=== PATIENT | female | born 1955 | race Caucasian/White ===

== ENCOUNTER → 2020-08-28 13:58 | Outpatient (CLI) | payer BC, SELFPAY ==
--- NOTE | 2020-08-28 14:05 | BD_ITS ---
STUDY: DUAL ENERGY X-RAY ABSORPTIOMETRY / DXA REASON FOR EXAM: Female, 65 years old. 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 COMPARISON: None. FINDINGS: Lumbar Spine (L1-L4): g/cm2 (0.994) / T-score (-1.7) / Z-score (-0.1) Findings are suggestive of osteopenia with a moderate fracture risk. Left Femur Total: g/cm2 (0.860) / T-score (-1.2) / Z-score (0.1) Left Femoral Neck: g/cm2 (0.811) / T-score (-1.6) / Z-score (-0.1) Right Femur Total: g/cm2 (0.849) / T-score (-1.3) / Z-score (0.0) Right Femoral Neck: g/cm2 (0.794) / T-score (-1.8) / Z-score (-0.2) BD/Dexa Bone Density Study IMPRESSION: The patient is considered osteopenic as outlined below according to World [employer] Organization (WHO) criteria with a moderate fracture risk. Reference Information: The T-score is the number of standard deviations above or below the standard which is normal for young adults at their peak bone mineral density. The World Health Organization (WHO) interprets the T-scores as follows: Above -1 Normal bone density Between -1 and -2.5 Osteopenia Equal to / or below -2.5 Osteoporosis As a practical clinical guideline, osteopenia may be graded as follows: Mild -1 through -1.5 Moderate -1.6 through -2.0 Severe -2.1 through -2.4 The Z-score is the number of standard deviations above or below age-matched controls. A Z-score of less than -1.5 would be considered abnormal. References: 1. NIH Osteoporosis and Related Bone Diseases www osteo.org 2. International Society for Clinical Densitometry www iscd.org 3. National Osteoporosis Foundation www nof.org Electronically Signed: Richard Morrell, at 9:26 EST , Service support ,
== END ==
PROVIDERS: PCP Internal Medicine; Referring Provider Obstetrics & Gynecology; Visit Provider Internal Medicine
DX: Z78.0 Asymptomatic menopausal state (principal)
CPT/HCPCS: 77080

== ENCOUNTER 2020-12-20 07:56 | Outpatient (RCR) | payer BC, SELFPAY | END 2020-12-20 23:59 | LOC: IMMUN 07:56 | PROVIDERS: PCP Internal Medicine; Visit Provider Family Medicine | DX: Z23 Encounter for immunization (principal) | CPT/HCPCS: 0011A; 0012A; 91301 ==

== ENCOUNTER → 2020-12-24 08:48 | Outpatient (CLI) | payer BC, SELFPAY ==
--- NOTE | 2020-12-24 10:46 | NEURO_ITS ---
NCS and/or EMG Patient Report Ordering Doctor: Venu Lu DATE OF SERVICE: 12/24/20 Indication: Intermittent bilateral hand/wrist/finger pain with activity. Some diminished power on account of pain. No clear sensory disturbance. No neck pain or radicular symptoms. Evaluate for peripheral nerve injury. Findings: Nerve conduction studies were performed in the right and left upper extremities. The right median motor study recording the abductor pollicis brevis showed a normal amplitude, normal distal latency and normal conduction velocity. The right ulnar motor study recording the abductor digiti minimi showed a normal amplitude, normal distal latency and normal conduction velocity. No conduction block or focal slowing was present across the elbow. Right median-ulnar lumbrical / interosseous motor latencies showed a normal median latency compared to the ulnar. The right median sensory response recording digit two showed a normal amplitude, latency and conduction velocity. The right ulnar sensory response recording digit five showed a normal amplitude, latency and conduction velocity. The right radial sensory response recording over the extensor snuff box showed a normal amplitude, latency and conduction velocity. The left median motor study recording the abductor pollicis brevis showed a norm al amplitude, normal distal latency and normal conduction velocity. The left ulnar motor study recording the abductor digiti minimi showed a normal amplitude, normal distal latency and normal conduction velocity. No conduction block or focal slowing was present across the elbow. Left median-ulnar lumbrical / interosseous motor latencies showed a normal median latency compared to the ulnar. The left median sensory response recording digit two showed a normal amplitude, latency and conduction velocity. The left ulnar sensory response recording digit five showed a normal amplitude, latency and conduction velocity. The left radial sensory response recording over the extensor snuff box showed a normal amplitude, latency and conduction velocity. Needle EMG of the right upper extremity and cervical paraspinal muscles was performed. No denervation was seen in any muscle. All motor unit morphology, activation and recruitment patterns were normal. Needle EMG of the left upper extremity was omitted given the low pre-test probability of abnormal findings (symptoms similar to the right upper extremity). Impression: This is a normal study. There is no electrophysiologic evidence of entrapment neuropathy in either upper extremity. In addition, there is no electrophysiologic evidence of cervical radiculopathy in the right upper extremity. Geovanni Queen D.O.
== END ==
PROVIDERS: PCP Internal Medicine; Referring Provider Orthopaedic Surgery; Visit Provider Orthopaedic Surgery
DX: R20.2 Paresthesia of skin (principal)
CPT/HCPCS: 95886; 95913

== ENCOUNTER 2021-05-24 09:00 | Outpatient (RCR) | payer MEDICARE, OTHER, SELFPAY ==
--- NOTE | 2021-04-19 07:46 | HP.OTEVAL ---
Patient's Visit Information LUCAS LINARES is a 65 year old F, referred to Occupational Therapy by Dr. Venu Lu DO, with a diagnosis of pain in R/L wrist. Date of Evaluation: 04/18/21 Occupational Therapist: Monica Bergman, OTR/L, CHT - Subjective This 65/F was seen for an OT evaluation today for R/L wrist pain. 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 Pt reported that her wrists began to flare up when she began working from home and needed to type on her computer for up to 3 hours a day. Pt has had a variety of different therapy session, doctor's visits, and has had a HEP program from a previous therapy team. Pt reports her pain has improved but she continues to have pain with grasp and with use of bilateral hands for ADLs and IADLS. - Pain R/L wrist 4 Pain Intensity Range: 4, 6 - Objective Pt tended to hyperextend her fingers when asked to extend them and stress her flexion when asked for a composite fist. Pt also was unable to touch her RF and LF with her thumb on her R hand due to pain/tension. - ROM Wrist: Right 60/70* left 50/60* ROM Comments: Pronation and supination for both R and L were WFL. Pt's flexion and extension were measured to the point of increased discomfort. - Strength Assistant Clinical Director: Right 30# left 40# Lateral Pinch: Right 12# left 12# Tripod Pinch: Right 8# left 10# Strength Comments: During the R tripod grasp, pt reported discomfort at her wrist. 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 with ALDs and IADLs by d/c Goal:: pt will demo full wrist ROM 70/70 with no report of pain by d.c to increase pts ind. with ADls and IADLS Goal:: Pt will self-report pain less than 2/10 during increased use by d/c. pt will self-report pain less than 2/10 during sleeping by d/c. Goal:: Pt will demonstrate understanding of joint protection and adaptive equipment to decrease joint stress while performing ADL tasks by d/c. Pt will demo understanding of sitting posture for work, driving etc. by d/c Goal:: pt will demo understanding on use of protective techniques, ad. eq., and ergonomic tools to decrease joint stress by d/c - Rehabilitation General Assessment: Pt referred to [facility] after multiple therapy and doctor's visits for R/L wrist pain. Pt is demo a decrease in functional strength and pain in bilateral hands with use. Pt would benefit from skilled OT services 1-2x week for 34 weeks to decrease pain to return to PLOF to perform ADLs, IADLs, and work tasks. Today therapist ed. pt on joint protection, decreasing exstream finger stress with her ROM exercises. Therapy will continue to ed. pt on ergonomics for work station, initiate a postural exercises and cont. with understanding pts use of bilateral hand that increase stress on hands/wrist- pt demo understanding and agree to POC. Rehabilitation Potential: Good - Anticipated Interventions A/AAROM/PROM, Triggerpoint Release, Joint Protection/Energy Conservation, Ergonomic Education, ADL Training - Visit Plan Frequency: 2-3x /Week Duration: 4 Weeks General Plan: Educating pt on joint protection, ADL training, and work place ergonomics to decrease pain. TEXT: Thank you for the opportunity to evaluate your patient. For Medicare and Medicare HMO plans, please review the plan of care and approve it. It will need to be FAXED BACK to us at [phone] for Medicare purposes. Please let me know if there are questions or concerns regarding this plan of care. Physician Signature: Date:
--- NOTE | 2021-11-05 10:11 | HP.OT.NRP ---
LUCAS LINAERS was seen in my office for initial evaluation on 04/18/21. The following Plan of Care was established for this patient: Initial Frequency: 2-3x /Week Initial Duration: 4 Weeks Plan: cont with US and ed. on ulnar nerve compression. posture exercise Anticipated Interventions: A/AAROM/PROM, Triggerpoint Release, Joint Protection/Energy Conservation, Ergonomic Education, ADL Training This patient was last seen in our office 05/24/21. Pertinent comments regarding their Occupational therapy will appear below: pt was seen for 8 OT visits- min. change in symptoms- rec'd return to drVeronica At this time due to grater than 30day lapse in services pt d/c At this point I will be discontinuing this patient from occupational therapy. I would be happy to see this patient again in the future if found appropriate by the physician. Thank you! Monica Bergman, OTR/L, CHT
== END 2021-05-24 19:00 | disposition home or self-care (01) ==
LOC: OT 09:00
PROVIDERS: PCP Internal Medicine; Referring Provider Orthopaedic Surgery; Visit Provider Orthopaedic Surgery
DX: M25.531 Pain in right wrist (principal); M25.532 Pain in left wrist
CPT/HCPCS: 97035; 97110; 97140; 97166

== ENCOUNTER 2021-07-29 09:00 | Outpatient (RCR) | payer MEDICARE, OTHER, SELFPAY ==
--- NOTE | 2021-07-19 12:01 | HP.PTEVAL_ITS ---
Patient's Visit Information LUCAS LINARES is a 66 year old F referred to Physical Therapy by Dr. Venu Lu DO with a diagnosis of R shoulder impingement. Date of Evaluation: 07/19/21 Physical Therapist: Gab Gomez, PT, ATC - Visit Plan Frequency: 2x /Week Duration: 1 Week Plan: Issue and instruct pt on HEP for rotator cuff strengthening and scap stab ex's. - Subjective Pt reports she has had R shoulder pain for over a year. Pt reports she was moving a book case that was loaded and she didn't remove the books. Pt notes she awoke the next morning with severe pain and has been painful since. Pt notes she has severe pain when she attempts to reach behind her, or out in front of her. Pt also notes she has pain with reaching over head and with getting dressed secondary to pain. Pt is R hand dominant. Pt reports occasional tingling and numbness in R UE around the elbow region, but not very often. Pt reports she had an x-ray of the R shoulder which revealed she has impingement in her shoulder. 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 Pt reports she has sleep difficulty at this time secondary to pain. 3/10 pain at rest, 9/10 pain at worst (when I reach for something) - Pain R shoulder Pain Intensity (Out of 10): 3 Pain Intensity Range: 9 - Objective Neuro: B UE sensation is WNL to light touch. B bicepital reflex= 2/3. Pa lpation: No point tenderness this date. No obvious deformity present. ROM: L shoulder flex= 160, abd= 160, ER= 65, IR WNL; R shoulder flex= 150, abd= 150, ER= 65, IR WNL. MMT: R shoulder ER 4/5, IR 4+/5. All other UE MMT 5/5 throughout. Special test: Pos HK - Balance/Special Test Scores Quick DASH Score: 40.9075 - Goals Goal 1:: I with HEP after 2-3 Goal Time Frame: 2-4 Weeks - Rehabilitation Potential Physical Therapy Diagnosis: Pt has R shoulder pain, weakness, and limited ROM secondary to R shoulder impingement syndrome Rehabilitation Potential: Good - Anticipated Interventions Patient/Client Instruction: Educate patient on: Condition, Plan of Care For the Purpose of:: To improve self management Therapeutic Exercise to Include: Strength training, Endurance training, Active ROM, Scapular Strength/Stabilization For the Purpose of:: To decrease pain, To improve muscle performance and motor function Cryotherapy (ice pack, ice massage): Yes For the Purpose of:: To decrease pain Thank you for the opportunity to evaluate your patient. For Medicare and Medicare HMO plans, please review the plan of care and approve it. It will need to be FAXED BACK to us at [phone] for Medicare purposes. For Medicare only, by signing this I certify the plan of care. Please let me know if there are questions or concerns regarding this plan of care. Physician Signature: Date:
--- NOTE | 2021-11-11 10:35 | HP.PT.NRP ---
LUCAS LINARES was seen in my office for initial evaluation on 07/19/21. The following Plan of Care was established for this patient: Initial Frequency: 2x /Week Initial Duration: 1 Week Patient/Client Instruction: Educate patient on: Condition, Plan of Care For the Purpose of:: To improve self management Therapeutic Exercise to Include: Strength training, Endurance training, Active ROM, Scapular Strength/Stabilization For the Purpose of:: To decrease pain, To improve muscle performance and motor function Cryotherapy (ice pack, ice massage): Yes For the Purpose of:: To decrease pain This patient was last seen in our office . Pertinent comments regarding their Physical therapy will appear below: Pt was treated for 3 PT visits for R shoulder pain through the date of 07/29/21. Pt has not returned today and is therefore discontinued at this time. At this point I will be discontinuing this patient from physical therapy. I would be happy to see this patient again in the future if found appropriate by the physician. Thank you! Gab Gomez, PT, ATC Balance/Gait/Functional tests - Balance/Special Test Scores Quick DASH Score: 40.9028
== END 2021-07-29 19:00 | disposition home or self-care (01) ==
LOC: PT 09:00
PROVIDERS: PCP Internal Medicine; Visit Provider Orthopaedic Surgery
DX: S46.011D Strain of muscle(s) and tendon(s) of the rotator cuff of right shoulder, subsequent encounter (principal); X58.XXXD Exposure to other specified factors, subsequent encounter; M75.21 Bicipital tendinitis, right shoulder
CPT/HCPCS: 97110; 97161

== ENCOUNTER → 2024-03-09 | Outpatient (CLI) | payer MEDICARE, OTHER, SELFPAY | END | disposition home or self-care (01) | PROVIDERS: PCP Internal Medicine; Visit Provider Nurse Practitioner Family | DX: Z12.4 Encounter for screening for malignant neoplasm of cervix (principal) | CPT/HCPCS: 88175; G0145 ==

== ENCOUNTER → 2024-03-17 | Outpatient (CLI) | payer MEDICARE, OTHER, SELFPAY ==
--- NOTE | 2024-03-17 09:45 | BI_ITS ---
MAMMOGRAPHY - BILATERAL SCREENING REASON FOR EXAM: Female, 68 years old. Routine annual screening examination. PERTINENT HISTORY: Non-contributory. TECHNIQUE: Digital bilateral breast delta (3D mammographic acquisition) in the CC and MLO projections. 2-D mediolateral oblique (MLO) and craniocaudad (CC) views of both breasts were obtained. CAD: Full Field Digital Mammography with Computer Added Detection was performed. COMPARISON: Comparison is made with prior study dated July 09, 2017. FINDINGS: Breast Composition: The breasts are almost entirely fatty. There are no dominant masses or suspicious calcifications. Stable benign-appearing bilateral axillary lymph nodes. No other significant abnormalities are identified. There has been no significant change since the prior study. BI/SCRN MAMM (CAD)W/DELTA BILAT IMPRESSION: Stable bilateral screening mammogram. Yearly follow-up mammogram recommended. (A) ASSESSMENT CATEGORY: BIRADS Category 2: Benign. A letter regarding these results will be sent to the patient by the facility within 30 days. Approximately 10% of breast cancers are not detected by mammography. A normal mammogram should not delay biopsy of a clinically suspicious abnormality. [id number] Electronically Signed: Richard Morrell MD at 8:59 EDT ,
== END | disposition home or self-care (01) ==
LOC: OPBI 09:45
PROVIDERS: PCP Internal Medicine; Referring Provider Nurse Practitioner Family; Visit Provider Nurse Practitioner Family
DX: Z12.31 Encounter for screening mammogram for malignant neoplasm of breast (principal)
CPT/HCPCS: 77063; 77067

== ENCOUNTER → 2024-06-25 | Outpatient (CLI) | payer MEDICARE, OTHER, SELFPAY ==
--- NOTE | 2024-06-25 07:57 | MRI_ITS ---
STUDY: MRI RIGHT FOREFOOT WITHOUT CONTRAST REASON FOR EXAM: Female, 69 years old. 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 COMPARISON: None. FINDINGS: There is degenerative arthrosis of the metatarsophalangeal joint of the hallux. Normal tibial and fibular sesamoids, with normal sesamoids-first metatarsal articulations. There is joint space narrowing, effusion, and spurring of the interphalangeal joint of the hallux. Normal proximal and distal phalanges of the great toe. Normal medial and lateral heads of the flexor hallucis brevis tendons. Normal flexor and extensor hallucis longus tendons. Normal second, third, and fifth metatarsophalangeal (MTP) joints. Normal interphalangeal joints of the second through fifth toes. Normal proximal, middle and distal phalanges of the second, third, and fifth toes. Normal first through fourth intermetatarsal spaces. Normal flexor and extensor tendons of the second through fifth toes. There is marrow edema of the fourth metatarsal and proximal phalanx. There is cortical indistinctness suggesting erosion on the plantar aspect of the distal fourth metatarsal. There is joint effusion with synovial thickening at the fourth MTP joint. Normal intrinsic muscles of the forefoot. There is no demonstrated soft tissue abnormality. MRI/Lower Ext/No Jt/w/o IMPRESSION: Edema of the fourth metatarsal and proximal phalanx with effusion at the MTP joint and erosion of the fourth metatarsal compatible with inflammatory arthropathy versus septic arthropathy versus mass such as metastasis. Consider x-ray and/or CT for further imaging evaluation. Arthritic change at the first MTP joint and IP joint. Electronically Signed: Kvng Garduno MD at 9:40 EDT ,
== END | disposition home or self-care (01) ==
LOC: MRI 07:54
PROVIDERS: PCP Internal Medicine; Referring Provider Podiatrist; Visit Provider Podiatrist
DX: M84.374A Stress fracture, right foot, initial encounter for fracture (principal); M06.871 Other specified rheumatoid arthritis, right ankle and foot; M77.41 Metatarsalgia, right foot
CPT/HCPCS: 73718

== ENCOUNTER → 2024-07-13 | Outpatient (CLI) | payer MEDICARE, OTHER, SELFPAY ==
--- NOTE | 2024-07-13 16:53 | CT_ITS ---
STUDY: CT RIGHT FOOT REASON FOR EXAM: Female, 69 years old. 4TH METATARS JT ARTH, RHEUMATOID ARTH RT FOOT RADIATION DOSAGE (If Supplied By Facility): CTDIvol = ( 15.35 ) mGy, DLP = ( 411.33 ) mGycm TECHNIQUE: Thin section transaxial imaging of the right foot was obtained, with sagittal and coronal reconstructed images. Individualized dose optimization techniques were used for this CT. COMPARISON: Right foot MRI dated 06/25/2024. FINDINGS: Intact distal tibia and fibula. 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 Intact talus, calcaneus, and tarsal bones. Normal visualized tibiotalar, subtalar, talonavicular, calcaneocuboid, tarsal and tarsometatarsal articulations. There are small cysts/erosions at the base of the fourth proximal phalanx as well as inferior aspect of the fourth metatarsal head (axial series 3 image 74). Normal metatarsophalangeal joint of the great toe. Normal tibial and fibular sesamoid bones. Normal interphalangeal joint of the great toe. Normal phalanges of the great toe. Normal second through fifth metatarsophalangeal joints. Normal interphalangeal joints and phalanges of the lesser toes. The soft tissue structures are unremarkable. There is no demonstrated fracture. CT/Extremity Lower without Contra IMPRESSION: Small cysts/erosions at the base of the fourth proximal phalanx as well as inferior aspect of the fourth metatarsal head. Minimal tibiotalar arthrosis. Electronically Signed: Raj Larkin MD at 15:12 EDT ,
== END | disposition home or self-care (01) ==
LOC: CT 16:48
PROVIDERS: PCP Internal Medicine; Referring Provider Podiatrist; Visit Provider Podiatrist
DX: M19.071 Primary osteoarthritis, right ankle and foot (principal); M06.871 Other specified rheumatoid arthritis, right ankle and foot
CPT/HCPCS: 73700

== ENCOUNTER 2025-08-11 14:05 | Emergency (ER) | payer MEDICARE, OTHER, SELFPAY ==
[2025-08-11 14:05] VITALS: BP 116/68; PULSE 86; RESP 18; TEMP 36.9; O2SAT 95; BMI 24.1
--- NOTE | 2025-08-11 14:11 | EKG12_ITS ---
Test Reason : CP Blood Pressure : */* mmHG Vent. Rate : 83 BPM Atrial Rate : 83 BPM P-R Int : 128 ms QRS Dur : 80 ms QT Int : 384 ms P-R-T Axes : 51 50 43 degrees QTcB Int : 451 ms Normal sinus rhythm Nonspecific ST abnormality Abnormal ECG Confirmed by GT HUFF, WU ([id number]), senior technical editor PERCY GREEN ([id number]) on 08/14/2025 9:19:31 AM Referred By: MANOLO/LUKE Confirmed By: WU DEL REAL MD
[2025-08-11 14:33] LABS: Hematocrit 38.9 % (37-47); Hemoglobin 12.9 g/dL (12.0-15.0); Immature Granulocytes Count 0.010 X10^3/uL (0.0-0.0); Mean Corp Hgb Conc 33.2 g/dL (32-36); Mean Corpuscular Volume 88.6 fL (81-99); Mean Platelet Vol. 9.0 fl (6.2-12.0); NRBC Flagged by Analyzer 0 % (0-5); Platelet Count 281 K/mm3 (150-450); RBC Distribution Width CV 13.1 % (11.6-14.6); RBC Distribution Width SD 42.0 fl (35.1-43.9); Red Blood Count 4.39 M/mm3 (4.2-5.4); White Blood Count 5.9 K/mm3 (4.4-11.0)
--- NOTE | 2025-08-11 14:35 | RAD_ITS ---
PROCEDURE: CHEST PA AND LATERAL 08/11/2025 REASON FOR EXAM: CHEST PAIN TECHNIQUE: Procedure Code: RADCXR Modality: DX Procedure: CHEST PA AND LATERAL COMPARISON: None FINDINGS: Hardware: None Heart: The heart size is normal. Mediastinum: The mediastinal contour is unremarkable. Lungs: Hyperinflation. The lungs are clear. Bones: Degenerative changes are identified within the thoracic spine. RAD/Chest PA and Lateral IMPRESSION: NO ACUTE FINDINGS. Reading Location: [place] [id number]
[2025-08-11 15:03] LABS: Anion Gap 10 (5-15); BUN 16 mg/dL (4-19); BUN/Creat Ratio 19.1 RATIO (10-20); Calcium,Total 9.9 mg/dL (7.6-11.0); Carbon Dioxide 27.2 mmol/L (21.0-32.0); Chloride 104 mmol/L (98-108); Estimated Creatinine Clearance 56.62 ml/min (50-250); Glucose 112 mg/dL (70-99); Potassium 4.0 mmol/L (3.3-5.1); Troponin T High Sensitivity 13 ng/L (<=14)
[2025-08-11 15:05] VITALS: BP 104/65; PULSE 79; RESP 15; O2SAT 93
[2025-08-11 16:00] VITALS: BP 107/68; PULSE 74; O2SAT 98
--- NOTE | 2025-08-11 16:42 | EDS_ITS ---
HPI History of Present Illness Chief Complaint: Chest Pain Detail of Chief Complaint: Left-sided chest pain that started last evening before going to bed Onset/Context/Timing Onset: Today and Yesterday Activity at onset: sudden and rest (Yesterday and today) Timing: Continuous (Last night), Intermittent (Intermittent today) and Lasts (Brief today) Quality: Positive for - (A swishing sensation) Location: Left Chest Current Severity: Gone Maximum Severity: Moderate Worsened By: Nothing and - (Possibly deep breathing last night) Relieved By: Nothing Associated Symptoms: Negative for Nausea, Vomiting, Diaphoresis, Dyspnea, Cough, Fever, Lightheadedness, Acid Reflux or Palpitations Narrative Narrative: Patient is a 70-year-old woman. She has a past history of osteopenia and rheumatoid arthritis. She has no history of coronary artery disease or any risk factors for coronary artery disease. She presents because of a discomfort that started last evening when she lied in bed. It was not severe enough to prevent her from falling asleep. When she awoke this morning she did not have chest discomfort. She has had pain since this morning. The episode occurred at rest. There may be slightly worse with deep breathing. Presently she has no pain. There is no radiation, nausea, diaphoresis or dyspnea. She denies any black or maroon-colored stool. She denies indigestion or heartburn. She denies intolerance to greasy or fried foods. There is no history of GERD. Prior Similar Symptoms: No Recent Illness/Hospitalization: No CVD Risk Factors: Negative for Hypertension, Diabetes, Hypercholesterolemia, Family History 1' </=55 or Smoking PE Risk Factors: Negative for Recent Travel/Surgery, Recent Immobilization, Prior DVT or PE, Cancer or OCP + Smoking + >/=35 TAD Risk Factors: Negative for Marfan's Syndrome, Hypertension or Family History PFSH PFSH Home Medications ?Medication ?Instructions ?Recorded ?Last Taken ?Type NK 03/09/24 Unknown History Allergy/AdvReac Type Severity Reaction Status Date / Time No Known Allergies Allergy Verified 08/11/25 14:07 Family History Mother Hypertension Surgical History History of Social History adopted: No household members: spouse and children current occupational status: retired current occupational exposures/hazards: No pets and animals: No history of recent travel: No sexually active: Yes Smoking Status: Never smoker alcohol intake: current details: Socially substance use type: does not use caffeine: Yes pamela/sabianism: Muslim seatbelt use: always do you feel safe at home: Yes additional social history: - Mohit, Kids - Lei, Monica ROS ROS ED Constitutional Constitutional ED: Denies chills, fever(s), subjective, sweats or weight loss Eyes Eyes: Reports none ENT ENT ED: Denies rhinorrhea or sore throat Cardiovascular Cardiovascular: Reports as per HPI; Denies orthopnea or paroxysmal nocturnal dyspnea Respiratory/Chest Respiratory/Chest: Denies cough, dyspnea, dyspnea on exertion, orthopnea or paroxysmal nocturnal dyspnea Gastrointestinal Gastrointestinal: Denies abdominal pain, nausea or vomiting Musculoskeletal Musculoskeletal: Denies arthralgias, back pain or myalgias Integumentary Denies rash Hematologic/Lymphatic Hematologic/Lymphatic: Denies easy bleeding or easy bruising EXAM Physical Exam Const Vital Signs: 08/11/25 14:05 08/11/25 14:52 08/11/25 14:54 Temperature 98.4 F Temperature Source Oral Pulse Rate 86 Respiratory Rate 18 Respiratory Effort Normal Non-Labored Blood Pressure 116/68 Blood Pressure Mean 84 Pulse Ox 95 Oxygen Delivery Method Room Air Room Air Oxygen Flow Rate (L/min) 96 08/11/25 15:05 08/11/25 16:00 08/11/25 17:00 Temperature Temperature Source Pulse Rate 79 74 75 Respiratory Rate 15 Respiratory Effort Blood Pressure 104/65 107/68 109/60 Blood Pressure Mean 78 81 76 Pulse Ox 93 98 96 Oxygen Delivery Method Room Air Room Air Room Air Oxygen Flow Rate (L/min) Positive well nourished and well developed General Appearance ED: well developed and NAD HEENT Reports moist mucous membranes normocephalic and atraumatic Eyes PERRL and EOMs intact bilaterally Neck no lymphadenopathy, supple and no JVD General: tenderness Chest Wall inspection of chest normal and palpation of chest normal Resp normal respiratory effort and clear to auscultation bilaterally Cardio regular rate, regular rhythm, S1 normal heart sound and S2 normal heart sound GI normal to inspection, nondistended, normoactive bowel sounds, soft to palpation, non-tender, non-distended and no masses; Negative for hepatosplenomegaly Back/Spine no CVA tenderness and no thoracic nor lumbar tenderness Extremity normal to inspection General Extremety ED: Negative for edema or pulses abnormal General Extremity: Negative for edema or pulses abnormal Neuro oriented x3, CN's II-XII intact bilaterally and no sensory deficits noted Sensorium / Orientation: awake and alert Motor Exam: strength 5/5 throughout Psych mental status grossly normal Skin no rashes or lesions noted and no wounds MDM MDM MDM Narrative Medical decision making narrative: Patient with atypical chest pain. ED etiology/differential would be cardiac versus noncardiac noncardiac would be pain of unknown etiology, reflux, pneumonia, doubt pulmonary embolus since her Wells score is less than 3, pneumothorax is not a consideration either. Her history is not consistent with aortic dissection either. Lab Data Attestation: I reviewed the patient's lab results. Lab results narrative: CBC is unremarkable. Electrolyte panel is unremarkable. Glucose is 112. First troponin is normal second troponin 6 with a delta of -7. Patient was informed of her results. Plan is to discharge Labs: Laboratory Results - last 24 hr 08/11/25 08/11/25 14:20 16:14 WBC 5.9 RBC 4.39 Hgb 12.9 Hct 38.9 MCV 88.6 MCH 29.4 MCHC 33.2 RDW Std Deviation 42.0 RDW Coeff of Jud 13.1 Plt Count 281 MPV 9.0 Immature Gran % (Auto) 0.200 Neut % (Auto) 69.8 Lymph % (Auto) 15.7 L [place] % (Auto) 8.6 Eos % (Auto) 4.9 Baso % (Auto) 0.8 Absolute Neuts (auto) 4.1 Absolute Lymphs (auto) 0.93 Nucleated RBC % 0 Sodium 142 Potassium 4.0 Chloride 104 Carbon Dioxide 27.2 Anion Gap 10 BUN 16 Creatinine 0.82 Estim Creat Clear Calc 56.62 Est GFR (MDRD) Non-Af 76 BUN/Creatinine Ratio 19.1 Glucose 112 H Calcium 9.9 Troponin T High Sens 13 Troponin T Hi Sens 2 Hr 6 Radiography Chest X-Ray - ED: 1 View and Read by ED Physician (Cardiac silhouette size normal. Lung parenchyma normal. Hilum normal. Osseous structures reveal no acute process) Diagnostic Testing: Clinical Impression(s) from Imaging Studies Chest X-Ray 10/17/25 14:35 IMPRESSION: NO ACUTE FINDINGS. Reading Location: [facility] Differential Diagnosis Chest pain/SOB: pulmonary embolism Reason(s) PE less likely: Positive for Well's <3, not tachycardic and not hypoxic, ACS ACS: Positive for no evidence of ACS based on cardiac biomarkers, EKG without ischemia and history not suggestive of ischemia pain, pneumothorax Reason(s) pneumothorax less likely: Positive for bi lateral breath sounds and [employer] withhout PTX, pneumonia Reason(s) pneumonia less likely: Positive for no infiltrate on CXR, no elevation in WBC count, no noted fever and symptoms not consistent with acute infection and aortic dissection Reason(s) Aortic dissection less likely:: Positive for normal vascular exam, no history of HTN, normal neurological exam, no significant risk factors for dissection, no widened mediastinum on CXR, pain not sudden onset, no ripping/tearing pain, no pain to back and blood pressure appropriate in ED Treatment and Re-Evaluation :: Patient and were informed of results. Plan to discharge to home. Discharge Plan Triage Chief Complaint: Chest Pain ED Provider: Jaciel Mitchell Dx/Rx/DC Orders Clinical Impression: Left-sided chest pain, Hx of rheumatoid arthritis, Osteopenia after menopause Instructions: ED Chest Pain, Noncardiac, ED Chest Pain, Uncertain Cause Prescriptions: No Action NK Primary Care Provider: Ruma Albert Referrals: Ruma Albert MD [Primary Care Provider, Internal Medicine] - As Needed Print Language: [place]i Disposition Disposition: Home, Self Care
[2025-08-11 17:00] VITALS: BP 109/60; PULSE 75; O2SAT 96
--- OUTSIDE RECORDS SUMMARY | 2025-08-11 17:17 | XMS RPT_ITS | CCD ---
Author Organization [facility] Care Team Providers Care Catheterization Laboratory Technician Name Role Phone Francie Carias MD Unavailable [phone] [place] Javed RN, Mona Vera Unavailable Unavailabl e Felgar, Sakshi C Unavailable Unavailable Felgar, Sakshi C Unavailable Unavailable Felgar, Sakshi C Unavailable Unavailable [place] Javed RN, Mona Jody Unavailable Unavailabl e Felgar, Sakshi C Unavailable Unavailable [place] FEDERAL JAVA DEVELOPER, Ana Paula Garcia Unavailable Chandana Beck MD Primary Care Provider Chandana Beck MD Primary Care Provider Chandana Beck MD Primary Care Provider ROB RUIZ Attending Unavailable Chandana Beck MD Primary Care Provider Cristino Bocanegra Attending Unavailable Cristino Bocanegra Referring Unavailable Talampas, Chandana D Primary Care Unavailable Cristino Bocanegra Referring Unavailable Talampas, Chandana D Primary Care Unavailable Cristino Bocanegra Attending Unavailable Talampas, Chandana D Primary Care Unavailable Krissy Odonnell Attending Unavailable Talampas, Chandana D Primary Care Unavailable Talampas, Chandana D Referring Unavailable Krissy Odonnell Attending Unavailable Talampas, Chandana D Primary Care Unavailable Krissy Odonnell Attending Unavailable Krissy Odonnell Referring Unavailable [place] MANAGER FIBER.MOLD PULLER, Lyn Unavailable Sharon MANAGER FIBER.FURNACE LINER, Eli Unavailable Sharon MANAGER FIBER.FURNACE LINER, Eli Unavailable Sharon MANAGER FIBER.FURNACE LINER, Eli Unavailable Sharon MANAGER FIBER.FURNACE LINER, Eli Unavailable Sewell MANAGER FIBER.MOLD PULLER, Lyn Unavailable [place] MANAGER FIBER.MOLD PULLER, Lyn Unavailable TALAMPAS, CHANDANA D Primary Care Unavailable MCCURDY, SHAILEY Referring Unavailable TALAMPAS, CHANDANA D Primary Care Unavailable MCCURDY, SHAILEY Attending Unavailable TALAMPAS, CHANDANA D Primary Care Unavailable TALAMPAS, CHANDANA D Primary Care Unavailable MCCURDY, SHAILEY Referring Unavailable TALAMPAS, CHANDANA D Primary Care Unavailable MCCURDY, SHAILEY Referring Unavailable TALAMPAS, CHANDANA D Primary Care Unavailable MCCURDY, SHAILEY Attending Unavailable POONAM APODACA Referring Unavailable AMRIT GERMAIN Attending Unavailable TALAMPAS, CHANDANA D Primary Care Unavailable MCCURDY, SHAILEY Referring Unavailable TALAMPAS, CHANDANA D Primary Care Unavailable TALAMPAS, CHANDANA D Primary Care Unavailable TALAMPAS, CHANDANA D Attending Unavailable TALAMPAS, CHANDANA D Primary Care Unavailable TALAMPAS, CHANDANA D Referring Unavailable TALAMPAS, CHANDANA D Primary Care Unavailable TALAMPAS, CHANDANA D Referring Unavailable MCCURDY, SHAILEY Attending Unavailable TALAMPAS, CHANDANA D Primary Care Unavailable MCCURDY, SHAILEY Referring Unavailable TALAMPAS, CHANDANA D Primary Care Unavailable TALAMPAS, CHANDANA D Referring Unavailable TALAMPAS, CHANDANA D Primary Care Unavailable MCCURDY, SHAILEY Referring Unavailable TALAMPAS, CHANDANA D Primary Care Unavailable Allergies Allergy Classification Reported Allergen(s) Allergy Type Date of Onset Reaction(s) Facility (20 sources) Cat; Translations: [CATS] Propensity to adverse reactions 08-07-2009 Itching [facility] (20 sources) Dog; Translations: [DOGS] Propensity to adverse reactions 08-07-2009 Hives [facility] (20 sources) Seasonal allergy; Translations: [SEASONAL ALLERGIES] Propensity to adverse reactions 08-07-2009 [facility] Medications Current Medications Medication Drug Class(es) Dates Sig (Normalized) Sig (Original) Calcium Carbonate / vitamin D3 (20 sources) calcium carbonate/vitamin D3 (CALCIUM 600 + D,3, ORAL) Take by mouth. Active calcium carbonat e/vitamin D3 (CALCIUM 600 + D,3, ORAL) Take by mouth. 0 Active Comment on above: Take by mouth. folic acid 1 mg oral tablet (10 sources) Start: 2024 take 1 tablet by mouth once daily folic acid 1 mg tablet Take 1 tablet by mouth once daily. 30 tablet 11 05/09/2025 Active hydroxychloroquine sulfate 200 mg oral tablet (20 sources) Antimalarial, Antirheumatic Agent Start: 2023 End: 2024 take 1.5 tablets by mouth once daily hydrOXYchloroQUINE (PLAQUENIL) 200 mg tablet Take 1.5 tablets by mouth once daily. 135 tablet 1 04/10/2025 Active Start: 06-03-2023 End: 09-03-2023 take 1.5 tablets by mouth once daily hydrOXYchloroQUINE (PLAQUENIL) 200 mg tablet Take 1.5 tablets by mouth once daily. 135 tablet 1 06/03/2023 08/03/2023 Discontinued Start: 09-01-2022 End: 06-03-2023 hydrOXYchloroQUINE (PLAQUENI L) 200 mg tablet TAKE 1 AND 1/2 TABLETS BY MOUTH ONCE DAILY 135 tablet 1 09/01/2022 03/02/2023 Discontinued Start: 01-24-2022 End: 09-01-2022 take 1.5 tablets by mouth once daily hydrOXYchloroQUINE (PLAQUENIL) 200 mg tablet Take 1.5 tablets by mouth once daily. 135 tablet 1 01/24/2022 09/01/2022 Discontinued Start: 01-15-2022 End: 01-24-2022 hydrOXYchloroQUINE (PLAQUENI L) 200 mg tablet TAKE 1 AND 1/2 TABLETS BY MOUTH ONCE DAILY 45 tablet 0 01/15/2022 01/24/2022 Discontinued Start: 10-11-2021 End: 01-15-2022 take 1.5 tablets by mouth once daily hydrOXYchloroQUINE (PLAQUENIL) 200 mg tablet Take 1.5 tablets by mouth once daily. 45 tablet 2 10/11/2021 01/15/2022 Discontinued Comment on above: Take 1.5 tablets by mouth once daily. TAKE 1 AND 1/2 TABLE TS BY MOUTH ONCE DAILY methotrexate 2.5 mg oral tablet (11 sources) Folate Analog Metabolic Inhibitor Start: 06-05-2025 End: 06-30-2025 methotrexate 2.5 mg tablet Take 15mg (6 tabs) once weekly. 24 tablet 06/30/2025 Active Start: 05-09-2025 End: 06-05-2025 methotrexate 2.5 mg tablet T wyatt 10mg (4 tabs) once weekly x1 dose, then 12.5mg (5 tabs) once weekly x1 dose, then 15mg (6 tabs) once weekly thereafter. 24 tablet 05/09/2025 06/05/2025 Discontinued MULTI-VITAMIN ORAL (20 sources) MULTI-VITAMIN OR AL Take by mouth. Active MULTI-VITAMIN OR AL Take by mouth. 0 Active Comment on above: Take by mouth. predniSONE 10 mg oral tablet (20 sources) Start: 03-16-2025 End: 04-11-2025 predniSONE (DELTASONE) 10 mg tablet Take 30mg(3 tabs)/day x1 week, then 20mg (2 tabs)/day x1 week, then 10mg (1 tab)/day x1 week, then stop 42 tablet 04/11/2025 Active Start: 02-08-2025 predniSONE (DE LTASONE) 10 mg tablet Take 30mg(3 tabs)/day x1 week, then 20mg (2 tabs)/day x1 week, then 10mg (1 tab)/day x1 week, then stop 42 tablet 02/08/2025 Active Start: 10-14-2022 End: 02-13-2023 predniSONE (DELTASONE) 10 mg tablet Take 30mg(3 tabs)/day x1 week, then 20mg (2 tabs)/day x1 week, then 10mg (1 tab)/day x1 week, then stop 42 tablet 0 10/14/2022 02/13/2023 Discontinued Start: 10-06-2022 End: 10-11-2022 take 1 tablet by mouth once daily predniSONE (DELTASONE) 20 mg tablet Take 1 tablet by mouth once daily for 5 days. 5 tablet 0 10/06/2022 10/11/2022 Active Start: 10-11-2021 End: 01-24-2022 predniSONE (DELTASONE) 10 mg tablet Take 30mg(3 tabs)/day x1 week, then 20mg (2 tabs)/day x1 week, then 10mg (1 tab)/day x1 week, then stop 42 tablet 10/11/2021 01/24/2022 Discontinued Comment on above: Take 30mg(3 tabs)/da y x1 week, then 20mg (2 tabs)/day x1 week, then 10mg (1 tab)/day x1 week, then stop Take 1 tablet by elias once daily for 5 days. sulfaSALAzine 500 mg oral tablet (20 sources) Aminosalicylate Start: 025 take 3 tablets by mouth every twelve hours sulfaSALAzine (AZULFIDINE) 500 mg tablet Take 3 tablets by mouth every 12 hours. 540 tablet 02/08/2025 Active Start: 12-07-2024 End: 02-08-2025 take 2 tablets by mouth every twelve hours sulfaSALAzine (AZULFIDINE) 500 mg tablet Take 2 tablets by mouth every 12 hours. 360 tablet 12/07/2024 02/08/2025 Discontinued Start: 12-21-2023 End: 12-07-2024 take 2 tablets by mouth every twelve hours sulfaSALAzine (AZULFIDINE) 500 mg tablet TAKE TWO TABLETS BY MOUTH TWICE A DAY 120 tablet 11/09/2024 12/07/2024 Discontinued Start: 12-15-2022 End: 09-03-2023 take 2 tablets by mouth twice daily sulfaSALAzine (AZULFIDINE) 500 mg tablet TAKE 2 TABLETS BY MOUTH TWICE A DAY 360 tablet 05/13/2023 08/03/2023 Discontinued Start: 10-14-2022 sulfaSALAzine (AZULFIDINE) 500 mg tablet 500mg once/day x1 week, then 500mg twice/day x1 wk, then 500mg every morning & 1000mg every evening x1wk, then 1000mg twice daily thereafter 120 tablet 0 10/14/2022 Active Comment on above: 500mg once/day x1 we ek, then 500mg twice/day x1 wk, then 500mg every morning & 1000mg every evening x1wk, then 1000mg twice daily thereafter 2 TABLETS TWICE ANDRE Y TAKE 2 TABLETS BY MO UT TWICE A DAY Completed/Discontinued Medications Medication Drug Class(es) Dates Sig (Normalized) Sig (Original) biotin 1 mg chewable tablet (11 sources) Start: 07-06-2017 BIOTIN 1000 MCG CHEW BIOTIN [id number] Francie Carias MD calcium (11 sources) Phosphate Binder, Calcium Start: 07-06-2017 CALCIUM + D 500-1000-40 MG-UNT-MCG CHEW CALCIUM-VITAMIN D-VITAMIN K [id number] Francie Carias MD Start: 07-06-2017 CALCIUM + D 50 0-1000-40 MG-UNT-MCG CHEW CALCIUM-VITAMIN D-VITAMIN K [id number] Francie Carias MD Start: 07-06-2017 CALCIUM + D 50 0-1000-40 MG-UNT-MCG CHEW CALCIUM-VITAMIN D-VITAMIN K [id number] Francie Carias MD calcium chloride 0.0014 meq/ml / potassium chloride 0.004 meq/ml / sodium chloride 0.103 meq/ml / sodium lactate 0.028 meq/ml injectable solution (1 source) Start: 01-13-2025 End: 01-13-2025 take 30 mL intravenously every hour 30 mL/hr, INTRAVENOUS, CONTINUOUS, Starting on Thu01/13/25 at 0830, Until Thu01/13/25 at 0931, Preprocedure ciprofloxacin 500 mg oral tablet (5 sources) Quinolone Antimicrobial Start: 09-02-2017 End: 09-05-2017 take 1 tablet by mouth twice daily CIPROFLOXACIN HCL 500 MG TABS One tablet by mouth twice daily CIPROFLOXACIN HCL [id number] Ana Paula Guerrero FEDERAL JAVA DEVELOPER 1 ml dexamethasone phosphate 4 mg/ml injection (20 sources) Corticosteroid Start: 07-31-2023 End: 09-13-2024 dexAMETHasone sodium phosphate (DECADRON) 4 mg/mL injection Indications: Bursitis of intermetatarsal bursa of right foot , Capsulitis of foot, right 4 mg as needed (for iontophoresis therapy). Please dispense 3 cc syringe and blunt tip needle to draw up medication for physical therapy iotonphoresis tx. 30 mL 1 07/31/2023 09/13/2024 Discontinued (Other) Comment on above: 4 mg as needed (for iontophoresis therapy). Please dispense 3 cc syringe and blunt tip needle to draw up medication for physical therapy iotonphoresis tx. diphenhydrAMINE (1 source) Histamine-1 Receptor Antagonist Start: 01-13-2025 End: 01-13-2025 12.5-50 mg, INTRAVENOUS, DIRECTED, Starting on Thu01/13/25 at 0930, Until Thu01/13/25 at 1329, DOSING DIRECTED BY PHYSICIAN FOR PROCEDURAL SEDATION ONLY, Intraprocedure 1 ml fentaNYL 0.05 mg/ml injection (1 source) Opioid Agonist Start: 01-13-2025 End: 01-13-2025 25-100 mcg, INTRAVENOUS, DIRECTED, Starting on Thu01/13/25 at 0930, Until Thu01/13/25 at 1329, DOSING DIRECTED BY PHYSICIAN FOR PROCEDURAL SEDATION ONLY, Intraprocedure gabapentin 100 mg oral capsule (9 sources) Anti-epileptic Agent Start: 09-24-2022 End: 02-13-2023 take 1 capsule by mouth three times daily gabapentin (NEURONTIN) 100 mg capsule Take 100 mg by mouth three times daily. 0 09/24/2022 02/13/2023 Discontinued Comment on above: Take 100 mg by mouth three times daily. 5 ml midazolam 1 mg/ml injection (1 source) Benzodiazepine Start: 01-13-2025 End: 01-13-2025 1-5 mg, INTRAVENOUS, DIRECTED, Starting on Thu01/13/25 at 0930, Until Thu01/13/25 at 1329, DOSING DIRECTED BY PHYSICIAN FOR PROCEDURAL SEDATION ONLY, Intraprocedure polyethylene glycol 3350 870239 mg / potassium chloride 2980 mg / sodium bicarbonate 6720 mg / sodium chloride 5840 mg / sodium sulfate 05699 mg powder for oral solution (1 source) Osmotic Laxative Start: 12-07-2024 End: 12-07-2024 peg 3350-electrolytes (GAVILYTE-C) 240-22.72-6.72 -5.84 gram solution Indications: Special screening for malignant neoplasms, colon Take 4,000 mL by mouth one time only for 1 dose. 4000 mL 12/07/2024 12/07/2024 Problems Active Problems Problem Classification Problem Date Documented Date Episodic/Chronic Conditions associated with dizziness or vertigo (1 source) Benign paroxysmal positional vertigo; Translations: [Benign paroxysmal vertigo, unspecified ear] 09-11-2023 Episodic Disorders of lipid metabolism (2 sources) Raised low density lipoprotein cholesterol; Translations: [Pure hypercholesterolemia, unspecified] Onset: 09-01-2024 09-11-2023 Chronic Fracture of lower limb (1 source) Stress fracture, right foot, initial encounter for fracture; Translations: [Stress fracture, right foot, initial encounter for fracture] Onset: 06-28-2024 Episodic Immunizations and screening for infectious disease (14 sources) Encounter for screening for human papillomavirus (HPV); Translations: [Patient encounter status] Onset: 07-06-2017 07-07-2017 Episodic Osteoarthritis (4 sources) Primary gonarthrosis, bilateral; Translations: [Bilateral primary osteoarthritis of knee] Onset: 08-03-2024 Chronic Other aftercare (5 sources) Drug therapy finding; Translations: [Other long term care social worker (current) drug therapy] Episodic Other aftercare (1 source) Long-term current use of drug therapy; Translations: [Other snf (current) drug therapy] 06-20-2024 Episodic Other aftercare (1 source) Long-term current use of immunosuppressive drug; Translations: [Long-term use of immunosuppressant medication] 05-10-2025 Episodic Other aftercare (2 sources) Other snf (current) drug therapy; Translations: [Long-term use of Plaquenil] Onset: 02-20-2025 Episodic Other and unspecified benign neoplasm (3 sources) Neuroma; Translations: [Benign neoplasm of peripheral nerves and autonomic nervous system, unspecified] Episodic Other connective tissue disease (3 sources) Pain of toe of right foot; Translations: [Pain in right toe(s)] Episodic Other connective tissue disease (3 sources) Bursitis of right foot; Translations: [Other enthesopathy of right foot and ankle] Episodic Other connective tissue disease (1 source) Medial epicondylitis of right humerus; Translations: [Medial epicondylitis, right elbow] Episodic Other connective tissue disease (5 sources) Capsulitis; Translations: [Other enthesopathies, not elsewhere classified] Episodic Other connective tissue disease (4 sources) Intermetatarsal bursitis of right foot; Translations: [Other enthesopathy of right foot and ankle] 07-31-2023 Episodic Other nervous system disorders (1 source) Neuritis of right ulnar nerve; Translations: [Lesion of ulnar nerve, right upper limb] Chronic Other nervous system disorders (1 source) Bilateral carpal tunnel syndrome; Translations: [Carpal tunnel syndrome, bilateral upper limbs] Chronic Other non-traumatic joint disorders (3 sources) Pain in right knee; Translations: [Pain in joint, lower leg] Episodic Other non-traumatic joint disorders (4 sources) Stiffness of joint of right foot; Translations: [Stiffness of right foot, not elsewhere classified] Episodic Other non-traumatic joint disorders (4 sources) Multiple joint pain; Translations: [Pain in unspecified joint] Episodic Other non-traumatic joint disorders (1 source) Pain in unspecified joint; Translations: [Pain in joint, multiple sites] Onset: 05-09-2025 Episodic Other screening for suspected conditions (not mental disorders or infectious disease) (5 sources) Encounter for screening mammogram for malignant neoplasm of breast; Translations: [Encounter for screening for malignant neoplasm of cervix] Onset: 03-14-2024 Episodic Other upper respiratory disease (1 source) Allergic rhinitis; Translations: [Allergic rhinitis, unspecified] 09-13-2024 Chronic Other upper respiratory infections (1 source) Sore throat symptom; Translations: [Acute pharyngitis, unspecified] Episodic Residual codes; unclassified (20 sources) Obstructive sleep apnea syndrome; Translations: [Obstructive sleep apnea (adult) (pediatric)] Onset: 12-24-2012 12-24-2012 Chronic Residual codes; unclassified (3 sources) Pain; Translations: [Pain, unspecified] Episodic Residual codes; unclassified (2 sources) Postmenopausal state; Translations: [Asymptomatic menopausal state] 02-07-2024 Episodic Rheumatoid arthritis and related disease (20 sources) Seropositive rheumatoid arthritis; Translations: [Rheumatoid arthritis with rheumatoid factor, unspecified] Onset: 10-11-2021 10-11-2021 Chronic Unclassified (11 sources) Screening mammography ; Translations: [Encounter for screening mammogram for malignant neoplasm of breast] Onset: 07-06-2017 07-07-2017 Unclassified (11 sources) Screening for malignant neoplasm of cervix ; Translations: [Encounter for screening for malignant neoplasm of cervix] Onset: 07-06-2017 07-07-2017 Unclassified (11 sources) Gynecologic examination ; Translations: [Encounter for gynecological examination (general) (routine) without abnormal findings] Onset: 07-06-2017 07-07-2017 Unclassified (1 source) Long-term use of immunosuppressant medication; Translations: [Long-term use of immunosuppressant medication] Onset: 07-19-2025 Past or Other Problems Problem Classification Problem Date Documented Date Episodic/Chronic Genitourinary symptoms and ill-defined conditions (7 sources) Increased frequency of urination; Translations: [Frequency of micturition] Onset: 09-01-2017 09-01-2017 Episodic Other aftercare (20 sources) Patient encounter status; Translations: [Other snf (current) drug therapy] Onset: 01-13-2025 Episodic Other bone disease and musculoskeletal deformities (17 sources) Disorder of skeletal system; Translations: [Disorder of bone, unspecified] Onset: 03-05-2009 03-05-2009 Episodic Other bone disease and musculoskeletal deformities (20 sources) Osteopenia; Translations: [Other specified disorders of bone density and structure, right thigh] Onset: 03-05-2009 Episodic Other bone disease and musculoskeletal deformities (1 source) Other specified disorders of bone density and structure, right thigh; Translations: [Osteopenia of necks of both femurs] Onset: 02-13-2023 Episodic Other bone disease and musculoskeletal deformities (1 source) Other specified disorders of bone density and structure, left thigh; Translations: [Osteopenia of necks of both femurs] Onset: 02-13-2023 Episodic Other female genital disorders (7 sources) Vaginal irritation; Translations: [Other specified noninflammatory disorders of vagina] Onset: 09-01-2017 09-01-2017 Episodic Other non-traumatic joint disorders (20 sources) Arthralgia of the ankle and/or foot; Translations: [Pain in right ankle and joints of right foot] Onset: 08-13-2023 08-13-2023 Episodic Residual codes; unclassified (1 source) Asymptomatic menopausal state; Translations: [Asymptomatic postmenopausal status] Onset: 09-02-2024 Episodic Unclassified (2 sources) Patient encounter status 12-07-2024 Results Test Name Value Interpretation Reference Range Facility [facility] 07-19-2025 CNOV Office Visit (JCARLOS ) MOUNIKA LINARES ([id number]) 1955 F Date Time Provider Department 07/19/25 10:40 AM DREAD MCCURDY During your visit today, we recorded the following information about you: Temperature Pulse Blood pressure Weight 97.4 degrees 69/minute 116/75 64.9 kg Height 1.643 m Dread Mccurdy MD 07/19/2025 11:12 AM Signed On 07/19/2025, I had the pleasure of evaluating Mounika Linares in a follow-up [facility] Rheumatology appointment for seropositive RA. 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 Developed swelling and pain of the bilateral wrists and hands (remembers the ventral MCPs, doesn't recall exactly where else in the hands). Saw PCP. Initially thought to have OA and tendon issues aggravated by osteoarthritis. Took NSAIDs PO. Saw chiropractor for a shoulder which improved. - In Aug, given prednisone x2 week course prescribed by PCP. With 100% improvement in pain while on prednisone which recurred after completion of it - In Sep, continued to have tenderness of the R wrist and R ventral MCPs. Worse with certain activities. Worse in the morning. Diagnosed with seropositive RA. Started on HCQ - In January, reported significant improvement in joints with HCQ, unable to quantify amount - In March, reported feeling better. HCQ and going to chiropractor have helped. - In Sep, reported having a good day. Had had more good than bad days. But had a couple of days of really bad spells. Recent prednisone resolved hand pain. Started SSZ - In December, reported 80% improvement in joints with SSZ - In May, reported doing pretty well. - In May, reported doing ok. Had a flare the day before as she forgot to take her medications while everyone was over. Pain was excruciating, crippling, debilitating. - In January, advised to increase SSZ dose to 3g/day (from 2g) and given prednisone taper for flare affecting the shoulders. 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 - In January, reported feeling 100% improved now compared to before prednisone. Currently on pred 20mg/day. On SSZ 2g/day (took 3g/day just for a day or two). Had avoided red meat, minimizing sugar and alcohol. Increased to SSZ 3g/day - In February and Mar, took prednisone tapers for flare - In April, reported no change with higher SSZ dose 3g/day. Advised to start MTX 6 tabs/week. (Stopped HCQ and SSZ) - Today, reports joints are doing well on MTX. With 75-80% improvement in joints - Went to [place] recently, [place]/RMNP - Last plaquenil eye exam normal in Oct (off HCQ PAST MEDICAL HISTORY Diagnosis Date Allergic rhinitis, cause unspecified Allergic rhinitis Allergy to dogs Arthritis Cat allergies Climacteric 09/13/2012 Female stress incontinence Stress incontinence ARSEN (obstructive sleep apnea) 2010 Dr. Montes De Oca Osteopenia 03/05/[address] Arboleda Seasonal allergies Snoring Trigger finger Trigger finger, right ring finger 04/23/2011 Unspecified asthma(493.90) Vaginal atrophy 09/13/2012 osteoarthritis PAST SURGICAL HISTORY Procedure Laterality Date BIOPSY BREAST OPEN INCISIONAL Bx of breast, incisional DELIVERY ONLY , low cervical COLONOSCOPY FLX DX W/COLLJ SPEC WHEN PFRMD 2008 Colonoscopy COLONOSCOPY FLX DX W/COLLJ SPEC WHEN PFRMD 11/07/2019 Colonoscopy EYE SURGERY HX PAST SURGICAL HISTORY OF 05/08/2010 SUSPENSION BLADDER SLING SKIN BIOPSY HX ALLERGIES Allergen Reactions Cats Itching Only certain types of cats. Dogs Hives Only certain types of dogs. Seasonal Allergies MEDICATIONS: Current Outpatient Medications Medication Sig methotrexate 2.5 mg tablet Take 15mg (6 tabs) once weekly. folic acid 1 mg tablet Take 1 tablet by mouth once daily. predniSONE (DELTASONE) 10 mg tablet Take 30mg(3 tabs)/day x1 week, then 20mg (2 tabs)/day x1 week, then 10mg (1 tab)/day x1 week, then stop hydrOXYchloroQUINE (PLAQUENIL) 200 mg tablet Take 1.5 tablets by mouth once daily. sulfaSALAzine (AZULFIDINE) 500 mg tablet Take 3 tablets by mouth every 12 hours. calcium carbonate/vitamin D3 (CALCIUM 600 + D,3, ORAL) Take by mouth. MULTI-VITAMIN ORAL Take by mouth. No current facility-administered medications for this visit. 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 One of her kids is special needs who she takes care of (daughter, 27 years with Down's-Feliberto (more content not included)... Normal [facility] ALANINE AMINOTRANSFERASE / S GPTon 06-29-2025 ALT [Catalytic activity/Vol] 31 U/L 7 - 38 U/L [facility] ASPARTATE AMINOTRANSFERASE/S GOTon 06-29-2025 AST [Catalytic activity/Vol] 26 U/L 13 - 35 U/L [facility] Creatinine and Glomerular fi ltration rate.predicted panel (S/P/Bld)on 06-29-2025 Creatinine [Mass/Vol] 0.81 mg/dL 0.58 - 0.96 mg/dL [facility] GFR/1.73 sq M.predicted among non-blacks MDRD (S/P/Bld) [Vol rate/Area] 78 mL/min/{1.73_m2} - PINF [facility] Comment on above: Estimated Glomerular Filtration Rate (eGFR) is calculated using the 2020 CKD-EPI creatinine equation. This equation utilizes serum creatinine, sex, and age as parameters. The creatinine assay has traceable calibration to isotope dilution-mass spectrometry. Refer to KDIGO guidelines for clinical interpretation. In patients with unstable renal function, e.g. those with acute kidney injury, the eGFR may not accurately reflect actual GFR. No Panel Informationon 06-29 Interpretation and review of laboratory results Normal [facility] ALT SerPl-cCncon 06-28-2025 ALT [Catalytic activity/Vol] 31 U/L Normal 7-38 [facility] Comment on above: Order Comment: Sol simon Type: BLOOD SPECIMEN Ordering Facility: [facility] Address: [address] [place] [address] Performed By: #### 1 6128-1 #### [facility] CLIA [id number] [address] [place] [address] [place] AST SerPl-cCncon 06-28-2025 AST [Catalytic activity/Vol] 26 U/L Normal 13-35 [facility] Comment on above: Order Comment: Sol simon Type: BLOOD SPECIMEN Ordering Facility: [facility] Address: [facility] [place] [address] Performed By: #### 1 6128-1 #### [facility] CLIA [id number] [address] [place] [address] [place] CBC panel Auto (Bld)on 06-28 Erythrocyte distribution width (RBC) [Ratio] 13.5 % 11.5 - 15.0 % [facility] Hematocrit (Bld) [Volume fraction] 39.8 % 36.0 - 46.0 % [facility] Hemoglobin (Bld) [Mass/Vol] 12.9 g/dL 11.5 - 15.5 g/dL [facility] Interpretation and review of laboratory results Normal [facility] MCH (RBC) [Entitic mass] 29.7 pg 26.0 - 34.0 pg [facility] MCHC (RBC) [Mass/Vol] 32.4 g/dL 30.5 - 36.0 g/dL [facility] MCV (RBC) [Entitic vol] 91.5 fL 80.0 - 100.0 fL [facility] Nucleated RBC (Bld) [#/Vol] NINF [facility] Platelet mean volume (Bld) [Entitic vol] 10.1 fL 9.0 - 12.7 fL [facility] Platelets (Bld) [#/Vol] 291 10*3/uL [facility] RBC (Bld) [#/Vol] 4.35 10*6/uL 3.90 - 5.2 0 m/uL [facility] WBC (Bld) [#/Vol] 6.47 10*3/uL [facility] Erythrocyte distribution width (RBC) [Ratio] 13.5 % Normal 11.5-15.0 [facility] Comment on above: Order Comment: Speci men Type: BLOOD SPECIMENOrdering Facility: [facility] Address: [address] [place] [address] Performed By: #### 5 8410-2 ####[facility] [id number] [address] [place] Hematocrit (Bld) [Volume fraction] 39.8 % Normal 36.0-46.0 [facility] Comment on above: Order Comment: Speci men Type: BLOOD SPECIMENOrdering Facility: [facility] Address: [address] [place] [address] Performed By: #### 5 8410-2 ####[facility] [id number] [place] [address] [place] Hemoglobin (Bld) [Mass/Vol] 12.9 g/dL Normal 11.5-15.5 [facility] Comment on above: Order Comment: Speci men Type: BLOOD SPECIMENOrdering Facility: [facility] Address: [address] [place] [address] Performed By: #### 5 8410-2 ####[facility] [id number] [place] [address] [place] MCH (RBC) [Entitic mass] 29.7 pg Normal 26.0-34.0 [facility] Comment on above: Order Comment: Speci men Type: BLOOD SPECIMENOrdering Facility: [facility] Address: [address] [place] [address] Performed By: #### 5 8410-2 ####[facility]IA [id number] [place] [address] [place] MCHC (RBC) [Mass/Vol] 32.4 g/dL Normal 30.5-36.0 [facility] Comment on above: Order Comment: Speci men Type: BLOOD SPECIMENOrdering Facility: [facility] Address: [address] [place] [address] Performed By: #### 5 8410-2 ####[facility]IA [id number] [place] [address] [place] MCV (RBC) [Entitic vol] 91.5 fL Normal 80.0-100.0 [facility] Comment on above: Order Comment: Speci men Type: BLOOD SPECIMENOrdering Facility: [facility] Address: [address] [place] [address] Performed By: #### 5 8410-2 ####[facility] [id number] [facility] [address] [place] [address] [place] Nucleated RBC (Bld) [#/Vol] 10*3/uL Normal <0.01 [facility] Comment on above: Order Comment: Speci men Type: BLOOD SPECIMENOrdering Facility: [facility] Address: [address] [place] [address] Performed By: #### 5 8410-2 ####[facility] [id number] [facility] [address] [place] [address] [place] Platelet mean volume (Bld) [Entitic vol] 10.1 fL Normal 9.0-12.7 [facility] Comment on above: Order Comment: Speci men Type: BLOOD SPECIMENOrdering Facility: [facility] Address: [address] [place] [address] Performed By: #### 5 8410-2 ####[facility]IA [id number] [facility] [address] [place] [address] [place] Platelets (Bld) [#/Vol] 291 10*3/uL Normal 150-400 [facility] Comment on above: Order Comment: Speci men Type: BLOOD SPECIMENOrdering Facility: [facility] Address: [address] [place] [address] Performed By: #### 5 8410-2 ####[facility] [id number] [facility] [address] [place] [address] [place] RBC (Bld) [#/Vol] 4.35 10*6/uL Normal 3.90-5.20 [facility] Comment on above: Order Comment: Speci men Type: BLOOD SPECIMENOrdering Facility: [facility] Address: [address] [place] [address] Performed By: #### 5 8410-2 ####[facility] [id number] [facility] [place] [address] [place] WBC (Bld) [#/Vol] 6.47 10*3/uL Normal 3.70-11.00 [facility] Comment on above: Order Comment: Speci men Type: BLOOD SPECIMENOrdering Facility: [facility] Address: [address] [place] [address] Performed By: #### 5 8410-2 ####[facility] [id number] [place] [address] [place] Creatinine and Glomerular fi ltration rate.predicted panel (S/P/Bld)on 06-28-2025 Creatinine [Mass/Vol] 0.81 mg/dL Normal 0.58-0.96 [facility] Comment on above: Order Comment: Speci aurora Type: BLOOD SPECIMEN Ordering Facility: [facility] Address: [address] [place] [address] Performed By: #### 1 6128-1 #### [facility] CLIA [id number] [address] [place] [address] [place] eGFRcr SerPlBld CKD-EPI 2020 78 mL/min/1.73m??? Normal >=60 [facility] Comment on above: Order Comment: Speci aurora Type: BLOOD SPECIMEN Ordering Facility: [facility] Address: [address] [place] [address] Result Comment: Raine mated Glomerular Filtration Rate (eGFR) is calculated using the 2020 CKD-EPI creatinine equation. This equation utilizes serum creatinine, sex, and age as parameters. The creatinine assay has traceable calibration to isotope dilution-mass spectrometry. Refer to KDIGO guidelines for clinical interpretation. In patients with unstable renal function, e.g. those with acute kidney injury, the eGFR may not accurately reflect actual GFR. Performed By: #### 1 6128-1 #### [facility] CLIA [id number] [address] [place] [address] [place] ZAYNAB SCREENING W TOMOon 06-13 ZAYNAB SCREENING W DELTA * * *Final Report* * * DATE OF EXAM: Jun 13 2025 11:46AM W 0582 - ZAYNAB SCREENING W DELTA / PROCEDURE REASON: Encounter for screening mammogram for breast cancer * * * * Physician Interpretation * * * * RESULT: [place] [address] [place] [id number] #[id number] - ZAYNAB SCREENING W DELTA HISTORY: 70 year-old patient presents for screening. Patient is asymptomatic in both breasts. Patient states no personal history of breast cancer. COMPARISON STUDIES: The present examination has been compared to prior imaging studies dated 07/05/2020 (mammogram), 11/04/2021 (mammogram) and 12/25/2022 (mammogram). MAMMOGRAM TECHNIQUE: The study was acquired using full field digital technology and interpreted from soft copy. Digital Breast Tomosynthesis (DBT) images were obtained and used to assist in the interpretation of this examination. MAMMOGRAM FINDINGS: The breasts are almost entirely fatty. No suspicious masses, calcifications or other abnormalities are seen in either breast. There are no significant interval changes. IMPRESSION: There is no mammographic evidence of malignancy in either breast. Routine screening mammogram is recommended. Annual mammogram will be due in 1 year. BI-RADS Category 1: Negative RISK: Based on the Tyrer-Cuzick (TC) risk assessment model, this patient has a 2.3% lifetime risk of developing breast cancer, meaning they are at average risk for developing breast cancer. However, this is only an estimate based on available history provided on the patient's questionnaire. We encourage all patients to talk with their providers about these results, further recommendations for managing breast health, and appropriate supplemental screening options if the patient has dense breast tissue. Interpreting Radiologist: Christel Grubbs M.D. Electronically signed on: 06/14/2025 Scrap Worker: [email or web address] Transcribe Date/Time: Jun 13 2025 11:15A Dictated by: CHRISTEL GRUBBS MD This examination was interpreted and the report reviewed and electronically signed by: CHRISTEL GRUBBS MD on Jun 14 2025 8:49AM EST [id number] Normal [facility] ALANINE AMINOTRANSFERASE / S GPTon 05-31-2025 ALT [Catalytic activity/Vol] 20 U/L 7 - 38 U/L [facility] ALT SerPl-cCncon 05-31-2025 ALT [Catalytic activity/Vol] 20 U/L Normal 7-38 [facility] Comment on above: Order Comment: Speci men Type: BLOOD SPECIMENOrdering Facility: [facility] Address: [address] [place] [address] Performed By: #### 1 742-6, 8, 26492-1 ####[facility]IA [id number] [place] [address] [place] ASPARTATE AMINOTRANSFERASE/S GOTon 05-31-2025 AST [Catalytic activity/Vol] 24 U/L 13 - 35 U/L [facility] AST SerPl-cCncon 05-31-2025 AST [Catalytic activity/Vol] 24 U/L Normal 13-35 [facility] Comment on above: Order Comment: Speci men Type: BLOOD SPECIMENOrdering Facility: [facility] Address: [address] [place] [address] Performed By: #### 1 742-6, 1920-05, 67121-4 ####[facility]IA [id number] [address] [place] CBC panel Auto (Bld)on 05-31 Erythrocyte distribution width (RBC) [Ratio] 13.3 % 11.5 - 15.0 % [facility] Hematocrit (Bld) [Volume fraction] 39.7 % 36.0 - 46.0 % [facility] Hemoglobin (Bld) [Mass/Vol] 12.6 g/dL 11.5 - 15.5 g/dL [facility] Interpretation and review of laboratory results Normal [facility] MCH (RBC) [Entitic mass] 29.7 pg 26.0 - 34.0 pg [facility] MCHC (RBC) [Mass/Vol] 31.7 g/dL 30.5 - 36.0 g/dL [facility] MCV (RBC) [Entitic vol] 93.6 fL 80.0 - 100.0 fL [facility] Nucleated RBC (Bld) [#/Vol] NINF [facility] Platelet mean volume (Bld) [Entitic vol] 10.0 fL 9.0 - 12.7 fL [facility] Platelets (Bld) [#/Vol] 265 10*3/uL [facility] RBC (Bld) [#/Vol] 4.24 10*6/uL 3.90 - 5.2 0 m/uL [facility] WBC (Bld) [#/Vol] 4.93 10*3/uL [facility] Erythrocyte distribution width (RBC) [Ratio] 13.3 % Normal 11.5-15.0 [facility] Comment on above: Order Comment: Speci men Type: BLOOD SPECIMEN Ordering Facility: [facility] Address: [address] [place] [address] Performed By: #### 5 8410-2 #### [facility] CLIA [id number] [address] [place] [address] [place] Hematocrit (Bld) [Volume fraction] 39.7 % Normal 36.0-46.0 [facility] Comment on above: Order Comment: Speci men Type: BLOOD SPECIMEN Ordering Facility: [facility] Address: [address] [place] [address] Performed By: #### 5 8410-2 #### [facility] CLIA [id number] [address] [place] [address] [place] Hemoglobin (Bld) [Mass/Vol] 12.6 g/dL Normal 11.5-15.5 [facility] Comment on above: Order Comment: Speci men Type: BLOOD SPECIMEN Ordering Facility: [facility] Address: [address] [place] [address] Performed By: #### 5 8410-2 #### [facility] CLIA [id number] [address] [place] [address] [place] MCH (RBC) [Entitic mass] 29.7 pg Normal 26.0-34.0 [facility] Comment on above: Order Comment: Speci men Type: BLOOD SPECIMEN Ordering Facility: [facility] Address: [address] [place] [address] Performed By: #### 5 8410-2 #### [facility] CLIA [id number] [address] [place] [address] [place] MCHC (RBC) [Mass/Vol] 31.7 g/dL Normal 30.5-36.0 [facility] Comment on above: Order Comment: Speci men Type: BLOOD SPECIMEN Ordering Facility: [facility] Address: [address] [place] [address] Performed By: #### 5 8410-2 #### [facility] CLIA [id number] [address] [place] [address] [place] MCV (RBC) [Entitic vol] 93.6 fL Normal 80.0-100.0 [facility] Comment on above: Order Comment: Speci men Type: BLOOD SPECIMEN Ordering Facility: [facility] Address: [address] [place] [address] Performed By: #### 5 8410-2 #### [facility] CLIA [id number] [address] [place] [address] [place] Nucleated RBC (Bld) [#/Vol] 10*3/uL Normal <0.01 [facility] Comment on above: Order Comment: Speci men Type: BLOOD SPECIMEN Ordering Facility: [facility] Address: [address] [place] [address] Performed By: #### 5 8410-2 #### [facility] CLIA [id number] [address] [place] [address] [place] Platelet mean volume (Bld) [Entitic vol] 10.0 fL Normal 9.0-12.7 [facility] Comment on above: Order Comment: Speci men Type: BLOOD SPECIMEN Ordering Facility: [facility] Address: [address] [place] [address] Performed By: #### 5 8410-2 #### [facility] CLIA [id number] [address] [place] [address] [place] Platelets (Bld) [#/Vol] 265 10*3/uL Normal 150-400 [facility] Comment on above: Order Comment: Speci men Type: BLOOD SPECIMEN Ordering Facility: [facility] Address: [address] [place] [address] Performed By: #### 5 8410-2 #### [facility] CLIA [id number] [address] [place] [address] [place] RBC (Bld) [#/Vol] 4.24 10*6/uL Normal 3.90-5.20 [facility] Comment on above: Order Comment: Speci men Type: BLOOD SPECIMEN Ordering Facility: [facility] Address: [address] [place] [address] Performed By: #### 5 8410-2 #### [facility] CLIA [id number] [address] [place] [address] [place] WBC (Bld) [#/Vol] 4.93 10*3/uL Normal 3.70-11.00 [facility] Comment on above: Order Comment: Speci men Type: BLOOD SPECIMEN Ordering Facility: [facility] Address: [address] [place] [address] Performed By: #### 5 8410-2 #### [facility] CLIA [id number] [address] [place] [address] [place] [facility] [place] Creatinine and Glomerular fi ltration rate.predicted panel (S/P/Bld)on 05-31-2025 Creatinine [Mass/Vol] 0.90 mg/dL 0.58 - 0.96 mg/dL [facility] GFR/1.73 sq M.predicted among non-blacks MDRD (S/P/Bld) [Vol rate/Area] 68 mL/min/{1.73_m2} - PINF [facility] Comment on above: Estimated Glomerular Filtration Rate (eGFR) is calculated using the 2020 CKD-EPI creatinine equation. This equation utilizes serum creatinine, sex, and age as parameters. The creatinine assay has traceable calibration to isotope dilution-mass spectrometry. Refer to KDIGO guidelines for clinical interpretation. In patients with unstable renal function, e.g. those with acute kidney injury, the eGFR may not accurately reflect actual GFR. Creatinine [Mass/Vol] 0.90 mg/dL Normal 0.58-0.96 [facility] Comment on above: Order Comment: Sol simon Type: BLOOD SPECIMENOrdering Facility: [facility] Address: [address] [place] [address] Performed By: #### 1 742-6, 1920-8, 39486-4 ####[facility] [id number] [place] [id number] [place] eGFRcr SerPlBld CKD-EPI 2020 68 mL/min/1.73m??? Normal >=60 [facility] Comment on above: Order Comment: Sol simon Type: BLOOD SPECIMENOrdering Facility: [facility] Address: [address] [place] [address] Result Comment: Raine mated Glomerular Filtration Rate (eGFR) is calculated using the 2020 CKD-EPI creatinine equation. This equation utilizes serum creatinine, sex, and age as parameters. The creatinine assay has traceable calibration to isotope dilution-mass spectrometry. Refer to KDIGO guidelines for clinical interpretation. In patients with unstable renal function, e.g. those with acute kidney injury, the eGFR may not accurately reflect actual GFR. Performed By: #### 1 742-6, 1920-8, 80478-2 ####[facility] [id number] [place] [id number] [place] No Panel Informationon 05-31 Interpretation and review of laboratory results Normal [facility] ALT SerPl-cCncon 05-09-2025 ALT [Catalytic activity/Vol] 14 U/L Normal 7-38 [facility] Comment on above: Order Comment: Sol simon Type: BLOOD SPECIMENOrdering Facility: [facility] Address: [address] [place] [address] Performed By: #### 1 920-8, 69499-6, 1742-6 ####[facility] [id number] [place] [id number] [place] AST SerPl-cCncon 05-09-2025 AST [Catalytic activity/Vol] 16 U/L Normal 13-35 [facility] Comment on above: Order Comment: Speci men Type: BLOOD SPECIMENOrdering Facility: [facility] Address: [address] [place] [address] Performed By: #### 1 920-8, 99276-2, 1742-6 ####[facility]IA [id number] [place] [address] [place] CBC panel Auto (Bld)on 05-09 Erythrocyte distribution width (RBC) [Ratio] 12.9 % Normal 11.5-15.0 [facility] Comment on above: Order Comment: Speci men Type: BLOOD SPECIMENOrdering Facility: [facility] Address: [address] [place] [address] Performed By: #### 5 8410-2 ####[facility] [id number] [place] [address] [place] Hematocrit (Bld) [Volume fraction] 38.9 % Normal 36.0-46.0 [facility] Comment on above: Order Comment: Speci men Type: BLOOD SPECIMENOrdering Facility: [facility] Address: [address] [place] [address] Performed By: #### 5 8410-2 ####[facility]IA [id number] [place] [id number] [place] Hemoglobin (Bld) [Mass/Vol] 12.5 g/dL Normal 11.5-15.5 [facility] Comment on above: Order Comment: Speci men Type: BLOOD SPECIMENOrdering Facility: [facility] Address: [address] [place] [address] Performed By: #### 5 8410-2 ####[facility]IA [id number] [address] [place] MCH (RBC) [Entitic mass] 29.6 pg Normal 26.0-34.0 [facility] Comment on above: Order Comment: Speci men Type: BLOOD SPECIMENOrdering Facility: [facility] Address: [address] [place] [address] Performed By: #### 5 8410-2 ####[facility]IA [id number] [place] [address] [place] MCHC (RBC) [Mass/Vol] 32.1 g/dL Normal 30.5-36.0 [facility] Comment on above: Order Comment: Speci men Type: BLOOD SPECIMENOrdering Facility: [facility] Address: [address] [place] [address] Performed By: #### 5 8410-2 ####[facility] [id number] [place] [address] [place] MCV (RBC) [Entitic vol] 92.0 fL Normal 80.0-100.0 [facility] Comment on above: Order Comment: Speci men Type: BLOOD SPECIMENOrdering Facility: [facility] Address: [address] [place] [address] Performed By: #### 5 8410-2 ####[facility]IA [id number] [place] [address] [place] Nucleated RBC (Bld) [#/Vol] 10*3/uL Normal <0.01 [facility] Comment on above: Order Comment: Speci men Type: BLOOD SPECIMENOrdering Facility: [facility] Address: [address] [place] [address] Performed By: #### 5 8410-2 ####[facility] [id number] [place] [address] [place] Platelet mean volume (Bld) [Entitic vol] 9.8 fL Normal 9.0-12.7 [facility] Comment on above: Order Comment: Speci men Type: BLOOD SPECIMENOrdering Facility: [facility] Address: [address] [place] [address] Performed By: #### 5 8410-2 ####[facility] [id number] [place] [address] [place] Platelets (Bld) [#/Vol] 334 10*3/uL Normal 150-400 [facility] Comment on above: Order Comment: Speci men Type: BLOOD SPECIMENOrdering Facility: [facility] Address: [address] [place] [address] Performed By: #### 5 8410-2 ####[facility]IA [id number] [place] [address] [place] RBC (Bld) [#/Vol] 4.23 10*6/uL Normal 3.90-5.20 [facility] Comment on above: Order Comment: Speci men Type: BLOOD SPECIMENOrdering Facility: [facility] Address: [address] [place] [address] Performed By: #### 5 8410-2 ####[facility]IA [id number] [address] [place] WBC (Bld) [#/Vol] 6.61 10*3/uL Normal 3.70-11.00 [facility] Comment on above: Order Comment: Speci men Type: BLOOD SPECIMENOrdering Facility: [facility] Address: [address] [place] [address] Performed By: #### 5 8410-2 ####[facility]IA [id number] [address] [place] Madi 05-09-2025 APRIL Telephone ([place]) MOUNIKA LINARES ([id number]) 1955 F Date Time Provider Department 05/09/25 DREAD MCCURDY During your visit today, we recorded the following information about you: Wendy Haley RN 05/09/2025 3:46 PM Signed Spoke with patient,requests to call back when she gets home to schedule appointments, phone number provided. 04/[address] Mccurdy and Jul 2026 with Collin Haley RN Allergies As of Date: 05/09/2025 Noted Allergy Reaction CATS 08/07/2009 9 - Itching Comments: Only certain types of cats. DOGS 08/07/2009 4 - Hives Comments: Only certain types of dogs. SEASONAL ALLERGIES 08/07/2009 Date Reviewed: 02/20/2025 Reviewed by: Eric Ureña MA - Fully Assessed Prescriptions as of 05/09/2025 - methotrexate 2.5 mg tablet Take 10mg (4 tabs) once weekly x1 dose, then 12.5mg (5 tabs) once weekly x1 dose, then 15mg (6 tabs) once weekly thereafter. - folic acid 1 mg tablet Take 1 tablet by mouth once daily. - predniSONE (DELTASONE) 10 mg tablet Take 30mg(3 tabs)/day x1 week, then 20mg (2 tabs)/day x1 week, then 10mg (1 tab)/day x1 week, then stop - hydrOXYchloroQUINE (PLAQUENIL) 200 mg tablet Take 1.5 tablets by mouth once daily. - sulfaSALAzine (AZULFIDINE) 500 mg tablet Take 3 tablets by mouth every 12 hours. - calcium carbonate/vitamin D3 (CALCIUM 600 + D,3, ORAL) Take by mouth. - MULTI-VITAMIN ORAL Take by mouth. Problem List As Of Date 05/09/2025 Noted Resolved Osteopenia of necks of both femurs [M85.851, M8*03/05/2009 ARSEN (obstructive sleep apnea) [G47.33] 12/24/2012 Seropositive rheumatoid arthritis (HCC) [M05.9] 10/11/2021 Pain in right ankle and joints of right foot [M*08/13/2023 Screening for colon cancer [Z12.11] 01/13/2025 Encounter Status:Closed by WENDY HALEY on 05/09/25 [facility] Telephone (RHEHEMANT) MOUNIKA LINARES ([id number]) 1955 F Date Time Provider Department 05/09/25 DREAD MCCURDY During your visit today, we recorded the following information about you: Allergies As of Date: 05/09/2025 Noted Allergy Reaction CATS 08/07/2009 9 - Itching Comments: Only certain types of cats. DOGS 08/07/2009 4 - Hives Comments: Only certain types of dogs. SEASONAL ALLERGIES 08/07/2009 Date Reviewed: 02/20/2025 Reviewed by: Eric Ureña MA - Fully Assessed Prescriptions as of 05/10/2025 - methotrexate 2.5 mg tablet Take 10mg (4 tabs) once weekly x1 dose, then 12.5mg (5 tabs) once weekly x1 dose, then 15mg (6 tabs) once weekly thereafter. - folic acid 1 mg tablet Take 1 tablet by mouth once daily. - predniSONE (DELTASONE) 10 mg tablet Take 30mg(3 tabs)/day x1 week, then 20mg (2 tabs)/day x1 week, then 10mg (1 tab)/day x1 week, then stop - hydrOXYchloroQUINE (PLAQUENIL) 200 mg tablet Take 1.5 tablets by mouth once daily. - sulfaSALAzine (AZULFIDINE) 500 mg tablet Take 3 tablets by mouth every 12 hours. - calcium carbonate/vitamin D3 (CALCIUM 600 + D,3, ORAL) Take by mouth. - MULTI-VITAMIN ORAL Take by mouth. Problem List As Of Date 05/09/2025 Noted Resolved Osteopenia of necks of both femurs [M85.851, M8*03/05/2009 ARSEN (obstructive sleep apnea) [G47.33] 12/24/2012 Seropositive rheumatoid arthritis (HCC) [M05.9] 10/11/2021 Pain in right ankle and joints of right foot [M*08/13/2023 Screening for colon cancer [Z12.11] 01/13/2025 Encounter Status:Closed by WENDY HALEY on 05/10/25 Normal [facility] Creatinine and Glomerular fi ltration rate.predicted panel (S/P/Bld)on 05-09-2025 Creatinine [Mass/Vol] 0.77 mg/dL Normal 0.58-0.96 [facility] Comment on above: Order Comment: Specdianne simon Type: BLOOD SPECIMENOrdering Facility: [facility] Address: [address] [place] [address] Performed By: #### 1 920-8, 24339-2, 1741-6 ####[facility] LABCLIA [id number] [place] [address] [place] eGFRcr SerPlBld CKD-EPI 2020 83 mL/min/1.73m??? Normal >=60 [facility] Comment on above: Order Comment: Sol simon Type: BLOOD SPECIMENOrdering Facility: [facility] Address: [address] [place] [address] Result Comment: Raine mated Glomerular Filtration Rate (eGFR) is calculated using the 2020 CKD-EPI creatinine equation. This equation utilizes serum creatinine, sex, and age as parameters. The creatinine assay has traceable calibration to isotope dilution-mass spectrometry. Refer to KDIGO guidelines for clinical interpretation. In patients with unstable renal function, e.g. those with acute kidney injury, the eGFR may not accurately reflect actual GFR. Performed By: #### 1 920-8, 99515-6, 174-6 ####[facility] LABCLIA [id number] [place] [address] [place] HBV core Ab Ser Qlon 025 HBV core Ab Ql (S) Negative Normal Negative [facility] Comment on above: Order Comment: Sol simon Type: BLOOD SPECIMENOrdering Facility: [facility] Address: [address] [place] [address] Result Comment: No e vidence of current or past infection with Hepatitis B virus. Should recent infection be suspected, repeat testing may be considered 3-4 weeks after this draw. Performed By: #### 2 2322-2, 93577-8, 5195-3 ####[facility] LABCLIA [id number] [place] [address] [place] HBV surface Ab Ql (S)on 04-25 HBV surface Ab Qn (S) <8.00 Normal [facility] Comment on above: Order Comment: Speci men Type: BLOOD SPECIMENOrdering Facility: [facility] Address: [address] [place] [address] Result Comment: <8 m IU/mL: No serological evidence of immunity to Hepatitis B Virus. >/= 8 to <12 mIU/mL: No serological evidence of immunity to Hepatitis B Virus. >/= 12 mIU/mL: Consistent with serological evidence of immunity to Hepatitis B Virus. Performed By: #### 2 2322-2, 28508-7, 5194-3 ####[facility] LABIA [id number] [address] [facility] HBV surface Ab Ser Qlon 04-25 HBV surface Ab Ql (S) Negative Normal [facility] Comment on above: Order Comment: Speci men Type: BLOOD SPECIMENOrdering Facility: [facility] Address: [address] [place] [address] Result Comment: No s erological evidence of immunity to Hepatitis B Virus. Performed By: #### 2 2322-2, 95343-9, 5194-3 ####[facility] LABIA [id number] [place] [address] [place] HBV surface Ag Ser Qlon 04-25 HBV surface Ag Ql (S) Negative Normal Negative [facility] Comment on above: Order Comment: Speci men Type: BLOOD SPECIMENOrdering Facility: [facility] Address: [address] [place] [address] Performed By: #### 2 2322-2, 47904-3, 5195-3 ####[facility] LABCLIA [id number] [address] [place] HCV Ab Ser Qlon 05-09-2025 HCV Ab Ql (S) Negative Normal Negative [facility] Comment on above: Order Comment: Speci men Type: BLOOD SPECIMEN [facility]ing [facility]: [facility] Address: [address] [place] [address] Result Comment: The result suggests no evidence of infection with Hepatitis C virus. Should recent infection be suspected, repeat testing may be considered 4-6 weeks after this draw. Performed By: #### 1 6128-1 #### [facility] LAB CLIA [id number] [address] [place] [address] [place] XR CHEST 2V FRONTAL/LATon XR CHEST 2V FRONTAL/LAT * * *Final Report* * * DATE OF EXAM: May 09 2025 5:03PM WOX [id number] - XR CHEST 2V FRONTAL/LAT / PROCEDURE REASON: Seropositive rheumatoid arthritis (HCC) * * * * Physician Interpretation * * * * EXAMINATION: CHEST RADIOGRAPH (2 VIEW FRONTAL and LATERAL) CLINICAL HISTORY: Seropositive rheumatoid arthritis (HCC) MQ: XC2_6 EXAM DATE/TIME: 05/09/2025 5:03 PM COMPARISON: CXR of 02/15/2015 RESULT: Lines, tubes, and devices: None. Lungs and pleura: No consolidation. No lung mass. No pleural effusion. No pneumothorax. Cardiomediastinal silhouette: Normal cardiomediastinal silhouette. Bones and soft tissues: Unremarkable. IMPRESSION: No acute radiographic abnormality. Scrap Worker: PSCB Transcribe Date/Time: May 10 2025 7:24A Dictated by : SHAHEEN ARAGON MD This examination was interpreted and the report reviewed and electronically signed by: SHAHEEN ARAGON MD on May 10 2025 7:25AM EST [id number] Normal [facility] CNPNon 04-11-2025 CNPN Telephone (RHEUST) MOUNIKA LINARES ([id number]) 1955 F Date Time Provider Department 04/11/25 DREAD MCCURDY During your visit today, we recorded the following information about you: Zully Fang 04/11/2025 10:35 AM Signed Patient called and stated that she is having pain and fatigue so she cannot exercise. Please advice Wendy Haley RN 04/11/2025 11:20 AM Signed Spoke with patient - reports pain left hand , right elbow. Right foot arch and right knee, right thumb inflamed and throbbing. Pain waking patient up, ice ineffective. States she had saved 2 prednisone tablets saved-- she took 2- 10 mg tablets this morning. She also has a bottle of prednisone from 2021 that she is unable to get the child proof lid off of, advised this is likely and she should discard it appropriately- she declines to do so. The above symptoms have been present since 04/03/2025. States she is taking Plaquenil 200 mg- taking 1.5 tablets daily. Reports taking Sulfasalazine as ordered. Patient is requesting prednisone [place] Gabriel Shailey, MD 04/11/2025 12:32 PM Signed Sorry to hear about her symptoms. Pred rx sent. If there's an apt with Collin before the 05/09 apt with me, can schedule her for that if she'd like. Thanks. Wendy Haley RN 04/11/2025 12:46 PM Signed Spoke with patient, relayed message below. Declines sooner appointment with [employer]. Wendy Haley RN Allergies As of Date: 04/11/2025 Noted Allergy Reaction CATS 08/07/2009 9 - Itching Comments: Only certain types of cats. DOGS 08/07/2009 4 - Hives Comments: Only certain types of dogs. SEASONAL ALLERGIES 08/07/2009 Date Reviewed: 02/20/2025 Reviewed by: Eric Ureña MA - Fully Assessed Reason for Visit: Fatigue [46] Order(s):predniSONE (DELTASONE) 10 mg tabletTake 30mg(3 tabs)/day x1 week, then 20mg (2 tabs)/day x1 week, then 10mg (1 tab)/day x1 week, then stopDisp: 42 tabletRfl: 0 Prescriptions as of 04/11/2025 - predniSONE (DELTASONE) 10 mg tablet Take 30mg(3 tabs)/day x1 week, then 20mg (2 tabs)/day x1 week, then 10mg (1 tab)/day x1 week, then stop - hydrOXYchloroQUINE (PLAQUENIL) 200 mg tablet Take 1.5 tablets by mouth once daily. - sulfaSALAzine (AZULFIDINE) 500 mg tablet Take 3 tablets by mouth every 12 hours. - calcium carbonate/vitamin D3 (CALCIUM 600 + D,3, ORAL) Take by mouth. - MULTI-VITAMIN ORAL Take by mouth. Problem List As Of Date 04/11/2025 Noted Resolved Osteopenia of necks of both femurs [M85.851, M8*03/05/2009 ARSEN (obstructive sleep apnea) [G47.33] 12/24/2012 Seropositive rheumatoid arthritis (HCC) [M05.9] 10/11/2021 Pain in right ankle and joints of right foot [M*08/13/2023 Screening for colon cancer [Z12.11] 01/13/2025 Prescriptions ordered this encounter Disp Refills Start End PREDNISONE 10 MG TABLET 42 t* 0 04/11/2025 Sig: Take 30mg(3 tabs)/day x1 week, then 20mg (2 tabs)/day x1 week, then 10mg (1 tab)/day x1 week, then stop Medications Discontinued During This Encounter Prescriptions - predniSONE (DELTASONE) 10 mg tablet (Discontinued) Take 30mg(3 tabs)/day x1 week, then 20mg (2 tabs)/day x1 week, then 10mg (1 tab)/day x1 week, then stop Encounter Status:Closed by WENDY HALEY on 04/11/25 [facility] 03-16-2025 [facility] Telephone (RHEUST) MOUNIKA LINARES ([id number]) 1955 F Date Time Provider Department 03/16/25 DREAD MCCURDY During your visit today, we recorded the following information about you: Salazar Zully Salazar 03/16/2025 8:58 AM Signed Patient called and stated that she was up most of the not with left shoulder and arm pain. Please advice Dread Mccurdy MD 03/16/2025 12:00 PM Signed Please call her for more information. Has she had this before? Does it feel related to the RA? Would she like imaging and/or a steroid course? Thanks. CorbyLeonor 03/16/2025 12:20 PM Signed She states absolutely RA flare up, she states she will do steroids or if there could be other options please assist. Patient Marcjose in [place]. Dread Mccurdy MD 03/16/2025 12:36 PM Signed Prednisone prescription sent. Please confirm she's on sulfasalazine 3 tablets twice daily. It can take up to 3 months to notice the full benefit after making any snf medication dose adjustments. Since we increased to sulfasalazine last month, I would give it a few more weeks to see if that takes effect. We can make a virtual apt to see myself or Collin around April to do an interim check in to see if any long-term medication adjustments need to be made. Thanks. Sophie Hamm MA 03/16/2025 12:45 PM Signed Spoke to patient, patient confirmed taking the sulfasalazine 3 times daily. Patient wants to call back when feeling better to schedule an appointment. Patient verbalized understanding. Wendy Gregory RN 03/22/2025 9:24 AM Signed Attempted to reach patient- left detailed VM to return call to [phone] to schedule a virtual appointment with Collin Gan NP or Dr. Mccurdy in April. Wendy Haley RN Allergies As of Date: 03/16/2025 Noted Allergy Reaction CATS 08/07/2009 9 - Itching Comments: Only certain types of cats. DOGS 08/07/2009 4 - Hives Comments: Only certain types of dogs. SEASONAL ALLERGIES 08/07/2009 Date Reviewed: 02/20/2025 Reviewed by: Eric Ureña MA - Fully Assessed Reason for Visit: Pain [78] Order(s):predniSONE (DELTASONE) 10 mg tabletTake 30mg(3 tabs)/day x1 week, then 20mg (2 tabs)/day x1 week, then 10mg (1 tab)/day x1 week, then stopDisp: 42 tabletRfl: 0 Prescriptions as of 03/22/2025 - predniSONE (DELTASONE) 10 mg tablet Take 30mg(3 tabs)/day x1 week, then 20mg (2 tabs)/day x1 week, then 10mg (1 tab)/day x1 week, then stop - sulfaSALAzine (AZULFIDINE) 500 mg tablet Take 3 tablets by mouth every 12 hours. - hydrOXYchloroQUINE (PLAQUENIL) 200 mg tablet Take 1.5 tablets by mouth once daily. - calcium carbonate/vitamin D3 (CALCIUM 600 + D,3, ORAL) Take by mouth. - MULTI-VITAMIN ORAL Take by mouth. Problem List As Of Date 03/16/2025 Noted Resolved Osteopenia of necks of both femurs [M85.851, M8*03/05/2009 ARSEN (obstructive sleep apnea) [G47.33] 12/24/2012 Seropositive rheumatoid arthritis (HCC) [M05.9] 10/11/2021 Pain in right ankle and joints of right foot [M*08/13/2023 Screening for colon cancer [Z12.11] 01/13/2025 Prescriptions ordered this encounter Disp Refills Start End PREDNISONE 10 MG TABLET 42 t* 0 03/16/2025 Sig: Take 30mg(3 tabs)/day x1 week, then 20mg (2 tabs)/day x1 week, then 10mg (1 tab)/day x1 week, then stop Medications Discontinued During This Encounter Prescriptions - predniSONE (DELTASONE) 10 mg tablet (Discontinued) Take 30mg(3 tabs)/day x1 week, then 20mg (2 tabs)/day x1 week, then 10mg (1 tab)/day x1 week, then stop Encounter Status:Closed by ERIC UREÑA on 03/16/25 Normal [facility] ALT SerPl-cCncon 02-20-2025 ALT [Catalytic activity/Vol] 22 U/L Normal 7-38 [facility] Comment on above: Order Comment: Speci men Type: BLOOD SPECIMEN [facility]: [facility] Address: [address] [place] [address] Performed By: #### 1 6128-1 #### [facility] CLIA [id number] [address] [place] [address] [place] AST SerPl-cCncon 02-20-2025 AST [Catalytic activity/Vol] 24 U/L Normal 13-35 [facility] Comment on above: Order Comment: Speci men Type: BLOOD SPECIMEN [facility]ing [facility]: [facility] Address: [address] [place] [address] Performed By: #### 1 6128-1 #### [facility] CLIA [id number] [address] [place] [address] [place] CBC panel Auto (Bld)on 02-20 Erythrocyte distribution width (RBC) [Ratio] 12.7 % Normal 11.5-15.0 [facility] Comment on above: Order Comment: Speci men Type: BLOOD SPECIMENOrdering Facility: [facility] Address: [address] [place] [address] Performed By: #### 5 8410-2 ####[facility] LABCLIA [id number] [place] [address] [place] Hematocrit (Bld) [Volume fraction] 41.2 % Normal 36.0-46.0 [facility] Comment on above: Order Comment: Speci men Type: BLOOD SPECIMENOrdering Facility: [facility] Address: [address] [place] [address] Performed By: #### 5 8410-2 ####[facility] LABCLIA [id number] [place] [id number] [place] Hemoglobin (Bld) [Mass/Vol] 13.3 g/dL Normal 11.5-15.5 [facility] Comment on above: Order Comment: Speci men Type: BLOOD SPECIMENOrdering Facility: [facility] Address: [address] [place] [address] Performed By: #### 5 8410-2 ####SAJANJOSE [facility] LABCLIA [id number] [address] [place] MCH (RBC) [Entitic mass] 29.6 pg Normal 26.0-34.0 [facility] Comment on above: Order Comment: Speci men Type: BLOOD SPECIMENOrdering Facility: [facility] Address: [address] [place] [address] Performed By: #### 5 8410-2 ####[facility] LABCLIA [id number] [address] [place] MCHC (RBC) [Mass/Vol] 32.3 g/dL Normal 30.5-36.0 [facility] Comment on above: Order Comment: Speci men Type: BLOOD SPECIMENOrdering Facility: [facility] Address: [address] [place] [address] Performed By: #### 5 8410-2 ####[facility] LABCLIA [id number] [address] [place] MCV (RBC) [Entitic vol] 91.8 fL Normal 80.0-100.0 [facility] Comment on above: Order Comment: Speci men Type: BLOOD SPECIMENOrdering Facility: [facility] Address: [address] [place] [address] Performed By: #### 5 8410-2 ####[facility] LABCLIA [id number] [address] [place] Nucleated RBC (Bld) [#/Vol] 10*3/uL Normal <0.01 [facility] Comment on above: Order Comment: Speci men Type: BLOOD SPECIMENOrdering Facility: [facility] Address: [address] [place] [address] Performed By: #### 5 8410-2 ####[facility] LABCLIA [id number] [place] [id number] [place] Platelet mean volume (Bld) [Entitic vol] 8.7 fL Low 9.0-12.7 [facility] Comment on above: Order Comment: Speci men Type: BLOOD SPECIMENOrdering Facility: [facility] Address: [address] [place] [address] Performed By: #### 5 8410-2 ####[facility] LABCLIA [id number] [place] [address] [place] Platelets (Bld) [#/Vol] 315 10*3/uL Normal 150-400 [facility] Comment on above: Order Comment: Speci men Type: BLOOD SPECIMENOrdering Facility: [facility] Address: [address] [place] [address] Performed By: #### 5 8410-2 ####[facility] LABIA [id number] [place] [address] [place] RBC (Bld) [#/Vol] 4.49 10*6/uL Normal 3.90-5.20 [facility] Comment on above: Order Comment: Speci men Type: BLOOD SPECIMENOrdering Facility: [facility] Address: [address] [place] [address] Performed By: #### 5 8410-2 ####AGUSTINDEE DEE [facility] LABCLIA [id number] [place] [address] [place] WBC (Bld) [#/Vol] 6.86 10*3/uL Normal 3.70-11.00 [facility] Comment on above: Order Comment: Speci men Type: BLOOD SPECIMENOrdering Facility: [facility] Address: [address] [place] [address] Performed By: #### 5 8410-2 ####AGUSTINDEE DEE [facility] LABCLIA [id number] [place] [id number] [place] CNOVon 02-20-2025 CNOV Office Visit (RHEUST ) MOUNIKA LINARES ([id number]) 1955 F Date Time Provider Department 02/20/25 11:20 AM DREAD MCCURDY During your visit today, we recorded the following information about you: Temperature Pulse Blood pressure Weight 96.7 degrees 76/minute 118/77 69.4 kg Height 1.643 m Dread Mccurdy MD 02/20/2025 11:52 AM Signed On 02/20/2025, I had the pleasure of seeing Mounika Linares at the [facility] for follow-up of seropositive RA HPI: To review, Mounika Linares is a 69 year old female in the past accompanied by Mohit and daughter Monica - 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 Developed swelling and pain of the bilateral wrists and hands (remembers the ventral MCPs, doesn't recall exactly where else in the hands). Saw PCP. Initially thought to have OA and tendon issues aggravated by osteoarthritis. Took NSAIDs PO. Saw chiropractor for a shoulder which improved. - In Aug, given prednisone x2 week course prescribed by PCP. With 100% improvement in pain while on prednisone which recurred after completion of it - In Sep, continued to have tenderness of the R wrist and R ventral MCPs. Worse with certain activities. Worse in the morning. Diagnosed with seropositive RA. Started on HCQ - In January, reported significant improvement in joints with HCQ, unable to quantify amount - In March, reported feeling better. HCQ and going to chiropractor have helped. - In Sep, reported having a good day. Had had more good than bad days. But had a couple of days of really bad spells. Recent prednisone resolved hand pain. Started SSZ - In December, reported 80% improvement in joints with SSZ - In May, reported doing pretty well. - In May, reported doing ok. Had a flare the day before as she forgot to take her medications while everyone was over. Pain was excruciating, crippling, debilitating. - In January, advised to increase SSZ dose to 3g/day (from 2g) and given prednisone taper for flare affecting the shoulders. 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 - Today, reports feeling 100% improved now compared to before prednisone. Currently on pred 20mg/day. On SSZ 2g/day (took 3g/day just for a day or two). Has avoided red meat, minimizing sugar and alcohol - Last plaquenil eye exam normal in Oct PAST MEDICAL HISTORY Diagnosis Date Allergic rhinitis, cause unspecified Allergic rhinitis Allergy to dogs Arthritis Cat allergies Climacteric 09/13/2012 Female stress incontinence Stress incontinence ARSEN (obstructive sleep apnea) 2010 Dr. Montes De Oca Osteopenia 03/05/[address] Arboleda Seasonal allergies Snoring Trigger finger Trigger finger, right ring finger 04/23/2011 Unspecified asthma(493.90) Vaginal atrophy 09/13/2012 osteoarthritis PAST SURGICAL HISTORY Procedure Laterality Date BIOPSY BREAST OPEN INCISIONAL Bx of breast, incisional DELIVERY ONLY , low cervical COLONOSCOPY FLX DX W/COLLJ SPEC WHEN PFRMD 2008 Colonoscopy COLONOSCOPY FLX DX W/COLLJ SPEC WHEN PFRMD 11/07/2019 Colonoscopy EYE SURGERY HX PAST SURGICAL HISTORY OF 05/08/2010 SUSPENSION BLADDER SLING SKIN BIOPSY HX ALLERGIES Allergen Reactions Cats Itching Only certain types of cats. Dogs Hives Only certain types of dogs. Seasonal Allergies MEDICATIONS: Current Outpatient Medications Medication Sig sulfaSALAzine (AZULFIDINE) 500 mg tablet Take 3 tablets by mouth every 12 hours. predniSONE (DELTASONE) 10 mg tablet Take 30mg(3 tabs)/day x1 week, then 20mg (2 tabs)/day x1 week, then 10mg (1 tab)/day x1 week, then stop hydrOXYchloroQUINE (PLAQUENIL) 200 mg tablet Take 1.5 tablets by mouth once daily. calcium carbonate/vitamin D3 (CALCIUM 600 + D,3, ORAL) Take by mouth. MULTI-VITAMIN ORAL Take by mouth. No current facility-administered medications for this visit. 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 Son is in [place], works as a paper inserter-dating a [place] lady Tobacco use: None Alcohol use: 0-1 drink/week Drug use: None REVIEW OF SYSTEMS: reviewed 08/08 systems, as above PHYSICAL EXAM: VITALS: Blood pressure 150/63, pulse 78, temperature (!) 35.9 ?C (96.7 ?F), temperature source Temporal, height 164.3 cm (5' 4.7), weight 69.4 kg (153 lb), last menstrual period 01/12/2008. CONSTITUTIONAL: Well-appearing, in NAD. SKIN: No (more content not included)... Normal [facility] Creatinine + eGFR Pnl SerPlB ldon 02-20-2025 Creatinine and Glomerular filtration rate.predicted panel (S/P/Bld) 83 mL/min/1.73m??? Normal >=60 [facility] Comment on above: Order Comment: Speci men Type: BLOOD SPECIMENOrdering Facility: [facility] Address: [address] [place] [address] Result Comment: Raine mated Glomerular Filtration Rate (eGFR) is calculated using the 2020 CKD-EPI creatinine equation. This equation utilizes serum creatinine, sex, and age as parameters. The creatinine assay has traceable calibration to isotope dilution-mass spectrometry. Refer to KDIGO guidelines for clinical interpretation. In patients with unstable renal function, e.g. those with acute kidney injury, the eGFR may not accurately reflect actual GFR. Performed By: #### 4 5066-8, 1920-8, 1742-6 ####[facility] LABCLIA [id number] [place] [address] [place] Creatinine and Glomerular fi ltration rate.predicted panel (S/P/Bld)on 02-20-2025 Creatinine [Mass/Vol] 0.77 mg/dL Normal 0.58-0.96 [facility] Comment on above: Order Comment: Speci men Type: BLOOD SPECIMENOrdering Facility: [facility] Address: [address] [id number] Performed By: #### 4 5066-8, 1920-8, 1742-6 ####[facility] LABCLIA [id number] TATIANNA PAULA [id number] [place], [place] [id number] [facility] CNPNon 02-08-2025 CNPN Telephone (RHEUST) MOUNIKA LINARES ([id number]) 1955 F Date Time Provider Department 02/08/25 DREAD MCCURDY During your visit today, we recorded the following information about you: Zully Fang 02/08/2025 11:07 AM Signed Patient called and stated that she has been having a lot of joint especially in her hands,shoulder and knees, patient also stated that she took 3 sulfasalazine's last night and this morning. Please advice Wendy Haley RN 02/08/2025 11:28 AM Signed Spoke with patient, pain and stiffness x 2 days. Patient reports pain gets a little better thru out the day. helped her dress this am due to pain with raising left arm. Feels pain in left shoulder when she attempts to raise arm almost down to elbow. Tylenol and Voltaren gel yesterday ineffective. Patient states she took 3 Sulfasalazine last night and this am -confirms she took Sulfasalazine and not the Plaquenil at an increased dose. Left knee and right hand pain / stiffness as well. Patient advised not to continue taking an increased dose of Sulfasalazine unless Dr. Mccurdy OK's it-she agrees. Advised not to take her daughter's left over prednisone as Dr. Mccurdy if she feels is appropriate would order a specific tapering dose for her based on her medical history and symptoms. [place] Gabriel Shailey, MD 02/08/2025 2:29 PM Signed Agree, fine to increase to sulfasalazine 3 tablets twice daily. New prescription sent with the higher dose. Also agree with doing her own prednisone taper. Prescription has been sent for this as well. Thanks Latest Ref Rng 11/17/2024 WBC 3.70 - 11.00 k/uL 6.40 RBC 3.90 - 5.20 m/uL 4.43 Hemoglobin 11.5 - 15.5 g/dL 13.3 Hematocrit 36.0 - 46.0 % 40.4 MCV 80.0 - 100.0 fL 91.2 MCH 26.0 - 34.0 pg 30.0 MCHC 30.5 - 36.0 g/dL 32.9 RDW-CV 11.5 - 15.0 % 12.2 Platelet Count 150 - 400 k/uL 283 MPV 9.0 - 12.7 fL 8.8 (L) Absolute nRBC <0.01 k/uL <0.01 Creatinine 0.58 - 0.96 mg/dL 0.82 eGFR >=60 mL/min/1.73m? 77 ALT 7 - 38 U/L 17 AST 13 - 35 U/L 18 Wendy Haley RN 02/08/2025 2:41 PM Signed Spoke with patient, verbalizes understanding-agrees with plan. Wendy Haley RN Allergies As of Date: 02/08/2025 Noted Allergy Reaction CATS 08/07/2009 9 - Itching Comments: Only certain types of cats. DOGS 08/07/2009 4 - Hives Comments: Only certain types of dogs. SEASONAL ALLERGIES 08/07/2009 Date Reviewed: 01/13/2025 Reviewed by: Merle Davila RN - Fully Assessed Reason for Visit: Arthritis [10] Order(s):sulfaSALAzine (AZULFIDINE) 500 mg tabletTake 3 tablets by mouth every 12 hours.Disp: 540 tabletRfl: 0 predniSONE (DELTASONE) 10 mg tabletTake 30mg(3 tabs)/day x1 week, then 20mg (2 tabs)/day x1 week, then 10mg (1 tab)/day x1 week, then stopDisp: 42 tabletRfl: 0 Prescriptions as of 02/08/2025 - sulfaSALAzine (AZULFIDINE) 500 mg tablet Take 3 tablets by mouth every 12 hours. - predniSONE (DELTASONE) 10 mg tablet Take 30mg(3 tabs)/day x1 week, then 20mg (2 tabs)/day x1 week, then 10mg (1 tab)/day x1 week, then stop - hydrOXYchloroQUINE (PLAQUENIL) 200 mg tablet Take 1.5 tablets by mouth once daily. - calcium carbonate/vitamin D3 (CALCIUM 600 + D,3, ORAL) Take by mouth. - MULTI-VITAMIN ORAL Take by mouth. Problem List As Of Date 02/08/2025 Noted Resolved Osteopenia of necks of both femurs [M85.851, M8*03/05/2009 ARSEN (obstructive sleep apnea) [G47.33] 12/24/2012 Seropositive rheumatoid arthritis (HCC) [M05.9] 10/11/2021 Pain in right ankle and joints of right foot [M*08/13/2023 Screening for colon cancer [Z12.11] 01/13/2025 Prescriptions ordered this encounter Disp Refills Start End SULFASALAZINE 500 MG TABLET 540 * 0 02/08/2025 Route: ORAL Sig: Take 3 tablets by mouth every 12 hours. PREDNISONE 10 MG TABLET 42 t* 0 02/08/2025 Sig: Take 30mg(3 tabs)/day x1 week, then 20mg (2 tabs)/day x1 week, then 10mg (1 tab)/day x1 week, then stop Medications Discontinued During This Encounter Prescriptions - sulfaSALAzine (AZULFIDINE) 500 mg tablet (Discontinued) Take 2 tablets by mouth every 12 hours. Encounter Status:Closed by WENDY HALEY on 02/08/25 [facility] [id number] 01-13-2025 [id number] HNO ID: [id number] Author: MERLE DAVILA, [place] Service: ? Author Type: Registered Nurse Type: [id number] Filed: 01/13/2025 09:33 Note Text: The patient received a copy of Colonoscopy discharge instructions that contain information for how to contact the physician who performed the procedure and when to seek medical care. Normal [facility] Colonoscopyon 01-13-2025 Colonoscopy [facility] Gastrointestinal Endoscopy Patient Name: Mounika Linares Procedure Date: 01/13/2025 8:59 AM Date of : 1955 Admit Type: Outpatient Age: 69 Gender: Female Note Status: Finalized Procedure: Colonoscopy Indications: Screening for colorectal malignant neoplasm Providers: Amrit Germain MD Patient Profile: This is a 69 year old female. Refer to note in patient chart for documentation of history and physical. Last Colonoscopy: October 2019. Referring Physician: Poonam Sofia (Referring MD) Medicines: Fentanyl 100 micrograms IV, Midazolam 4 mg IV, Diphenhydramine 50 mg IV Complications: No immediate complications. Estimated blood loss: None. Requesting Provider: Procedure: Pre-Anesthesia Assessment: - Prior to the procedure, a History and Physical was performed, and patient medications and allergies were reviewed. The patient's tolerance of previous anesthesia was also reviewed. The risks and benefits of the procedure and the sedation options and risks were discussed with the patient. All questions were answered, and informed consent was obtained. Prior Anticoagulants: The patient has taken no anticoagulant or antiplatelet agents. ASA Grade Assessment: II - A patient with mild systemic disease. After reviewing the risks and benefits, the patient was deemed in satisfactory condition to undergo the procedure. After I obtained informed consent, the scope was passed under direct vision. Throughout the procedure, the patient's blood pressure, pulse, and oxygen saturations were monitored continuously. The Colonoscope was introduced through the anus and advanced to the cecum, identified by appendiceal orifice and ileocecal valve. The colonoscopy was performed without difficulty. The patient tolerated the procedure well. The quality of the bowel preparation was adequate to identify polyps greater than 5 mm in size. The ileocecal valve, appendiceal orifice, and rectum were photographed. Moderate Sedation: The administration of moderate sedation was initiated at 09:08. Moderate (conscious) sedation was personally administered by the endoscopist. The following parameters were monitored: oxygen saturation, heart rate, blood pressure, respiratory rate, EKG, adequacy of pulmonary ventilation, and response to care. Total physician intraservice time was 17 minutes. Findings: The perianal and digital rectal examinations were normal. Non-bleeding internal hemorrhoids were found during retroflexion. The hemorrhoids were mild and small. The exam was otherwise without abnormality. Impression: - Non-bleeding internal hemorrhoids. - The examination was otherwise normal. - No specimens collected. Recommendation: - Patient has a contact number available for emergencies. The signs and symptoms of potential delayed complications were discussed with the patient. Return to normal activities tomorrow. Written discharge instructions were provided to the patient. - Resume previous diet. - Continue present medications. - Repeat colonoscopy in 10 years for screening purposes. - Return to primary care physician PRN. Procedure Code(s): --- Professional --- 48698, Colonoscopy, flexible; diagnostic, including collection of specimen(s) by brushing or washing, when performed (separate procedure) G0500, Moderate sedation services provided by the same physician or other qualified health rn medicare performing a gastrointestinal endoscopic service that sedation supports, requiring the presence of an independent trained observer to assist in the monitoring of the patient's level of consciousness and physiological status; initial 15 minutes of intra-service time; patient age 5 years or older (additional time may be reported with 69188, as appropriate) Diagnosis Code(s): --- Professional --- Z12.11, Encounter for screening for malignant neoplasm of colon K64.8, Other hemorrhoids CPT copyright 2020 [employer]. All rights reserved. The codes documented in this report are preliminary and upon corporate director review may be revised to meet current compliance requirements. Attending Participation: I personally performed the entire procedure. Scope In: 9:08:59 AM Scope Out: 9:25:14 AM MD Amrit Puri MD 01/13/2025 9:28:30 AM This report has been signed electronically by Amrit Germain MD Number of Addenda: 0 Note Initiated On: 01/13/2025 8:59 AM Estimated Blood Loss: Estimated blood loss: none. Normal [facility] Colonoscopy Study observatio non 01-13-2025 [facility] Gastrointestinal Endoscopy Patient Name: Mounika Linares Procedure Date: 01/13/2025 8:59 AM Date of : 1955 Admit Type: Outpatient Age: 69 Gender: Female Note Status: Finalized Procedure: Colonoscopy Indications: Screening for colorectal malignant neoplasm Providers: Amrit Germain MD Patient Profile: This is a 69 year old female. Refer to note in patient chart for documentation of history and physical. Last Colonoscopy: October 2019. Referring Physician: Poonam Sofia (Referring MD) Medicines: Fentanyl 100 micrograms IV, Midazolam 4 mg IV, Diphenhydramine 50 mg IV Complications: No immediate complications. Estimated blood loss: None. Requesting Provider: Procedure: Pre-Anesthesia Assessment: - Prior to the procedure, a History and Physical was performed, and patient medications and allergies were reviewed. The patient's tolerance of previous anesthesia was also reviewed. The risks and benefits of the procedure and the sedation options and risks were discussed with the patient. All questions were answered, and informed consent was obtained. Prior Anticoagulants: The patient has taken no anticoagulant or antiplatelet agents. ASA Grade Assessment: II - A patient with mild systemic disease. After reviewing the risks and benefits, the patient was deemed in satisfactory condition to undergo the procedure. After I obtained informed consent, the scope was passed under direct vision. Throughout the procedure, the patient's blood pressure, pulse, and oxygen saturations were monitored continuously. The Colonoscope was introduced through the anus and advanced to the cecum, identified by appendiceal orifice and ileocecal valve. The colonoscopy was performed without difficulty. The patient tolerated the procedure well. The quality of the bowel preparation was adequate to identify polyps greater than 5 mm in size. The ileocecal valve, appendiceal orifice, and rectum were photographed. Moderate Sedation: The administration of moderate sedation was initiated at 09:08. Moderate (conscious) sedation was personally administered by the endoscopist. The following parameters were monitored: oxygen saturation, heart rate, blood pressure, respiratory rate, EKG, adequacy of pulmonary ventilation, and response to care. Total physician intraservice time was 17 minutes. Findings: The perianal and digital rectal examinations were normal. Non-bleeding internal hemorrhoids were found during retroflexion. The hemorrhoids were mild and small. The exam was otherwise without abnormality. Impression: - Non-bleeding internal hemorrhoids. - The examination was otherwise normal. - No specimens collected. Recommendation: - Patient has a contact number available for emergencies. The signs and symptoms of potential delayed complications were discussed with the patient. Return to normal activities tomorrow. Written discharge instructions were provided to the patient. - Resume previous diet. - Continue present medications. - Repeat colonoscopy in 10 years for screening purposes. - Return to primary care physician PRN. Procedure Code(s): --- Professional --- 92784, Colonoscopy, flexible; diagnostic, including collection of specimen(s) by brushing or washing, when performed (separate procedure) G0500, Moderate sedation services provided by the same physician or other qualified health rn medicare performing a gastrointestinal endoscopic service that sedation supports, requiring the presence of an independent trained observer to assist in the monitoring of the patient's level of consciousness and physiological (more content not included)... PROVATION [facility] Radiology Study observation (narrative) [facility] HISTORY PHYSICALon HISTORY PHYSICAL HNO ID: [id number] Author: AMRIT GERMAIN MD Service: General Surgery Author Type: Physician Type: H&P Filed: 01/13/2025 08:56 Note Text: Subjective Mounika Linares is a 69 year old female. HISTORY Mounika Linares is a 69 year old lady here for yearly exam and follow up appointment. Mounika Linares is a 69-year-old female presenting for a Medicare Annual Wellness Visit. Mounika reports overall good health and well-being. She engages in moderate to strenuous exercise approximately 3 days per week for about 20 minutes each session. She consumes alcohol about once a week with dinner, typically having one drink per occasion, and denies consuming six or more drinks on a single occasion. She denies feelings of imbalance, recent falls, or concerns about sexual function, though she notes a lower libido. She denies feelings of anxiety, anger, irritability, loneliness, isolation, or thoughts of self-harm. She follows a diet rich in fruits, vegetables, whole grains, and fiber. She is independent in activities of daily living, including cooking, swallowing, bathing, and grooming, and follows safety precautions. She denies smoking, hearing difficulties, or vision problems, though she mentions potential cataract surgery in the future. Mounika is up to date on her flu vaccination and has scheduled her next flu shot. She declines further COVID-19 vaccinations. She has advanced directives in place. She is due for a colonoscopy in October, with her last one performed in October 2019. She is considering options for her next colonoscopy, including staying within the [facility] system. Mounika is currently taking fexofenadine for allergies, which she started yesterday. She is also on hydroxychloroquine and sulfasalazine, prescribed by her doll wig hackler, Dr. Mccurdy. She takes vitamins regularly. She denies any issues with bowel movements and reports making bran muffins to maintain regularity. 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 She is currently dealing with a jury duty notice and is seeking an excuse due to her caregiving responsibilities. She has no other family in town to assist with her daughter's care. PAST MEDICAL HISTORY PAST MEDICAL HISTORY Diagnosis Date Allergic rhinitis, cause unspecified Allergic rhinitis Allergy to dogs Cat allergies Climacteric 09/13/2012 Female stress incontinence Stress incontinence ARSEN (obstructive sleep apnea) 2010 Dr. Montes De Oca Osteopenia 03/05/[address] Arboleda Seasonal allergies Snoring Trigger finger Trigger finger, right ring finger 04/23/2011 Unspecified asthma(493.90) Vaginal atrophy 09/13/2012 CURRENT MEDICATIONS Current Outpatient Medications Medication Sig hydrOXYchloroQUINE (PLAQUENIL) 200 mg tablet Take 1.5 tablets by mouth once daily. sulfaSALAzine (AZULFIDINE) 500 mg tablet TAKE 2 TABLETS BY MOUTH TWICE A DAY calcium carbonate/vitamin D3 (CALCIUM 600 + D,3, ORAL) Take by mouth. MULTI-VITAMIN ORAL Take by mouth. dexAMETHasone sodium phosphate (DECADRON) 4 mg/mL injection 4 mg as needed (for iontophoresis therapy). Please dispense 3 cc syringe and blunt tip needle to draw up medication for physical therapy iotonphoresis tx. No current facility-administered medications for this visit. ALLERGIES ALLERGIES Allergen Reactions Cats Itching Only certain types of cats. Dogs Hives Only certain types of dogs. Seasonal Allergies FAMILY HISTORY FAMILY HISTORY Problem Relation Age of Onset other (downs syndrome) Daughter Hypertension Mother Heart Mother cad chf Asthma Mother SOCIAL HISTORY Social History Tobacco Use Smoking status: Never Smokeless tobacco: Never Substance Use Topics Alcohol use: Yes Comment: Occassional Drug use: No Review of Systems Objective BP 132/72 Pulse 75 Resp 16 Wt 67.6 kg (149 lb) LMP 01/12/2008 BMI 24.99 kg/m? Last 5 Encounter Wt Readings: Date: Wt: 09/13/2024 67.6 kg (149 lb) 06/20/2024 68 kg (149 lb 14.6 oz) 12/21/2023 67.6 kg (149 lb) 09/11/2023 66 kg (145 lb 9.6 oz) 06/03/2023 62.1 kg (137 lb) No waist measurement recorded Estimated body mass index is 24.99 kg/m? as calculated from the following: Height as of 06/20/24: 164.5 cm (5' 4.75). Weight as of this encounter: 67.6 kg (149 lb). Last 5 Encounter BP Readings: Date: BP: 09/13/2024 132/72 06/20/2024 139/84 12/21/2023 123/78 09/11/2023 116/78 06/03/2023 110/72 Physical Exam Vitals reviewed. Constitutional: Appearance: She is well-developed. HENT: Head: Normocephalic and atraumatic. Right Ear: External ear normal. Left Ear: External ear normal. Nose: Nose normal. Eyes: Conjunctiva/sclera: Conjunctivae normal. Neck: Thyroid: No thyromegaly. Cardiovascular: Rate and Rhythm: Normal rate and regular rhythm. Pulses: Normal pulses. Heart sounds: N (more content not included)... Normal [facility] 01-09-2025 [facility] Telephone (INTMWS) MOUNIKA LINARES ([id number]) 1955 F Date Time Provider Department 01/09/25 CHANDANA BECK INTWS During your visit today, we recorded the following information about you: Enriqueta Reid LPN 01/09/2025 9:08 AM Signed Patient calling she did not get instructions on when to start her colon prep was not on bottle given to her by the pharmacy. Computer shows instructions and was reading them to her and to much to write down. Told patient that I am copy and pasting and sending to her on my chart so she can read these. this is what was sent to the patient: Health Information For Patients and the Community How to Prepare for Your Colonoscopy Using Golytely, Nulytely, Trilyte or Colyte Preparations IMPORTANT - Please Read These Instructions at Least 2 Weeks Before Your Colonoscopy Lazar Instructions: ?Your bowel must be empty so that your doctor can clearly view your colon. Follow all of the instructions in this handout EXACTLY as they are written. If you do NOT follow the directions for when to start drinking the bowel preparation (see next page), your colonoscopy WILL be cancelled. ?Do NOT eat any solid food the ENTIRE day before your colonoscopy. ?Buy your bowel preparation at least 5 days before your colonoscopy. ?Do NOT mix the solution until the day before your colonoscopy. Designated Die Out Worker on the Day of Your Exam A responsible family member or friend MUST come with you to your colonoscopy and REMAIN in the endoscopy area until you are discharged! You are NOT ALLOWED to drive, take a taxi or bus, or leave the Endoscopy Center ALONE. If you do not have a responsible courtesy car driver (family member or friend) with you to take you home, your exam cannot be done with sedation and will be cancelled. Medications Some of the medicines you take may need to be stopped or adjusted before your colonoscopy. You MUST call the doctor who ordered any of the following medicines at least 2 weeks before your colonoscopy. ?Blood thinners -- such as Coumadin? (warfarin), Plavix? (clopidogrel), Ticlid? (ticlopidine hydrochloride), Agrylin? (anagrelide), Xarelto? (Rivaroxaban), Pradaxa? (Dabigatran), Eliquis? (Apixaban), and Effient? (Prasugrel). ?Insulin or diabetes pills. Please call the doctor that monitors your glucose levels. Your insulin dosage may need to be adjusted due to the diet restrictions required with this bowel preparation. (Please bring your diabetes medicines with you on the day of your procedure.) If you take aspirin, take it and ALL other medications prescribed by your doctor. On the day of your colonoscopy, take your medications with a sip of water. Revised 11/2016 1 Five (5) Days Before Your Colonoscopy ?Do NOT take medicines that stop diarrhea -- such as Imodium?, Kaopectate?, or Pepto Bismol?. ?Do NOT take fiber supplements -- such as Metamucil?, Citrucel?, or Perdiem?. ?Do NOT take products that contain iron -- such as multi-vitamins -- (the label lists what is in the products). ?Do NOT take vitamin E. Buy the prescription bowel preparation solution at your local pharmacy or drugstore pharmacy. Three (3) Days Before Your Colonoscopy Do NOT eat high-fiber foods -- such as popcorn, beans, seeds (flax, sunflower, quinoa), multigrain bread, nuts, salad/vegetables, or fresh and dried fruit. One (1) Day Before Your Colonoscopy Only drink clear liquids the ENTIRE DAY before your colonoscopy. Do NOT eat any solid foods. Drink at least 8 ounces of clear liquids every hour after waking up. The clear liquids you can drink include: ?water, apple, or white grape juice; broth; coffee or tea (without milk or creamer); clear carbonated beverages such as carole eddy or lemon-council soda; Gatorade? or other sports drinks (not red); Cesar-Aid? or other flavored drinks (not red). You may eat plain jello or other gelatins (not red) or popsicles (not red). Do NOT drink alcohol on the day before or the day of the procedure. 2 Revised 11/2016 When to Mix and Drink Your Bowel Prep Follow the instructions on the label. After mixing, place the solution in the refrigerator for a couple of hours before drinking. You may add the flavor packet that came with the bowel preparation. DO NOT add ice, sugar or any flavorings to the solution. Evening Before Your Colonoscopy ?Start drinking the bowel preparation at 6 PM the evening before your colonoscopy. Drink an 8-oz glass of bowel preparation every 10 minutes. You must finish drinking the solution by 9 PM the night before your scheduled procedure. ?You may continue to drink clear liquids only until midnight. Do NOT eat or drink ANYTHING after midnight the night before your procedure or your procedure may be cancelled. This is for your safety and will reduce the risk of having any food or liquid in your stomach move into your lungs (more content not included)... Normal [facility] Madi 12-07-2024 APRIL Telephone (INTMWS) MOUNIKA LINARES ([id number]) 1955 F Date Time Provider Department 12/07/24 CHANDANA BECK During your visit today, we recorded the following information about you: Lainey Gan RN 12/07/2024 11:57 AM Signed Patient calls and states that she is due for her colonoscopy. Patient asking if these orders can be placed so that she can get this scheduled. Please review and advise, [place] Hunter Naz M, MANAGER [facility] 12/07/2024 1:40 PM Signed Health Information For Patients and the Community How to Prepare for Your Colonoscopy Using Golytely, Nulytely, Trilyte or Colyte Preparations IMPORTANT - Please Read These Instructions at Least 2 Weeks Before Your Colonoscopy Lazar Instructions: ?Your bowel must be empty so that your doctor can clearly view your colon. Follow all of the instructions in this handout EXACTLY as they are written. If you do NOT follow the directions for when to start drinking the bowel preparation (see next page), your colonoscopy WILL be cancelled. ?Do NOT eat any solid food the ENTIRE day before your colonoscopy. ?Buy your bowel preparation at least 5 days before your colonoscopy. ?Do NOT mix the solution until the day before your colonoscopy. Designated Die Out Worker on the Day of Your Exam A responsible family member or friend MUST come with you to your colonoscopy and REMAIN in the endoscopy area until you are discharged! You are NOT ALLOWED to drive, take a taxi or bus, or leave the Endoscopy Center ALONE. If you do not have a responsible courtesy car driver (family member or friend) with you to take you home, your exam cannot be done with sedation and will be cancelled. Medications Some of the medicines you take may need to be stopped or adjusted before your colonoscopy. You MUST call the doctor who ordered any of the following medicines at least 2 weeks before your colonoscopy. ?Blood thinners -- such as Coumadin? (warfarin), Plavix? (clopidogrel), Ticlid? (ticlopidine hydrochloride), Agrylin? (anagrelide), Xarelto? (Rivaroxaban), Pradaxa? (Dabigatran), Eliquis? (Apixaban), and Effient? (Prasugrel). ?Insulin or diabetes pills. Please call the doctor that monitors your glucose levels. Your insulin dosage may need to be adjusted due to the diet restrictions required with this bowel preparation. (Please bring your diabetes medicines with you on the day of your procedure.) If you take aspirin, take it and ALL other medications prescribed by your doctor. On the day of your colonoscopy, take your medications with a sip of water. Revised 11/2016 1 Five (5) Days Before Your Colonoscopy ?Do NOT take medicines that stop diarrhea -- such as Imodium?, Kaopectate?, or Pepto Bismol?. ?Do NOT take fiber supplements -- such as Metamucil?, Citrucel?, or Perdiem?. ?Do NOT take products that contain iron -- such as multi-vitamins -- (the label lists what is in the products). ?Do NOT take vitamin E. Buy the prescription bowel preparation solution at your local pharmacy or drugstore pharmacy. Three (3) Days Before Your Colonoscopy Do NOT eat high-fiber foods -- such as popcorn, beans, seeds (flax, sunflower, quinoa), multigrain bread, nuts, salad/vegetables, or fresh and dried fruit. One (1) Day Before Your Colonoscopy Only drink clear liquids the ENTIRE DAY before your colonoscopy. Do NOT eat any solid foods. Drink at least 8 ounces of clear liquids every hour after waking up. The clear liquids you can drink include: ?water, apple, or white grape juice; broth; coffee or tea (without milk or creamer); clear carbonated beverages such as carole eddy or lemon-council soda; Gatorade? or other sports drinks (not red); Cesar-Aid? or other flavored drinks (not red). You may eat plain jello or other gelatins (not red) or popsicles (not red). Do NOT drink alcohol on the day before or the day of the procedure. 2 Revised 11/2016 When to Mix and Drink Your Bowel Prep Follow the instructions on the label. After mixing, place the solution in the refrigerator for a couple of hours before drinking. You may add the flavor packet that came with the bowel preparation. DO NOT add ice, sugar or any flavorings to the solution. Evening Before Your Colonoscopy ?Start drinking the bowel preparation at 6 PM the evening before your colonoscopy. Drink an 8-oz glass of bowel preparation every 10 minutes. You must finish drinking the solution by 9 PM the night before your scheduled procedure. ?You may continue to drink clear liquids only until midnight. Do NOT eat or drink ANYTHING after midnight the night before your procedure or your procedure may be cancelled. This is for your safety and will reduce the risk of having any food or liquid in your stomach move into your lungs (aspiration) during a procedure. If you take aspirin, take it and ALL other prescribed medici (more content not included)... Normal [facility] Telephone (RHEUST) MOUNIKA LINARES ([id number]) 1955 F Date Time Provider Department 12/07/24 COLLIN GAN During your visit today, we recorded the following information about you: Cher Miranda 12/07/2024 11:55 AM Signed PT calling to ask if she has enough medication to last until her follow up appt. Based on quantity and directions, it appears she should be good until her appt on 01/02, for Sulfasalazine and plaquenil. Please advise [phone] Percy Mortensen MA 12/07/2024 12:03 PM Signed Based on scripts patient should have enough. Attempted to reach patient. No answer. Left detailed message on patient's phone. [place] 12/07/2024 12:38 PM Signed The patient does state she needs the SULFASALAZINE per directions she is to take TAKE TWO TABLETS BY MOUTH TWICE A DAY that is 4 pills a day she was dispensed 120 pills on 11-09-24 with no refills and and that is good for roughly 30 days patient currently has 54 pills currently this will only last her until December 21 in the am please advise. Percy Mortensen MA 12/07/2024 12:45 PM Signed Addended by: PERCY MORTENSEN on: 12/07/2024 12:45 PM Modules accepted: Orders Dread Mccurdy MD 12/07/2024 1:35 PM Signed Addended by: DREAD MCCURDY on: 12/07/2024 01:35 PM Modules accepted: Percy Okeefe MA 12/07/2024 1:43 PM Signed Script send by Dr. Mccurdy. Attempted to reach patient. No answer. Left message on patient's voicemail script send. Percy Mortensen MA Allergies As of Date: 12/07/2024 Noted Allergy Reaction CATS 08/07/2009 9 - Itching Comments: Only certain types of cats. DOGS 08/07/2009 4 - Hives Comments: Only certain types of dogs. SEASONAL ALLERGIES 08/07/2009 Date Reviewed: 09/13/2024 Reviewed by: Cande Richards MA - Fully Assessed Reason for Visit: Question [1327] Cmt: See note Order(s):sulfaSALAzine (AZULFIDINE) 500 mg tabletTake 2 tablets by mouth every 12 hours.Disp: 360 tabletRfl: 0 Prescriptions as of 12/07/2024 - sulfaSALAzine (AZULFIDINE) 500 mg tablet Take 2 tablets by mouth every 12 hours. - peg 3350-electrolytes (GAVILYTE-C) 240-22.72-6.72 -5.84 gram solution Take 4,000 mL by mouth one time only for 1 dose. - hydrOXYchloroQUINE (PLAQUENIL) 200 mg tablet Take 1.5 tablets by mouth once daily. - calcium carbonate/vitamin D3 (CALCIUM 600 + D,3, ORAL) Take by mouth. - MULTI-VITAMIN ORAL Take by mouth. Problem List As Of Date 12/07/2024 Noted Resolved Osteopenia of necks of both femurs [M85.851, M8*03/05/2009 ARSEN (obstructive sleep apnea) [G47.33] 12/24/2012 Seropositive rheumatoid arthritis (HCC) [M05.9] 10/11/2021 Pain in right ankle and joints of right foot [M*08/13/2023 Prescriptions ordered this encounter Disp Refills Start End SULFASALAZINE 500 MG TABLET 360 * 0 12/07/2024 Route: ORAL Sig: Take 2 tablets by mouth every 12 hours. Medications Discontinued During This Encounter Prescriptions - sulfaSALAzine (AZULFIDINE) 500 mg tablet (Discontinued) TAKE TWO TABLETS BY MOUTH TWICE A DAY Encounter Status:Closed by PERCY MORTENSEN on 12/07/24 Normal [facility] ALT SerPl-cCncon 11-17-2024 ALT [Catalytic activity/Vol] 17 U/L Normal 7-38 [facility] Comment on above: Order Comment: Speci men Type: BLOOD SPECIMEN Ordering Facility: [facility] Address: [address] [place] [address] Performed By: #### 1 6128-1 #### [facility] CLIA [id number] [address] [place] [address] [place] AST SerPl-cCncon 11-17-2024 AST [Catalytic activity/Vol] 18 U/L Normal 13-35 [facility] Comment on above: Order Comment: Speci men Type: BLOOD SPECIMEN Ordering Facility: [facility] Address: [address] [place] [address] Performed By: #### 1 6128-1 #### [facility] CLIA [id number] [address] [place] [address] [place] CBC panel Auto (Bld)on 11-17 Erythrocyte distribution width (RBC) [Ratio] 12.2 % Normal 11.5-15.0 [facility] Comment on above: Order Comment: Speci men Type: BLOOD SPECIMENOrdering Facility: [facility] Address: [address] [place] [address] Performed By: #### 5 8410-2 ####[facility] [id number] [place] [id number] [place] Hematocrit (Bld) [Volume fraction] 40.4 % Normal 36.0-46.0 [facility] Comment on above: Order Comment: Speci men Type: BLOOD SPECIMENOrdering Facility: [facility] Address: [address] [place] [address] Performed By: #### 5 8410-2 ####[facility] MILLWNCL[facility] [id number] [place] [address] [place] Hemoglobin (Bld) [Mass/Vol] 13.3 g/dL Normal 11.5-15.5 [facility] Comment on above: Order Comment: Speci men Type: BLOOD SPECIMENOrdering Facility: [facility] Address: [address] [place] [address] Performed By: #### 5 8410-2 ####[facility] [id number] [place] [address] [place] MCH (RBC) [Entitic mass] 30.0 pg Normal 26.0-34.0 [facility] Comment on above: Order Comment: Speci men Type: BLOOD SPECIMENOrdering Facility: [facility] Address: [address] [place] [address] Performed By: #### 5 8410-2 ####[facility] [id number] [place] [address] [place] MCHC (RBC) [Mass/Vol] 32.9 g/dL Normal 30.5-36.0 [facility] Comment on above: Order Comment: Speci men Type: BLOOD SPECIMENOrdering Facility: [facility] Address: [address] [place] [address] Performed By: #### 5 8410-2 ####[facility] [id number] [place] [address] [place] MCV (RBC) [Entitic vol] 91.2 fL Normal 80.0-100.0 [facility] Comment on above: Order Comment: Speci men Type: BLOOD SPECIMENOrdering Facility: [facility] Address: [address] [place] [address] Performed By: #### 5 8410-2 ####[facility] [id number] [place] [address] [place] Nucleated RBC (Bld) [#/Vol] 10*3/uL Normal <0.01 [facility] Comment on above: Order Comment: Speci men Type: BLOOD SPECIMENOrdering Facility: [facility] Address: [address] [place] [address] Performed By: #### 5 8410-2 ####[facility]KIT[facility] [id number] [place] [address] [place] Platelet mean volume (Bld) [Entitic vol] 8.8 fL Low 9.0-12.7 [facility] Comment on above: Order Comment: Speci men Type: BLOOD SPECIMENOrdering Facility: [facility] Address: [address] [place] [address] Performed By: #### 5 8410-2 ####[facility] [id number] [place] [address] [place] Platelets (Bld) [#/Vol] 283 10*3/uL Normal 150-400 [facility] Comment on above: Order Comment: Speci men Type: BLOOD SPECIMENOrdering Facility: [facility] Address: [address] [place] [address] Performed By: #### 5 8410-2 ####[facility] [id number] [place] [address] [place] RBC (Bld) [#/Vol] 4.43 10*6/uL Normal 3.90-5.20 [facility] Comment on above: Order Comment: Speci men Type: BLOOD SPECIMENOrdering Facility: [facility] Address: [address] [place] [address] Performed By: #### 5 8410-2 ####[facility] [id number] [place] [address] [place] WBC (Bld) [#/Vol] 6.40 10*3/uL Normal 3.70-11.00 [facility] Comment on above: Order Comment: Sol simon Type: BLOOD SPECIMENOrdering Facility: [facility] Address: [address] [place] [address] Performed By: #### 5 8410-2 ####[facility] [id number] [place] [id number] [place] CREATININE BLDon 11-17-2024 Creatinine [Mass/Vol] 0.82 mg/dL Normal 0.58-0.96 [facility] Comment on above: Order Comment: Sol simon Type: BLOOD SPECIMEN Ordering Facility: [facility] Address: [address] [place] [address] Performed By: #### 1 6128-1 #### [facility] CLIA [id number] [address] [place] [address] [place] [facility] Creatinine and Glomerular filtration rate.predicted panel (S/P/Bld) 77 mL/min/1.73m??? Normal >=60 [facility] Comment on above: Order Comment: Sol simon Type: BLOOD SPECIMEN Ordering Facility: [facility] Address: [address] [place] [address] Result Comment: Raine mated Glomerular Filtration Rate (eGFR) is calculated using the 2020 CKD-EPI creatinine equation. This equation utilizes serum creatinine, sex, and age as parameters. The creatinine assay has traceable calibration to isotope dilution-mass spectrometry. Refer to KDIGO guidelines for clinical interpretation. In patients with unstable renal function, e.g. those with acute kidney injury, the eGFR may not accurately reflect actual GFR. Performed By: #### 1 6128-1 #### [facility] CLIA [id number] [address] [place] [address] [place] CNOVon 09-13-2024 CNOV Office Visit (INTMWS ) MOUNIKA LINARES ([id number]) 1955 F Date Time Provider Department 09/13/24 9:00 AM CHANDANA BECK INTMWS During your visit today, we recorded the following information about you: Pulse Respiration Blood pressure Weight 75/minute 16/minute 132/72 67.6 kg Chandana Beck MD 09/13/2024 10:25 AM Signed This note was created using Hytle. Subjective Mounika Linares is a 69 year old female. HISTORY Mounika Linares is a 69 year old lady here for yearly exam and follow up appointment. Mounika Linares is a 69-year-old female presenting for a Medicare Annual Wellness Visit. Mounika reports overall good health and well-being. She engages in moderate to strenuous exercise approximately 3 days per week for about 20 minutes each session. She consumes alcohol about once a week with dinner, typically having one drink per occasion, and denies consuming six or more drinks on a single occasion. She denies feelings of imbalance, recent falls, or concerns about sexual function, though she notes a lower libido. She denies feelings of anxiety, anger, irritability, loneliness, isolation, or thoughts of self-harm. She follows a diet rich in fruits, vegetables, whole grains, and fiber. She is independent in activities of daily living, including cooking, swallowing, bathing, and grooming, and follows safety precautions. She denies smoking, hearing difficulties, or vision problems, though she mentions potential cataract surgery in the future. Mounika is up to date on her flu vaccination and has scheduled her next flu shot. She declines further COVID-19 vaccinations. She has advanced directives in place. She is due for a colonoscopy in October, with her last one performed in October 2019. She is considering options for her next colonoscopy, including staying within the [facility] system. Mounika is currently taking fexofenadine for allergies, which she started yesterday. She is also on hydroxychloroquine and sulfasalazine, prescribed by her doll wig hackler, Dr. Mccurdy. She takes vitamins regularly. She denies any issues with bowel movements and reports making bran muffins to maintain regularity. 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 She is currently dealing with a jury duty notice and is seeking an excuse due to her caregiving responsibilities. She has no other family in town to assist with her daughter's care. PAST MEDICAL HISTORY Diagnosis Date Allergic rhinitis, cause unspecified Allergic rhinitis Allergy to dogs Cat allergies Climacteric 09/13/2012 Female stress incontinence Stress incontinence ARSEN (obstructive sleep apnea) 2010 Dr. Montes De Oca Osteopenia 03/05/[address] Arboleda Seasonal allergies Snoring Trigger finger Trigger finger, right ring finger 04/23/2011 Unspecified asthma(493.90) Vaginal atrophy 09/13/2012 Current Outpatient Medications Medication Sig hydrOXYchloroQUINE (PLAQUENIL) 200 mg tablet Take 1.5 tablets by mouth once daily. sulfaSALAzine (AZULFIDINE) 500 mg tablet TAKE 2 TABLETS BY MOUTH TWICE A DAY calcium carbonate/vitamin D3 (CALCIUM 600 + D,3, ORAL) Take by mouth. MULTI-VITAMIN ORAL Take by mouth. dexAMETHasone sodium phosphate (DECADRON) 4 mg/mL injection 4 mg as needed (for iontophoresis therapy). Please dispense 3 cc syringe and blunt tip needle to draw up medication for physical therapy iotonphoresis tx. No current facility-administered medications for this visit. ALLERGIES Allergen Reactions Cats Itching Only certain types of cats. Dogs Hives Only certain types of dogs. Seasonal Allergies FAMILY HISTORY Problem Relation Age of Onset other (downs syndrome) Daughter Hypertension Mother Heart Mother cad chf Asthma Mother Social History Tobacco Use Smoking status: Never Smokeless tobacco: Never Substance Use Topics Alcohol use: Yes Comment: Occassional Drug use: No Review of Systems Objective BP 132/72 Pulse 75 Resp 16 Wt 67.6 kg (149 lb) LMP 01/12/2008 BMI 24.99 kg/m? Last 5 Encounter Wt Readings: Date: Wt: 09/13/2024 67.6 kg (149 lb) 06/20/2024 68 kg (149 lb 14.6 oz) 12/21/2023 67.6 kg (149 lb) 09/11/2023 66 kg (145 lb 9.6 oz) 06/03/2023 62.1 kg (137 lb) No waist measurement recorded Estimated body mass index is 24.99 kg/m? as calculated from the following: Height as of 06/20/24: 164.5 cm (5' 4.75). Weight as of this encounter: 67.6 kg (149 lb). Last 5 Encounter BP Readings: Date: BP: 09/13/2024 132/72 06/20/2024 139/84 12/21/2023 123/78 09/11/2023 116/78 06/03/2023 110/72 Physical Exam Vitals reviewed. Constitutional: Appearance: She is well-developed. HENT: Head: Normocephalic and atraumatic. Right Ear: External ear normal. Left Ear: External ear n (more content not included)... Normal [facility] BD DXA - AXIAL SKELETONon BD DXA - AXIAL SKELETON * * *Final Report* * * DATE OF EXAM: Sep 02 2024 9:36AM WRB [id number] - BD DXA - AXIAL SKELETON / PROCEDURE REASON: Asymptomatic postmenopausal status * * * * Physician Interpretation * * * * EXAMINATION: DXA BONE DENSITOMETRY BD DXA - AXIAL SKELETON, BD DXA TRABECLR BONE SCORE (TBS) PATIENT DEMOGRAPHICS: Age: 69 years, Gender: Female SCANNER INFORMATION: DXA Model: [employer]um - [employer] Discovery C [id number] Date Scanned: 09/02/2024 9:36 AM CLINICAL HISTORY: DIAGNOSTIC Asymptomatic postmenopausal status . RISK FACTORS FOR OSTEOPOROSIS AND ASSOCIATED FRACTURES REPORTED BY THIS PATIENT: Please refer to Bone Health Questionnaire in the EMR CURRENT THERAPY: Please refer to Bone Health Questionnaire in the EMR TECHNICAL LIMITATIONS: None RESULTS: Lumbar spine (L1, L2, L3, L4): 0.810 g/cm2, T-score -2.2, Z-score 0.0 Lumbar spine: 2021: 0.829 g/cm2 No statistically significant change Right Femoral Neck: 0.631 g/cm2, T-score -2.0, Z-score -0.2 Right Femoral Neck: 2021: 0.638 g/cm2 No statistically significant change Right Total Hip: 0.856 g/cm2, T-score -0.7, Z-score 0.8 Right Total Hip: 2021: 0.855 g/cm2 No statistically significant change Left Femoral Neck: 0.625 g/cm2, T-score -2.0, Z-score -0.2 Left Femoral Neck: 2021: 0.641 g/cm2 No statistically significant change Left Total Hip: 0.845 g/cm2, T-score -0.8, Z-score 0.7 Left Total Hip: 2021: 0.864 g/cm2 No statistically significant change CHANGE IS STATISTICALLY SIGNIFICANT IN THE SPINE OR HIP IF GREATER THAN OR EQUAL TO 0.04 g/cm2 VERTEBRAL FRACTURE ASSESSMENT Not performed. TRABECULAR BONE ASSESSMENT TBS score: 1.386 Bone micro-architecture: Normal (> 1.310) IMPRESSION: THE LOWEST T-SCORE IS -2.2 IN THE SPINE 1) DIAGNOSIS (based on BMD alone): OSTEOPENIA Caution: Medical conditions other than osteoporosis may cause low bone density, such as osteomalacia or renal osteodystrophy. Clinical correlation is necessary. 2) FRACTURE RISK (Based on TBS adjusted FRAX): 10-year absolute fracture risk: - major osteoporotic fracture = 13 % - hip fracture = 2.7 % - A diagnosis of Osteoporosis, a 10 year probability of hip fracture greater than or equal to 3% or a 10 year probability of any major osteoporosis-related fracture greater than or equal to 20% should be considered for treatment. - DXA scanner generated FRAX calculations may slightly differ from online FRAX calculations due to differences in software versions. - All recommendations and calculations are to be considered as guidelines and should not replace sound clinical judgement - Caution: Fracture risk may be increased independent of BMD in patients with corticosteroid use, age greater than 65 years, or a history of prior fragility fracture. RECOMMENDATIONS: Follow-up in 2 years or as clinically indicated. Patients that are taking corticosteroids, are transplant recipients or have hyperparathyroidism should have annual follow-up. Follow-up scans should always be done on the same machine for accurate comparison. FOR MORE INFORMATION ABOUT DIAGNOSIS AND TREATMENT: [facility] for Osteoporosis and Metabolic Bone Disease:? www.ccf.org/arthritis/ osteo National Osteoporosis Foundation:? www.nof.org International Society of Clinical Densitometry www.iscd.org Scrap Worker: APOLINAR Transcribe Date/Time: Sep 05 2024 12:14P Dictated by : YASEMIN CLIFTON MD This examination was interpreted and the report reviewed and electronically signed by: YASEMIN CLIFTON MD on Sep 05 2024 12:17PM EST [id number] -2.2 Normal [facility] BD DXA TRABECLR BONE SCORE ( TBS)on 09-02-2024 BD DXA TRABECLR BONE SCORE (TBS) * * *Final Report* * * DATE OF EXAM: Sep 02 2024 9:36AM EFE [id number] - BD DXA TRABECLR BONE SCORE (TBS) / PROCEDURE REASON: Asymptomatic postmenopausal status * * * * Physician Interpretation * * * * EXAMINATION: DXA BONE DENSITOMETRY BD DXA - AXIAL SKELETON, BD DXA TRABECLR BONE SCORE (TBS) PATIENT DEMOGRAPHICS: Age: 69 years, Gender: Female SCANNER INFORMATION: DXA Model: [email or web address] C [id number] Date Scanned: 09/02/2024 9:36 AM CLINICAL HISTORY: DIAGNOSTIC Asymptomatic postmenopausal status . RISK FACTORS FOR OSTEOPOROSIS AND ASSOCIATED FRACTURES REPORTED BY THIS PATIENT: Please refer to Bone Health Questionnaire in the EMR CURRENT THERAPY: Please refer to Bone Health Questionnaire in the EMR TECHNICAL LIMITATIONS: None RESULTS: Lumbar spine (L1, L2, L3, L4): 0.810 g/cm2, T-score -2.2, Z-score 0.0 Lumbar spine: 2021: 0.829 g/cm2 No statistically significant change Right Femoral Neck: 0.631 g/cm2, T-score -2.0, Z-score -0.2 Right Femoral Neck: 2021: 0.638 g/cm2 No statistically significant change Right Total Hip: 0.856 g/cm2, T-score -0.7, Z-score 0.8 Right Total Hip: 2021: 0.855 g/cm2 No statistically significant change Left Femoral Neck: 0.625 g/cm2, T-score -2.0, Z-score -0.2 Left Femoral Neck: 2021: 0.641 g/cm2 No statistically significant change Left Total Hip: 0.845 g/cm2, T-score -0.8, Z-score 0.7 Left Total Hip: 2021: 0.864 g/cm2 No statistically significant change CHANGE IS STATISTICALLY SIGNIFICANT IN THE SPINE OR HIP IF GREATER THAN OR EQUAL TO 0.04 g/cm2 VERTEBRAL FRACTURE ASSESSMENT Not performed. TRABECULAR BONE ASSESSMENT TBS score: 1.386 Bone micro-architecture: Normal (> 1.310) IMPRESSION: THE LOWEST T-SCORE IS -2.2 IN THE SPINE 1) DIAGNOSIS (based on BMD alone): OSTEOPENIA Caution: Medical conditions other than osteoporosis may cause low bone density, such as osteomalacia or renal osteodystrophy. Clinical correlation is necessary. 2) FRACTURE RISK (Based on TBS adjusted FRAX): 10-year absolute fracture risk: - major osteoporotic fracture = 13 % - hip fracture = 2.7 % - A diagnosis of Osteoporosis, a 10 year probability of hip fracture greater than or equal to 3% or a 10 year probability of any major osteoporosis-related fracture greater than or equal to 20% should be considered for treatment. - DXA scanner generated FRAX calculations may slightly differ from online FRAX calculations due to differences in software versions. - All recommendations and calculations are to be considered as guidelines and should not replace sound clinical judgement - Caution: Fracture risk may be increased independent of BMD in patients with corticosteroid use, age greater than 65 years, or a history of prior fragility fracture. RECOMMENDATIONS: Follow-up in 2 years or as clinically indicated. Patients that are taking corticosteroids, are transplant recipients or have hyperparathyroidism should have annual follow-up. Follow-up scans should always be done on the same machine for accurate comparison. FOR MORE INFORMATION ABOUT DIAGNOSIS AND TREATMENT: [facility] Center for Osteoporosis and Metabolic Bone Disease:? www.ccf.org/arthritis/ osteo National Osteoporosis Foundation:? www.nof.org International Society of Clinical Densitometry www.iscd.org Scrap Worker: APOLINAR Transcribe Date/Time: Sep 05 2024 12:14P Dictated by : YASEMIN CLIFTON MD This examination was interpreted and the report reviewed and electronically signed by: YASEMIN CLIFTON MD on Sep 05 2024 12:17PM EST [id number] -2.2 Normal [facility] Lipid 1996 panelon 4 Cholesterol [Mass/Vol] 234 mg/dL High <200 [facility] Comment on above: Order Comment: Speci men Type: BLOOD SPECIMENOrdering Facility: [facility] Address: [address] [place] [address] Result Comment: <200 mg/dL, Desirable 200-239 mg/dL, Borderline high >239 mg/dL, High Performed By: #### 2 4331-1 ####[facility] LABCLIA [id number] [address] [id number] [address] OF [place] Cholesterol in HDL [Mass/Vol] 57 mg/dL Normal >39 [facility] Comment on above: Order Comment: Marii men Type: BLOOD SPECIMENOrdering Facility: [facility] Address: [address] [place] [address] Result Comment: 40-5 9 mg/dL, Acceptable >59 mg/dL, High: Negative risk factor for coronary heart disease <40 mg/dL, Low: Positive risk factor for coronary heart disease Performed By: #### 2 4331-1 ####[facility] LABCLIA [id number] [address] [id number] [place] [address] [place] Cholesterol in LDL [Mass/Vol] 162 mg/dL High <100 [facility] Comment on above: Order Comment: Sol simon Type: BLOOD SPECIMENOrdering Facility: [facility] Address: [address] [place] [address] Result Comment: <100 mg/dL, Optimal 100-129 mg/dL, Near optimal/above optimal 130-159 mg/dL, Borderline high 160-189 mg/dL, High >189 mg/dL, Very high Secondary prevention optimal LDL Cholesterol levels are recommended to be < 70 mg/dL Performed By: #### 2 4331-1 ####[facility] LABCLIA [id number] [address] [id number] [place] [address] [place] Cholesterol in LDL/Cholesterol in HDL [Mass ratio] 2.84 {ratio} High <2.54 [facility] Comment on above: Order Comment: Sol men Type: BLOOD SPECIMENOrdering Facility: [facility] Address: [address] [place] [address] Result Comment: Rogelio hernandez: 1. National Cholesterol Education Program ATP III Guideline At-A-Glance Quick Desk Reference: National Heart, Lung, and Blood Challis. National Institutes of Health. 2001: NIH Publication No. 01-3305. 2. An International Atherosclerosis Society position paper: global recommendations for the management of dyslipidemia: executive summary, Atherosclerosis. 2014: 232(2):410-413. Performed By: #### 2 4331-1 ####[facility] LABCLIA [id number] [place] [id number] [place] [address] Cholesterol in VLDL [Mass/Vol] 15 mg/dL Normal <30 [facility] Comment on above: Order Comment: Sol simon Type: BLOOD SPECIMENOrdering Facility: [facility] Address: [address] [place] [address] Performed By: #### 2 4331-1 ####[facility] LABCLIA [id number] [place] [id number] [place] [address] OF [facility] Cholesterol non HDL [Mass/Vol] 177 mg/dL High <130 [facility] Comment on above: Order Comment: Sol simon Type: BLOOD SPECIMENOrdering Facility: [facility] Address: [address] [place] [address] Result Comment: <130 mg/dL, Optimal 130-159 mg/dL, Near optimal/above optimal 160-189 mg/dL, Borderline high 190-219 mg/dL, High >219 mg/dL, Very high Secondary prevention optimal non HDL Cholesterol levels are recommended to be <100 mg/dL Performed By: #### 2 4331-1 ####[facility] LABCLIA [id number] [place] [address] [id number] [place] [address] [place] Cholesterol.total/Cho lesterol in HDL [Mass ratio] 4.11 {ratio} Normal <5.10 [facility] Comment on above: Order Comment: Speci men Type: BLOOD SPECIMENOrdering Facility: [facility] Address: [address] [place] [address] Performed By: #### 2 4331-1 ####[facility] LABCLIA [id number] [address] [id number] [place] [address] FASTING TIME 12 hrs Normal [facility] Comment on above: Order Comment: Speci men Type: BLOOD SPECIMENOrdering Facility: [facility] Address: [address] [place] [address] Performed By: #### 2 4331-1 ####[facility] LABCLIA [id number] [address] [id number] [address] [place] Triglyceride [Mass/Vol] 74 mg/dL Normal <150 [facility] Comment on above: Order Comment: Speci men Type: BLOOD SPECIMENOrdering Facility: [facility] Address: [address] [place], [place] [id number] Result Comment: <150 mg/dL, Normal 150-199 mg/dL, Borderline high 200-499 mg/dL, High >499 mg/dL, Very high Performed By: #### 2 4331-1 ####[facility] LABCLIA [id number] [address] [id number] [address] STATES OF [facility] Extremity Lower without Cont raon 07-13-2024 Extremity Lower without Contra [facility] Imaging Services [address] [place] [address] Extremity Lower without Contra MR#: [id number] Acct: [id number] Name: MOUNIKA LINARES Rep #: [id number] : 1955 F 69 From: Raj Larkin MD PCP: Dr. Chandana Beck MD Status: REG CLI Study: Extremity Lower without Contra Date of Exam: 0 07/13/24 Exam# [id number] Ordering Dr: Cristino Bocanegra DPM [id number] STUDY: CT RIGHT FOOT REASON FOR EXAM: Female, 69 years old. 4TH METATARS JT ARTH, RHEUMATOID ARTH RT FOOT RADIATION DOSAGE (If Supplied By Facility): CTDIvol = ( 15.35 ) mGy, DLP = ( 411.33 ) mGycm TECHNIQUE: Thin section transaxial imaging of the right foot was obtained, with sagittal and coronal reconstructed images. Individualized dose optimization techniques were used for this CT. COMPARISON: Right foot MRI dated 06/25/2024. FINDINGS: Intact distal tibia and fibula. 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 Intact talus, calcaneus, and tarsal bones. Normal visualized tibiotalar, subtalar, talonavicular, calcaneocuboid, tarsal and tarsometatarsal articulations. There are small cysts/erosions at the base of the fourth proximal phalanx as well as inferior aspect of the fourth metatarsal head (axial series 3 image 74). Normal metatarsophalangeal joint of the great toe. Normal tibial and fibular sesamoid bones. Normal interphalangeal joint of the great toe. Normal phalanges of the great toe. Normal second through fifth metatarsophalangeal joints. Normal interphalangeal joints and phalanges of the lesser toes. The soft tissue structures are unremarkable. There is no demonstrated fracture. CT/Extremity Lower without Contra IMPRESSION: Small cysts/erosions at the base of the fourth proximal phalanx as well as inferior aspect of the fourth metatarsal head. Minimal tibiotalar arthrosis. Electronically Signed: Raj Larkin MD at 15:12 EDT , CC: SLAVA Bocanegra; Dr. Chandana Beck MD Scrap Worker: Signed Normal [facility] Lower Ext/No Jt/w/oon 2023 Lower Ext/No Jt/w/o [facility] Imaging Services [address] [place] [address] Lower Ext/No Jt/w/o MR#: [id number] Acct: [id number] Name: MOUNIKA LINARES Rep #: [id number] : 1955 F 69 From: Kvng Garduno MD PCP: Dr. Chandana Beck MD Status: REG CLI Study: Lower Ext/No Jt/w/o Date of Exam: 06/25/24 Exam# [id number] Ordering Dr: Cristino Bocanegra DPM [id number] STUDY: MRI RIGHT FOREFOOT WITHOUT CONTRAST REASON FOR EXAM: Female, 69 years old. 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 COMPARISON: None. FINDINGS: There is degenerative arthrosis of the metatarsophalangeal joint of the hallux. Normal tibial and fibular sesamoids, with normal sesamoids-first metatarsal articulations. There is joint space narrowing, effusion, and spurring of the interphalangeal joint of the hallux. Normal proximal and distal phalanges of the great toe. Normal medial and lateral heads of the flexor hallucis brevis tendons. Normal flexor and extensor hallucis longus tendons. Normal second, third, and fifth metatarsophalangeal (MTP) joints. Normal interphalangeal joints of the second through fifth toes. Normal proximal, middle and distal phalanges of the second, third, and fifth toes. Normal first through fourth intermetatarsal spaces. Normal flexor and extensor tendons of the second through fifth toes. There is marrow edema of the fourth metatarsal and proximal phalanx. There is cortical indistinctness suggesting erosion on the plantar aspect of the distal fourth metatarsal. There is joint effusion with synovial thickening at the fourth MTP joint. Normal intrinsic muscles of the forefoot. There is no demonstrated soft tissue abnormality. MRI/Lower Ext/No Jt/w/o IMPRESSION: Edema of the fourth metatarsal and proximal phalanx with effusion at the MTP joint and erosion of the fourth metatarsal compatible with inflammatory arthropathy versus septic arthropathy versus mass such as metastasis. Consider x-ray and/or CT for further imaging evaluation. Arthritic change at the first MTP joint and IP joint. Electronically Signed: Kvng Garduno MD at 9:40 EDT , CC: SLAVA Bocanegra; Dr. Chandana Beck MD Scrap Worker: Signed Normal [facility] ALANINE AMINOTRANSFERASE / S [facility] 06-20-2024 ALT [Catalytic activity/Vol] 14 U/L 7 - 38 U/L [facility] ASPARTATE AMINOTRANSFERASE/S [facility] 06-20-2024 AST [Catalytic activity/Vol] 20 U/L 13 - 35 U/L [facility] CBC panel Auto (Bld)on 06-20 Erythrocyte distribution width (RBC) [Ratio] 12.3 % 11.5 - 15.0 % [facility] Hematocrit (Bld) [Volume fraction] 40.3 % 36.0 - 46.0 % [facility] Hemoglobin (Bld) [Mass/Vol] 13.0 g/dL 11.5 - 15.5 g/dL [facility] Interpretation and review of laboratory results Normal [facility] MCH (RBC) [Entitic mass] 30.1 pg 26.0 - 34.0 pg [facility] MCHC (RBC) [Mass/Vol] 32.3 g/dL 30.5 - 36.0 g/dL [facility] MCV (RBC) [Entitic vol] 93.3 fL 80.0 - 100.0 fL [facility] Nucleated RBC (Bld) [#/Vol] NINF [facility] Platelet mean volume (Bld) [Entitic vol] 9.8 fL 9.0 - 12.7 fL [facility] Platelets (Bld) [#/Vol] 264 10*3/uL [facility] RBC (Bld) [#/Vol] 4.32 10*6/uL 3.90 - 5.2 0 m/uL [facility] WBC (Bld) [#/Vol] 6.02 10*3/uL [facility] CREATININE BLDOrdered By: Romeo Andrade on 06-20-2024 Creatinine [Mass/Vol] 0.76 mg/dL 0.58 - 0.96 mg/dL [facility] GFR/1.73 sq M.predicted among non-blacks MDRD (S/P/Bld) [Vol rate/Area] 84 mL/min/{1.73_m2} - PINF [facility] Comment on above: Estimated Glomerular Filtration Rate (eGFR) is calculated using the 2020 CKD-EPI creatinine equation. This equation utilizes serum creatinine, sex, and age as parameters. The creatinine assay has traceable calibration to isotope dilution-mass spectrometry. Refer to KDIGO guidelines for clinical interpretation. In patients with unstable renal function, e.g. those with acute kidney injury, the eGFR may not accurately reflect actual GFR. No Panel InformationOrdered By: Hardik Andrade on 06-20-2024 Interpretation and review of laboratory results Normal [facility] SCRN MAMM (CAD)W/DELTA BILATo n 03-17-2024 SCRN MAMM (CAD)W/DELTA BILAT [facility] Imaging Services [address] [place] [address] SCRN MAMM (CAD)W/DELTA BILAT MR#: [id number] Acct: [id number] Name: MOUNIKA LINARES Rep #: [id number] : 1955 F 68 From: Richard nielson MD PCP: Dr. Chandana Beck MD Status: [facility] Study: SCRN MAMM (CAD)W/DELTA BILAT Date of Exam: 02/24 01/16 Exam# [id number] Ordering Dr: Krissy Odonnell [employer]EL[employer]-C [id number] MAMMOGRAPHY - BILATERAL SCREENING REASON FOR EXAM: Female, 68 years old. Routine annual screening examination. PERTINENT HISTORY: Non-contributory. TECHNIQUE: Digital bilateral breast delta (3D mammographic acquisition) in the CC and MLO projections. 2-D mediolateral oblique (MLO) and craniocaudad (CC) views of both breasts were obtained. CAD: Full Field Digital Mammography with Computer Added Detection was performed. COMPARISON: Comparison is made with prior study dated July 09, 2017. FINDINGS: Breast Composition: The breasts are almost entirely fatty. There are no dominant masses or suspicious calcifications. Stable benign-appearing bilateral axillary lymph nodes. No other significant abnormalities are identified. There has been no significant change since the prior study. BI/SCRN MAMM (CAD)W/DELTA BILAT IMPRESSION: Stable bilateral screening mammogram. Yearly follow-up mammogram recommended. (A) ASSESSMENT CATEGORY: BIRADS Category 2: Benign. A letter regarding these results will be sent to the patient by the facility within 30 days. Approximately 10% of breast cancers are not detected by mammography. A normal mammogram should not delay biopsy of a clinically suspicious abnormality. [id number] Electronically Signed: Richard Morrell MD at 8:59 EDT , CC: ISRAEL Odonnell; Dr. Chandana Beck MD Scrap Worker: Signed Normal [facility] PAP I-G w/rfx hrHPV-Aptimaon 03-16-2024 ADEQ Comment Normal . [facility] Comment on above: Order Comment: Speci men Comment: [id number] Specimen Comment: Source.............Cervix;Endocervix Specimen Comment: Other..............Post Menopausal Specimen Comment: No. of containers..01 ThinPrep Vial Result Comment: Sati sfactory for evaluation. Endocervical and/or squamous metaplastic cells (endocervical component) are present. Areas of partially obscuring blood are present. Performed By: #### L 7400.0353 #### [facility] [address] [place], [address] COMM . Normal . [facility] Comment on above: Order Comment: Speci men Comment: [id number] Specimen Comment: Source.............Cervix;Endocervix Specimen Comment: Other..............Post Menopausal Specimen Comment: No. of containers..01 ThinPrep Vial Performed By: #### L 7400.0353 #### [facility] [address] [place], [address] COMMENT Comment Normal . [facility] Comment on above: Order Comment: Speci men Comment: [id number] Specimen Comment: Source.............Cervix;Endocervix Specimen Comment: Other..............Post Menopausal Specimen Comment: No. of containers..01 ThinPrep Vial Result Comment: This liquid based ThinPrep(R) pap test was screened with the use of an image guided system. Performed By: #### L 7400.0353 #### [facility] [address] [place], [place], [address] DIAG Comment Normal . [facility] Comment on above: Order Comment: Speci men Comment: [id number] Specimen Comment: Source.............Cervix;Endocervix Specimen Comment: Other..............Post Menopausal Specimen Comment: No. of containers..01 ThinPrep Vial Result Comment: NEGA TIVE FOR INTRAEPITHELIAL LESION OR MALIGNANCY. REACTIVE CELLULAR CHANGES AND/OR REPAIR ARE PRESENT. CELLULAR CHANGES ASSOCIATED WITH ATROPHY ARE PRESENT. Performed By: #### L 7400.0353 #### [facility] [address] [place], [address] HPV RFLX Comment Normal . [facility] Comment on above: Order Comment: Speci men Comment: [id number] Specimen Comment: Source.............Cervix;Endocervix Specimen Comment: Other..............Post Menopausal Specimen Comment: No. of containers..01 ThinPrep Vial Result Comment: The HPV DNA reflex criteria were not met with this specimen result therefore, no HPV testing was performed. Performed at: [address] [id number] Rehabilitation Team Lead: Leandra Agudelo MD, Phone: [phone] Performed By: #### L 7400.0353 #### [facility] [address] [place], [address] PAPSMR Comment Normal . [facility] Comment on above: Order Comment: Speci men Comment: [id number] Specimen Comment: Source.............Cervix;Endocervix Specimen Comment: Other..............Post Menopausal Specimen Comment: No. of containers..01 ThinPrep Vial Result Comment: The Pap smear is a screening test designed to aid in the detection of premalignant and malignant conditions of the uterine cervix. It is not a diagnostic procedure and should not be used as the sole means of detecting cervical cancer. Both false-positive and false-negative reports do occur. Performed By: #### L 7400.0353 #### [facility] [address] [place], [address] PERFORM Comment Normal . [facility] Comment on above: Order Comment: Speci men Comment: [id number] Specimen Comment: Source.............Cervix;Endocervix Specimen Comment: Other..............Post Menopausal Specimen Comment: No. of containers..01 ThinPrep Vial Result Comment: Red Ray, Nephrology Nurse (ASCP) Performed By: #### L 7400.0353 #### [facility] [address] [place], [address] SIGN Comment Normal . [facility] Comment on above: Order Comment: Speci men Comment: [id number] Specimen Comment: Source.............Cervix;Endocervix Specimen Comment: Other..............Post Menopausal Specimen Comment: No. of containers..01 ThinPrep Vial Result Comment: Milla Agudelo MD, Pathologist Performed By: #### L 7400.0353 #### [facility] [address] [place], [place], [id number] Podiatric Assistant Office Visit Reporton 03-09-2024 Podiatric Assistant Office Visit Report [facility] 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 Is patient in pain?: No Allergies No Known Allergies Allergy (Unverified 03/09/24 09:45) Medications ???Medication ???Instructions ???Recorded ???Confirmed ???Type NK 03/09/24 03/09/24 History Is last menstrual period known: No Post menopausal: Yes Date of menopause: 11/26/09 Patient : No : No PFSH Surgical History (Updated 03/09/24 @ 09:33 by Tiffanie Haynes MA) History of Family History (Updated 03/09/24 @ 09:33 by Tiffanie Haynes MA) Mother Hypertension Social History adopted: No household members: spouse and children current occupational status: retired current occupational exposures/hazards: No pets and animals: No history of recent travel: No sexually active: Yes Smoking Status: Never smoker alcohol intake: current details: Socially substance use type: does not use caffeine: Yes pamela/muslim: Yazidism seatbelt use: always do you feel safe at home: Yes additional social history: - [employer], Kids - [employer] [facility] Encounter for routine gynecological examination Details: MOUNIKA LINARES is a 68 year old who presents for annual exam. She reports no issues or concerns. Last PAP: 2017-negative History of abnormal PAP: No Last mammogram: 2017 History of abnormal mammogram: L breast lymph node Colon cancer screening: Yes; through [facility]-Dr. Haynes Other preventative health care screenings: Primary Care Doctor: Ebony- further screenings through PCP. Female Reproductive History Questions: sexually active: Yes and dyspareunia: No Date of menopause: 11/26/09 Menopausal Symptoms: Yes hot flashes, Yes weight change and Yes sleep problems ROS Const Constitutional: Denies chills, fatigue, fever(s), headache(s) or weight loss Eyes Eyes: Denies change in vision ENT ENT: Denies dizziness Resp Resp: Denies cough GI GI: Denies abdominal pain, constipation or nausea : Reports hot flashes Skin Skin/Breast: Denies alopecia or rash Neuro Neuro: Denies dizziness Psych Psych: Denies anxiety or depression Endo Endo: Denies cold intolerance, excessive sweating or heat intolerance Exam Const General: cooperative, healthy appearing, comfortable, no acute distress, well groomed and well hydrated Nutritional Appearance: well nourished Orientation: alert, awake and oriented x3 HENMT Head: normal to inspection and normocephalic Ears: hearing grossly normal bilaterally and external ears normal Nose: external nose normal Face and sinus: normal facial exam Eyes General: appearance normal, both eyes and all related structures Neck Neck: normal visual inspection, full ROM and no lymphadenopathy Thyroid: thyroid normal Chest Chest palpation inspection: normal inspection of the chest Breast inspection: normal inspection of the breasts and normal inspection of the axillae Breast palpation: normal palpation of the breasts, normal palpation of the axillae and no axillary lymphadenopathy Resp Effort Inspection: normal respiratory effort, able to speak in complete sentences and symmetric chest movement GI Inspection: normal to inspection Palpation: soft and no hepatosplenomegaly General: bladder normal to palpation External Female Exam: normal external appearance and normal appearance of the urethra Urethra: normal appearance of the urethra Speculum Exam - Vagina: normal appearance of the vagina, normal vaginal discharge, no lesions and nontender Speculum Exam - Cervix: normal appearance of the cervix, no lesions and no masses Bimanual Exam- Vagina Uterus: normal bimanual exam, uterine size normal, bladder normal to palpation, normal palpation and non-tender Bimanual Exam- Adnexa, other: normal adnexae, no masses, normal and non-tender Pelvic Support: normal Skin General: no rashes or lesions noted Neuro General: patient alert, patient awake, patient oriented x3 and moves all extremities Psych Appearance: grossly normal Mental Status: mental status grossly normal Affect: normal affect Speech and Movement: speech and movement normal Attitude: cooperative Coding Level of Care Code New Pt Off vis,new,prev 65+yrs Patient Type New Diagnoses Encounter for routine gynecological examination Z01.419 Breast cancer screening by mammogram Z12. (more content not included)... Normal [facility] XR FOOT GENERAL 3V AP/LAT/OB L RIGHTon 07-31-2023 [facility] XR Foot - right AP and Later al and obliqueon 07-31-2023 IMPRESSION: 1. Stable mild degenerative changes at the forefoot Scrap Worker: APOLINAR Transcribe Date/Time: Jul 31 2023 11:22A Dictated by : MARY ANNE SCHROEDER MD This examination was interpreted and the report reviewed and electronically signed by: MARY ANNE SCHROEDER MD on Jul 31 2023 11:23AM [facility] DIVISION OF RADIOLOGY * * *Final Report* * * DATE OF EXAM: Jul 31 2023 11:17AM STX 5337 - XR FOOT 3V AP/LAT/OBL RT / PROCEDURE REASON: multiple diagnoses * * * * Physician Interpretation * * * * FOOT RADIOGRAPHS - RIGHT HISTORY: Bursitis of intermetatarsal bursa of right foot Capsulitis of foot, right TECHNOLOGIST PROVIDED HISTORY (if applicable): Bursitis of intermetatarsal bursa of right foot TECHNIQUE: XR FOOT 3V AP/LAT/OBL RT COMPARISON: Radiographs 06/10/2022 RESULT: Bone mineralization appears normal. Right foot: There is mild narrowing of the first metatarsal phalangeal joint and interphalangeal joints of the toes. Remaining articulations appear intact. No articular erosion or soft tissue swelling is identified. DIVISION OF RADIOLOGY Provider, [facility] - 07/31/2023 * * *Final Report* * * DATE OF EXAM: Jul 31 2023 11:17AM STX 5337 - XR FOOT 3V AP/LAT/OBL RT / PROCEDURE REASON: multiple diagnoses * * * * Physician Interpretation * * * * FOOT RADIOGRAPHS - RIGHT HISTORY: Bursitis of intermetatarsal bursa of right foot Capsulitis of foot, right TECHNOLOGIST PROVIDED HISTORY (if applicable): Bursitis of intermetatarsal bursa of right foot TECHNIQUE: XR FOOT 3V AP/LAT/OBL RT COMPARISON: Radiographs 06/10/2022 RESULT: Bone mineralization appears normal. Right foot: There is mild narrowing of the first metatarsal phalangeal joint and interphalangeal joints of the toes. Remaining articulations appear intact. No articular erosion or soft tissue swelling is identified. IMPRESSION IMPRESSION: 1. Stable mild degenerative changes at the forefoot Scrap Worker: APOLINAR Transcribe Date/Time: Jul 31 2023 11:22A Dictated by : MARY ANNE SCHROEDER MD This examination was interpreted and the report reviewed and electronically signed by: MARY ANNE SCHROEDER MD on Jul 31 2023 11:23AM EST [facility] Radiology Study observation (narrative) [facility] XR Foot - right AP and Later al and obliqueOrdered By: Ccf Provider on 07-31-2023 [facility] ZAYNAB SCREENINGon 12-25-2022 [facility] STREP A MOLECULAR (POC)on Procedural Control Valid [facility] Strep A (POCT) Negative Negative [facility] Progress Noteon 09-15-2022 Progress Note CD UPLOADED. IMAGES IN AGFA. Normal [facility] CBC W Auto Differential pane l (Bld)on 09-01-2022 Basophils (Bld) [#/Vol] 0.06 10*3/uL <0.11 k/uL [facility] Basophils/100 WBC (Bld) 0.9 % [facility] Differential cell count method Nom (Bld) Auto [facility] Eosinophils (Bld) [#/Vol] 0.29 10*3/uL <0.46 k/uL [facility] Eosinophils/100 WBC (Bld) 4.6 % [facility] Erythrocyte distribution width (RBC) [Ratio] 11.9 % 11.5 - 15.0 % [facility] Hematocrit (Bld) [Volume fraction] 39.3 % 36.0 - 46.0 % [facility] Hemoglobin (Bld) [Mass/Vol] 12.9 g/dL 11.5 - 15.5 g/dL [facility] Immature granulocytes (Bld) [#/Vol] <0.10 k/uL [facility] Immature granulocytes/100 WBC (Bld) 0.2 % [facility] Lymphocytes (Bld) [#/Vol] 1.91 10*3/uL 1.00 - 4.00 k/uL [facility] Lymphocytes/100 WBC (Bld) 30.0 % [facility] MCH (RBC) [Entitic mass] 29.8 pg 26.0 - 34.0 pg [facility] MCHC (RBC) [Mass/Vol] 32.8 g/dL 30.5 - 36.0 g/dL [facility] MCV (RBC) [Entitic vol] 90.8 fL 80.0 - 100.0 fL [facility] Monocytes (Bld) [#/Vol] 0.55 10*3/uL <0.87 k/uL [facility] Monocytes/100 WBC (Bld) 8.6 % [facility] Neutrophils (Bld) [#/Vol] 3.54 10*3/uL 1.45 - 7.50 k/uL [facility] Neutrophils/100 WBC (Bld) 55.7 % [facility] Nucleated RBC (Bld) [#/Vol] <0.01 k/uL [facility] Nucleated RBC/100 WBC (Bld) [Ratio] 0.0 /100 WBC [facility] Platelet mean volume (Bld) [Entitic vol] 10.1 fL 9.0 - 12.7 fL [facility] Platelets (Bld) [#/Vol] 308 10*3/uL 150 - 400 k/uL [facility] RBC (Bld) [#/Vol] 4.33 10*6/uL 3.90 - 5.2 0 m/uL [facility] WBC (Bld) [#/Vol] 6.36 10*3/uL 3.70 - 11. 00 k/uL [facility] ESR Westergren method (Bld) [Velocity]on 09-01-2022 ESR (Bld) [Velocity] 16 mm/h 0 - 20 mm/hr [facility] [place] Lower extremity - righton 07-28-2022 IMPRESSION: MODERATE THIRD INTERMETATARSAL BURSITIS WITHOUT ORTEGA'S NEUROMA. MODERATE CAPSULITIS WITH HYPEREMIA OF THE FOURTH MTP JOINT. Scrap Worker: PSCB Transcribe Date/Time: Jul 28 2022 11:47A Dictated by : KAROLINE YA MD This examination was interpreted and the report reviewed and electronically signed by: KAROLINE YA MD on Jul 28 2022 3:33PM [facility] DIVISION OF RADIOLOGY * * *Final Report* * * DATE OF EXAM: Jul 28 2022 11:46AM ALEXANDRU 1142 - US FOOT RT / PROCEDURE REASON: multiple diagnoses * * * * Physician Interpretation * * * * MSK_US RIGHT SECOND AND THIRD INTERMETATARSAL ULTRASOUND: CLINICAL INFORMATION:Pain Joint stiffness of toe of right foot Pain in toe of right foot Rheumatoid arthritis involving right foot with positive rheumatoid factor (HCC) TECHNIQUE: Matos-scale real-time ultrasound of the plantar and dorsal intermetatarsal space and adjacent joint spaces with dynamic imaging and power Doppler was performed. Images were archived for documentation. COMPARISON: X-ray 06/10/2022. FINDINGS: SECOND INTERMETATARSAL SPACE: No Ortega's neuroma. No intermetatarsal bursitis. SECOND MTP JOINT: Joint space appears maintained. No acute plantar plate tear.Plantar plates have an intact appearance. THIRD MTP JOINT: Joint space appears maintained. No acute plantar plate tear.Plantar plates have an intact appearance. THIRD INTERMETATARSAL SPACE: No Ortega's neuroma. Moderate intermetatarsal bursitis. FOURTH MTP JOINT: Moderate capsulitis with hyperemia. No acute plantar plate tear.Plantar plates have an intact appearance. INTRINSIC MUSCLES: The adjacent intrinsic muscles show no gross abnormality. FLEXOR TENDONS: Flexor tendons at the MTP joints appear intact. DIVISION OF RADIOLOGY Provider, [facility] - 07/28/2022 * * *Final Report* * * DATE OF EXAM: Jul 28 2022 11:46AM ALEXANDRU 1142 - US FOOT RT / PROCEDURE REASON: multiple diagnoses * * * * Physician Interpretation * * * * MSK_US RIGHT SECOND AND THIRD INTERMETATARSAL ULTRASOUND: CLINICAL INFORMATION:Pain Joint stiffness of toe of right foot Pain in toe of right foot Rheumatoid arthritis involving right foot with positive rheumatoid factor (HCC) TECHNIQUE: Matos-scale real-time ultrasound of the plantar and dorsal intermetatarsal space and adjacent joint spaces with dynamic imaging and power Doppler was performed. Images were archived for documentation. COMPARISON: X-ray 06/10/2022. FINDINGS: SECOND INTERMETATARSAL SPACE: No Ortega's neuroma. No intermetatarsal bursitis. SECOND MTP JOINT: Joint space appears maintained. No acute plantar plate tear.Plantar plates have an intact appearance. THIRD MTP JOINT: Joint space appears maintained. No acute plantar plate tear.Plantar plates have an intact appearance. THIRD INTERMETATARSAL SPACE: No Ortega's neuroma. Moderate intermetatarsal bursitis. FOURTH MTP JOINT: Moderate capsulitis with hyperemia. No acute plantar plate tear.Plantar plates have an intact appearance. INTRINSIC MUSCLES: The adjacent intrinsic muscles show no gross abnormality. FLEXOR TENDONS: Flexor tendons at the MTP joints appear intact. IMPRESSION IMPRESSION: MODERATE THIRD INTERMETATARSAL BURSITIS WITHOUT ORTEGA'S NEUROMA. MODERATE CAPSULITIS WITH HYPEREMIA OF THE FOURTH MTP JOINT. Scrap Worker: [facility] Transcribe Date/Time: Jul 28 2022 11:47A Dictated by : KAROLINE YA MD This examination was interpreted and the report reviewed and electronically signed by: KAROLINE YA MD on Jul 28 2022 3:33PM EST [facility] Radiology Study observation (narrative) [facility] US Lower extremity - rightOr dered By: Ccf Provider on 07-28-2022 [facility] XR FOOT GENERAL 3V AP/LAT/OB L RIGHTon 06-10-2022 [facility] XR Foot - right AP and Later al and obliqueon 06-10-2022 IMPRESSION: 1. 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 Scrap Worker: [facility] Transcribe Date/Time: Jun 10 2022 11:07A Dictated by : KARYN MORILLO MD This examination was interpreted and the report reviewed and electronically signed by: KARYN MORILLO MD on Jun 10 2022 11:09AM [facility] DIVISION OF RADIOLOGY * * *Final Report* * * DATE OF EXAM: Jun 10 2022 9:19AM STX 5337 - XR FOOT 3V AP/LAT/OBL RT / PROCEDURE REASON: Pain * * * * Physician Interpretation * * * * Right foot radiographs HISTORY: Pain TECHNIQUE: 3 views of the right foot COMPARISON: None available FINDINGS: No acute fracture, subluxation, erosions or avascular necrosis. Osteophytes noted at the first metatarsophalangeal joint. Mild osteophytes at the interphalangeal joint of the great toe. The remainder the metatarsophalangeal joints and toes are intact. Midfoot alignment is preserved. Ankle and subtalar joints are intact. DIVISION OF RADIOLOGY Provider, [facility] - 06/10/2022 * * *Final Report* * * DATE OF EXAM: Jun 10 2022 9:19AM STX 5337 - XR FOOT 3V AP/LAT/OBL RT / PROCEDURE REASON: Pain * * * * Physician Interpretation * * * * Right foot radiographs HISTORY: Pain TECHNIQUE: 3 views of the right foot COMPARISON: None available FINDINGS: No acute fracture, subluxation, erosions or avascular necrosis. Osteophytes noted at the first metatarsophalangeal joint. Mild osteophytes at the interphalangeal joint of the great toe. The remainder the metatarsophalangeal joints and toes are intact. Midfoot alignment is preserved. Ankle and subtalar joints are intact. IMPRESSION IMPRESSION: 1. 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 Scrap Worker: APOLINAR Transcribe Date/Time: Jun 10 2022 11:07A Dictated by : KARYN MORILLO MD This examination was interpreted and the report reviewed and electronically signed by: KARYN MORILLO MD on Jun 10 2022 11:09AM EST [facility] Radiology Study observation (narrative) [facility] XR Foot - right AP and Later al and obliqueOrdered By: [facility]cf Provider on 06-10-2022 [facility] CBC panel Auto (Bld)on 04-08 Erythrocyte distribution width (RBC) [Ratio] 12.4 % 11.5 - 15.0 % [facility] Hematocrit (Bld) [Volume fraction] 40.9 % 36.0 - 46.0 % [facility] Hemoglobin (Bld) [Mass/Vol] 13.6 g/dL 11.5 - 15.5 g/dL [facility] MCH (RBC) [Entitic mass] 30.0 pg 26.0 - 34.0 pg [facility] MCHC (RBC) [Mass/Vol] 33.3 g/dL 30.5 - 36.0 g/dL [facility] MCV (RBC) [Entitic vol] 90.1 fL 80.0 - 100.0 fL [facility] Nucleated RBC (Bld) [#/Vol] 10*3/uL <0.01 k/uL [facility] Platelet mean volume (Bld) [Entitic vol] 9.6 fL 9.0 - 12.7 fL [facility] Platelets (Bld) [#/Vol] 235 10*3/uL 150 - 400 k/uL [facility] RBC (Bld) [#/Vol] 4.54 10*6/uL 3.90 - 5.2 0 m/uL [facility] WBC (Bld) [#/Vol] 4.82 10*3/uL 3.70 - 11. 00 k/uL [facility] CREATININE BLDon 04-08-2022 Creatinine [Mass/Vol] 0.80 mg/dL 0.58 - 0.96 mg/dL [facility] Estimated Glomerular Filtration Rate 81 mL/min/1.73m >=60 mL/min/1.73m [facility] Hepatic function 2000 panelo n 04-08-2022 Albumin [Mass/Vol] 4.8 g/dL 3.9 - 4.9 g/dL [facility] ALP [Catalytic activity/Vol] 81 U/L 34 - 123 U/L [facility] ALT [Catalytic activity/Vol] 14 U/L 7 - 38 U/L [facility] AST [Catalytic activity/Vol] 19 U/L 13 - 35 U/L [facility] Bilirubin [Mass/Vol] 0.4 mg/dL 0.2 - 1 .3 mg/dL [facility] Bilirubin.conjugated [Mass/Vol] mg/dL <0.2 mg/dL [facility] Protein [Mass/Vol] 6.6 g/dL 6.3 - 8.0 g/dL [facility] XR Hand - bilateral PA and L ateral and Obliqueon 10-11-2021 IMPRESSION: Mild degenerative changes. Scrap Worker: [facility] Transcribe Date/Time: Oct 11 2021 12:41P Dictated by : JAYCOB SAN MD This examination was interpreted and the report reviewed and electronically signed by: JAYCOB SAN MD on Oct 11 2021 12:44PM [facility] DIVISION OF RADIOLOGY * * *Final Report* * * DATE OF EXAM: Oct 11 2021 12:31PM STX 5556 - XR HAND 3V PA/LAT/OBL DAK[place] / PROCEDURE REASON: multiple diagnoses * * * * Physician Interpretation * * * * HISTORY: Seropositive rheumatoid arthritis (HCC) Pain in joint, multiple sites . assess for inflammatory changes vs osteoarthritis TECHNIQUE: XR HAND 3V PA/LAT/OBL DAK[place] Laterality: NOT APPLICABLE Number of different views (projections): 3 EACH COMPARISON: Right hand radiographs 11/20/2009 RESULT: Right hand: No acute fracture or dislocation. Mild narrowing of the radiocarpal and triscaphe joint spaces. Also mild narrowing of the first MCP joint and probable tiny osteophytes. Scattered mild IP joint degenerative changes with mild joint space narrowing and tiny osteophytes. No marginal erosion. Soft tissues are unremarkable. Left hand: No acute fracture or dislocation. Mild narrowing of the radiocarpal and first CMC joint spaces. Tiny subchondral cyst of the ulnar aspect of the lunate. Mild narrowing of the first MCP joint space and probable tiny osteophytes. Mild scattered IP joint degenerative changes with joint space narrowing and tiny osteophyte no marginal erosion. Soft tissues are unremarkable. No other significant abnormality. - DIVISION OF RADIOLOGY Provider, [facility] - 10/11/2021 * * *Final Report* * * DATE OF EXAM: Oct 11 2021 12:31PM STX 5556 - XR HAND 3V PA/LAT/OBL [place] / PROCEDURE REASON: multiple diagnoses * * * * Physician Interpretation * * * * HISTORY: Seropositive rheumatoid arthritis (HCC) Pain in joint, multiple sites . assess for inflammatory changes vs osteoarthritis TECHNIQUE: XR HAND 3V PA/LAT/OBL [place] Laterality: NOT APPLICABLE Number of different views (projections): 3 EACH COMPARISON: Right hand radiographs 11/20/2009 RESULT: Right hand: No acute fracture or dislocation. Mild narrowing of the radiocarpal and triscaphe joint spaces. Also mild narrowing of the first MCP joint and probable tiny osteophytes. Scattered mild IP joint degenerative changes with mild joint space narrowing and tiny osteophytes. No marginal erosion. Soft tissues are unremarkable. Left hand: No acute fracture or dislocation. Mild narrowing of the radiocarpal and first CMC joint spaces. Tiny subchondral cyst of the ulnar aspect of the lunate. Mild narrowing of the first MCP joint space and probable tiny osteophytes. Mild scattered IP joint degenerative changes with joint space narrowing and tiny osteophyte no marginal erosion. Soft tissues are unremarkable. No other significant abnormality. - IMPRESSION IMPRESSION: Mild degenerative changes. Scrap Worker: APOLINAR Transcribe Date/Time: Oct 11 2021 12:41P Dictated by : JAYCOB SAN MD This examination was interpreted and the report reviewed and electronically signed by: JAYCOB SAN MD on Oct 11 2021 12:44PM EST [facility] Radiology Study observation (narrative) [facility] XR Hand - bilateral PA and L ateral and ObliqueOrdered By: Ccf Provider on 10-11-2021 [facility] Microbiology: Culture, Genit al Comprehensiveon 09-04-2017 CUV . Invalid Interpretation Code [facility] Microbiology: (P) Culture, G enital Comprehensiveon 09-02-2017 CUV . Invalid Interpretation Code [facility] Office Visit: jonathan ferreira 09-01-2017 Documentation of current medications (procedure) Done Invalid Interpretation Code [facility] Fall risk assessment No Invalid Interpretation Code [facility] Tobacco smoking status NHIS Never Invalid Interpretation Code [facility] Tobacco use CPHS Never smoker Invalid Interpretation Code [facility] Lab Report: PAP I-G HPV Hi R iskon 07-10-2017 GE use only - for Link[employer] import when terms are not otherwise specified Negative Invalid Interpretation Code Negative [facility] HPV HC,HGH RISK Negative Invalid Interpretation Code Negative [facility] Office Visit: est annualon 0 07-06-2017 Documentation of current medications (procedure) Done Invalid Interpretation Code [facility] Fall risk assessment No Invalid Interpretation Code [facility] Hemoglobin presence in stool not done Invalid Interpretation Code [facility] Tobacco smoking status NHIS Never Invalid Interpretation Code [facility] Tobacco use CPHS Never smoker Invalid Interpretation Code [facility] Office Visit: est annualon 1 12-07-2011 General categories [Interpretation] of Cervical or vaginal smear or scraping by Cyto stain Normal Invalid Interpretation Code [facility] Vital Signs Date Time Vital Sign Value Performing Clinician Bharti minor 01-13-2025 10:00-0400 Respiratory rate 16 /min Amrit Germain MD Work Phone: [facility] 01-13-2025 09:25-0400 Diastolic blood pressure 77 mm[Hg] Amrit Germain MD Work Phone: [facility] 01-13-2025 09:25-0400 Heart rate 75 /min Amrit Germain MD Work Phone: [facility] 01-13-2025 09:25-0400 SaO2% (BldA) [Mass fraction] 94 % Amrit Germain MD Work Phone: [facility] 01-13-2025 09:25-0400 Systolic blood pressure 128 mm[Hg] Amrit Germain MD Work Phone: [facility] 01-13-2025 08:53-0400 Body mass index (BMI) [Ratio] 24.99 kg/m2 Amrit Germain MD Work Phone: [facility] 01-13-2025 08:53-0400 Body temperature 96.91 [degF] Amrit Germain MD Work Phone: [facility] 01-13-2025 08:53-0400 Body weight 67.6 kg Amrit Germain MD Work Phone: [facility] 09-13-2024 09:05-0500 Body mass index (BMI) [Ratio] 24.99 kg/m2 Chandana Beck MD Work Phone: [facility] 09-13-2024 09:05-0500 Body weight 67.59 kg Chandana Beck MD Work Phone: [facility] 09-13-2024 09:05-0500 Diastolic blood pressure 72 mm[Hg] Chandana Beck MD Work Phone: [facility] 09-13-2024 09:05-0500 Heart rate 75 /min Chandana Beck MD Work Phone: [facility] 09-13-2024 09:05-0500 Respiratory rate 16 /min Chandana Beck MD Work Phone: [facility] 09-13-2024 09:05-0500 Systolic blood pressure 132 mm[Hg] Chandana Beck MD Work Phone: [facility] 06-20-2024 10:11-0400 Body height 164.5 cm Dread Mccurdy MD Work Phone: [facility] 06-20-2024 10:11-0400 Body mass index (BMI) [Ratio] 25.14 kg/m2 Dread Mccurdy MD Work Phone: [facility] 06-20-2024 10:11-0400 Body temperature 97.59 [degF] Dread Mccurdy MD Work Phone: [facility] 06-20-2024 10:11-0400 Body weight 68 kg Dread Mccurdy MD Work Phone: [facility] 06-20-2024 10:11-0400 Diastolic blood pressure 84 mm[Hg] Dread Mccurdy MD Work Phone: [facility] 06-20-2024 10:11-0400 Heart rate 75 /min Dread Mccurdy MD Work Phone: [facility] 06-20-2024 10:11-0400 Systolic blood pressure 139 mm[Hg] Dread Mccurdy MD Work Phone: [facility] 09-11-2023 09:42-0500 Body height 165 cm Chandana Beck MD Work Phone: [facility] 09-11-2023 09:42-0500 Body temperature 98.71 [degF] Chandana Beck MD Work Phone: [facility] 09-11-2023 09:42-0500 Body weight 66.04 kg Chandana Beck MD Work Phone: [facility] 09-11-2023 09:42-0500 Diastolic blood pressure 78 mm[Hg] Chandana Beck MD Work Phone: [facility] 09-11-2023 09:42-0500 Heart rate 69 /min Chandana Beck MD Work Phone: [facility] 09-11-2023 09:42-0500 Respiratory rate 18 /min Chandana Beck MD Work Phone: [facility] 09-11-2023 09:42-0500 SaO2% (BldA) [Mass fraction] 97 % Chandana Beck MD Work Phone: [facility] 09-11-2023 09:42-0500 Systolic blood pressure 116 mm[Hg] Chandana Beck MD Work Phone: [facility] 06-03-2023 13:33-0400 Body height 162.6 cm Dread Mccurdy MD Work Phone: [facility] 06-03-2023 13:33-0400 Body temperature 98.01 [degF] Dread Mccurdy MD Work Phone: [facility] 06-03-2023 13:33-0400 Body weight 62.14 kg Dread Mccurdy MD Work Phone: [facility] 06-03-2023 13:33-0400 Diastolic blood pressure 72 mm[Hg] Dread Mccurdy MD Work Phone: [facility] 06-03-2023 13:33-0400 Heart rate 81 /min Dread Mccurdy MD Work Phone: [facility] 06-03-2023 13:33-0400 Systolic blood pressure 110 mm[Hg] Dread Mccurdy MD Work Phone: [facility] 02-13-2023 09:39-0400 Body weight 63.96 kg Lyn Sewell MANAGER FIBER.MOLD PULLER Work Phone: [facility] 02-13-2023 09:39-0400 Diastolic blood pressure 62 mm[Hg] Lyn Sewell MANAGER FIBER.MOLD PULLER Work Phone: [facility] 02-13-2023 09:39-0400 Heart rate 72 /min Lyn Sewell MANAGER FIBER.MOLD PULLER Work Phone: [facility] 02-13-2023 09:39-0400 Respiratory rate 14 /min Lyn Sewell MANAGER FIBER.MOLD PULLER Work Phone: [facility] 02-13-2023 09:39-0400 Systolic blood pressure 110 mm[Hg] Lyn Sewell MANAGER FIBER.MOLD PULLER Work Phone: [facility] 01-07-2023 09:50-0400 Body height 164.3 cm Collin Gan MANAGER FIBER.FURNACE LINER Work Phone: [facility] 01-07-2023 09:50-0400 Body temperature 97.59 [degF] Collin Gan MANAGER FIBER.FURNACE LINER Work Phone: [facility] 01-07-2023 09:50-0400 Body weight 63.96 kg Collin Gan MANAGER FIBER.FURNACE LINER Work Phone: [facility] 01-07-2023 09:50-0400 Diastolic blood pressure 74 mm[Hg] Collin Gan MANAGER FIBER.FURNACE LINER Work Phone: [facility] 01-07-2023 09:50-0400 Heart rate 88 /min Collin Gan MANAGER FIBER.FURNACE [employer]ER Work Phone: [facility] 01-07-2023 09:50-0400 Systolic blood pressure 117 mm[Hg] Collin Gan MANAGER FIBER.FURNACE LINER Work Phone: [facility] 10-14-2022 09:01-0500 Body height 164.5 cm Dread Mccurdy MD Work Phone: [facility] 10-14-2022 09:01-0500 Body temperature 97.11 [degF] Dread Mccurdy MD Work Phone: [facility] 10-14-2022 09:01-0500 Body weight 63.5 kg Dread Mccurdy MD Work Phone: [facility] 10-14-2022 09:01-0500 Diastolic blood pressure 72 mm[Hg] Dread Mccurdy MD Work Phone: [facility] 10-14-2022 09:01-0500 Heart rate 65 /min Dread Mccurdy MD Work Phone: [facility] 10-14-2022 09:01-0500 Systolic blood pressure 125 mm[Hg] Dread Mccurdy MD Work Phone: [facility] 10-06-2022 19:55-0500 Body temperature 96.91 [degF] Maine Dye APRN.FURNACE LINER Work Phone: [facility] 10-06-2022 19:55-0500 Body weight 63.59 kg Maine Dye APRN.FURNACE LINER Work Phone: [facility] 10-06-2022 19:55-0500 Diastolic blood pressure 80 mm[Hg] Maine Dye APRN.FURNACE LINER Work Phone: [facility] 10-06-2022 19:55-0500 Heart rate 75 /min Maine Dye APRN.FURNACE LINER Work Phone: [facility] 10-06-2022 19:55-0500 Respiratory rate 18 /min Maine Dye APRN.FURNACE LINER Work Phone: [facility] 10-06-2022 19:55-0500 SaO2% (BldA) [Mass fraction] 97 % Maine Dye APRN.FURNACE LINER Work Phone: [facility] 10-06-2022 19:55-0500 Systolic blood pressure 126 mm[Hg] Maine Dye APRN.FURNACE LINER Work Phone: [facility] 09-01-2022 09:28-0500 Body height 164 cm Chandana Beck MD Work Phone: [facility] 09-01-2022 09:28-0500 Body weight 61.24 kg Chandana Beck MD Work Phone: [facility] 09-01-2022 09:28-0500 Diastolic blood pressure 72 mm[Hg] Chandana Beck MD Work Phone: [facility] 09-01-2022 09:28-0500 Heart rate 75 /min Chandana Beck MD Work Phone: [facility] 09-01-2022 09:28-0500 SaO2% (BldA) [Mass fraction] 96 % Chandana Beck MD Work Phone: [facility] 09-01-2022 09:28-0500 Systolic blood pressure 116 mm[Hg] Chandana Beck MD Work Phone: [facility] 04-08-2022 09:00-0400 Body height 165.1 cm Dread Mccurdy MD Work Phone: [facility] 04-08-2022 09:00-0400 Body temperature 98.1 [degF] Dread Mccurdy MD Work Phone: [facility] 04-08-2022 09:00-0400 Body weight 61.69 kg Dread Mccurdy MD Work Phone: [facility] 04-08-2022 09:00-0400 Diastolic blood pressure 76 mm[Hg] Dread Mccurdy MD Work Phone: [facility] 04-08-2022 09:00-0400 Heart rate 69 /min Dread Mccurdy MD Work Phone: [facility] 04-08-2022 09:00-0400 Systolic blood pressure 110 mm[Hg] Dread Mccurdy MD Work Phone: [facility] 01-24-2022 09:58-0400 Body height 164.5 cm Collin Gan MANAGER FIBER.FURNACE LINER Work Phone: [facility] 01-24-2022 09:58-0400 Body temperature 97 [degF] Collin Gan MANAGER FIBER.FURNACE LINER Work Phone: [facility] 01-24-2022 09:58-0400 Body weight 61.69 kg Collin Gan MANAGER FIBER.FURNACE LINER Work Phone: [facility] 01-24-2022 09:58-0400 Diastolic blood pressure 76 mm[Hg] Collin Gan MANAGER FIBER.FURNACE LINER Work Phone: [facility] 01-24-2022 09:58-0400 Heart rate 60 /min Collin Gan MANAGER FIBER.FURNACE LINER Work Phone: [facility] 01-24-2022 09:58-0400 Systolic blood pressure 115 mm[Hg] Collin Gan MANAGER FIBER.FURNACE LINER Work Phone: [facility] 09-01-2017 13:19-0500 BMI (Body Mass Index) 25.55 kg/m2 Ana Paula Guerrero NP [facility] 09-01-2017 13:19-0500 Body Temperature 97.7 [degF] Ana Paula Guerrero NP [facility] 09-01-2017 13:19-0500 BP Diastolic 71 mm[Hg] Ana Paula Guerrero FEDERAL JAVA DEVELOPER [facility] 09-01-2017 13:19-0500 BP Systolic 108 mm[Hg] Ana Paula Guerrero FEDERAL JAVA DEVELOPER [facility] 09-01-2017 13:19-0500 Height 164.47 cm Ana Paula Guerrero NP [facility] 09-01-2017 13:19-0500 Pulse (Heart Rate) 78 /min Ana Paula Guerrero NP [facility] 09-01-2017 13:19-0500 Weight 69.13 kg Ana Paula Guerrero NP [facility] 07-06-2017 13:50-0400 BMI (Body Mass Index) 25.03 kg/m2 Francie Carias MD [facility] 07-06-2017 13:50-0400 Body Temperature 97.3 [degF] Francie Carias MD [facility] 07-06-2017 13:50-0400 BP Diastolic 61 mm[Hg] Francie Carias MD [facility] 07-06-2017 13:50-0400 BP Systolic 116 mm[Hg] Francie Carias MD [facility] 07-06-2017 13:50-0400 Height 164.47 cm Francie Carias MD [facility] 07-06-2017 13:50-0400 Pulse (Heart Rate) 82 /min Francie Carias MD [facility] 07-06-2017 13:50-0400 Respiratory Rate 16 /min Francie Carias MD [facility] 07-06-2017 13:50-0400 Weight 67.72 kg Francie Carias MD [facility] Encounters Encounter Date Encounter Type Care Provider Facility Start: 07-19-2025 End: 07-19-2025 ambulatory DREAD MCCURDY Facility:[facility] Start: 06-30-2025 End: 06-30-2025 Refill Dread Mccurdy MD Work Phone: Internal Medicine [place] Comment on above: Refill Request Start: 06-28-2025 End: 06-28-2025 ambulatory [facility] Facility:[facility] Start: 06-13-2025 End: 06-13-2025 Patient encounter procedure Dread Mccurdy MD Work Phone: Rheumatology Comment on above: Clinical Trial Start: 06-13-2025 End: 06-13-2025 ambulatory Dread Mccurdy MD Work Phone: Rheumatology Start: 06-13-2025 End: 06-13-2025 Subsequent hospital visit by physician Screen Mammo [facility] Comment on above: Encounter for screen ing mammogram for breast cancer [Z12.31] Start: 06-05-2025 End: 06-05-2025 Refill Dread Mccurdy MD Work Phone: Rheumatology Comment on above: Refill Request Start: 05-31-2025 End: 05-31-2025 ambulatory [facility] Facility:[facility] Start: 05-10-2025 End: 07-10-2025 Follow-up encounter Dread Mccurdy MD Work Phone: Rheumatology Start: 05-09-2025 End: 05-09-2025 Subsequent hospital visit by physician Xr [facility] [place] Work Phone: Radiology Comment on above: Seropositive rheumat oid arthritis (HCC) [M05.9] Start: 05-09-2025 End: 05-09-2025 Telemedicine consultation with patient Dread Mccurdy MD Work Phone: Rheumatology Start: 05-09-2025 End: 05-09-2025 ambulatory Dread Mccurdy MD Work Phone: Rheumatology Comment on above: Info on methotrexate Seropositive rheumat oid arthritis (HCC) (Primary Dx); Long-term use of Plaquenil; Pain in joint, multiple sites; Primary osteoarthritis of both knees; Osteopenia of necks of both femurs Start: 05-09-2025 End: 05-09-2025 E-mail encounter from caregiver Dread Mccurdy MD Work Phone: Rheumatology Start: 05-09-2025 End: 05-10-2025 Telephone encounter Dread Mccurdy MD Work Phone: Rheumatology Start: 04-11-2025 End: 04-11-2025 Telephone encounter Dread Mccurdy MD Work Phone: Rheumatology Comment on above: Fatigue Start: 04-10-2025 End: 04-10-2025 Refill Dread Mccurdy MD Work Phone: Internal Medicine [place] Comment on above: Refill Request Start: 02-21-2025 End: 04-23-2025 Follow-up encounter Dread Mccurdy MD Work Phone: Rheumatology Start: 02-20-2025 End: 02-20-2025 ambulatory CHANDANA BECK Facility:[facility] Start: 02-08-2025 End: 02-08-2025 Telephone encounter Dread Mccurdy MD Work Phone: Rheumatology Comment on above: Arthritis Start: 01-13-2025 End: 01-13-2025 ambulatory POONAM APODACA Facility:[facility] Start: 01-13-2025 End: 01-13-2025 Subsequent hospital visit by physician Amrit Germain MD Work Phone: Ambulatory Surgery Comment on above: Screening for colon cancer [Z12.11] Start: 01-09-2025 End: 01-09-2025 Telephone encounter Chandana Beck MD Work Phone: [facility] [place] Comment on above: needs instructions f or colon prep Start: 12-07-2024 End: 12-09-2024 Telephone encounter Collin Gan APRN.FURNACE LINER Work Phone: Rheumatology Comment on above: Question (See note) Orders Start: 11-17-2024 End: 11-17-2024 ambulatory DREAD MCCURDY Facility:[facility] Start: 11-09-2024 End: 11-09-2024 Refill Collin Gan APRN.FURNACE LINER Work Phone: Rheumatology Comment on above: Refill Request Start: 09-28-2024 End: 09-28-2024 ambulatory [facility] Nurse [facility] Work Phone: [facility] [place] Start: 09-28-2024 End: 09-28-2024 Patient encounter procedure Immunization Clinic Nurse Meme Work Phone: [facility] Start: 09-13-2024 End: 09-13-2024 ambulatory CHANDANA Vito EBONY Facility:[facility] Start: 09-13-2024 End: 09-13-2024 Patient encounter procedure Chandana Beck MD Work Phone: Internal Medicine [place] Comment on above: Medicare annual well ness visit, subsequent (Primary Dx); Allergic rhinitis, unspecified seasonality, unspecified trigger; Osteopenia of multiple sites; Screening for depression; Encounter for screening examination for other mental health and behavioral disorders; Encounter for immunization Start: 09-02-2024 End: 09-02-2024 [facility] Start: 09-02-2024 End: 09-02-2024 Subsequent hospital visit by physician Bone Density [facility] Work Phone: Radiology Comment on above: Asymptomatic postmen opausal status [Z78.0] Start: 09-01-2024 End: 09-01-2024 ambulatory [facility] Facility[facility] Start: 07-13-2024 End: 07-13-2024 ambulatory [facility] Facility:[facility] Start: 06-25-2024 End: 06-25-2024 [facility] Facility:[facility] Start: 06-20-2024 End: 06-20-2024 Patient encounter procedure Dread Mccurdy MD Work Phone: Rheumatology Comment on above: Seropositive rheumat oid arthritis (HCC) (Primary Dx); Long-term use of Plaquenil; Encounter for long-term (current) use of medications; Pain in joint, multiple sites Start: 04-21-2024 Refill Dread Mccurdy MD Work Phone: Internal Medicine [place] Comment on above: Refill Request Start: 03-17-2024 End: 03-17-2024 ambulatory Chandana D Zbigniewclifton Facility:[facility] Start: 03-09-2024 Encounter for gynecological examination (general) (routine) without abnormal findings Krissy Odonnell [facility] Start: 03-09-2024 End: 03-09-2024 ambulatory Chandana Beck Facility:[facility] Start: 03-09-2024 End: 03-09-2024 ambulatory Chandanajody Hensonrhiannon Facility:[facility] Start: 02-03-2024 ambulatory Chandana garcia MD Work Phone: Internal Medicine [facility] Start: 02-02-2024 Refill Dread Mccurdy MD Work Phone: Orth and Rheum [place] Comment on above: Refill Request Start: 12-25-2023 End: 12-25-2023 Patient encounter procedure Maribell Haas DPM Work Phone: Podiatry Comment on above: Bursitis of intermet atarsal bursa of right foot (Primary Dx); Capsulitis of foot, right; Rheumatoid arthritis involving right foot with positive rheumatoid factor (HCC) Start: 10-08-2023 End: 10-08-2023 ambulatory Boris Mccoy PT Work Phone: [facility] Comment on above: Pain in right ankle and joints of right foot (Primary Dx) Start: 09-22-2023 End: 09-22-2023 ambulatory Boris Mccoy PT Work Phone: [facility] Comment on above: Pain in right ankle and joints of right foot (Primary Dx) Start: 09-11-2023 End: 09-11-2023 ambulatory Boris Mccoy PT Work Phone: [facility] Comment on above: Pain in right ankle and joints of right foot (Primary Dx) Start: 09-11-2023 End: 09-11-2023 Patient encounter procedure Chandana Beck MD Work Phone: Internal Medicine [place] Comment on above: Preop examination (P rimary Dx); Elevated LDL cholesterol level; Benign paroxysmal positional vertigo, unspecified laterality Start: 09-11-2023 End: 09-11-2023 Preprocedural examination done Chandana Beck MD Work Phone: [facility] Work Phone: Start: 09-03-2023 Refill Lyn ZAMUDIO Work Phone: [facility] Comment on above: Refill Request; Refi ll Request Start: 09-02-2023 End: 09-02-2023 ambulatory Immunization Clinic Nurse Meme Work Phone: [facility] Start: 08-25-2023 Refill Angelica dubois PA-C Work Phone: [facility] Comment on above: Refill Request; Refi ll Request Start: 08-24-2023 Telephone encounter Chandana lazo MD Work Phone: Internal Medicine [place] Comment on above: Appointment Start: 08-13-2023 Telephone encounter Maribell Haas DPM Work Phone: Podiatry Comment on above: General Questions Start: 08-13-2023 End: 08-13-2023 ambulatory Radhames Martinez PT [facility] Comment on above: Bursitis of intermet atarsal bursa of right foot; Capsulitis of foot, right; Pain in right ankle and joints of right foot Start: 08-03-2023 Refill Dread Mccurdy MD Work Phone: [facility] Comment on above: Refill Request Start: 07-31-2023 End: 07-31-2023 Subsequent hospital visit by physician Xr [facility] Work Phone: Radiology Comment on above: Bursitis of intermet atarsal bursa of right foot [M77.51] Start: 07-31-2023 End: 07-31-2023 Patient encounter procedure Maribell Haas DPM Work Phone: Podiatry Comment on above: Bursitis of intermet atarsal bursa of right foot (Primary Dx); Capsulitis of foot, right Start: 06-03-2023 End: 06-03-2023 Patient encounter procedure Dread Mccurdy MD Work Phone: Rheumatology Comment on above: Seropositive rheumat oid arthritis (HCC) (Primary Dx); Long-term use of Plaquenil; Encounter for long-term (current) use of medications Start: 05-13-2023 Refill Collin Gan APRN.FURNACE LINER Work Phone: Rheumatology Comment on above: Refill Request Start: 04-16-2023 Refill Dread Mccurdy MD Work Phone: Rheumatology Comment on above: Refill Request Start: 03-01-2023 Refill Dread Mccurdy MD Work Phone: Rheumatology Comment on above: Refill Request Start: 02-13-2023 End: 02-13-2023 Office outpatient visit 25 minutes Lyn Sewell APRN.MOLD PULLER Work Phone: [facility] [place] Comment on above: Osteopenia of necks of both femurs (Primary Dx); Encounter for immunization; ARSEN (obstructive sleep apnea); Seropositive rheumatoid arthritis (HCC) Start: 01-07-2023 End: 01-07-2023 Patient encounter procedure Collin Gan MANAGER FIBER.FURNACE LINER Work Phone: Rheumatology Comment on above: Seropositive rheumat oid arthritis (HCC) (Primary Dx); Encounter for long-term (current) use of medications; Pain in both knees, unspecified chronicity Start: 12-26-2022 Documentation procedure Mammography Coordinator [facility] Start: 12-26-2022 Letter encounter Mammography Coordin ator [facility] Department Start: 12-25-2022 End: 12-25-2022 Subsequent hospital visit by physician Screen Mammo [facility] Comment on above: Encounter for screen ing mammogram for breast cancer [Z12.31] Start: 12-12-2022 Telephone encounter Dread Noriega MD Work Phone: Rheumatology Comment on above: Medication Problem Start: 11-19-2022 Chart abstracting Eric Ureña MA eumatology Comment on above: Abstract (PLQ eye ex am) Start: 11-04-2022 End: 11-04-2022 Patient encounter procedure Maribell Haas DPM Work Phone: Podiatry Comment on above: Rheumatoid arthritis involving right foot with positive rheumatoid factor (HCC) (Primary Dx); Bursitis of right foot; Neuroma; Joint stiffness of toe of right foot; Capsulitis of foot, right Start: 10-14-2022 End: 10-14-2022 Patient encounter procedure Dread Mccurdy MD Work Phone: Rheumatology Comment on above: Seropositive rheumat oid arthritis (HCC) (Primary Dx); Long-term use of Plaquenil; Encounter for long-term (current) use of medications; Pain in joint, multiple sites Start: 10-06-2022 End: 10-06-2022 Patient encounter procedure Maine Dye APRN.[facility] Work Phone: [facility] Comment on above: Sore throat (Primary Dx) Start: 09-26-2022 Refill Dread Mccurdy MD Work Phone: Rheumatology Comment on above: Refill Request Start: 09-15-2022 End: 09-15-2022 ambulatory [facility] Start: 09-01-2022 End: 09-01-2022 Office outpatient visit 40 minutes Chandana Beck MD Work Phone: Internal Medicine [place] Comment on above: Medial knee pain, ri ght (Primary Dx); Medial epicondylitis of right elbow; Neuritis of right ulnar nerve; Bilateral carpal tunnel syndrome; Encounter for long-term current use of medication; Seropositive rheumatoid arthritis (HCC); Encounter for immunization Start: 08-03-2022 ambulatory Maribell Haas DPM Work Phone: Podiatry Comment on above: US results Start: 08-03-2022 E-mail encounter fro m caregiver Maribell Haas DPM Work Phone: [facility] Start: 07-28-2022 End: 07-28-2022 Subsequent hospital visit by physician [facility] [address] Radiology Comment on above: Pain [R52] Start: 07-11-2022 ambulatory Chandana garcia MD Work Phone: Internal Medicine [place] Comment on above: Mental Health Start: 07-10-2022 Telephone encounter Artemio Mishra Radiology Comment on above: Appointment Start: 07-09-2022 ambulatory Collin Gan APRN.FURNACE LINER Work Phone: [facility] Start: 07-09-2022 Patient encounter procedure Collin Gan MANAGER FIBER.FURNACE LINER Work Phone: Rheumatology Comment on above: Cancelled appointmen t for Thursday Start: 06-10-2022 End: 06-10-2022 Patient encounter procedure Maribell Haas DPM Work Phone: Podiatry Comment on above: Rheumatoid arthritis involving right foot with positive rheumatoid factor (HCC) (Primary Dx); Bursitis of right foot; Neuroma; Pain; Joint stiffness of toe of right foot; Pain in toe of right foot Start: 06-10-2022 End: 06-10-2022 Subsequent hospital visit by physician [facility] Work Phone: Radiology Comment on above: Pain [R52] Start: 04-08-2022 End: 04-08-2022 Patient encounter procedure Dread Mccurdy MD Work Phone: Rheumatology Comment on above: Seropositive rheumat oid arthritis (HCC) (Primary Dx); Long-term use of Plaquenil; Joint stiffness of toe of right foot; Pain in toe of right foot Start: 01-24-2022 End: 01-24-2022 Patient encounter procedure Collin Gan APRN.FURNACE LINER Work Phone: Rheumatology Comment on above: Seropositive rheumat oid arthritis (HCC) (Primary Dx); Pain in both knees, unspecified chronicity; Primary osteoarthritis of both knees; Encounter for long-term (current) use of medications Start: 01-15-2022 Refill Dread Mccurdy MD Work Phone: Rheumatology Comment on above: Refill Request Start: 10-11-2021 End: 10-11-2021 Subsequent hospital visit by physician [facility] Work Phone: Radiology Comment on above: Seropositive rheumat oid arthritis (HCC) [M05.9] Procedures Date Procedure Procedure Detail Performing Clinician Start: 01-13-2025 Colonoscopy flx dx w /collj spec when pfrmd Poonam M Aliya MANAGER FIBER.FURNACE LINER Work Phone: Start: 01-13-2025 Colonoscopy Amrit rodriguez MD Work Phone: Start: 09-13-2024 Adult depression scr eening assessment Chandana Beck MD Work Phone: Start: 09-01-2024 Lipid 1996 panel - S sofie or Plasma [facility] Work Phone: Start: 09-02-2023 INFLUENZA VACCINE, P RSV FREE, AGE 65+ YR, HIGH DOSE, QUADRIVALENT (FLUZONE HIGH-DOSE) Chandana Beck MD Work Phone: Start: 07-31-2023 Radex foot complete minimum 3 views Maribell Hild DPM Work Phone: Start: 12-25-2022 End: 12-25-2022 Mammography Bulk Order Provider Start: 10-06-2022 STREP A MOLECULAR (POC) [facility] Provider Start: 09-01-2022 [employer] COVI D-19 BIVALENT BOOSTER VACCINE, AGE 12+ YR Chandana Beck MD Work Phone: Start: 09-01-2022 INFLUENZA SEASONAL QUADRIVALENT HIGH DOSE AGE 65+ Chandana Beck MD Work Phone: Start: 07-28-2022 Us compl joint r-t w /image documentation Maribell Hild DPM Work Phone: Start: 06-10-2022 Radex foot complete minimum 3 views Maribell Hild DPM Work Phone: Start: 11-04-2021 Mammography Dread Noriega MD Work Phone: Start: 10-11-2021 Radex hand minimum 3 views Dread Mccurdy MD Work Phone: Start: 08-30-2021 Adult depression scr eening assessment Dread Mccurdy MD Work Phone: Start: 08-10-2020 Lipid 1996 panel - S sofie or Plasma Maribell Hild DPM Work Phone: Start: 11-07-2019 Colonoscopy Dread Noriega MD Work Phone: Start: 09-01-2017 End: 09-01-2017 Urnls dip stick/tablet rgnt non-auto w/o micrscp Ana Paula Guerrero NP Work Phone: Plan of Treatment Date Care Activity Detail Author Start: 01-13-2030 Screening for malignant neoplasm of colon [facility] Start: 09-01-2029 Lipid panel Lipid Screening [facility] Start: 06-13-2026 Screening for malignant neoplasm of breast Mammogram Screening [facility] Start: 01-04-2026 End: 01-04-2026 Patient encounter procedure 01/04/2026 10:00 AM EDT Office Visit Rheumatology [address] [place] [address] Collin Gan APRN.FURNACE LINER [address] [place] [address] 6 month follow up Rheumatology Comment on above: 6 month follow up Start: 09-26-2025 End: 09-26-2025 Patient encounter procedure 09/26/2025 9:20 AM EST Office Visit Internal Medicine [facility] [address] [place] [address] Chandana Beck MD [address] [place] [address] medicare Internal Medicine [place] Comment on above: medicare Start: 09-13-2025 Anxiety Screening Anxiety Screening [facility] Start: 09-13-2025 Depression Screening Depression Screening [facility] Start: 09-13-2025 Medicare Annual Wellness Visit Medicare Annual Wellness Visit [facility] Start: 09-13-2025 Screening for malignant neoplasm of cervix Cervical Cancer [facility]ening [facility] [facility] Comment on above: Postponed from 07/06/2018 (Declined at t his time) Start: 09-01-2025 DIABETES SCREEN DIABETES SCREEN [facility] Start: 09-01-2025 Diabetes Screening Diabetes Screening [facility] Start: 08-10-2025 Lipid 1996 panel - Serum or Plasma Lipid Screening [facility] Start: 08-10-2025 Lipid panel Lipid Screening [facility] Start: 08-10-2025 LIPID SCREEN LIPID SCREEN [facility] Start: 07-19-2025 End: 07-19-2025 Patient encounter procedure 07/19/2025 10:40 AM EDT Office Visit Rheumatology [address] [place] [address] Dread Mccurdy MD [address] [place] [address] Follow up Rheumatology Comment on above: Follow up Start: 06-26-2025 Influenza vaccination Influenza Vaccine (#1) [facility] Start: 06-21-2025 End: 06-21-2025 Patient encounter procedure Rheumatology Comment on above: 1 year Start: 06-12-2025 End: 06-12-2025 Patient encounter procedure 06/12/2025 12:50 PM EDT Appointment Mammogram [address] [place] [address] Mammogram Start: 05-09-2025 End: 05-09-2025 Follow-up encounter 05/09/2025 3:00 PM EDT [facility] [address] [place] [address] Dread Mccurdy MD [address] [place] [address] follow up Rheumatology Comment on above: follow up Start: 05-09-2025 End: 05-09-2026 Alanine aminotransferase [Enzymatic activity/volume] in Serum or Plasma [facility] Comment on above: Expected: 05/09/2025, Expires: Start: 05-09-2025 End: 05-09-2026 Aspartate aminotransferase [Enzymatic activity/volume] in Serum or Plasma [facility] Comment on above: Expected: 05/09/2025, Expires: Start: 05-09-2025 End: 05-09-2026 CBC panel - Blood by Automated count [facility] Comment on above: Expected: 05/09/2025, Expires: Start: 05-09-2025 End: 08-08-2025 Chronic hepatitis differentiation between hepatitis B and C virus panel - Serum or Plasma [facility] Work Phone: Comment on above: Expected: 05/09/2025, Expires: Start: 05-09-2025 End: 05-09-2026 Creatinine and Glomerular filtration rate.predicted panel - Serum, Plasma or Blood [facility] Comment on above: Expected: 05/09/2025, Expires: Start: 04-24-2025 Influenza vaccination Influenza Vaccine (#1) [facility] Comment on above: Postponed from 06/26/2024 (Currently Mel eduled) Start: 03-17-2025 Screening for malignant neoplasm of breast Mammogram Screening [facility] Start: 03-13-2025 End: 03-13-2025 Patient encounter procedure 03/13/2025 9:20 AM EDT Office Visit Rheumatology [address] [place] [address] Dread Mccurdy MD [address] [place] [address] 1 year Rheumatology Comment on above: 1 year Start: 01-13-2025 End: 01-13-2025 Patient encounter procedure Ambulatory Surgery Start: 01-02-2025 End: 01-02-2025 Patient encounter procedure 01/02/2025 10:00 AM EDT Office Visit Rheumatology [address] [place] [address] Collin Gan, [employer]NA[employer]ER [address] [place] [address] 6 month follow up Rheumatology Comment on above: 6 month follow up Start: 11-07-2024 Colonoscopy COLONOSCOPY [facility] Start: 11-07-2024 COLORECTAL CANCER SCREENING COLORECTAL CANCER SCREENING [facility] Start: 11-07-2024 Screening for malignant neoplasm of colon [facility] Start: 10-26-2024 Advance Directive Discussion Advance Directive Discussion [facility] Start: 09-28-2024 End: 09-28-2024 Patient encounter procedure 09/28/2024 1:40 PM EST Immunization [facility] [address] [place], [place] [id number] [place], Immunization Clinic Nurse [address] [place] [address] flu vaccine [facility] [place] Comment on above: flu vaccine Start: 09-15-2024 End: 09-15-2024 ambulatory 09/15/2024 9:30 AM EST Results Only [facility] Draw Station [address] [place] [address] Elevated LDL cholesterol level [E78.00] [place] [facility] Station Comment on above: Elevated LDL cholesterol level [E78.00] Start: 09-13-2024 End: 09-13-2024 Patient encounter procedure 09/13/2024 9:00 AM EST Office Visit Internal Medicine [facility] [address] [place] [address] Chandana Beck MD [address] [place] [address] yearly exam [facility] [place] Comment on above: yearly exam Start: 09-11-2024 Covid-19 Vaccine ( season) Covid-19 Vaccine ( season) [facility] Comment on above: Postponed from 06/26/2023 (Declined at t his time) Start: 09-11-2024 End: 12-11-2024 Lipid 1996 panel - Serum or Plasma LIPID PANEL BASIC Lab Routine Elevated LDL cholesterol level Expected: 09/11/2024 (Approximate), Expires: 12/11/2024 [facility] Work Phone: Comment on above: Expected: 09/11/2024 (Approximate), Expi res: 12/11/2024 Start: 09-11-2024 RSV Vaccine (1 - 1-dose 60+ series) RSV Vaccine (1 - 1-dose 60+ series) [facility] Comment on above: Postponed from 2014 (Declined at t his time) Start: 09-11-2024 RSV Vaccine (1 - Risk 60-74 years 1-dose series) RSV Vaccine (1 - Risk 60-74 years 1-dose series) [facility] Comment on above: Postponed from 2014 (Declined at t his time) Start: 09-02-2024 End: 09-02-2024 Patient encounter procedure 09/02/2024 8:55 AM EST Appointment Radiology [address] [place] [id number] Asymptomatic postmenopausal status [Z78.0 Radiology Comment on above: Asymptomatic postmenopausal status [Z78. 0 Start: 09-01-2024 End: 09-01-2024 ambulatory 09/01/2024 9:30 AM EST Results Only [facility] Draw [facility] [address] [place] [address] Elevated LDL cholesterol level [E78.00] [place] [facility] Draw Station Comment on above: Elevated LDL cholesterol level [E78.00] Start: 06-26-2024 Covid-19 Vaccine () Covid-19 Vaccine () [facility] Start: 06-26-2024 Covid-19 Vaccine () Covid-19 Vaccine () [facility] Start: 06-26-2024 Influenza vaccination Influenza Vaccine (#1) [facility] Start: 06-20-2024 End: 06-20-2024 Patient encounter procedure 06/20/2024 10:00 AM EDT Office Visit Rheumatology [address] [place], [place] [id number] [place] [address] [place] [address] Seropositive rheumatoid arthritis (HCC) Rheumatology Comment on above: Seropositive rheumatoid arthritis (HCC) Start: 12-26-2023 Mammography [facility] Start: 12-26-2023 Screening for malignant neoplasm of breast Mammogram Screening [facility] Start: 10-26-2023 Advance Directive Discussion Advance Directive Discussion [facility] Start: 10-26-2023 Behavioral Health Screening Behavioral Health Screening [facility] Start: 10-26-2023 Depression Assessment Depression Assessment [facility] Start: 06-26-2023 Covid-19 Vaccine () Covid-19 Vaccine () [facility] Start: 06-26-2023 Influenza vaccination [facility] Start: 12-24-2022 Urine microalbumin profile [facility] Start: 11-04-2022 Mammography MAMMOGRAM [facility] Start: 10-27-2022 Covid-19 Vaccine (5 - Moderna risk series) Covid-19 Vaccine (5 - Moderna risk series) [facility] Start: 10-26-2022 ADVANCE DIRECTIVE DISCUSSION ADVANCE DIRECTIVE DISCUSSION [facility] Start: 10-26-2022 DEPRESSION ASSESSMENT DEPRESSION ASSESSMENT [facility] Start: 09-01-2022 End: 11-01-2022 Basic metabolic 2000 panel - Serum or Plasma [facility] Work Phone: Comment on above: Expected: 09/01/2022, Expires: 3 Start: 09-01-2022 End: 11-01-2022 C reactive protein [Mass/volume] in Serum or Plasma [facility] Work Phone: Comment on above: Expected: 09/01/2022, Expires: 3 Start: 09-01-2022 End: 11-01-2022 Hepatic function 2000 panel - Serum or Plasma [facility] Work Phone: Comment on above: Expected: 09/01/2022, Expires: 3 Start: 08-30-2022 Adult depression screening assessment DEPRESSION SCREENING [facility] Start: 08-30-2022 DIABETES SCREEN DIABETES SCREEN [facility] Comment on above: Postponed from 10/12/2020 (Postponed To Appropriate Date) Start: 06-26-2022 Influenza vaccination INFLUENZA (#1) [facility] Start: 01-21-2022 COVID-19 VACCINE (4 - Booster for Moderna series) COVID-19 VACCINE (4 - Booster for Moderna series) [facility] Start: 01-15-2022 COVID-19 VACCINE (4 - Booster for Moderna series) COVID-19 VACCINE (4 - Booster for Moderna series) [facility] Start: 12-18-2021 COVID-19 VACCINE (4 - Booster for Moderna series) COVID-19 VACCINE (4 - Booster for Moderna series) [facility] Start: 10-26-2021 ADVANCE DIRECTIVE DISCUSSION ADVANCE DIRECTIVE DISCUSSION [facility] Start: 10-26-2021 DEPRESSION ASSESSMENT DEPRESSION ASSESSMENT [facility] Start: 10-12-2020 DIABETES SCREEN DIABETES SCREEN [facility] Start: 07-06-2018 Screening for malignant neoplasm of cervix Cervical Cancer Screening [facility] Start: 09-01-2017 End: 09-01-2017 *CUUID - Urine ARTURO Culture - Identificatn *CUUID - Urine ARTURO Culture - Identificatn [facility] Start: 09-01-2017 End: 09-01-2017 Bacteria genital culture *CUV - Culture, VAG/CX Comprehensive [facility] Start: 09-01-2017 End: 09-01-2017 Appointment Appointment [facility] Start: 07-06-2017 End: 07-07-2017 Mammogram, screening Mammogram, Screening, both breasts [facility] Start: 07-06-2017 End: 07-07-2017 Mammogram, screening Mammogram, Screening, both breasts [facility] Start: 2014 RSV Vaccine (1 - 1-dose 60+ series) RSV Vaccine (1 - 1-dose 60+ series) [facility] Start: 2014 RSV Vaccine (1 - Risk 60-74 years 1-dose series) RSV Vaccine (1 - Risk 60-74 years 1-dose series) [facility] Start: 12-27-2013 FECAL OCCULT BLOOD FECAL OCCULT BLOOD [facility] Start: 12-27-2013 Screening for malignant neoplasm of colon Fecal Occult Blood [facility] Start: 1999 COLOGUARD (FIT-DNA) COLOGUARD (FIT-DNA) [facility] Start: [address] COLONOGRAPHY [facility] Start: 1999 Screening for malignant neoplasm of colon [facility] Start: 1999 SIGMOIDOSCOPY SIGMOIDOSCOPY [facility] Start: 1972 Anxiety Screening Anxiety Screening [facility] Start: 1972 Depression Screening Depression Screening [facility] End: 06-03-2024 Alanine aminotransferase [Enzymatic activity/volume] in Serum or Plasma ALT/SGPT Lab Routine Encounter for long-term (current) use of medications 7 Occurrences starting 06/03/2023 until 06/03/2024 [facility] Work Phone: Comment on above: 7 Occurrences starting 06/03/2023 until 06/03/2024 End: 06-20-2025 Alanine aminotransferase [Enzymatic activity/volume] in Serum or Plasma ALANINE AMINOTRANSFERASE / SGPT Lab Routine Encounter for long-term (current) use of medications 7 Occurrences starting 06/20/2024 until 06/20/2025, 1 completed [facility] Comment on above: 7 Occurrences starting 06/20/2024 until 06/20/2025, 1 completed End: 05-10-2026 Alanine aminotransferase [Enzymatic activity/volume] in Serum or Plasma ALANINE AMINOTRANSFERASE / SGPT Lab Routine Long-term use of immunosuppressant medication 7 Occurrences starting 05/10/2025 until 05/10/2026, 2 completed [facility] Comment on above: 7 Occurrences starting 05/10/2025 until 05/10/2026, 2 completed End: 06-03-2024 Aspartate aminotransferase [Enzymatic activity/volume] in Serum or Plasma AST/SGOT BLD Lab Routine Encounter for long-term (current) use of medications 7 Occurrences starting 06/03/2023 until 06/03/2024 [facility] Work Phone: Comment on above: 7 Occurrences starting 06/03/2023 until 06/03/2024 End: 06-20-2025 Aspartate aminotransferase [Enzymatic activity/volume] in Serum or Plasma ASPARTATE AMINOTRANSFERASE/SGOT Lab Routine Encounter for long-term (current) use of medications 7 Occurrences starting 06/20/2024 until 06/20/2025, 1 completed [facility] Comment on above: 7 Occurrences starting 06/20/2024 until 06/20/2025, 1 completed End: 05-10-2026 Aspartate aminotransferase [Enzymatic activity/volume] in Serum or Plasma ASPARTATE AMINOTRANSFERASE/SGOT Lab Routine Long-term use of immunosuppressant medication 7 Occurrences starting 05/10/2025 until 05/10/2026, 2 completed [facility] Comment on above: 7 Occurrences starting 05/10/2025 until 05/10/2026, 2 completed End: 03-08-2025 BD DXA TRABECULAR BONE SCORE (TBS) BD DXA TRABECULAR BONE SCORE (TBS) Radiology Routine Asymptomatic postmenopausal status 1 Occurrences starting 02/07/2024 until 03/08/2025 [facility] Work Phone: Comment on above: 1 Occurrences starting 02/07/2024 until 03/08/2025 BD DXA TRABECULAR ROMERO NE SCORE (TBS) BD DXA TRABECULAR BONE SCORE (TBS) Radiology Routine Asymptomatic postmenopausal status 09/02/2024 9:36 AM EST [facility] End: 10-14-2023 CBC panel - Blood by Automated count CBC Lab Routine Encounter for long-term (current) use of medications 7 Occurrences starting 10/14/2022 until 10/14/2023 [facility] Work Phone: Comment on above: 7 Occurrences starting 10/14/2022 until 10/14/2023 End: 06-02-2024 CBC panel - Blood by Automated count CBC Lab Routine Encounter for long-term (current) use of medications 7 Occurrences starting 06/03/2023 until 06/02/2024 [facility] Work Phone: Comment on above: 7 Occurrences starting 06/03/2023 until 06/02/2024 End: 06-20-2025 CBC panel - Blood by Automated count COMPLETE BLOOD COUNT Lab Routine Encounter for long-term (current) use of medications 7 Occurrences starting 06/20/2024 until 06/20/2025, 1 completed [facility] Comment on above: 7 Occurrences starting 06/20/2024 until 06/20/2025, 1 completed End: 05-10-2026 CBC panel - Blood by Automated count COMPLETE BLOOD COUNT Lab Routine Long-term use of immunosuppressant medication 7 Occurrences starting 05/10/2025 until 05/10/2026, 2 completed [facility] Comment on above: 7 Occurrences starting 05/10/2025 until 05/10/2026, 2 completed End: 05-10-2026 Creatinine and Glomerular filtration rate.predicted panel - Serum, Plasma or Blood CREATININE BLD Lab Routine Long-term use of immunosuppressant medication 7 Occurrences starting 05/10/2025 until 05/10/2026, 2 completed [facility] Work Phone: Comment on above: 7 Occurrences starting 05/10/2025 until 05/10/2026, 2 completed End: 10-14-2023 CREATININE BLD CREATININE BLD Lab Routine Encounter for long-term (current) use of medications 7 Occurrences starting 10/14/2022 until 10/14/2023 [facility] Work Phone: Comment on above: 7 Occurrences starting 10/14/2022 until 10/14/2023 End: 06-03-2024 CREATININE BLD CREATININE BLD Lab Routine Encounter for long-term (current) use of medications 7 Occurrences starting 06/03/2023 until 06/03/2024 [facility] Work Phone: Comment on above: 7 Occurrences starting 06/03/2023 until 06/03/2024 End: 06-20-2025 CREATININE BLD CREATININE BLD Lab Routine Encounter for long-term (current) use of medications 7 Occurrences starting 06/20/2024 until 06/20/2025, 1 completed [facility] Work Phone: Comment on above: 7 Occurrences starting 06/20/2024 until 06/20/2025, 1 completed DBT Breast - bilater al screening ZAYNAB SCREENING W DELTA Radiology Routine Encounter for screening mammogram for breast cancer 06/13/2025 11:46 AM EDT [facility] Work Phone: End: 03-08-2025 DXA Skeletal system.axial Views for bone density DXA-AXIAL SKELETON Radiology Routine Asymptomatic postmenopausal status 1 Occurrences starting 02/07/2024 until 03/08/2025 [facility] Work Phone: Comment on above: 1 Occurrences starting 02/07/2024 until 03/08/2025 DXA Skeletal system.axial Views for bone density DXA-AXIAL SKELETON Radiology Routine Asymptomatic postmenopausal status 09/02/2024 9:36 AM EST [facility] [employer] Work Phone: End: 10-14-2023 Hepatic function 2000 panel - Serum or Plasma HEPATIC FUNCTION PNL Lab Routine Encounter for long-term (current) use of medications 7 Occurrences starting 10/14/2022 until 10/14/2023 [facility] Work Phone: Comment on above: 7 Occurrences starting 10/14/2022 until 10/14/2023 End: 03-04-2025 MG Breast Screening ZAYNAB SCREENING Radiology Routine Encounter for screening mammogram for breast cancer 1 Occurrences starting 02/03/2024 until 03/04/2025 [facility] Work Phone: Comment on above: 1 Occurrences starting 02/03/2024 until 03/04/2025 End: 12-07-2025 Screening colonoscopy COLONOSCOPY SCREENING Endoscopy Routine Screening for colon cancer 1 Occurrences starting 12/07/2024 until 12/07/2025 [facility] Work Phone: Comment on above: 1 Occurrences starting 12/07/2024 until 12/07/2025 Tdap vaccine 7 yrs/> im TDAP VAC CINE, AGE 7+ YR (ADACEL, BOOSTRIX) Immunization/Injection Routine Encounter for immunization 1 Occurrences starting 02/13/2023 [facility] Work Phone: Comment on above: 1 Occurrences starting 02/13/2023 End: 07-10-2023 US FOOT RT US FOOT RT Radiology Routine Pain Joint stiffness of toe of right foot Pain in toe of right foot Rheumatoid arthritis involving right foot with positive rheumatoid factor (HCC) Bursitis of right foot Neuroma 1 Occurrences starting 06/10/2022 until 07/10/2023 [facility] Work Phone: Comment on above: 1 Occurrences starting 06/10/2022 until 07/10/2023 End: 06-08-2026 XR Chest PA and Lateral XR CHEST 2V FRONTAL/LAT Radiology Routine Seropositive rheumatoid arthritis (HCC) 1 Occurrences starting 05/09/2025 until 06/08/2026 [facility] Comment on above: 1 Occurrences starting 05/09/2025 until 06/08/2026 XR Chest PA and Lateral XR CHEST 2V FRONTAL/LAT Radiology Routine Seropositive rheumatoid arthritis (HCC) 05/09/2025 5:03 PM EDT [facility] Immunizations Immunization Date Immunization Notes Care Provider Fa afsaneh 09-28-2024 influenza, high dose seasonal, preservative-free Immunization [facility] Work Phone: [facility] 09-28-2024 influenza virus vaccine, unspecified formulation Dread Mccurdy MD Work Phone: [facility] 09-02-2023 influenza (HD-IIV4) vaccine, age 65+ yr, high dose, quadrivalent, PF (FLUZONE HIGH-DOSE) Immunization [facility] Work Phone: [facility] Work Phone: 09-02-2023 influenza virus vaccine, unspecified formulation Dread Mccurdy MD Work Phone: [facility] 09-01-2022 COVID-19 booster vaccine, age 12+ yr, bivalent (PFIZER-[employer]) Chandana Beck MD Work Phone: [facility] 09-01-2022 influenza, high-dose , quadrivalent vaccine (FLUZONE HIGH DOSE QUADRIVALENT) Chandana Beck MD Work Phone: [facility] 09-01-2022 influenza virus vaccine, unspecified formulation Maribell Haas DPSkylar Work Phone: [facility] 08-30-2021 influenza, high-dose , quadrivalent vaccine (FLUZONE HIGH DOSE QUADRIVALENT) Dread Mccurdy MD Work Phone: [facility] 09-05-2020 influenza, high-dose , quadrivalent vaccine (FLUZONE HIGH DOSE QUADRIVALENT) Dread Mccurdy MD Work Phone: [facility] Work Phone: 08-27-2020 pneumococcal polysaccharide vaccine, 23 valent Dread Mccurdy MD Work Phone: [facility] Work Phone: 08-06-2020 zoster vaccine recombinant Dread Mccurdy MD Work Phone: [facility] Work Phone: 10-10-2019 zoster vaccine recombinant Dread Mccurdy MD Work Phone: [facility] Work Phone: 08-09-2019 influenza, high dose seasonal, preservative-free Dread Mccurdy MD Work Phone: [facility] 08-09-2019 pneumococcal conjuga te vaccine, 13 valent Dread Mccurdy MD Work Phone: [facility] 08-07-2018 influenza, injectabl e, quadrivalent, contains preservative Dread Mccurdy MD Work Phone: [facility] 08-05-2017 influenza, injectabl e, quadrivalent, contains preservative Dread Mccurdy MD Work Phone: [facility] Work Phone: 02-20-2017 zoster vaccine, live Dread Mccurdy MD Work Phone: [facility] Work Phone: 07-25-2016 influenza, injectabl e, quadrivalent, contains preservative Dread Mccurdy MD Work Phone: [facility] 08-24-2015 influenza, injectabl e, quadrivalent, contains preservative Dread Mccurdy MD Work Phone: [facility] 08-24-2015 influenza, seasonal, injectable Dread Mccurdy MD Work Phone: [facility] Work Phone: 08-11-2014 influenza, seasonal, injectable Dread Mccurdy MD Work Phone: [facility] Work Phone: 07-22-2013 influenza virus vaccine, unspecified formulation Dread Mccurdy MD Work Phone: [facility] Work Phone: 12-24-2012 tetanus toxoid, redu aakash diphtheria toxoid, and acellular pertussis vaccine, adsorbed Dread Mccurdy MD Work Phone: [facility] Work Phone: 09-10-2012 influenza virus vaccine, unspecified formulation Dread Mccurdy MD Work Phone: [facility] Work Phone: 08-16-2011 influenza virus vaccine, unspecified formulation Dread Mccurdy MD Work Phone: [facility] Work Phone: 08-29-2010 influenza virus vaccine, unspecified formulation Dread Mccurdy MD Work Phone: [facility] 11-14-2009 novel [id number], all formulations Dread Mccurdy MD Work Phone: [facility] Work Phone: 07-24-2009 influenza virus vaccine, unspecified formulation Dread Mccurdy MD Work Phone: [facility] Work Phone: 09-07-2008 influenza virus vaccine, unspecified formulation Dread Mccurdy MD Work Phone: [facility] Work Phone: 08-24-2007 influenza virus vaccine, unspecified formulation Dread Mccurdy MD Work Phone: [facility] 08-29-2006 influenza virus vaccine, unspecified formulation Dread Mccurdy MD Work Phone: [facility] Work Phone: 09-02-2005 influenza virus vaccine, unspecified formulation Dread Mccurdy MD Work Phone: [facility] Work Phone: Payers Date Payer Category Payer Self-pay 2021 Private Health Insurance MMO MED ICARE SUPPLEMENT [id number] 2021 Unknown MMO MMO MEDICARE SUPPLEMENT [id number] 2021- [phone] [address] [place] [address] Indemnity [id number] 2021 Unknown MMO MMO MEDICARE SUPPLEMENT [id number] 2021- [phone] [address] [place] [id number] Indemnity [id number] 2021 Unknown [id number] 2019 Medicare MEDICARE MEDICAR E A AND B [id number] 2019-Present [phone] [address] [address] [place] [address] Medicare [id number] 2019 Medicare [id number] 2019 Medicare [id number] Unknown [id number] Unknown [id number] Unknown [id number] Unknown [id number] Unknown [id number] Social History Date Type Detail Facility Start: 11-03-2011 End: 09-01-2022 Tobacco smoking status ALIS Never smoked tobacco [facility] Start: 08-30-2021 End: 01-13-2025 Alcohol intake Current drinker of alcohol (finding) [facility] Start: 04-22-2010 History SDOH Alcohol Comment occassional [facility] Start: 1955 Sex Assigned At Female [facility] Start: 11-03-2011 End: 09-01-2022 Tobacco use and exposure Smokeless tobacco non-user [facility] Start: 09-11-2021 End: 09-01-2022 Exposure to SARS-CoV-2 (event) Not sure [facility] Start: 09-01-2022 History SDOH Alcohol Frequency 3 [facility] Start: 09-01-2022 History SDOH Alcohol Std Drinks 1 [facility] Start: 09-01-2022 History SDOH Social Connections Get Together 2 [facility] Start: 09-01-2022 History SDOH Physica l Activity MPS 4 [facility] Start: 09-01-2022 History SDOH Financial 5 [facility] Start: 08-31-2022 End: 06-03-2023 History of Social function [facility] Start: 08-31-2022 End: 06-03-2023 Social connection and isolation panel [facility] Do you belong to any clubs or organizations such as congregational groups, unions, fraternal or athletic groups, or school groups? Yes [facility] Are you now , , , , never or living with a partner? [facility] How often to you hav e a drink containing alcohol? 2-4 times a month [facility] How many standard dr inks containing alcohol do you have on a typical day? 1 or 2 [facility] How often do you hav e 6 or more drinks on 1 occasion? Never [facility] Start: 09-26-2012 How hard is it for y ou to pay for the very basics like food, housing, medical care, and heating Not hard at all [facility] Do you feel stress - tense, restless, nervous, or anxious, or unable to sleep at night because your mind is troubled all the time - these days [OSQ] Only a little [facility] (I/We) worried wheth er (my/our) food would run out before (I/we) got money to buy more. Never true [facility] In the past 12 month s, was there a time when you were not able to pay the mortgage or rent on time? No [facility] Start: 09-14-2020 Gender identity Identifies as female gender (finding) [facility] Start: 09-14-2020 Sexual orientation Heterosexual (freddy russell) [facility] Are you now , , , , never or living with a partner? Refused [facility] (I/We) worried wheth er (my/our) food would run out before (I/we) got money to buy more. DK or Refused [facility] Medical Equipment Procedure Code Equipment Code Equipment Origin al Text Equipment Identifier Dates Sling Monarc Subfacial - [id number] Start: 05-08-2010 Functional Status Date Assessment Result Facility 02-15-2015 Are you deaf, or do you have serious difficulty hearing No 02/15/2015 5:55 PM EDT Rachelle Mathew LPN No [facility] 02-15-2015 Are you blind, or do you have serious difficulty seeing, even when wearing glasses No 02/15/2015 5:55 PM EDT Rachelle Mathew LPN No [facility] 02-15-2015 Do you have serious difficulty walking or climbing stairs No 02/15/2015 5:55 PM EDT Rachelle Mathew LPN No [facility] 02-15-2015 Do you have difficul ty dressing or bathing No 02/15/2015 5:55 PM EDT Rachelle Mathew LPN No [facility] 02-15-2015 Because of a physica l, mental, or emotional condition, do you have difficulty doing errands alone such as visiting a physician's office or shopping No 02/15/2015 5:55 PM EDT Rachelle Mathew LPN No [facility] Mental Status Date Assessment Result Facility 02-15-2015 Because of a physica l, mental, or emotional condition, do you have serious difficulty concentrating, remembering, or making decisions No 02/15/2015 5:55 PM EDT Rachelle Mathew LPN [facility] Clinical Notes 10-11-2021 to 07-19-2025 Telephone Encounter - Collin Gan APRN.[facility] - 06/30/2025 9:48 AM EDTTelephone Encounter - Collin Gan APRN.[facility] - 06/30/2025 9:48 AM Barb Brown Mammo [facility] - 06/13/2025 11:10 AM EDT Note Date & Type Note Facility 07-19-2025 Note HNO ID: [id number] Author: DREAD MCCURDY MD Service: ? Author Type: Physician Type: Progress Notes Filed: 07/19/2025 11:12 Note Text: On 07/19/2025, I had the pleasure of evaluating Mounika Linares in a follow-up [facility] Rheumatology appointment for seropositive RA. 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 Developed swelling and pain of the bilateral wrists and hands (remembers the ventral MCPs, doesn't recall exactly where else in the hands). Saw PCP. Initially thought to have OA and tendon issues aggravated by osteoarthritis. Took NSAIDs PO. Saw chiropractor for a shoulder which improved. - In Aug, given prednisone x2 week course prescribed by PCP. With 100% improvement in pain while on prednisone which recurred after completion of it - In Sep, continued to have tenderness of the R wrist and R ventral MCPs. Worse with certain activities. Worse in the morning. Diagnosed with seropositive RA. Started on HCQ - In January, reported significant improvement in joints with HCQ, unable to quantify amount - In March, reported feeling better. HCQ and going to chiropractor have helped. - In Sep, reported having a good day. Had had more good than bad days. But had a couple of days of really bad spells. Recent prednisone resolved hand pain. Started SSZ - In December, reported 80% improvement in joints with SSZ - In May, reported doing pretty well. - In May, reported doing ok. Had a flare the day before as she forgot to take her medications while everyone was over. Pain was excruciating, crippling, debilitating. - In January, advised to increase SSZ dose to 3g/day (from 2g) and given prednisone taper for flare affecting the shoulders. 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 - In January, reported feeling 100% improved now compared to before prednisone. Currently on pred 20mg/day. On SSZ 2g/day (took 3g/day just for a day or two). Had avoided red meat, minimizing sugar and alcohol. Increased to SSZ 3g/day - In February and Mar, took prednisone tapers for flare - In April, reported no change with higher SSZ dose 3g/day. Advised to start MTX 6 tabs/week. (Stopped HCQ and SSZ) - Today, reports joints are doing well on MTX. With 75-80% improvement in joints - Went to [place] recently, [place]/RM[place] - Last plaquenil eye exam normal in Oct (off HCQ PAST MEDICAL HISTORY Diagnosis Date Allergic rhinitis, cause unspecified Allergic rhinitis Allergy to dogs Arthritis Cat allergies Climacteric 09/13/2012 Female stress incontinence Stress incontinence ARSEN (obstructive sleep apnea) 2010 Dr. Montes De Oca Osteopenia 03/05/[address] Arboleda Seasonal allergies Snoring Trigger finger Trigger finger, right ring finger 04/23/2011 Unspecified asthma(493.90) Vaginal atrophy 09/13/2012 osteoarthritis PAST SURGICAL HISTORY Procedure Laterality Date BIOPSY BREAST OPEN INCISIONAL Bx of breast, incisional DELIVERY ONLY , low cervical COLONOSCOPY FLX DX W/COLLJ SPEC WHEN PFRMD 2008 Colonoscopy COLONOSCOPY FLX DX W/COLLJ SPEC WHEN PFRMD 11/07/2019 Colonoscopy EYE SURGERY HX PAST SURGICAL HISTORY OF 05/08/2010 SUSPENSION BLADDER SLING SKIN BIOPSY HX ALLERGIES Allergen Reactions Cats Itching Only certain types of cats. Dogs Hives Only certain types of dogs. Seasonal Allergies MEDICATIONS: Current Outpatient Medications Medication Sig methotrexate 2.5 mg tablet Take 15mg (6 tabs) once weekly. folic acid 1 mg tablet Take 1 tablet by mouth once daily. predniSONE (DELTASONE) 10 mg tablet Take 30mg(3 tabs)/day x1 week, then 20mg (2 tabs)/day x1 week, then 10mg (1 tab)/day x1 week, then stop hydrOXYchloroQUINE (PLAQUENIL) 200 mg tablet Take 1.5 tablets by mouth once daily. sulfaSALAzine (AZULFIDINE) 500 mg tablet Take 3 tablets by mouth every 12 hours. calcium carbonate/vitamin D3 (CALCIUM 600 + D,3, ORAL) Take by mouth. MULTI-VITAMIN ORAL Take by mouth. No current facility-administered medications for this visit. 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 Son is in [place], works as a paper inserter-dated a [place] lady- in Sep Tobacco use: None Alcohol use: 0-1 drink/week Drug use: None REVIEW OF SYSTEMS: reviewed 08/08 systems, as above PHYSICAL EXAM: VITALS: Blood pressure 116/75, pulse 69, temperature 36.3 ?C (97 (more content not included)... [facility] 06-30-2025 Telephone encounter Note The following approved medication requests have been transmitted electronically. Requested Prescriptions Signed Prescriptions Disp Refills methotrexate 2.5 mg tablet 24 tablet 0 Sig: Take 15mg (6 tabs) once weekly. Authorizing Provider: COLLIN GAN APRN.FURNACE LINER [facility] 06-30-2025 Miscellaneous Notes The following approved medication requests have been transmitted electronically. Requested Prescriptions Signed Prescriptions Disp Refills methotrexate 2.5 mg tablet 24 tablet 0 Sig: Take 15mg (6 tabs) once weekly. Authorizing Provider: COLLIN GAN APRN.FURNACE LINER Patient has been identified by name and date of : Yes RX INSTRUCTIONS: Patient aware RX will be sent to pharmacy. No need to notify patient. LAST APPOINTMENT: 05/09/2025 UPCOMING APPOINTMENT: 07/19/2025 LABS: Hemoglobin (g/dL) Date Value 06/28/2025 12.9 10/11/2021 13.2 Hematocrit (%) Date Value 06/28/2025 39.8 10/11/2021 39.7 WBC (k/uL) Date Value 06/28/2025 6.47 10/11/2021 5.44 Platelet Count (k/uL) Date Value 06/28/2025 291 10/11/2021 241 AST Date Value Ref Range Status 06/28/2025 26 13 - 35 U/L Final ALT Date Value Ref Range Status 06/28/2025 31 7 - 38 U/L Final Creatinine Date Value Ref Range Status 06/28/2025 0.81 0.58 - 0.96 mg/dL Final No results found for: URICACID Prescription Refill Information The patient has been identified by name and date of : Yes Caregiver verified no other encounters exist for this prescription request: Yes Caregiver confirmed with patient/requestor that no other refills are due, in the near future, with this provider at this time: Yes The last office visit in the department: Does the patient have a future office visit with this provider/department: Yes Requested Prescriptions Pending Prescriptions Disp Refills methotrexate 2.5 mg tablet 24 tablet 0 Sig: Take 15mg (6 tabs) once weekly. Leonor Tavarez June 30, 2025 9:33 AM documented in this encounter [facility] 06-30-2025 Telephone encounter Note Patient has been identified by name and date of : Yes RX INSTRUCTIONS: Patient aware RX will be sent to pharmacy. No need to notify patient. LAST APPOINTMENT: 05/09/2025 UPCOMING APPOINTMENT: 07/19/2025 LABS: Hemoglobin (g/dL) Date Value 06/28/2025 12.9 10/11/2021 13.2 Hematocrit (%) Date Value 06/28/2025 39.8 10/11/2021 39.7 WBC (k/uL) Date Value 06/28/2025 6.47 10/11/2021 5.44 Platelet Count (k/uL) Date Value 06/28/2025 291 10/11/2021 241 AST Date Value Ref Range Status 06/28/2025 26 13 - 35 U/L Final ALT Date Value Ref Range Status 06/28/2025 31 7 - 38 U/L Final Creatinine Date Value Ref Range Status 06/28/2025 0.81 0.58 - 0.96 mg/dL Final No results found for: URICACID [facility] 06-30-2025 Telephone encounter Note Prescription Refill Information The patient has been identified by name and date of : Yes Caregiver verified no other encounters exist for this prescription request: Yes Caregiver confirmed with patient/requestor that no other refills are due, in the near future, with this provider at this time: Yes The last office visit in the department: Does the patient have a future office visit with this provider/department: Yes Requested Prescriptions Pending Prescriptions Disp Refills methotrexate 2.5 mg tablet 24 tablet 0 Sig: Take 15mg (6 tabs) once weekly. Loenor Tavarez June 30, 2025 9:33 AM [facility] 06-13-2025 History of Present illness Narrative Radiology Service Progress Note PATIENT NAME: Mounika Linares DATE OF SERVICE: June 13, 2025 TIME: 11:38 AM PATIENT IDENTITY VERIFICATION COMPLETED USING TWO (2) IDENTIFIERS: Name and Date of confirmed by patient verbally. FALL SCREENING: Has the patient had 2 falls in the last year or 1 fall with injury or currently using an Ambulatory Assistive Device (Walker, Cane, Wheelchair, Crutches, etc.)? No PATIENT GENDER DATA: Assigned female at . status: : No status: NO. PATIENT RELEVANT IMPLANT DATA REVIEWED: Not Applicable PATIENT PRESENTS WITH AN IMPLANTABLE OR ATTACHED NEUROSCIENCE SPECIALIST: No RADIOLOGY DEPARTMENT: Mammography PERIPHERAL IV DATA: Not applicable SIGNED BY: Mela Valdivia June 13, 2025 11:38 AM documented in this encounter [facility] 06-13-2025 Note HNO ID: [id number] Author: BARB CARRIZALES Mammo Tech Service: ? Author Type: Technologist Type: Progress Notes Filed: 06/13/2025 11:38 Note Text: Radiology Service Progress Note PATIENT NAME: Mounika Linares DATE OF SERVICE: June 13, 2025 TIME: 11:38 AM PATIENT IDENTITY VERIFICATION COMPLETED USING TWO (2) IDENTIFIERS: Name and Date of confirmed by patient verbally. FALL SCREENING: Has the patient had 2 falls in the last year or 1 fall with injury or currently using an Ambulatory Assistive Device (Walker, Cane, Wheelchair, Crutches, etc.)? No PATIENT GENDER DATA: Assigned female at . status: : No status: NO. PATIENT RELEVANT IMPLANT DATA REVIEWED: Not Applicable PATIENT PRESENTS WITH AN IMPLANTABLE OR ATTACHED NEUROSCIENCE SPECIALIST: No RADIOLOGY DEPARTMENT: Mammography PERIPHERAL IV DATA: Not applicable SIGNED BY: Mela Valdivia June 13, 2025 11:38 AM [facility] 06-05-2025 Telephone encounter Note Please advise the patient that she has refills for folic acid at her pharmacy. The following approved medication requests have been transmitted electronically. Requested Prescriptions Signed Prescriptions Disp Refills methotrexate 2.5 mg tablet 24 tablet 0 Sig: Take 15mg (6 tabs) once weekly. Authorizing Provider: COLLIN GAN Refused Prescriptions Disp Refills folic acid 1 mg tablet 30 tablet 11 Sig: Take 1 tablet by mouth once daily. Refused By: COLLIN GAN Reason for Refusal: A Refill not appropriate Collin Gan APRN.CNP [facility] 06-05-2025 Miscellaneous Notes Please advise the patient that she has refills for folic acid at her pharmacy. The following approved medication requests have been transmitted electronically. Requested Prescriptions Signed Prescriptions Disp Refills methotrexate 2.5 mg tablet 24 tablet 0 Sig: Take 15mg (6 tabs) once weekly. Authorizing Provider: COLLIN GAN Refused Prescriptions Disp Refills folic acid 1 mg tablet 30 tablet 11 Sig: Take 1 tablet by mouth once daily. Refused By: COLLIN GAN Reason for Refusal: A Refill not appropriate Collin Gan APRN.CNP Patient has been identified by name and date of : Yes RX INSTRUCTIONS: Patient aware RX will be sent to pharmacy. No need to notify patient. LAST APPOINTMENT: 02/20/2025 UPCOMING APPOINTMENT: 07/19/2025 LABS: Hemoglobin (g/dL) Date Value 05/31/2025 12.6 10/11/2021 13.2 Hematocrit (%) Date Value 05/31/2025 39.7 10/11/2021 39.7 WBC (k/uL) Date Value 05/31/2025 4.93 10/11/2021 5.44 Platelet Count (k/uL) Date Value 05/31/2025 265 10/11/2021 241 AST Date Value Ref Range Status 05/31/2025 24 13 - 35 U/L Final ALT Date Value Ref Range Status 05/31/2025 20 7 - 38 U/L Final Creatinine Date Value Ref Range Status 05/31/2025 0.90 0.58 - 0.96 mg/dL Final No results found for: URICACID Eric Ureña MA documented in this encounter [facility] 06-05-2025 Telephone encounter Note Patient has been identified by name and date of : Yes RX INSTRUCTIONS: Patient aware RX will be sent to pharmacy. No need to notify patient. LAST APPOINTMENT: 02/20/2025 UPCOMING APPOINTMENT: 07/19/2025 LABS: Hemoglobin (g/dL) Date Value 05/31/2025 12.6 10/11/2021 13.2 Hematocrit (%) Date Value 05/31/2025 39.7 10/11/2021 39.7 WBC (k/uL) Date Value 05/31/2025 4.93 10/11/2021 5.44 Platelet Count (k/uL) Date Value 05/31/2025 265 10/11/2021 241 AST Date Value Ref Range Status 05/31/2025 24 13 - 35 U/L Final ALT Date Value Ref Range Status 05/31/2025 20 7 - 38 U/L Final Creatinine Date Value Ref Range Status 05/31/2025 0.90 0.58 - 0.96 mg/dL Final No results found for: URICACID Eric Ureña MA [facility] 05-09-2025 History of Present illness Narrative Radiology Service Progress Note PATIENT NAME: Mounika Linares DATE OF SERVICE: May 09, 2025 TIME: 4:45 PM PATIENT IDENTITY VERIFICATION COMPLETED USING TWO (2) IDENTIFIERS: Name and Date of confirmed by patient verbally. FALL SCREENING: Has the patient had 2 falls in the last year or 1 fall with injury or currently using an Ambulatory Assistive Device (Walker, Cane, Wheelchair, Crutches, etc.)? No PATIENT GENDER DATA: Assigned female at . status: : No status: NO. PATIENT RELEVANT IMPLANT DATA REVIEWED: Yes PATIENT PRESENTS WITH AN IMPLANTABLE OR ATTACHED NEUROSCIENCE SPECIALIST: No RADIOLOGY DEPARTMENT: General X-ray: Exam(s) Completed: Chest X-Ray PERIPHERAL IV DATA: Not applicable SIGNED BY: RT Justine(Arnaldo) May 09, 2025 4:45 PM documented in this encounter [facility] 05-09-2025 Note HNO ID: [id number] Author: KOLBY WOODS RT(R) Service: ? Author Type: Counter Former Type: Progress Notes Filed: 05/09/2025 16:56 Note Text: Radiology Service Progress Note PATIENT NAME: Mounika Linares DATE OF SERVICE: May 09, 2025 TIME: 4:45 PM PATIENT IDENTITY VERIFICATION COMPLETED USING TWO (2) IDENTIFIERS: Name and Date of confirmed by patient verbally. FALL SCREENING: Has the patient had 2 falls in the last year or 1 fall with injury or currently using an Ambulatory Assistive Device (Walker, Cane, Wheelchair, Crutches, etc.)? No PATIENT GENDER DATA: Assigned female at . status: : No status: NO. PATIENT RELEVANT IMPLANT DATA REVIEWED: Yes PATIENT PRESENTS WITH AN IMPLANTABLE OR ATTACHED NEUROSCIENCE SPECIALIST: No RADIOLOGY DEPARTMENT: General X-ray: Exam(s) Completed: Chest X-Ray PERIPHERAL IV DATA: Not applicable SIGNED BY: RT Justine(Arnaldo) May 09, 2025 4:45 PM [facility] 05-09-2025 Telephone encounter Note Spoke with patient,requests to call back when she gets home to schedule appointments, phone number provided. 04/[address] Mccurdy and Jul 2026 with Collin Haley RN [facility] 05-09-2025 Miscellaneous Notes Spoke with patient,requests to call back when she gets home to schedule appointments, phone number provided. 04/[address] Mccurdy and Jul 2026 with Collin Haley RN documented in this encounter [facility] 05-09-2025 Instructions Dread Mccurdy MD - 05/09/2025 2:58 PM EDT Your next set of labs are due around 05/22/25. Lab orders are in the system so please have the blood draw done then. You don't need to be fasting for the blood draw. documented in this encounter [facility] 05-09-2025 Note HNO ID: [id number] Author: DREAD MCCURDY MD Service: ? Author Type: Physician Type: Progress Notes Filed: 05/09/2025 15:30 Note Text: On 05/09/2025, I had the pleasure of evaluating Mounika Linares in a follow-up [facility] Rheumatology appointment for seropositive RA. This Team Access Model visit is a phone encounter utilizing an audio component. It required patient-provider interaction for the medical decision making as documented below. My name and active licensure have been communicated. The patient's identity and physical location were verified at the time of this visit. Either the patient or their legal appliance service representative has been informed of the risks and benefits of -- and alternatives to -- treatment through a remote evaluation and consents to proceed with the evaluation remotely. 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 Developed swelling and pain of the bilateral wrists and hands (remembers the ventral MCPs, doesn't recall exactly where else in the hands). Saw PCP. Initially thought to have OA and tendon issues aggravated by osteoarthritis. Took NSAIDs PO. Saw chiropractor for a shoulder which improved. - In Aug, given prednisone x2 week course prescribed by PCP. With 100% improvement in pain while on prednisone which recurred after completion of it - In Sep, continued to have tenderness of the R wrist and R ventral MCPs. Worse with certain activities. Worse in the morning. Diagnosed with seropositive RA. Started on HCQ - In January, reported significant improvement in joints with HCQ, unable to quantify amount - In March, reported feeling better. HCQ and going to chiropractor have helped. - In Sep, reported having a good day. Had had more good than bad days. But had a couple of days of really bad spells. Recent prednisone resolved hand pain. Started SSZ - In December, reported 80% improvement in joints with SSZ - In May, reported doing pretty well. - In May, reported doing ok. Had a flare the day before as she forgot to take her medications while everyone was over. Pain was excruciating, crippling, debilitating. - In January, advised to increase SSZ dose to 3g/day (from 2g) and given prednisone taper for flare affecting the shoulders. 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 - In January, reported feeling 100% improved now compared to before prednisone. Currently on pred 20mg/day. On SSZ 2g/day (took 3g/day just for a day or two). Had avoided red meat, minimizing sugar and alcohol. Increased to SSZ 3g/day - In February and Mar, took prednisone tapers for flare - Today, reports no change with higher SSZ dose 3g/day at this point. - Last plaquenil eye exam normal in Oct PAST MEDICAL HISTORY Diagnosis Date Allergic rhinitis, cause unspecified Allergic rhinitis Allergy to dogs Arthritis Cat allergies Climacteric 09/13/2012 Female stress incontinence Stress incontinence ARSEN (obstructive sleep apnea) 2010 Dr. Montes De Oca Osteopenia 03/05/[address] Arboleda Seasonal allergies Snoring Trigger finger Trigger finger, right ring finger 04/23/2011 Unspecified asthma(493.90) Vaginal atrophy 09/13/2012 osteoarthritis PAST SURGICAL HISTORY Procedure Laterality Date BIOPSY BREAST OPEN INCISIONAL Bx of breast, incisional DELIVERY ONLY , low cervical COLONOSCOPY FLX DX W/COLLJ SPEC WHEN PFRMD 2008 Colonoscopy COLONOSCOPY FLX DX W/COLLJ SPEC WHEN PFRMD 11/07/2019 Colonoscopy EYE SURGERY HX PAST SURGICAL HISTORY OF 05/08/2010 SUSPENSION BLADDER SLING SKIN BIOPSY HX ALLERGIES Allergen Reactions Cats Itching Only certain types of cats. Dogs Hives Only certain types of dogs. Seasonal Allergies MEDICATIONS: Current Outpatient Medications Medication Sig predniSONE (DELTASONE) 10 mg tablet Take 30mg(3 tabs)/day x1 week, then 20mg (2 tabs)/day x1 week, then 10mg (1 tab)/day x1 week, then stop hydrOXYchloroQUINE (PLAQUENIL) 200 mg tablet Take 1.5 tablets by mouth once daily. sulfaSALAzine (AZULFIDINE) 500 mg tablet Take 3 tablets by mouth every 12 hours. calcium carbonate/vitamin D3 (CALCIUM 600 + D,3, ORAL) Take by mouth. MULTI-VITAMIN ORAL Take by mouth. No current facility-administered medications for this visit. 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 Son is in [place], works as a [employer] (more content not included)... [facility] 05-09-2025 History of Present illness Narrative On 05/09/2025, I had the pleasure of evaluating Mounika Linares in a follow-up [facility] Rheumatology appointment for seropositive RA. This Team Access Model visit is a phone encounter utilizing an audio component. It required patient-provider interaction for the medical decision making as documented below. My name and active licensure have been communicated. The patient's identity and physical location were verified at the time of this visit. Either the patient or their legal appliance service representative has been informed of the risks and benefits of -- and alternatives to -- treatment through a remote evaluation and consents to proceed with the evaluation remotely. 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 Developed swelling and pain of the bilateral wrists and hands (remembers the ventral MCPs, doesn't recall exactly where else in the hands). Saw PCP. Initially thought to have OA and tendon issues aggravated by osteoarthritis. Took NSAIDs PO. Saw chiropractor for a shoulder which improved. - In Aug, given prednisone x2 week course prescribed by PCP. With 100% improvement in pain while on prednisone which recurred after completion of it - In Sep, continued to have tenderness of the R wrist and R ventral MCPs. Worse with certain activities. Worse in the morning. Diagnosed with seropositive RA. Started on HCQ - In January, reported significant improvement in joints with HCQ, unable to quantify amount - In March, reported feeling better. HCQ and going to chiropractor have helped. - In Sep, reported having a good day. Had had more good than bad days. But had a couple of days of really bad spells. Recent prednisone resolved hand pain. Started SSZ - In December, reported 80% improvement in joints with SSZ - In May, reported doing pretty well. - In May, reported doing ok. Had a flare the day before as she forgot to take her medications while everyone was over. Pain was excruciating, crippling, debilitating. - In January, advised to increase SSZ dose to 3g/day (from 2g) and given prednisone taper for flare affecting the shoulders. 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 - In January, reported feeling 100% improved now compared to before prednisone. Currently on pred 20mg/day. On SSZ 2g/day (took 3g/day just for a day or two). Had avoided red meat, minimizing sugar and alcohol. Increased to SSZ 3g/day - In February and Mar, took prednisone tapers for flare - Today, reports no change with higher SSZ dose 3g/day at this point. - Last plaquenil eye exam normal in [place] [facility] '25 PAST MEDICAL HISTORY Diagnosis Date Allergic rhinitis, cause unspecified Allergic rhinitis Allergy to dogs Arthritis Cat allergies Climacteric 09/13/2012 Female stress incontinence Stress incontinence ARSEN (obstructive sleep apnea) 2010 Dr. Montes De Oca Osteopenia 03/05/[address] Arboleda Seasonal allergies Snoring Trigger finger Trigger finger, right ring finger 04/23/2011 Unspecified asthma(493.90) Vaginal atrophy 09/13/2012 osteoarthritis PAST SURGICAL HISTORY Procedure Laterality Date BIOPSY BREAST OPEN INCISIONAL Bx of breast, incisional DELIVERY ONLY , low cervical COLONOSCOPY FLX DX W/COLLJ SPEC WHEN PFRMD 2008 Colonoscopy COLONOSCOPY FLX DX W/COLLJ SPEC WHEN PFRMD 11/07/2019 Colonoscopy EYE SURGERY HX PAST SURGICAL HISTORY OF 05/08/2010 SUSPENSION BLADDER SLING SKIN BIOPSY HX ALLERGIES Allergen Reactions Cats Itching Only certain types of cats. Dogs Hives Only certain types of dogs. Seasonal Allergies MEDICATIONS: Current Outpatient Medications Medication Sig predniSONE (DELTASONE) 10 mg tablet Take 30mg(3 tabs)/day x1 week, then 20mg (2 tabs)/day x1 week, then 10mg (1 tab)/day x1 week, then stop hydrOXYchloroQUINE (PLAQUENIL) 200 mg tablet Take 1.5 tablets by mouth once daily. sulfaSALAzine (AZULFIDINE) 500 mg tablet Take 3 tablets by mouth every 12 hours. calcium carbonate/vitamin D3 (CALCIUM 600 + D,3, ORAL) Take by mouth. MULTI-VITAMIN ORAL Take by mouth. No current facility-administered medications for this visit. 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 Son is in [place], works as a paper inserter-dating a [place] lady Tobacco use: None Alcohol use: 0-1 drink/week Drug use: None REVIEW OF SYSTEMS: reviewed 08/08 systems, as above *Sep Widespread Pain Index: 1 (0-19) Symptoms Severity Scale: 0 (0-12) WPI>7 and SS Scale>5 OR WPI 3-6 and SS Scale >9 consistent with fibromyalgia LABORATORY: Latest Ref Rng 02/20/2025 WBC 3.70 - 11.00 k/uL 6.86 RBC 3.90 - 5.20 m/uL 4.49 Hemoglobin 11.5 - 15.5 g/dL 13.3 Platelet Count 150 - 400 k/uL 315 MPV 9.0 - 12.7 fL 8.7 (L) Absolute nRBC <0.01 k/uL <0.01 Creatinine 0.58 - 0.96 mg/dL 0.77 eGFR >=60 mL/min/1.73m 83 ALT 7 - 38 U/L 22 AST 13 - 35 U/L 24 Component Latest Ref Rng & Units 10/11/2021 Hep B Core Ab, Total Negative Negative Hep C Antibody IA Negative Negative Hep B Surface Ag Negative Negative Hep B Surface Ab, Qual Negative Negative CCP Antibody, IgG <20 Units >250 (H) Rheumatoid Factor <16 IU/mL 27 (H) WSR 0 - 20 mm/hr 5 CRP <0.9 mg/dL <0.3 *February positive CCP 44.3 (<5) and positive SNEHA 1:160 speckled with unremarkable wbc 4.1, hgb 13.6, plt 231, alt, ast, cr, rf, sm, junior project manager, ssa, ssb and dna Component Latest Ref Rng & Units 08/10/2020 Free T3 2.3 - 4.1 pg/mL 2.9 TSH 0.270 - 4.200 uU/mL 1.740 Free T4 0.9 - 1.7 ng/dL 1.3 STUDIES: *Nov DEXA- Osteopenia in the lumbar spine and bilateral femoral necks. LUMBAR SPINE: The bone mineral density from L1 through L4 is 0.829 grams per square centimeter which yields a T-score of -2.0. There has been an 11.8% interval decrease in bone mineral density. LEFT HIP: The bone mineral density of the total region of the hip is 0.864 grams per square centimeter which yields a T-score of -0.6. There has been a 5.2% interval decrease in bone mineral density. LEFT FEMORAL NECK: The bone mineral density of the femoral neck is 0.641 grams per square centimeter which yields a T-score of -1.9. There has been a 1.1% interval decrease in bone mineral density. RIGHT HIP: The bone mineral density of the total region of the hip is 0.855 grams per square centimeter which yields a T-score of -0.7. RIGHT FEMORAL NECK: The bone mineral density of the femoral neck is 0.638 grams per square centimeter which yields a T-score of -1.9. 10-year Fracture Risk (FRAX): Major osteoporotic fracture risk 10% Hip fracture risk 1.6% *Sep xray hands- Mild degenerative changes. *January CXR- no active disease *Oct xray R hand- Suggestion of a lucency through the neck of the navicular which could be due to a fracture either remote or acute. IMPRESSION and PLAN: 1. Seropositive nonerosive RA: Completely prednisone-responsive wrist and MCP pain/swelling in the setting of CCP positivity. HCQ and SSZ with improvement. Persistent flares requiring prednisone, including one currently. - Continue HCQ 300mg/day along with routine ophthalmology to monitor for potential toxicity (last normal Oct). - Continue SSZ 3g/day along with routine labs every 3 months, due now. Notify of results via Integrity Tracking - Start MTX 15mg PO weekly for treatment. Potential side effects were explained including liver toxicity, lung toxicity, bone marrow suppression, increased risk for infection, mouth sores, nausea/vomiting, and diarrhea. Explained that methotrexate should be held in case of infection and restarted after symptoms resolve or after antibiotics are completed. Advised taking folic acid 1 mg daily to help offset some of the potential side effects such as mouth sores. Explained that routine lab monitoring will be required every month for the first 3 months and if stable, every 3 months thereafter while on methotrexate. Also advised that alcohol be avoided while on methotrexate in order to reduce risk for liver toxicity. Advised that methotrexate be held for 1 week after any potential future vaccination to optimize the body's ability to build immunity from the vaccine. - Continue pred taper as previously instructed - Check labs including hep b/c/baseline CXR. Notify of results via Integrity Tracking (including if ok to start MTX; needs standing lab orders placed) - Extensively reviewed an anti-inflammatory diet in the past 2. Bilateral knee pain: Likely osteoarthritis - Given referral to PT in the past 3. R 1st MTP pain/stiffness: Likely OA. Inserts have helped - Podiatry management 4. Osteopenia: - PCP monitoring/management 5. General health maintenance: - Completed the covid vaccination series in December, moderna. Sep. Aug - Continue follow-up with PCP for routine health maintenance and malignancy screening Follow-up in 6 months with me and 12 months with Collin Mccurdy MD Phone visit was 13 minutes documented in this encounter [facility] 05-02-2025 Note Patient Outreach (IN [facility]) MOUNIKA LINARES ([id number]) 1955 F Date Time Provider Department 05/02/25 CHANDANA BECK IN[facility] During your visit today, we recorded the following information about you: Allergies As of Date: 05/02/2025 Noted Allergy Reaction CATS 08/07/2009 9 - Itching Comments: Only certain types of cats. DOGS 08/07/2009 4 - Hives Comments: Only certain types of dogs. SEASONAL ALLERGIES 08/07/2009 Date Reviewed: 02/20/2025 Reviewed by: Eric Uerña MA - Fully Assessed Visit Diagnosis:Encounter for screening mammogram for breast cancer [Z12.31] Order(s):[facility] [[id number]] Order #: [id number] FUTURE Prescriptions as of 06/02/2025 - methotrexate 2.5 mg tablet Take 10mg (4 tabs) once weekly x1 dose, then 12.5mg (5 tabs) once weekly x1 dose, then 15mg (6 tabs) once weekly thereafter. - folic acid 1 mg tablet Take 1 tablet by mouth once daily. - predniSONE (DELTASONE) 10 mg tablet Take 30mg(3 tabs)/day x1 week, then 20mg (2 tabs)/day x1 week, then 10mg (1 tab)/day x1 week, then stop - hydrOXYchloroQUINE (PLAQUENIL) 200 mg tablet Take 1.5 tablets by mouth once daily. - sulfaSALAzine (AZULFIDINE) 500 mg tablet Take 3 tablets by mouth every 12 hours. - calcium carbonate/vitamin D3 (CALCIUM 600 + D,3, ORAL) Take by mouth. - MULTI-VITAMIN ORAL Take by mouth. Problem List As Of Date 05/02/2025 Noted Resolved Osteopenia of necks of both femurs [M85.851, M8*03/05/2009 ARSEN (obstructive sleep apnea) [G47.33] 12/24/2012 Seropositive rheumatoid arthritis (HCC) [M05.9] 10/11/2021 Pain in right ankle and joints of right foot [M*08/13/2023 Screening for colon cancer [Z12.11] 01/13/2025 Encounter Status:Closed by YULIA GONZALEZ on 06/02/25 [facility] 04-11-2025 Telephone encounter Note Spoke with patient, relayed message below. Declines sooner appointment with FED[employer] JAVA DEVELOPER. Wendy Haley RN [facility] 04-11-2025 Miscellaneous Notes Spoke with patient, relayed message below. Declines sooner appointment with FEDERAL JAVA DEVELOPER. Wendy Haley RN Sorry to hear about her symptoms. Pred rx sent. If there's an apt with Collin before the 05/09 apt with me, can schedule her for that if she'd like. Thanks. Spoke with patient - reports pain left hand , right elbow. Right foot arch and right knee, right thumb inflamed and throbbing. Pain waking patient up, ice ineffective. States she had saved 2 prednisone tablets saved-- she took 2- 10 mg tablets this morning. She also has a bottle of prednisone from 2021 that she is unable to get the child proof lid off of, advised this is likely and she should discard it appropriately- she declines to do so. The above symptoms have been present since 04/03/2025. States she is taking Plaquenil 200 mg- taking 1.5 tablets daily. Reports taking Sulfasalazine as ordered. Patient is requesting prednisone Wendy Haley RN Patient called and stated that she is having pain and fatigue so she cannot exercise. Please advice documented in this encounter [facility] 04-11-2025 Telephone encounter Note Sorry to hear about her symptoms. Pred rx sent. If there's an apt with Collin before the 05/09 apt with me, can schedule her for that if she'd like. Thanks. [facility] 04-11-2025 Telephone encounter Note Spoke with patient - reports pain left hand , right elbow. Right foot arch and right knee, right thumb inflamed and throbbing. Pain waking patient up, ice ineffective. States she had saved 2 prednisone tablets saved-- she took 2- 10 mg tablets this morning. She also has a bottle of prednisone from 2021 that she is unable to get the child proof lid off of, advised this is likely and she should discard it appropriately- she declines to do so. The above symptoms have been present since 04/03/2025. States she is taking Plaquenil 200 mg- taking 1.5 tablets daily. Reports taking Sulfasalazine as ordered. Patient is requesting prednisone Wendy Haley RN [facility] 04-11-2025 Telephone encounter Note Patient called and stated that she is having pain and fatigue so she cannot exercise. Please advice [facility] 04-10-2025 Telephone encounter Note The following approved medication requests have been transmitted electronically. Requested Prescriptions Signed Prescriptions Disp Refills hydrOXYchloroQUINE (PLAQUENIL) 200 mg tablet 135 tablet 1 Sig: Take 1.5 tablets by mouth once daily. Authorizing Provider: COLLIN GAN APRN.CNP [facility] 04-10-2025 Miscellaneous Notes The following approved medication requests have been transmitted electronically. Requested Prescriptions Signed Prescriptions Disp Refills hydrOXYchloroQUINE (PLAQUENIL) 200 mg tablet 135 tablet 1 Sig: Take 1.5 tablets by mouth once daily. Authorizing Provider: COLLIN GAN APRN.CNP Patient has been identified by name and date of : Yes RX INSTRUCTIONS: Patient aware RX will be sent to pharmacy. No need to notify patient. PLQ eye exam done on 11/24/2024 at Kvng Salazar O.D's office. No evidence of PLQ toxicity. LAST APPOINTMENT: 02/20/2025 UPCOMING APPOINTMENT: 05/09/2025 LABS: Hemoglobin (g/dL) Date Value 02/20/2025 13.3 10/11/2021 13.2 Hematocrit (%) Date Value 02/20/2025 41.2 10/11/2021 39.7 WBC (k/uL) Date Value 02/20/2025 6.86 10/11/2021 5.44 Platelet Count (k/uL) Date Value 02/20/2025 315 10/11/2021 241 AST Date Value Ref Range Status 02/20/2025 24 13 - 35 U/L Final ALT Date Value Ref Range Status 02/20/2025 22 7 - 38 U/L Final Creatinine Date Value Ref Range Status 02/20/2025 0.77 0.58 - 0.96 mg/dL Final No results found for: URICACID Percy Mortensen MA Prescription Refill Information The patient has been identified by name and date of : Yes Caregiver verified no other encounters exist for this prescription request: Yes Caregiver confirmed with patient/requestor that no other refills are due, in the near future, with this provider at this time: Yes The last office visit in the department: Does the patient have a future office visit with this provider/department: Yes Requested Prescriptions Pending Prescriptions Disp Refills hydrOXYchloroQUINE (PLAQUENIL) 200 mg tablet 135 tablet 0 Sig: Take 1.5 tablets by mouth once daily. Leonor Tavarez April 10, 2025 2:58 PM documented in this encounter [facility] 04-10-2025 Telephone encounter Note Patient has been identified by name and date of : Yes RX INSTRUCTIONS: Patient aware RX will be sent to pharmacy. No need to notify patient. PLQ eye exam done on 11/24/2024 at Kvng Salazar O.D's office. No evidence of PLQ toxicity. LAST APPOINTMENT: 02/20/2025 UPCOMING APPOINTMENT: 05/09/2025 LABS: Hemoglobin (g/dL) Date Value 02/20/2025 13.3 10/11/2021 13.2 Hematocrit (%) Date Value 02/20/2025 41.2 10/11/2021 39.7 WBC (k/uL) Date Value 02/20/2025 6.86 10/11/2021 5.44 Platelet Count (k/uL) Date Value 02/20/2025 315 10/11/2021 241 AST Date Value Ref Range Status 02/20/2025 24 13 - 35 U/L Final ALT Date Value Ref Range Status 02/20/2025 22 7 - 38 U/L Final Creatinine Date Value Ref Range Status 02/20/2025 0.77 0.58 - 0.96 mg/dL Final No results found for: URICACID Percy Mortensen MA [facility] 04-10-2025 Telephone encounter Note Prescription Refill Information The patient has been identified by name and date of : Yes Caregiver verified no other encounters exist for this prescription request: Yes Caregiver confirmed with patient/requestor that no other refills are due, in the near future, with this provider at this time: Yes The last office visit in the department: Does the patient have a future office visit with this provider/department: Yes Requested Prescriptions Pending Prescriptions Disp Refills hydrOXYchloroQUINE (PLAQUENIL) 200 mg tablet 135 tablet 0 Sig: Take 1.5 tablets by mouth once daily. Leonor Tavarez April 10, 2025 2:58 PM [facility] 02-20-2025 Note HNO ID: [id number] Author: PERCY MORTENSEN MA Service: ? Author Type: Workers Compensation Paralegal Type: Progress Notes Filed: 02/20/2025 13:10 Note Text: PLQ eye exam done on 11/24/2024 at Kvng Salazar O.D's office. No evidence of PLQ toxicity. Report sent for scanning. Percy Mortensen MA [facility] 02-20-2025 Note HNO ID: [id number] Author: DREAD MCCURDY MD Service: ? 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 Developed swelling and pain of the bilateral wrists and hands (remembers the ventral MCPs, doesn't recall exactly where else in the hands). Saw PCP. Initially thought to have OA and tendon issues aggravated by osteoarthritis. Took NSAIDs PO. Saw chiropractor for a shoulder which improved. - In Aug, given prednisone x2 week course prescribed by PCP. With 100% improvement in pain while on prednisone which recurred after completion of it - In Sep, continued to have tenderness of the R wrist and R ventral MCPs. Worse with certain activities. Worse in the morning. Diagnosed with seropositive RA. Started on HCQ - In January, reported significant improvement in joints with HCQ, unable to quantify amount - In March, reported feeling better. HCQ and going to chiropractor have helped. - In Sep, reported having a good day. Had had more good than bad days. But had a couple of days of really bad spells. Recent prednisone resolved hand pain. Started SSZ - In December, reported 80% improvement in joints with SSZ - In May, reported doing pretty well. - In May, reported doing ok. Had a flare the day before as she forgot to take her medications while everyone was over. Pain was excruciating, crippling, debilitating. - In January, advised to increase SSZ dose to 3g/day (from 2g) and given prednisone taper for flare affecting the shoulders. 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 - Today, reports feeling 100% improved now compared to before prednisone. Currently on pred 20mg/day. On SSZ 2g/day (took 3g/day just for a day or two). Has avoided red meat, minimizing sugar and alcohol - Last plaquenil eye exam normal in Oct PAST MEDICAL HISTORY Diagnosis Date Allergic rhinitis, cause unspecified Allergic rhinitis Allergy to dogs Arthritis Cat allergies Climacteric 09/13/2012 Female stress incontinence Stress incontinence ARSEN (obstructive sleep apnea) 2010 Dr. Montes De Oca Osteopenia 03/05/[address] Arboleda Seasonal allergies Snoring Trigger finger Trigger finger, right ring finger 04/23/2011 Unspecified asthma(493.90) Vaginal atrophy 09/13/2012 osteoarthritis PAST SURGICAL HISTORY Procedure Laterality Date BIOPSY BREAST OPEN INCISIONAL Bx of breast, incisional DELIVERY ONLY , low cervical COLONOSCOPY FLX DX W/COLLJ SPEC WHEN PFRMD 2008 Colonoscopy COLONOSCOPY FLX DX W/COLLJ SPEC WHEN PFRMD 11/07/2019 Colonoscopy EYE SURGERY HX PAST SURGICAL HISTORY OF 05/08/2010 SUSPENSION BLADDER SLING SKIN BIOPSY HX ALLERGIES Allergen Reactions Cats Itching Only certain types of cats. Dogs Hives Only certain types of dogs. Seasonal Allergies MEDICATIONS: Current Outpatient Medications Medication Sig sulfaSALAzine (AZULFIDINE) 500 mg tablet Take 3 tablets by mouth every 12 hours. predniSONE (DELTASONE) 10 mg tablet Take 30mg(3 tabs)/day x1 week, then 20mg (2 tabs)/day x1 week, then 10mg (1 tab)/day x1 week, then stop hydrOXYchloroQUINE (PLAQUENIL) 200 mg tablet Take 1.5 tablets by mouth once daily. calcium carbonate/vitamin D3 (CALCIUM 600 + D,3, ORAL) Take by mouth. MULTI-VITAMIN ORAL Take by mouth. No current facility-administered medications for this visit. 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 Son is in [place], works as a [employer]-dating a [email or web address] Tobacco use: None Alcohol use: 0-1 drink/week Drug use: None REVIEW OF SYSTEMS: reviewed 08/08 systems, as above PHYSICAL EXAM: VITALS: Blood pressure 150/63, pulse 78, temperature (!) 35.9 ?C (96.7 ?F), temperature source Temporal, height 164.3 cm (5' 4.7), weight 69.4 kg (153 lb), last menstrual period 01/12/2008. CONSTITUTIONAL: Well-appearing, in NAD. SKIN: No rash. No sclerodactyly, calcinosis, telangiectasias, digital ulcers, or skin thickening. EYES: No scleral icterus or conjunctivitis ENT and Mouth: External ears normal. Nares normal. RESPIRATORY: Normal breath sounds, clear to auscultation. CARDIOVASCULAR: Regular rate and rhythm, no (more content not included)... [facility] 02-08-2025 Telephone encounter Note Spoke with patient, verbalizes understanding-agrees with plan. Wendy Haley RN [facility] 02-08-2025 Miscellaneous Notes Spoke with patient, verbalizes understanding-agrees with plan. Wendy Haley RN Agree, fine to increase to sulfasalazine 3 tablets twice daily. New prescription sent with the higher dose. Also agree with doing her own prednisone taper. Prescription has been sent for this as well. Thanks Latest Ref Rng 11/17/2024 WBC 3.70 - 11.00 k/uL 6.40 RBC 3.90 - 5.20 m/uL 4.43 Hemoglobin 11.5 - 15.5 g/dL 13.3 Hematocrit 36.0 - 46.0 % 40.4 MCV 80.0 - 100.0 fL 91.2 MCH 26.0 - 34.0 pg 30.0 MCHC 30.5 - 36.0 g/dL 32.9 RDW-CV 11.5 - 15.0 % 12.2 Platelet Count 150 - 400 k/uL 283 MPV 9.0 - 12.7 fL 8.8 (L) Absolute nRBC <0.01 k/uL <0.01 Creatinine 0.58 - 0.96 mg/dL 0.82 eGFR >=60 mL/min/1.73m 77 ALT 7 - 38 U/L 17 AST 13 - 35 U/L 18 Spoke with patient, pain and stiffness x 2 days. Patient reports pain gets a little better thru out the day. helped her dress this am due to pain with raising left arm. Feels pain in left shoulder when she attempts to raise arm almost down to elbow. Tylenol and Voltaren gel yesterday ineffective. Patient states she took 3 Sulfasalazine last night and this am -confirms she took Sulfasalazine and not the Plaquenil at an increased dose. Left knee and right hand pain / stiffness as well. Patient advised not to continue taking an increased dose of Sulfasalazine unless Dr. Mccurdy OK's it-she agrees. Advised not to take her daughter's left over prednisone as Dr. Mccurdy if she feels is appropriate would order a specific tapering dose for her based on her medical history and symptoms. Wendy Haley RN Patient called and stated that she has been having a lot of joint especially in her hands,shoulder and knees, patient also stated that she took 3 sulfasalazine's last night and this morning. Please advice documented in this encounter [facility] 02-08-2025 Telephone encounter Note Agree, fine to increase to sulfasalazine 3 tablets twice daily. New prescription sent with the higher dose. Also agree with doing her own prednisone taper. Prescription has been sent for this as well. Thanks Latest Ref Rng 11/17/2024 WBC 3.70 - 11.00 k/uL 6.40 RBC 3.90 - 5.20 m/uL 4.43 Hemoglobin 11.5 - 15.5 g/dL 13.3 Hematocrit 36.0 - 46.0 % 40.4 MCV 80.0 - 100.0 fL 91.2 MCH 26.0 - 34.0 pg 30.0 MCHC 30.5 - 36.0 g/dL 32.9 RDW-CV 11.5 - 15.0 % 12.2 Platelet Count 150 - 400 k/uL 283 MPV 9.0 - 12.7 fL 8.8 (L) Absolute nRBC <0.01 k/uL <0.01 Creatinine 0.58 - 0.96 mg/dL 0.82 eGFR >=60 mL/min/1.73m 77 ALT 7 - 38 U/L 17 AST 13 - 35 U/L 18 [facility] 02-08-2025 Telephone encounter Note Spoke with patient, pain and stiffness x 2 days. Patient reports pain gets a little better thru out the day. helped her dress this am due to pain with raising left arm. Feels pain in left shoulder when she attempts to raise arm almost down to elbow. Tylenol and Voltaren gel yesterday ineffective. Patient states she took 3 Sulfasalazine last night and this am -confirms she took Sulfasalazine and not the Plaquenil at an increased dose. Left knee and right hand pain / stiffness as well. Patient advised not to continue taking an increased dose of Sulfasalazine unless Dr. Mccurdy OK's it-she agrees. Advised not to take her daughter's left over prednisone as Dr. Mccurdy if she feels is appropriate would order a specific tapering dose for her based on her medical history and symptoms. Wendy Haley RN [facility] 02-08-2025 Telephone encounter Note Patient called and stated that she has been having a lot of joint especially in her hands,shoulder and knees, patient also stated that she took 3 sulfasalazine's last night and this morning. Please advice [facility] 01-13-2025 Note Formatting of this n ote might be different from the original. The patient received a copy of Colonoscopy discharge instructions that contain information for how to contact the physician who performed the procedure and when to seek medical care. [facility] 01-13-2025 Miscellaneous Notes The patient received a copy of Colonoscopy discharge instructions that contain information for how to contact the physician who performed the procedure and when to seek medical care. documented in this encounter [facility] 01-13-2025 History and physical note Images from the original note were not included. Subjective Mounika Linares is a 69 year old female. HISTORY Mounika Linares is a 69 year old lady here for yearly exam and follow up appointment. Mounika Linares is a 69-year-old female presenting for a Medicare Annual Wellness Visit. Mounika reports overall good health and well-being. She engages in moderate to strenuous exercise approximately 3 days per week for about 20 minutes each session. She consumes alcohol about once a week with dinner, typically having one drink per occasion, and denies consuming six or more drinks on a single occasion. She denies feelings of imbalance, recent falls, or concerns about sexual function, though she notes a lower libido. She denies feelings of anxiety, anger, irritability, loneliness, isolation, or thoughts of self-harm. She follows a diet rich in fruits, vegetables, whole grains, and fiber. She is independent in activities of daily living, including cooking, swallowing, bathing, and grooming, and follows safety precautions. She denies smoking, hearing difficulties, or vision problems, though she mentions potential cataract surgery in the future. Mounika is up to date on her flu vaccination and has scheduled her next flu shot. She declines further COVID-19 vaccinations. She has advanced directives in place. She is due for a colonoscopy in October, with her last one performed in October 2019. She is considering options for her next colonoscopy, including staying within the [facility] system. Mounika is currently taking fexofenadine for allergies, which she started yesterday. She is also on hydroxychloroquine and sulfasalazine, prescribed by her doll wig hackler, Dr. Mccurdy. She takes vitamins regularly. She denies any issues with bowel movements and reports making bran muffins to maintain regularity. 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 She is currently dealing with a jury duty notice and is seeking an excuse due to her caregiving responsibilities. She has no other family in town to assist with her daughter's care. PAST MEDICAL HISTORY PAST MEDICAL HISTORY Diagnosis Date Allergic rhinitis, cause unspecified Allergic rhinitis Allergy to dogs Cat allergies Climacteric 09/13/2012 Female stress incontinence Stress incontinence ARSEN (obstructive sleep apnea) 2010 Dr. Montes De Oca Osteopenia 03/05/[address] Arboleda Seasonal allergies Snoring Trigger finger Trigger finger, right ring finger 04/23/2011 Unspecified asthma(493.90) Vaginal atrophy 09/13/2012 CURRENT MEDICATIONS Current Outpatient Medications Medication Sig hydrOXYchloroQUINE (PLAQUENIL) 200 mg tablet Take 1.5 tablets by mouth once daily. sulfaSALAzine (AZULFIDINE) 500 mg tablet TAKE 2 TABLETS BY MOUTH TWICE A DAY calcium carbonate/vitamin D3 (CALCIUM 600 + D,3, ORAL) Take by mouth. MULTI-VITAMIN ORAL Take by mouth. dexAMETHasone sodium phosphate (DECADRON) 4 mg/mL injection 4 mg as needed (for iontophoresis therapy). Please dispense 3 cc syringe and blunt tip needle to draw up medication for physical therapy iotonphoresis tx. No current facility-administered medications for this visit. ALLERGIES ALLERGIES Allergen Reactions Cats Itching Only certain types of cats. Dogs Hives Only certain types of dogs. Seasonal Allergies FAMILY HISTORY FAMILY HISTORY Problem Relation Age of Onset other (downs syndrome) Daughter Hypertension Mother Heart Mother cad chf Asthma Mother SOCIAL HISTORY Social History Tobacco Use Smoking status: Never Smokeless tobacco: Never Substance Use Topics Alcohol use: Yes Comment: Occassional Drug use: No Review of Systems Objective BP 132/72 Pulse 75 Resp 16 Wt 67.6 kg (149 lb) LMP 01/12/2008 BMI 24.99 kg/m Last 5 Encounter Wt Readings: Date: Wt: 09/13/2024 67.6 kg (149 lb) 06/20/2024 68 kg (149 lb 14.6 oz) 12/21/2023 67.6 kg (149 lb) 09/11/2023 66 kg (145 lb 9.6 oz) 06/03/2023 62.1 kg (137 lb) No waist measurement recorded Estimated body mass index is 24.99 kg/m as calculated from the following: Height as of 06/20/24: 164.5 cm (5' 4.75). Weight as of this encounter: 67.6 kg (149 lb). Last 5 Encounter BP Readings: Date: BP: 09/13/2024 132/72 06/20/2024 139/84 12/21/2023 123/78 09/11/2023 116/78 06/03/2023 110/72 Physical Exam Vitals reviewed. Constitutional: Appearance: She is well-developed. HENT: Head: Normocephalic and atraumatic. Right Ear: External ear normal. Left Ear: External ear normal. Nose: Nose normal. Eyes: Conjunctiva/sclera: Conjunctivae normal. Neck: Thyroid: No thyromegaly. Cardiovascular: Rate and Rhythm: Normal rate and regular rhythm. Pulses: Normal pulses. Heart sounds: Normal heart sounds. No murmur heard. No friction rub. No gallop. Pulmonary: Effort: Pulmonary effort is normal. Breath sounds: Normal breath sounds. Abdominal: General: Bowel sounds are normal. There is no distension. Palpations: Abdomen is soft. There is no mass. Tenderness: There is no abdominal tenderness. Musculoskeletal: General: No deformity. Normal range of motion. Right lower leg: No edema. Left lower leg: No edema. Lymphadenopathy: Cervical: No cervical adenopathy. Skin: General: Skin is warm and dry. Coloration: Skin is not jaundiced or pale. Findings: No rash. Neurological: General: No focal deficit present. Mental Status: She is alert and oriented to person, place, and time. Cranial Nerves: No cranial nerve deficit. Sensory: No sensory deficit. Motor: No abnormal muscle tone. Coordination: Coordination normal. Deep Tendon Reflexes: Reflexes normal. Psychiatric: Attention and Perception: Attention and perception normal. Mood and Affect: Mood and affect normal. Speech: Speech normal. Behavior: Behavior normal. Thought Content: Thought content normal. Cognition and Memory: Cognition and memory normal. Judgment: Judgment normal. Latest Ref Rng 01/17/2013 08/10/2020 09/01/2024 Triglyceride <150 mg/dL 117 79 74 Cholesterol, Total <200 mg/dL 226 (H) 222 (H) 234 (H) HDL Cholesterol >39 mg/dL 67 60 57 VLDL Cholesterol <30 mg/dL 23 16 15 LDL Cholesterol <100 mg/dL 136 (H) 146 (H) 162 (H) Fasting Time hrs 12 11 12 TC:HDL Ratio <5.10 3.37 3.70 4.11 LDL:HDL Ratio <2.54 2.03 2.43 2.84 (H) Non HDL Cholesterol <130 mg/dL 159 162 (H) 177 (H) Legend: (H) High The 10-year ASCVD risk score (Princess DK, et al., 2019) is: 10.4% Values used to calculate the score: Age: 69 years Sex: Female Is Non- : No Diabetic: No Tobacco smoker: No Systolic Blood Pressure: 132 mmHg Is BP treated: No HDL Cholesterol: 57 mg/dL Total Cholesterol: 234 mg/dL Assessment and Plan Mounika Linares is a 69 year old female here for a Medicare wellness visit. Medicare Health Risk Assessment General Health Very good Exercise: Minutes/Day 20 min Exercise: Days/Week 3 days Alcohol: Daily Use 2-4 times a month Alcohol: Drinks/Day 1 or 2 Alcohol: 6 or more drinks Never Feel off balance No Concerns: Teeth/Dentures No Concerns: Sexual function No Troubled by feelings None of the above Frequency: Eating healthy diet Nearly every day ADLs requiring help None of the above Safety precautions in home/vehicle Yes Smoke, vape, chews tobacco No Difficulty hearing No Difficulty seeing No Current Providers Specialists: I have reviewed specialist-related care of the patient in the medical record. Outside specialists seen: [facility]--Dr. Jeremy Salazar Medical/Family history review Reviewed and updated problem list, medical/surgical/family/social history, medications, and allergies. Opioid use review Opioid Medications (last 90 days) No data to display Anxiety/Depression screening PHQ-2 Score: 0 (Lower risk for depression) BRENDON-2 Score: 0 (Lower risk for anxiety) Recommendation: no further intervention at this time Cognitive screening Mini Cog Score: 5 Cognitive screening reviewed and No further action needed (score 3-5). Functional Observation Was the patient's Timed Up & Go test unsteady or >= 12 seconds? No Advance Care Planning Surrogate decision maker and/or advance care plan documented Measurements BP 132/72 Pulse 75 Resp 16 Wt 67.6 kg (149 lb) LMP 01/12/2008 BMI 24.99 kg/m Vision Screening: Follows with optometry/ophthalmology Assessment/Plan Medicare annual wellness visit, subsequent (Z.) - Counseled on healthy diet and regular exercise - Fall avoidance information provided - Personalized prevention plan provided # Medicare annual wellness visit, subsequent (Z.) - Completed Medicare annual wellness visit. - Reviewed and updated health maintenance, including diet, exercise, and hydration. - Discussed fall prevention strategies. - Completed health risk assessment, including exercise frequency, alcohol consumption, and dietary habits. - No issues with balance, dental health, or sexual function reported. - No assistance needed with ADLs. - Advised to continue following safety precautions. - No hearing or vision difficulties reported, although patient mentioned potential need for cataract surgery. - Patient follows with thread winder Dr. Kvng Salazar. - Advised to schedule colonoscopy after October 2024; recommended Dr. John Calvo at [place] for the procedure. - Patient has advanced directives in place. # Allergic rhinitis, unspecified seasonality, unspecified trigger (J30.9) - Symptoms consistent with allergic rhinitis; initiated fexofenadine. - Advised to continue fexofenadine as needed. # Osteopenia of multiple sites (M85.89) - Continue current management. # Screening for depression (Z13.31) # Encounter for screening examination for other mental health and behavioral disorders (Z13.39) - Completed PHQ-2 and PHQ-9 screenings; no signs of depression or anxiety. # Encounter for immunization (Z23) - Tetanus immunization due; advised to obtain at pharmacy. - Flu shot scheduled. - Declined COVID-19 vaccination. - Discussed RSV vaccine; recommended if patient is 75 or older or at higher risk. Chandana Beck MD UPDATED HISTORY AND PHYSICAL EXAMINATION SERVICE DATE: 01/13/2025 SERVICE TIME: 8:56 AM PHYSICAL EXAM MUST BE COMPLETED ON ADMISSION The History and Physical (completed in the past 30 days) has been reviewed and the patient has been examined. The contents accurately reflect the patient's condition with the following additions or revisions since the H&P was completed. Examination indicates no changes. This H&P can be found in the attached. SIGNATURE: Amrit Germain III, MD PATIENT NAME: Mounika Linares DATE: January 13, 2025 TIME: 8:56 AM [facility] 01-13-2025 History and physical note Images from the original note were not included. Subjective Mounika Linares is a 69 year old female. HISTORY Mounika Linares is a 69 year old lady here for yearly exam and follow up appointment. Mounika Linares is a 69-year-old female presenting for a Medicare Annual Wellness Visit. Mounika reports overall good health and well-being. She engages in moderate to strenuous exercise approximately 3 days per week for about 20 minutes each session. She consumes alcohol about once a week with dinner, typically having one drink per occasion, and denies consuming six or more drinks on a single occasion. She denies feelings of imbalance, recent falls, or concerns about sexual function, though she notes a lower libido. She denies feelings of anxiety, anger, irritability, loneliness, isolation, or thoughts of self-harm. She follows a diet rich in fruits, vegetables, whole grains, and fiber. She is independent in activities of daily living, including cooking, swallowing, bathing, and grooming, and follows safety precautions. She denies smoking, hearing difficulties, or vision problems, though she mentions potential cataract surgery in the future. Mounika is up to date on her flu vaccination and has scheduled her next flu shot. She declines further COVID-19 vaccinations. She has advanced directives in place. She is due for a colonoscopy in October, with her last one performed in October 2019. She is considering options for her next colonoscopy, including staying within the [facility] system. Mounika is currently taking fexofenadine for allergies, which she started yesterday. She is also on hydroxychloroquine and sulfasalazine, prescribed by her doll wig hackler, Dr. Mccurdy. She takes vitamins regularly. She denies any issues with bowel movements and reports making bran muffins to maintain regularity. 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 She is currently dealing with a jury duty notice and is seeking an excuse due to her caregiving responsibilities. She has no other family in town to assist with her daughter's care. PAST MEDICAL HISTORY PAST MEDICAL HISTORY Diagnosis Date Allergic rhinitis, cause unspecified Allergic rhinitis Allergy to dogs Cat allergies Climacteric 09/13/2012 Female stress incontinence Stress incontinence ARSEN (obstructive sleep apnea) 2010 Dr. Montes De Oca Osteopenia 03/05/[address] Arboleda Seasonal allergies Snoring Trigger finger Trigger finger, right ring finger 04/23/2011 Unspecified asthma(493.90) Vaginal atrophy 09/13/2012 CURRENT MEDICATIONS Current Outpatient Medications Medication Sig hydrOXYchloroQUINE (PLAQUENIL) 200 mg tablet Take 1.5 tablets by mouth once daily. sulfaSALAzine (AZULFIDINE) 500 mg tablet TAKE 2 TABLETS BY MOUTH TWICE A DAY calcium carbonate/vitamin D3 (CALCIUM 600 + D,3, ORAL) Take by mouth. MULTI-VITAMIN ORAL Take by mouth. dexAMETHasone sodium phosphate (DECADRON) 4 mg/mL injection 4 mg as needed (for iontophoresis therapy). Please dispense 3 cc syringe and blunt tip needle to draw up medication for physical therapy iotonphoresis tx. No current facility-administered medications for this visit. ALLERGIES ALLERGIES Allergen Reactions Cats Itching Only certain types of cats. Dogs Hives Only certain types of dogs. Seasonal Allergies FAMILY HISTORY FAMILY HISTORY Problem Relation Age of Onset other (downs syndrome) Daughter Hypertension Mother Heart Mother cad chf Asthma Mother SOCIAL HISTORY Social History Tobacco Use Smoking status: Never Smokeless tobacco: Never Substance Use Topics Alcohol use: Yes Comment: Occassional Drug use: No Review of Systems Objective BP 132/72 Pulse 75 Resp 16 Wt 67.6 kg (149 lb) LMP 01/12/2008 BMI 24.99 kg/m Last 5 Encounter Wt Readings: Date: Wt: 09/13/2024 67.6 kg (149 lb) 06/20/2024 68 kg (149 lb 14.6 oz) 12/21/2023 67.6 kg (149 lb) 09/11/2023 66 kg (145 lb 9.6 oz) 06/03/2023 62.1 kg (137 lb) No waist measurement recorded Estimated body mass index is 24.99 kg/m as calculated from the following: Height as of 06/20/24: 164.5 cm (5' 4.75). Weight as of this encounter: 67.6 kg (149 lb). Last 5 Encounter BP Readings: Date: BP: 09/13/2024 132/72 06/20/2024 139/84 12/21/2023 123/78 09/11/2023 116/78 06/03/2023 110/72 Physical Exam Vitals reviewed. Constitutional: Appearance: She is well-developed. HENT: Head: Normocephalic and atraumatic. Right Ear: External ear normal. Left Ear: External ear normal. Nose: Nose normal. Eyes: Conjunctiva/sclera: Conjunctivae normal. Neck: Thyroid: No thyromegaly. Cardiovascular: Rate and Rhythm: Normal rate and regular rhythm. Pulses: Normal pulses. Heart sounds: Normal heart sounds. No murmur heard. No friction rub. No gallop. Pulmonary: Effort: Pulmonary effort is normal. Breath sounds: Normal breath sounds. Abdominal: General: Bowel sounds are normal. There is no distension. Palpations: Abdomen is soft. There is no mass. Tenderness: There is no abdominal tenderness. Musculoskeletal: General: No deformity. Normal range of motion. Right lower leg: No edema. Left lower leg: No edema. Lymphadenopathy: Cervical: No cervical adenopathy. Skin: General: Skin is warm and dry. Coloration: Skin is not jaundiced or pale. Findings: No rash. Neurological: General: No focal deficit present. Mental Status: She is alert and oriented to person, place, and time. Cranial Nerves: No cranial nerve deficit. Sensory: No sensory deficit. Motor: No abnormal muscle tone. Coordination: Coordination normal. Deep Tendon Reflexes: Reflexes normal. Psychiatric: Attention and Perception: Attention and perception normal. Mood and Affect: Mood and affect normal. Speech: Speech normal. Behavior: Behavior normal. Thought Content: Thought content normal. Cognition and Memory: Cognition and memory normal. Judgment: Judgment normal. Latest Ref Rng 01/17/2013 08/10/2020 09/01/2024 Triglyceride <150 mg/dL 117 79 74 Cholesterol, Total <200 mg/dL 226 (H) 222 (H) 234 (H) HDL Cholesterol >39 mg/dL 67 60 57 VLDL Cholesterol <30 mg/dL 23 16 15 LDL Cholesterol <100 mg/dL 136 (H) 146 (H) 162 (H) Fasting Time hrs 12 11 12 TC:HDL Ratio <5.10 3.37 3.70 4.11 LDL:HDL Ratio <2.54 2.03 2.43 2.84 (H) Non HDL Cholesterol <130 mg/dL 159 162 (H) 177 (H) Legend: (H) High The 10-year ASCVD risk score (Princess WOLFE, et al., 2019) is: 10.4% Values used to calculate the score: Age: 69 years Sex: Female Is Non- : No Diabetic: No Tobacco smoker: No Systolic Blood Pressure: 132 mmHg Is BP treated: No HDL Cholesterol: 57 mg/dL Total Cholesterol: 234 mg/dL Assessment and Plan Mounika Linares is a 69 year old female here for a Medicare wellness visit. Medicare Health Risk Assessment General Health Very good Exercise: Minutes/Day 20 min Exercise: Days/Week 3 days Alcohol: Daily Use 2-4 times a month Alcohol: Drinks/Day 1 or 2 Alcohol: 6 or more drinks Never Feel off balance No Concerns: Teeth/Dentures No Concerns: Sexual function No Troubled by feelings None of the above Frequency: Eating healthy diet Nearly every day ADLs requiring help None of the above Safety precautions in home/vehicle Yes Smoke, vape, chews tobacco No Difficulty hearing No Difficulty seeing No Current Providers Specialists: I have reviewed specialist-related care of the patient in the medical record. Outside specialists seen: [facility]--Dr. Jeremy Salazar Medical/Family history review Reviewed and updated problem list, medical/surgical/family/social history, medications, and allergies. Opioid use review Opioid Medications (last 90 days) No data to display Anxiety/Depression screening PHQ-2 Score: 0 (Lower risk for depression) BRENDON-2 Score: 0 (Lower risk for anxiety) Recommendation: no further intervention at this time Cognitive screening Mini Cog Score: 5 Cognitive screening reviewed and No further action needed (score 3-5). Functional Observation Was the patient's Timed Up & Go test unsteady or >= 12 seconds? No Advance Care Planning Surrogate decision maker and/or advance care plan documented Measurements BP 132/72 Pulse 75 Resp 16 Wt 67.6 kg (149 lb) LMP 01/12/2008 BMI 24.99 kg/m Vision Screening: Follows with optometry/ophthalmology Assessment/Plan Medicare annual wellness visit, subsequent (Z00.00) - Counseled on healthy diet and regular exercise - Fall avoidance information provided - Personalized prevention plan provided # Medicare annual wellness visit, subsequent (Z00.00) - Completed Medicare annual wellness visit. - Reviewed and updated health maintenance, including diet, exercise, and hydration. - Discussed fall prevention strategies. - Completed health risk assessment, including exercise frequency, alcohol consumption, and dietary habits. - No issues with balance, dental health, or sexual function reported. - No assistance needed with ADLs. - Advised to continue following safety precautions. - No hearing or vision difficulties reported, although patient mentioned potential need for cataract surgery. - Patient follows with thread winder Dr. Kvng Salazar. - Advised to schedule colonoscopy after October 2024; recommended Dr. John Calvo at [place] for the procedure. - Patient has advanced directives in place. # Allergic rhinitis, unspecified seasonality, unspecified trigger (J30.9) - Symptoms consistent with allergic rhinitis; initiated fexofenadine. - Advised to continue fexofenadine as needed. # Osteopenia of multiple sites (M85.89) - Continue current management. # Screening for depression (Z13.31) # Encounter for screening examination for other mental health and behavioral disorders (Z13.39) - Completed PHQ-2 and PHQ-9 screenings; no signs of depression or anxiety. # Encounter for immunization (Z23) - Tetanus immunization due; advised to obtain at pharmacy. - Flu shot scheduled. - Declined COVID-19 vaccination. - Discussed RSV vaccine; recommended if patient is 75 or older or at higher risk. Chandana Beck MD UPDATED HISTORY AND PHYSICAL EXAMINATION SERVICE DATE: 01/13/2025 SERVICE TIME: 8:56 AM PHYSICAL EXAM MUST BE COMPLETED ON ADMISSION The History and Physical (completed in the past 30 days) has been reviewed and the patient has been examined. The contents accurately reflect the patient's condition with the following additions or revisions since the H&P was completed. Examination indicates no changes. This H&P can be found in the attached. SIGNATURE: Amrit Germain III, MD PATIENT NAME: Mounika Linares DATE: January 13, 2025 TIME: 8:56 AM documented in this encounter [facility] 01-09-2025 Telephone encounter Note Patient calling she did not get instructions on when to start her colon prep was not on bottle given to her by the pharmacy. Computer shows instructions and was reading them to her and to much to write down. Told patient that I am copy and pasting and sending to her on my chart so she can read these. this is what was sent to the patient: Health Information For Patients and the Community How to Prepare for Your Colonoscopy Using Golytely, Nulytely, Trilyte or Colyte Preparations IMPORTANT - Please Read These Instructions at Least 2 Weeks Before Your Colonoscopy Lazar Instructions: ?Your bowel must be empty so that your doctor can clearly view your colon. Follow all of the instructions in this handout EXACTLY as they are written. If you do NOT follow the directions for when to start drinking the bowel preparation (see next page), your colonoscopy WILL be cancelled. ?Do NOT eat any solid food the ENTIRE day before your colonoscopy. ?Buy your bowel preparation at least 5 days before your colonoscopy. ?Do NOT mix the solution until the day before your colonoscopy. Designated Die Out Worker on the Day of Your Exam A responsible family member or friend MUST come with you to your colonoscopy and REMAIN in the endoscopy area until you are discharged! You are NOT ALLOWED to drive, take a taxi or bus, or leave the Endoscopy Center ALONE. If you do not have a responsible courtesy car driver (family member or friend) with you to take you home, your exam cannot be done with sedation and will be cancelled. Medications Some of the medicines you take may need to be stopped or adjusted before your colonoscopy. You MUST call the doctor who ordered any of the following medicines at least 2 weeks before your colonoscopy. ?Blood thinners -- such as Coumadin (warfarin), Plavix (clopidogrel), Ticlid (ticlopidine hydrochloride), Agrylin (anagrelide), Xarelto (Rivaroxaban), Pradaxa (Dabigatran), Eliquis (Apixaban), and Effient (Prasugrel). ?Insulin or diabetes pills. Please call the doctor that monitors your glucose levels. Your insulin dosage may need to be adjusted due to the diet restrictions required with this bowel preparation. (Please bring your diabetes medicines with you on the day of your procedure.) If you take aspirin, take it and ALL other medications prescribed by your doctor. On the day of your colonoscopy, take your medications with a sip of water. Revised 11/2016 1 Five (5) Days Before Your Colonoscopy ?Do NOT take medicines that stop diarrhea -- such as Imodium , Kaopectate , or Pepto Bismol . ?Do NOT take fiber supplements -- such as Metamucil , Citrucel , or Perdiem . ?Do NOT take products that contain iron -- such as multi-vitamins -- (the label lists what is in the products). ?Do NOT take vitamin E. Buy the prescription bowel preparation solution at your local pharmacy or drugstore pharmacy. Three (3) Days Before Your Colonoscopy Do NOT eat high-fiber foods -- such as popcorn, beans, seeds (flax, sunflower, quinoa), multigrain bread, nuts, salad/vegetables, or fresh and dried fruit. One (1) Day Before Your Colonoscopy Only drink clear liquids the ENTIRE DAY before your colonoscopy. Do NOT eat any solid foods. Drink at least 8 ounces of clear liquids every hour after waking up. The clear liquids you can drink include: ?water, apple, or white grape juice; broth; coffee or tea (without milk or creamer); clear carbonated beverages such as carole eddy or lemon-council soda; Gatorade or other sports drinks (not red); Cesar-Aid or other flavored drinks (not red). You may eat plain jello or other gelatins (not red) or popsicles (not red). Do NOT drink alcohol on the day before or the day of the procedure. 2 Revised 11/2016 When to Mix and Drink Your Bowel Prep Follow the instructions on the label. After mixing, place the solution in the refrigerator for a couple of hours before drinking. You may add the flavor packet that came with the bowel preparation. DO NOT add ice, sugar or any flavorings to the solution. Evening Before Your Colonoscopy ?Start drinking the bowel preparation at 6 PM the evening before your colonoscopy. Drink an 8-oz glass of bowel preparation every 10 minutes. You must finish drinking the solution by 9 PM the night before your scheduled procedure. ?You may continue to drink clear liquids only until midnight. Do NOT eat or drink ANYTHING after midnight the night before your procedure or your procedure may be cancelled. This is for your safety and will reduce the risk of having any food or liquid in your stomach move into your lungs (aspiration) during a procedure. If you take aspirin, take it and ALL other prescribed medicines with a sip of water on the day of your colonoscopy. Contact Information: If you are unable to keep your appointment or have any questions about the instructions, please call the facility where the procedure is being performed. Call between the hours of 8:00 AM and 5:00 PM. If you are calling after 5:00 PM, please call Nurse contracting specialist at [phone]. [facility] [address] [place] [id number] [facility] 01-09-2025 Miscellaneous Notes Patient calling she did not get instructions on when to start her colon prep was not on bottle given to her by the pharmacy. Computer shows instructions and was reading them to her and to much to write down. Told patient that I am copy and pasting and sending to her on my chart so she can read these. this is what was sent to the patient: Health Information For Patients and the Community How to Prepare for Your Colonoscopy Using Golytely, Nulytely, Trilyte or Colyte Preparations IMPORTANT - Please Read These Instructions at Least 2 Weeks Before Your Colonoscopy Lazar Instructions: ?Your bowel must be empty so that your doctor can clearly view your colon. Follow all of the instructions in this handout EXACTLY as they are written. If you do NOT follow the directions for when to start drinking the bowel preparation (see next page), your colonoscopy WILL be cancelled. ?Do NOT eat any solid food the ENTIRE day before your colonoscopy. ?Buy your bowel preparation at least 5 days before your colonoscopy. ?Do NOT mix the solution until the day before your colonoscopy. Designated Die Out Worker on the Day of Your Exam A responsible family member or friend MUST come with you to your colonoscopy and REMAIN in the endoscopy area until you are discharged! You are NOT ALLOWED to drive, take a taxi or bus, or leave the Endoscopy Center ALONE. If you do not have a responsible courtesy car driver (family member or friend) with you to take you home, your exam cannot be done with sedation and will be cancelled. Medications Some of the medicines you take may need to be stopped or adjusted before your colonoscopy. You MUST call the doctor who ordered any of the following medicines at least 2 weeks before your colonoscopy. ?Blood thinners -- such as Coumadin (warfarin), Plavix (clopidogrel), Ticlid (ticlopidine hydrochloride), Agrylin (anagrelide), Xarelto (Rivaroxaban), Pradaxa (Dabigatran), Eliquis (Apixaban), and Effient (Prasugrel). ?Insulin or diabetes pills. Please call the doctor that monitors your glucose levels. Your insulin dosage may need to be adjusted due to the diet restrictions required with this bowel preparation. (Please bring your diabetes medicines with you on the day of your procedure.) If you take aspirin, take it and ALL other medications prescribed by your doctor. On the day of your colonoscopy, take your medications with a sip of water. Revised 11/2016 1 Five (5) Days Before Your Colonoscopy ?Do NOT take medicines that stop diarrhea -- such as Imodium , Kaopectate , or Pepto Bismol . ?Do NOT take fiber supplements -- such as Metamucil , Citrucel , or Perdiem . ?Do NOT take products that contain iron -- such as multi-vitamins -- (the label lists what is in the products). ?Do NOT take vitamin E. Buy the prescription bowel preparation solution at your local pharmacy [facility]. Three (3) Days Before Your Colonoscopy Do NOT eat high-fiber foods -- such as popcorn, beans, seeds (flax, sunflower, quinoa), multigrain bread, nuts, salad/vegetables, or fresh and dried fruit. One (1) Day Before Your Colonoscopy Only drink clear liquids the ENTIRE DAY before your colonoscopy. Do NOT eat any solid foods. Drink at least 8 ounces of clear liquids every hour after waking up. The clear liquids you can drink include: ?water, apple, or white grape juice; broth; coffee or tea (without milk or creamer); clear carbonated beverages such as carole eddy or lemon-council soda; Gatorade or other sports drinks (not red); Cesar-Aid or other flavored drinks (not red). You may eat plain jello or other gelatins (not red) or popsicles (not red). Do NOT drink alcohol on the day before or the day of the procedure. 2 Revised 11/2016 When to Mix and Drink Your Bowel Prep Follow the instructions on the label. After mixing, place the solution in the refrigerator for a couple of hours before drinking. You may add the flavor packet that came with the bowel preparation. DO NOT add ice, sugar or any flavorings to the solution. Evening Before Your Colonoscopy ?Start drinking the bowel preparation at 6 PM the evening before your colonoscopy. Drink an 8-oz glass of bowel preparation every 10 minutes. You must finish drinking the solution by 9 PM the night before your scheduled procedure. ?You may continue to drink clear liquids only until midnight. Do NOT eat or drink ANYTHING after midnight the night before your procedure or your procedure may be cancelled. This is for your safety and will reduce the risk of having any food or liquid in your stomach move into your lungs (aspiration) during a procedure. If you take aspirin, take it and ALL other prescribed medicines with a sip of water on the day of your colonoscopy. Contact Information: If you are unable to keep your appointment or have any questions about the instructions, please call the facility where the procedure is being performed. Call between the hours of 8:00 AM and 5:00 PM. If you are calling after 5:00 PM, please call Nurse contracting specialist at [phone]. [facility] [address] [place] [address] documented in this encounter [facility] 12-07-2024 Telephone encounter Note Script send by Dr. Mccurdy. Attempted to reach patient. No answer. Left message on patient's voicemail script send. Percy Mortensen MA\ [facility] 12-07-2024 Miscellaneous Notes Script send by Dr. Mccurdy. Attempted to reach patient. No answer. Left message on patient's voicemail script send. Percy Mortensen MA\ Addended by: DREAD MCCURDY on: 12/07/2024 01:35 PM Modules accepted: Orders Addended by: PERCY MORTENSEN on: 12/07/2024 12:45 PM Modules accepted: Orders The patient does state she needs the SULFASALAZINE per directions she is to take TAKE TWO TABLETS BY MOUTH TWICE A DAY that is 4 pills a day she was dispensed 120 pills on 11-09-24 with no refills and and that is good for roughly 30 days patient currently has 54 pills currently this will only last her until December 21 in the am please advise. Based on scripts patient should have enough. Attempted to reach patient. No answer. Left detailed message on patient's phone. Percy Mortensen MA PT calling to ask if she has enough medication to last until her follow up appt. Based on quantity and directions, it appears she should be good until her appt on 01/02, for Sulfasalazine and plaquenil. Please advise [phone] documented in this encounter [facility] 12-07-2024 Instructions Poonam Apodaca, MANAGER FIBER.FURNACE LINER - 12/07/2024 1:40 PM EST Health Information For Patients and the Community How to Prepare for Your Colonoscopy Using Golytely, Nulytely, Trilyte or Colyte Preparations IMPORTANT - Please Read These Instructions at Least 2 Weeks Before Your Colonoscopy Lazar Instructions: ?Your bowel must be empty so that your doctor can clearly view your colon. Follow all of the instructions in this handout EXACTLY as they are written. If you do NOT follow the directions for when to start drinking the bowel preparation (see next page), your colonoscopy WILL be cancelled. ?Do NOT eat any solid food the ENTIRE day before your colonoscopy. ?Buy your bowel preparation at least 5 days before your colonoscopy. ?Do NOT mix the solution until the day before your colonoscopy. Designated Die Out Worker on the Day of Your Exam A responsible family member or friend MUST come with you to your colonoscopy and REMAIN in the endoscopy area until you are discharged! You are NOT ALLOWED to drive, take a taxi or bus, or leave the Endoscopy Center ALONE. If you do not have a responsible courtesy car driver (family member or friend) with you to take you home, your exam cannot be done with sedation and will be cancelled. Medications Some of the medicines you take may need to be stopped or adjusted before your colonoscopy. You MUST call the doctor who ordered any of the following medicines at least 2 weeks before your colonoscopy. ?Blood thinners -- such as Coumadin (warfarin), Plavix (clopidogrel), Ticlid (ticlopidine hydrochloride), Agrylin (anagrelide), Xarelto (Rivaroxaban), Pradaxa (Dabigatran), Eliquis (Apixaban), and Effient (Prasugrel). ?Insulin or diabetes pills. Please call the doctor that monitors your glucose levels. Your insulin dosage may need to be adjusted due to the diet restrictions required with this bowel preparation. (Please bring your diabetes medicines with you on the day of your procedure.) If you take aspirin, take it and ALL other medications prescribed by your doctor. On the day of your colonoscopy, take your medications with a sip of water. Revised 11/2016 1 Five (5) Days Before Your Colonoscopy ?Do NOT take medicines that stop diarrhea -- such as Imodium , Kaopectate , or Pepto Bismol . ?Do NOT take fiber supplements -- such as Metamucil , Citrucel , or Perdiem . ?Do NOT take products that contain iron -- such as multi-vitamins -- (the label lists what is in the products). ?Do NOT take vitamin E. Buy the prescription bowel preparation solution at your local pharmacy or drugstore pharmacy. Three (3) Days Before Your Colonoscopy Do NOT eat high-fiber foods -- such as popcorn, beans, seeds (flax, sunflower, quinoa), multigrain bread, nuts, salad/vegetables, or fresh and dried fruit. One (1) Day Before Your Colonoscopy Only drink clear liquids the ENTIRE DAY before your colonoscopy. Do NOT eat any solid foods. Drink at least 8 ounces of clear liquids every hour after waking up. The clear liquids you can drink include: ?water, apple, or white grape juice; broth; coffee or tea (without milk or creamer); clear carbonated beverages such as carole eddy or lemon-council soda; Gatorade or other sports drinks (not red); Cesar-Aid or other flavored drinks (not red). You may eat plain jello or other gelatins (not red) or popsicles (not red). Do NOT drink alcohol on the day before or the day of the procedure. 2 Revised 11/2016 When to Mix and Drink Your Bowel Prep Follow the instructions on the label. After mixing, place the solution in the refrigerator for a couple of hours before drinking. You may add the flavor packet that came with the bowel preparation. DO NOT add ice, sugar or any flavorings to the solution. Evening Before Your Colonoscopy ?Start drinking the bowel preparation at 6 PM the evening before your colonoscopy. Drink an 8-oz glass of bowel preparation every 10 minutes. You must finish drinking the solution by 9 PM the night before your scheduled procedure. ?You may continue to drink clear liquids only until midnight. Do NOT eat or drink ANYTHING after midnight the night before your procedure or your procedure may be cancelled. This is for your safety and will reduce the risk of having any food or liquid in your stomach move into your lungs (aspiration) during a procedure. If you take aspirin, take it and ALL other prescribed medicines with a sip of water on the day of your colonoscopy. Contact Information: If you are unable to keep your appointment or have any questions about the instructions, please call the facility where the procedure is being performed. Call between the hours of 8:00 AM and 5:00 PM. If you are calling after 5:00 PM, please call Nurse contracting specialist at [phone]. [facility] [address] [address] Index # [id number] Revised 11/2016 3 Colonoscopy Procedure Overview Please Read Prior to the Procedure What is a Colonoscopy A colonoscopy is an outpatient procedure in which the inside of the large intestine (colon and rectum) is examined. A colonoscopy is commonly used to evaluate gastrointestinal symptoms, such as rectal and intestinal bleeding, abdominal pain, or changes in bowel habits. Colonoscopies are also performed in individuals without symptoms to check for colorectal polyps or cancer. A screening colonoscopy is recommended for anyone 50 years of age and older, and for anyone with parents, siblings or children with a history of colorectal cancer or polyps. What Happens Before a Colonoscopy To have a successful colonoscopy, your bowel must be empty so that your physician can clearly view the colon. To do this, it is very important to read and follow all of the instructions given to you at least 2 weeks BEFORE your exam. If your bowel is not empty, your colonoscopy will not be successful and may have to be repeated. If you feel nauseated or vomit while taking the bowel preparation, wait 30 minutes before drinking more fluid and start with small sips of solution. Some activity (such as walking) or a few soda crackers may help decrease the nausea you are feeling. If the nausea persists, please contact nurse supervisor ornamental ironworking at [phone]. You may experience skin irritation around the anus due to the passage of liquid stools. To prevent and treat skin irritation, you should: ?Apply Vaseline or Desitin ointment to the skin around the anus before drinking the bowel preparation medications. These products can be purchased at any drugstore. ?Wipe the skin after each bowel movement with disposable wet wipes instead of toilet paper. These are found in the toilet paper area of the store. ?Sit in a bathtub filled with warm water for 10 to 15 minutes after you finish passing a stool; after soaking, blot the skin dry with a soft cloth, apply Vaseline or Desitin ointment to the anal area, and place a cotton ball just outside your anus to absorb leaking fluid. What Happens During a Colonoscopy During a colonoscopy, an experienced physician uses a colonoscope (a long, flexible instrument about 1/2 inch in diameter) to view the lining of the colon. The colonoscope is inserted into the rectum and advanced through the large intestine. If necessary during a colonoscopy, small amounts of tissue can be removed for analysis (a biopsy) and polyps can be identified and entirely removed. In many cases, a colonoscopy allows accurate diagnosis and treatment of colorectal problems without the need for a major operation. Revised 11/2016 5 ?You are asked to wear a hospital gown and an IV will be started. ?You are given a pain reliever and a sedative intravenously (in your vein). You will feel relaxed and somewhat drowsy. ?You will lie on your left side, with your knees drawn up towards your chest. ?A small amount of air is used to expand the colon so the physician can see the colon huggins. ?You may feel mild cramping during the procedure. Cramping can be reduced by taking slow, deep breaths. ?The colonoscope is slowly withdrawn while the lining of your bowel is carefully examined. ?The procedure lasts from 30 minutes to 1 hour. What Happens After a Colonoscopy ?You will stay in a recovery room for observation until you are ready for discharge. ?You may feel some cramping or a sensation of having gas, but this quickly passes. ?If sedation has been given, a responsible family member or friend must drive you home. ?Avoid alcohol, driving, and operating machinery for 24 hours following the procedure. ?Unless otherwise instructed, you may immediately return to your normal diet. We recommend you wait until the day after your procedure to resume normal activities. ?If polyps were removed or a biopsy was taken, the physician performing your colonoscopy will tell you when it is safe to resume taking your blood thinners. ?If a biopsy was taken or a polyp was removed, you may notice a little amount of rectal bleeding for 1 to 2 days after the procedure. If you have a large amount of rectal bleeding, high or persistent fevers, or severe abdominal pain within the next 2 weeks, please go to your local emergency room and call the physician who performed your exam. 6 Revised 11/2016 Copyright [id number] The [facility] All rights reserved. Revised 11/2016 documented in this encounter [facility] 12-07-2024 Note Addended by: DREAD MCCURDY on: 12/07/2024 01:35 PM Modules accepted: Orders [facility] 12-07-2024 Note Addended by: PERCY ALY on: 12/07/2024 12:45 PM Modules accepted: Orders [facility] 12-07-2024 Telephone encounter Note The patient does state she needs the SULFASALAZINE per directions she is to take TAKE TWO TABLETS BY MOUTH TWICE A DAY that is 4 pills a day she was dispensed 120 pills on 11-09-24 with no refills and and that is good for roughly 30 days patient currently has 54 pills currently this will only last her until December 21 in the am please advise. [facility] 12-07-2024 Telephone encounter Note Based on scripts patient should have enough. Attempted to reach patient. No answer. Left detailed message on patient's phone. Percy Mortensen MA [facility] 12-07-2024 Telephone encounter Note Patient calls and states that she is due for her colonoscopy. Patient asking if these orders can be placed so that she can get this scheduled. Please review and advise, Lainey Gan RN [facility] 12-07-2024 Miscellaneous Notes Patient calls and states that she is due for her colonoscopy. Patient asking if these orders can be placed so that she can get this scheduled. Please review and advise, Lainey Gan RN documented in this encounter [facility] 12-07-2024 Telephone encounter Note PT calling to ask if she has enough medication to last until her follow up appt. Based on quantity and directions, it appears she should be good until her appt on 01/02, for Sulfasalazine and plaquenil. Please advise [phone] [facility] 11-09-2024 Telephone encounter Note Patient is notified of message below and verbalized understanding of instructions. Eric Ureña MA [facility] 11-09-2024 Miscellaneous Notes Patient is notified of message below and verbalized understanding of instructions. Eric Ureña MA Please advise that she is due for labs and a HCQ eye exam. The following approved medication requests have been transmitted electronically. Requested Prescriptions Signed Prescriptions Disp Refills sulfaSALAzine (AZULFIDINE) 500 mg tablet 120 tablet 0 Sig: TAKE TWO TABLETS BY MOUTH TWICE A DAY Authorizing Provider: COLLIN GAN hydrOXYchloroQUINE (PLAQUENIL) 200 mg tablet 135 tablet 0 Sig: Take 1.5 tablets by mouth once daily. Authorizing Provider: COLLIN GAN APRN.FURNACE LINER Patient has been identified by name and date of : Yes, Provider Kareem Date 11/09 Time 8:41am Patient phones for refill(s): Requested Prescriptions Pending Prescriptions Disp Refills sulfaSALAzine (AZULFIDINE) 500 mg tablet [Pharmacy Med Name: SULFASALAZINE 500MG TABS] 360 tablet 0 Sig: TAKE TWO TABLETS BY MOUTH TWICE A DAY hydrOXYchloroQUINE (PLAQUENIL) 200 mg tablet 135 tablet 1 Sig: Take 1.5 tablets by mouth once daily. Date of last office visit in primary care: 06/20/2024 Date of next office visit in primary care: 01/02/2025 Please advise. Thank you. Cher Miranda. Patient has been identified by name and date of : Yes RX INSTRUCTIONS: Patient aware RX will be sent to pharmacy. No need to notify patient. Patient is notified to have labs done SARAH and verbalized understanding. PLQ eye exam done on 11/19/2023 at [facility] office. No evidence of PLQ toxicity. LAST APPOINTMENT: 06/20/2024 UPCOMING APPOINTMENT: 01/02/2025 LABS: Hemoglobin (g/dL) Date Value 06/20/2024 13.0 10/11/2021 13.2 Hematocrit (%) Date Value 06/20/2024 40.3 10/11/2021 39.7 WBC (k/uL) Date Value 06/20/2024 6.02 10/11/2021 5.44 Platelet Count (k/uL) Date Value 06/20/2024 264 10/11/2021 241 AST Date Value Ref Range Status 06/20/2024 20 13 - 35 U/L Final ALT Date Value Ref Range Status 06/20/2024 14 7 - 38 U/L Final Creatinine Date Value Ref Range Status 06/20/2024 0.76 0.58 - 0.96 mg/dL Final No results found for: URICACID Eric Ureña MA documented in this encounter [facility] 11-09-2024 Telephone encounter Note Please advise that she is due for labs and a HCQ eye exam. The following approved medication requests have been transmitted electronically. Requested Prescriptions Signed Prescriptions Disp Refills sulfaSALAzine (AZULFIDINE) 500 mg tablet 120 tablet 0 Sig: TAKE TWO TABLETS BY MOUTH TWICE A DAY Authorizing Provider: COLLIN GAN hydrOXYchloroQUINE (PLAQUENIL) 200 mg tablet 135 tablet 0 Sig: Take 1.5 tablets by mouth once daily. Authorizing Provider: COLLIN GAN APRN.FURNACE LINER [facility] 11-09-2024 Telephone encounter Note Patient has been identified by name and date of : Yes, Provider Kareem Date 11/09 Time 8:41am Patient phones for refill(s): Requested Prescriptions Pending Prescriptions Disp Refills sulfaSALAzine (AZULFIDINE) 500 mg tablet [Pharmacy Med Name: SULFASALAZINE 500MG TABS] 360 tablet 0 Sig: TAKE TWO TABLETS BY MOUTH TWICE A DAY hydrOXYchloroQUINE (PLAQUENIL) 200 mg tablet 135 tablet 1 Sig: Take 1.5 tablets by mouth once daily. Date of last office visit in primary care: 06/20/2024 Date of next office visit in primary care: 01/02/2025 Please advise. Thank you. Cher Miranda. [facility] 11-09-2024 Telephone encounter Note Patient has been identified by name and date of : Yes RX INSTRUCTIONS: Patient aware RX will be sent to pharmacy. No need to notify patient. Patient is notified to have labs done SARAH and verbalized understanding. PLQ eye exam done on 11/19/2023 at [facility] office. No evidence of PLQ toxicity. LAST APPOINTMENT: 06/20/2024 UPCOMING APPOINTMENT: 01/02/2025 LABS: Hemoglobin (g/dL) Date Value 06/20/2024 13.0 10/11/2021 13.2 Hematocrit (%) Date Value 06/20/2024 40.3 10/11/2021 39.7 WBC (k/uL) Date Value 06/20/2024 6.02 10/11/2021 5.44 Platelet Count (k/uL) Date Value 06/20/2024 264 10/11/2021 241 AST Date Value Ref Range Status 06/20/2024 20 13 - 35 U/L Final ALT Date Value Ref Range Status 06/20/2024 14 7 - 38 U/L Final Creatinine Date Value Ref Range Status 06/20/2024 0.76 0.58 - 0.96 mg/dL Final No results found for: URICACID Eric Ureña MA [facility] 09-13-2024 Instructions Chandana Beck MD - 09/13/2024 9:43 AM EST Consider colonoscopy with Zenon Rivera Screening schedule The following prevention plan is recommended: RSV Vaccine(1 - Risk 60-74 years 1-dose series) Never done DTaP,Tdap,Td Vaccine(2 - Td or Tdap) due on 12/24/2022 Colorectal Cancer Screening due on 11/07/2024 WHAT YOU CAN DO TO PREVENT FALLS Many falls can be prevented. By making some changes, you can lower your chances of falling. Four things YOU can do to prevent falls for you* and your caregiver 1. Begin a regular exercise program Exercise is one of the most important ways to lower your chances of falling. It makes you stronger and helps you feel better. Exercises that improve balance and coordination (like [place] Chi) are the most helpful. Lack of exercise leads to weakness and increases your chances of falling. Ask your doctor or health care provider about the best type of exercise program for you. 2. Have your health care provider review your medicines Have your doctor or pharmacist review all the medicines you take, even [id number] medicines. As you get older, the way medicines work in your body can change. Some medicines, or combinations of medicines, can make you sleepy or dizzy and can cause you to fall. 3. Have your vision checked Have your eyes checked by an eye doctor at least once a year. You may be wearing the wrong glasses or have a condition like glaucoma or cataracts that limits your vision. Poor vision can increase your chances of falling. 4. Make your home safer About half of all falls happen at home. To make your home safer: Remove things you can trip over (like papers, books, clothes, and shoes) from stairs and places where you walk. Remove small throw rugs or use double-sided tape to keep the rugs from slipping. Keep items you use often in cabinets you can reach easily without using a step stool. Have grab bars put in next to your toilet and in the tub or shower. Use non-slip mats in the bathtub and on shower floors. Improve the lighting in your home. As you get older, you need brighter lights to see well. Hang light-weight curtains or shades to reduce glare. Have handrails and lights put in on all staircases. Wear shoes both inside and outside the house. Avoid going barefoot or wearing slippers. For more information, contact: Centers for Disease Control and Prevention www.cdc.gov/injury * This information may not apply if you have certain medical conditions. documented in this encounter [facility] 09-13-2024 Note HNO ID: [id number] Author: CHANDANA BECK MD Service: ? Author Type: Physician Type: Progress Notes Filed: 09/13/2024 10:25 Note Text: This note was created using [facility] [employer] [facility]en[employer]. Subjective Mounika Linares is a 69 year old female. HISTORY Mounika Linares is a 69 year old lady here for yearly exam and follow up appointment. Mounika Linares is a 69-year-old female presenting for a Medicare Annual Wellness Visit. Mounika reports overall good health and well-being. She engages in moderate to strenuous exercise approximately 3 days per week for about 20 minutes each session. She consumes alcohol about once a week with dinner, typically having one drink per occasion, and denies consuming six or more drinks on a single occasion. She denies feelings of imbalance, recent falls, or concerns about sexual function, though she notes a lower libido. She denies feelings of anxiety, anger, irritability, loneliness, isolation, or thoughts of self-harm. She follows a diet rich in fruits, vegetables, whole grains, and fiber. She is independent in activities of daily living, including cooking, swallowing, bathing, and grooming, and follows safety precautions. She denies smoking, hearing difficulties, or vision problems, though she mentions potential cataract surgery in the future. Mounika is up to date on her flu vaccination and has scheduled her next flu shot. She declines further COVID-19 vaccinations. She has advanced directives in place. She is due for a colonoscopy in October, with her last one performed in October 2019. She is considering options for her next colonoscopy, including staying within the [facility] system. Mounika is currently taking fexofenadine for allergies, which she started yesterday. She is also on hydroxychloroquine and sulfasalazine, prescribed by her doll wig hackler, Dr. Mccurdy. She takes vitamins regularly. She denies any issues with bowel movements and reports making bran muffins to maintain regularity. 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 She is currently dealing with a jury duty notice and is seeking an excuse due to her caregiving responsibilities. She has no other family in town to assist with her daughter's care. PAST MEDICAL HISTORY Diagnosis Date Allergic rhinitis, cause unspecified Allergic rhinitis Allergy to dogs Cat allergies Climacteric 09/13/2012 Female stress incontinence Stress incontinence ARSEN (obstructive sleep apnea) 2010 Dr. Montes De Oca Osteopenia 03/05/[address] Arboleda Seasonal allergies Snoring Trigger finger Trigger finger, right ring finger 04/23/2011 Unspecified asthma(493.90) Vaginal atrophy 09/13/2012 Current Outpatient Medications Medication Sig hydrOXYchloroQUINE (PLAQUENIL) 200 mg tablet Take 1.5 tablets by mouth once daily. sulfaSALAzine (AZULFIDINE) 500 mg tablet TAKE 2 TABLETS BY MOUTH TWICE A DAY calcium carbonate/vitamin D3 (CALCIUM 600 + D,3, ORAL) Take by mouth. MULTI-VITAMIN ORAL Take by mouth. dexAMETHasone sodium phosphate (DECADRON) 4 mg/mL injection 4 mg as needed (for iontophoresis therapy). Please dispense 3 cc syringe and blunt tip needle to draw up medication for physical therapy iotonphoresis tx. No current facility-administered medications for this visit. ALLERGIES Allergen Reactions Cats Itching Only certain types of cats. Dogs Hives Only certain types of dogs. Seasonal Allergies FAMILY HISTORY Problem Relation Age of Onset other (downs syndrome) Daughter Hypertension Mother Heart Mother cad chf Asthma Mother Social History Tobacco Use Smoking status: Never Smokeless tobacco: Never Substance Use Topics Alcohol use: Yes Comment: Occassional Drug use: No Review of Systems Objective BP 132/72 Pulse 75 Resp 16 Wt 67.6 kg (149 lb) LMP 01/12/2008 BMI 24.99 kg/m? Last 5 Encounter Wt Readings: Date: Wt: 09/13/2024 67.6 kg (149 lb) 06/20/2024 68 kg (149 lb 14.6 oz) 12/21/2023 67.6 kg (149 lb) 09/11/2023 66 kg (145 lb 9.6 oz) 06/03/2023 62.1 kg (137 lb) No waist measurement recorded Estimated body mass index is 24.99 kg/m? as calculated from the following: Height as of 06/20/24: 164.5 cm (5' 4.75). Weight as of this encounter: 67.6 kg (149 lb). Last 5 Encounter BP Readings: Date: BP: 09/13/2024 132/72 06/20/2024 139/84 12/21/2023 123/78 09/11/2023 116/78 06/03/2023 110/72 Physical Exam Vitals reviewed. Constitutional: Appearance: She is well-developed. HENT: Head: Normocephalic and atraumatic. Right Ear: External ear normal. Left Ear: External ear normal. Nose: Nose normal. Eyes: Conjunctiva/sclera: Conjunctivae normal. Neck: Thyroid: No thyromegaly. Cardiovascular: Rate and Rhythm: Normal rate and regular rhythm. Pulses: Normal pulses. Heart sounds: Normal heart sounds. No murmur heard. No friction ru (more content not included)... [facility] 09-13-2024 History of Present illness Narrative Images from the original note were not included. This note was created using Where [employer] Been[employer]. Subjective Mounika Linares is a 69 year old female. HISTORY Mounika Linares is a 69 year old lady here for yearly exam and follow up appointment. Mounika Linares is a 69-year-old female presenting for a Medicare Annual Wellness Visit. Mounika reports overall good health and well-being. She engages in moderate to strenuous exercise approximately 3 days per week for about 20 minutes each session. She consumes alcohol about once a week with dinner, typically having one drink per occasion, and denies consuming six or more drinks on a single occasion. She denies feelings of imbalance, recent falls, or concerns about sexual function, though she notes a lower libido. She denies feelings of anxiety, anger, irritability, loneliness, isolation, or thoughts of self-harm. She follows a diet rich in fruits, vegetables, whole grains, and fiber. She is independent in activities of daily living, including cooking, swallowing, bathing, and grooming, and follows safety precautions. She denies smoking, hearing difficulties, or vision problems, though she mentions potential cataract surgery in the future. Mounika is up to date on her flu vaccination and has scheduled her next flu shot. She declines further COVID-19 vaccinations. She has advanced directives in place. She is due for a colonoscopy in October, with her last one performed in October 2019. She is considering options for her next colonoscopy, including staying within the [facility] system. Mounika is currently taking fexofenadine for allergies, which she started yesterday. She is also on hydroxychloroquine and sulfasalazine, prescribed by her doll wig hackler, Dr. Mccurdy. She takes vitamins regularly. She denies any issues with bowel movements and reports making bran muffins to maintain regularity. 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 She is currently dealing with a jury duty notice and is seeking an excuse due to her caregiving responsibilities. She has no other family in town to assist with her daughter's care. PAST MEDICAL HISTORY Diagnosis Date Allergic rhinitis, cause unspecified Allergic rhinitis Allergy to dogs Cat allergies Climacteric 09/13/2012 Female stress incontinence Stress incontinence ARSEN (obstructive sleep apnea) 2010 Dr. Montes De Oca Osteopenia 03/05/[address] Arboleda Seasonal allergies Snoring Trigger finger Trigger finger, right ring finger 04/23/2011 Unspecified asthma(493.90) Vaginal atrophy 09/13/2012 Current Outpatient Medications Medication Sig hydrOXYchloroQUINE (PLAQUENIL) 200 mg tablet Take 1.5 tablets by mouth once daily. sulfaSALAzine (AZULFIDINE) 500 mg tablet TAKE 2 TABLETS BY MOUTH TWICE A DAY calcium carbonate/vitamin D3 (CALCIUM 600 + D,3, ORAL) Take by mouth. MULTI-VITAMIN ORAL Take by mouth. dexAMETHasone sodium phosphate (DECADRON) 4 mg/mL injection 4 mg as needed (for iontophoresis therapy). Please dispense 3 cc syringe and blunt tip needle to draw up medication for physical therapy iotonphoresis tx. No current facility-administered medications for this visit. ALLERGIES Allergen Reactions Cats Itching Only certain types of cats. Dogs Hives Only certain types of dogs. Seasonal Allergies FAMILY HISTORY Problem Relation Age of Onset other (downs syndrome) Daughter Hypertension Mother Heart Mother cad chf Asthma Mother Social History Tobacco Use Smoking status: Never Smokeless tobacco: Never Substance Use Topics Alcohol use: Yes Comment: Occassional Drug use: No Review of Systems Objective BP 132/72 Pulse 75 Resp 16 Wt 67.6 kg (149 lb) LMP 01/12/2008 BMI 24.99 kg/m Last 5 Encounter Wt Readings: Date: Wt: 09/13/2024 67.6 kg (149 lb) 06/20/2024 68 kg (149 lb 14.6 oz) 12/21/2023 67.6 kg (149 lb) 09/11/2023 66 kg (145 lb 9.6 oz) 06/03/2023 62.1 kg (137 lb) No waist measurement recorded Estimated body mass index is 24.99 kg/m as calculated from the following: Height as of 06/20/24: 164.5 cm (5' 4.75). Weight as of this encounter: 67.6 kg (149 lb). Last 5 Encounter BP Readings: Date: BP: 09/13/2024 132/72 06/20/2024 139/84 12/21/2023 123/78 09/11/2023 116/78 06/03/2023 110/72 Physical Exam Vitals reviewed. Constitutional: Appearance: She is well-developed. HENT: Head: Normocephalic and atraumatic. Right Ear: External ear normal. Left Ear: External ear normal. Nose: Nose normal. Eyes: Conjunctiva/sclera: Conjunctivae normal. Neck: Thyroid: No thyromegaly. Cardiovascular: Rate and Rhythm: Normal rate and regular rhythm. Pulses: Normal pulses. Heart sounds: Normal heart sounds. No murmur heard. No friction rub. No gallop. Pulmonary: Effort: Pulmonary effort is normal. Breath sounds: Normal breath sounds. Abdominal: General: Bowel sounds are normal. There is no distension. Palpations: Abdomen is soft. There is no mass. Tenderness: There is no abdominal tenderness. Musculoskeletal: General: No deformity. Normal range of motion. Right lower leg: No edema. Left lower leg: No edema. Lymphadenopathy: Cervical: No cervical adenopathy. Skin: General: Skin is warm and dry. Coloration: Skin is not jaundiced or pale. Findings: No rash. Neurological: General: No focal deficit present. Mental Status: She is alert and oriented to person, place, and time. Cranial Nerves: No cranial nerve deficit. Sensory: No sensory deficit. Motor: No abnormal muscle tone. Coordination: Coordination normal. Deep Tendon Reflexes: Reflexes normal. Psychiatric: Attention and Perception: Attention and perception normal. Mood and Affect: Mood and affect normal. Speech: Speech normal. Behavior: Behavior normal. Thought Content: Thought content normal. Cognition and Memory: Cognition and memory normal. Judgment: Judgment normal. Latest Ref Rn 01/17/2013 08/10/2020 09/01/2024 Triglyceride <150 mg/dL 117 79 74 Cholesterol, Total <200 mg/dL 226 (H) 222 (H) 234 (H) HDL Cholesterol >39 mg/dL 67 60 57 VLDL Cholesterol <30 mg/dL 23 16 15 LDL Cholesterol <100 mg/dL 136 (H) 146 (H) 162 (H) Fasting Time hrs 12 11 12 TC:HDL Ratio <5.10 3.37 3.70 4.11 LDL:HDL Ratio <2.54 2.03 2.43 2.84 (H) Non HDL Cholesterol <130 mg/dL 159 162 (H) 177 (H) Legend: (H) High The 10-year ASCVD risk score (Princess DK, et al., 2019) is: 10.4% Values used to calculate the score: Age: 69 years Sex: Female Is Non- : No Diabetic: No Tobacco smoker: No Systolic Blood Pressure: 132 mmHg Is BP treated: No HDL Cholesterol: 57 mg/dL Total Cholesterol: 234 mg/dL Assessment and Plan Mounika Linares is a 69 year old female here for a Medicare wellness visit. Medicare Health Risk Assessment General Health Very good Exercise: Minutes/Day 20 min Exercise: Days/Week 3 days Alcohol: Daily Use 2-4 times a month Alcohol: Drinks/Day 1 or 2 Alcohol: 6 or more drinks Never Feel off balance No Concerns: Teeth/Dentures No Concerns: Sexual function No Troubled by feelings None of the above Frequency: Eating healthy diet Nearly every day ADLs requiring help None of the above Safety precautions in home/vehicle Yes Smoke, vape, chews tobacco No Difficulty hearing No Difficulty seeing No Current Providers Specialists: I have reviewed specialist-related care of the patient in the medical record. Outside specialists seen: [facility]--Dr. Jeremy Salazar Medical/Family history review Reviewed and updated problem list, medical/surgical/family/social history, medications, and allergies. Opioid use review Opioid Medications (last 90 days) No data to display Anxiety/Depression screening PHQ-2 Score: 0 (Lower risk for depression) BRENDON-2 Score: 0 (Lower risk for anxiety) Recommendation: no further intervention at this time Cognitive screening Mini Cog Score: 5 Cognitive screening reviewed and No further action needed (score 3-5). Functional Observation Was the patient's Timed Up & Go test unsteady or >= 12 seconds? No Advance Care Planning Surrogate decision maker and/or advance care plan documented Measurements BP 132/72 Pulse 75 Resp 16 Wt 67.6 kg (149 lb) LMP 01/12/2008 BMI 24.99 kg/m Vision Screening: Follows with optometry/ophthalmology Assessment/Plan Medicare annual wellness visit, subsequent () - Counseled on healthy diet and regular exercise - Fall avoidance information provided - Personalized prevention plan provided # Medicare annual wellness visit, subsequent () - Completed Medicare annual wellness visit. - Reviewed and updated health maintenance, including diet, exercise, and hydration. - Discussed fall prevention strategies. - Completed health risk assessment, including exercise frequency, alcohol consumption, and dietary habits. - No issues with balance, dental health, or sexual function reported. - No assistance needed with ADLs. - Advised to continue following safety precautions. - No hearing or vision difficulties reported, although patient mentioned potential need for cataract surgery. - Patient follows with thread winder Dr. Kvng Salazar. - Advised to schedule colonoscopy after October 2024; recommended Dr. John Calvo at [place] for the procedure. - Patient has advanced directives in place. # Allergic rhinitis, unspecified seasonality, unspecified trigger (J30.9) - Symptoms consistent with allergic rhinitis; initiated fexofenadine. - Advised to continue fexofenadine as needed. # Osteopenia of multiple sites (M85.89) - Continue current management. # Screening for depression (Z13.31) # Encounter for screening examination for other mental health and behavioral disorders (Z13.39) - Completed PHQ-2 and PHQ-9 screenings; no signs of depression or anxiety. # Encounter for immunization (Z23) - Tetanus immunization due; advised to obtain at pharmacy. - Flu shot scheduled. - Declined COVID-19 vaccination. - Discussed RSV vaccine; recommended if patient is 75 or older or at higher risk. Chandana Beck MD documented in this encounter [facility] 09-02-2024 History of Present illness Narrative Radiology Service Progress Note PATIENT NAME: Mounika Linares DATE OF SERVICE: September 02, 2024 TIME: 8:51 AM PATIENT IDENTITY VERIFICATION COMPLETED USING TWO (2) IDENTIFIERS: Name and Date of confirmed by patient verbally. FALL SCREENING: Has the patient had 2 falls in the last year or 1 fall with injury or currently using an Ambulatory Assistive Device (Walker, Cane, Wheelchair, Crutches, etc.)? No PATIENT GENDER DATA: Female. status: : No status: NO. PATIENT RELEVANT IMPLANT DATA REVIEWED: Not Applicable PATIENT PRESENTS WITH AN IMPLANTABLE OR ATTACHED NEUROSCIENCE SPECIALIST: No RADIOLOGY DEPARTMENT: Bone Density PERIPHERAL IV DATA: Not applicable SIGNED BY: RT Braulio(R) September 02, 2024 8:51 AM documented in this encounter [facility] 09-02-2024 Note HNO ID: [id number] Author: RC HAMPTON RT(Arnaldo) Service: ? Author Type: Technologist Type: Progress Notes Filed: 09/02/2024 09:21 Note Text: Radiology Service Progress Note PATIENT NAME: Mounika Linares DATE OF SERVICE: September 02, 2024 TIME: 8:51 AM PATIENT IDENTITY VERIFICATION COMPLETED USING TWO (2) IDENTIFIERS: Name and Date of confirmed by patient verbally. FALL SCREENING: Has the patient had 2 falls in the last year or 1 fall with injury or currently using an Ambulatory Assistive Device (Walker, Cane, Wheelchair, Crutches, etc.)? No PATIENT GENDER DATA: Female. status: : No status: NO. PATIENT RELEVANT IMPLANT DATA REVIEWED: Not Applicable PATIENT PRESENTS WITH AN IMPLANTABLE OR ATTACHED NEUROSCIENCE SPECIALIST: No RADIOLOGY DEPARTMENT: Bone Density PERIPHERAL IV DATA: Not applicable SIGNED BY: RT Braulio(R) September 02, 2024 8:51 AM [facility] 06-20-2024 Instructions Dread Mccurdy MD - 06/20/2024 10:28 AM EDT Please have labs done SARAH documented in this encounter [facility] 06-20-2024 History of Present illness Narrative On 06/20/2024, I had the pleasure of seeing Mounika Linares at the [facility] for follow-up of seropositive RA HPI: To review, Mounika Linares is a 69 year old female in the past accompanied by Mohit and daughter Monica - 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 Developed swelling and pain of the bilateral wrists and hands (remembers the ventral MCPs, doesn't recall exactly where else in the hands). Saw PCP. Initially thought to have OA and tendon issues aggravated by osteoarthritis. Took NSAIDs PO. Saw chiropractor for a shoulder which improved. - In Aug, given prednisone x2 week course prescribed by PCP. With 100% improvement in pain while on prednisone which recurred after completion of it - In Sep, continued to have tenderness of the R wrist and R ventral MCPs. Worse with certain activities. Worse in the morning. Diagnosed with seropositive RA. Started on HCQ - In January, reported significant improvement in joints with HCQ, unable to quantify amount - In March, reported feeling better. HCQ and going to chiropractor have helped. - In Sep, reported having a good day. Had had more good than bad days. But had a couple of days of really bad spells. Recent prednisone resolved hand pain. Started SSZ - In December, reported 80% improvement in joints with SSZ - In May, reported doing pretty well. - Today, reports doing ok. Had a flare yesterday as she forgot to take her medications while everyone was over. - Kids and SOs over to her cottage recently, entertained everyone. Played games. - Last plaquenil eye exam normal in Oct PAST MEDICAL HISTORY No date: Allergic rhinitis, cause unspecified Comment: Allergic rhinitis No date: Allergy to dogs No date: Cat allergies 09/13/2012: Climacteric No date: Female stress incontinence Comment: Stress incontinence 2011: ARSEN (obstructive sleep apnea) Comment: Dr. Montes De Oca 03/05/2009: Osteopenia No date: Photosensitivity Comment: Diagnosed by Dr. Arboleda No date: Seasonal allergies No date: Snoring No date: Trigger finger 04/23/2011: Trigger finger, right ring finger No date: Unspecified asthma(493.90) 09/13/2012: Vaginal atrophy osteoarthritis PAST SURGICAL HISTORY No date: BIOPSY BREAST OPEN INCISIONAL Comment: Bx of breast, incisional No date: DELIVERY ONLY Comment: , low cervical 2009: COLONOSCOPY FLX DX W/COLLJ SPEC WHEN PFRMD Comment: Colonoscopy 11/07/2019: COLONOSCOPY FLX DX W/COLLJ SPEC WHEN PFRMD Comment: Colonoscopy May 08, 2010: PAST SURGICAL HISTORY OF Comment: SUSPENSION BLADDER SLING ALLERGIES Allergen Reactions Cats Itching Only certain types of cats. Dogs Hives Only certain types of dogs. Seasonal Allergies MEDICATIONS: Current Outpatient Medications Medication Sig sulfaSALAzine (AZULFIDINE) 500 mg tablet TAKE 2 TABLETS BY MOUTH TWICE A DAY hydrOXYchloroQUINE (PLAQUENIL) 200 mg tablet Take 1.5 tablets by mouth once daily. calcium carbonate/vitamin D3 (CALCIUM 600 + D,3, ORAL) Take by mouth. MULTI-VITAMIN ORAL Take by mouth. dexAMETHasone sodium phosphate (DECADRON) 4 mg/mL injection 4 mg as needed (for iontophoresis therapy). Please dispense 3 cc syringe and blunt tip needle to draw up medication for physical therapy iotonphoresis tx. (Patient not taking: Reported on 06/20/2024) No current facility-administered medications for this visit. FAMILY HISTORY Problem Relation Age of Onset other (downs syndrome) Daughter Hypertension Mother Heart Mother cad chf Asthma Mother SOCIAL HISTORY: Lives in [place] with spouse. 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 Son is in [place], works as a [employer] Tobacco use: None Alcohol use: 0-1 drink/week Drug use: None REVIEW OF SYSTEMS: reviewed 08/08 systems, as above PHYSICAL EXAM: VITALS: Blood pressure 139/84, pulse 75, temperature 36.4 C (97.6 F), temperature source Temporal, height 164.5 cm (5' 4.75), weight 68 kg (149 lb 14.6 oz), last menstrual period 01/12/2008. CONSTITUTIONAL: Well-appearing, in NAD. SKIN: No rash. No sclerodactyly, calcinosis, telangiectasias, digital ulcers, or skin thickening. EYES: No scleral icterus or conjunctivitis ENT and Mouth: External ears normal. Nares normal. RESPIRATORY: Normal breath sounds, clear to auscultation. CARDIOVASCULAR: Regular rate and rhythm, no murmurs or rubs EXTREMITIES/LYMPH: No edema bilaterally NEURO: Awake, alert and oriented, Normal gait MUSCULOSKELETAL: JOINT APPEARANCE: Redness of the R MCPs RANGE OF MOTION: Able to fully close fists SWOLLEN JOINTS/SYNOVITIS: Slight synovitis of the R MCPs TENDER JOINTS: Tenderness to palpation of the R wrist and R 1st-5th MCPs *Sep Widespread Pain Index: 1 (0-19) Symptoms Severity Scale: 0 (0-12) WPI>7 and SS Scale>5 OR WPI 3-6 and SS Scale >9 consistent with fibromyalgia LABORATORY: Latest Ref Rng 02/08/2024 WBC 3.70 - 11.00 k/uL 5.02 RBC 3.90 - 5.20 m/uL 4.40 Hemoglobin 11.5 - 15.5 g/dL 13.3 Platelet Count 150 - 400 k/uL 256 MPV 9.0 - 12.7 fL 9.8 Absolute nRBC <0.01 k/uL <0.01 Creatinine 0.58 - 0.96 mg/dL 0.78 eGFR >=60 mL/min/1.73m 82 ALT 7 - 38 U/L 21 AST 13 - 35 U/L 25 Component Latest Ref Rng & Units 10/11/2021 Hep B Core Ab, Total Negative Negative Hep C Antibody IA Negative Negative Hep B Surface Ag Negative Negative Hep B Surface Ab, Qual Negative Negative CCP Antibody, IgG <20 Units >250 (H) Rheumatoid Factor <16 IU/mL 27 (H) WSR 0 - 20 mm/hr 5 CRP <0.9 mg/dL <0.3 *February positive CCP 44.3 (<5) and positive SNEHA 1:160 speckled with unremarkable wbc 4.1, hgb 13.6, plt 231, alt, ast, cr, rf, sm, junior project manager, ssa, ssb and dna Component Latest Ref Rng & Units 08/10/2020 Free T3 2.3 - 4.1 pg/mL 2.9 TSH 0.270 - 4.200 uU/mL 1.740 Free T4 0.9 - 1.7 ng/dL 1.3 STUDIES: *Nov DEXA- Osteopenia in the lumbar spine and bilateral femoral necks. LUMBAR SPINE: The bone mineral density from L1 through L4 is 0.829 grams per square centimeter which yields a T-score of -2.0. There has been an 11.8% interval decrease in bone mineral density. LEFT HIP: The bone mineral density of the total region of the hip is 0.864 grams per square centimeter which yields a T-score of -0.6. There has been a 5.2% interval decrease in bone mineral density. LEFT FEMORAL NECK: The bone mineral density of the femoral neck is 0.641 grams per square centimeter which yields a T-score of -1.9. There has been a 1.1% interval decrease in bone mineral density. RIGHT HIP: The bone mineral density of the total region of the hip is 0.855 grams per square centimeter which yields a T-score of -0.7. RIGHT FEMORAL NECK: The bone mineral density of the femoral neck is 0.638 grams per square centimeter which yields a T-score of -1.9. 10-year Fracture Risk (FRAX): Major osteoporotic fracture risk 10% Hip fracture risk 1.6% *Sep xray hands- Mild degenerative changes. *January CXR- no active disease *Oct xray R hand- Suggestion of a lucency through the neck of the navicular which could be due to a fracture either remote or acute. IMPRESSION and PLAN: 1. Seropositive nonerosive RA: Completely prednisone-responsive wrist and MCP pain/swelling in the setting of CCP positivity. HCQ and SSZ with improvement. Recovering from a flare due to missing medication - Continue HCQ 300mg/day along with routine ophthalmology to monitor for potential toxicity (last normal Oct) - Continue SSZ 2g/day along with routine labs every 3 months, due now. Reminder provided. Notify of results via [facility] - She defers a steroid course for now, advised NSAIDs prn for a couple of days if needed 2. Bilateral knee pain: Likely osteoarthritis - Given referral to PT in the past 3. R 1st MTP pain/stiffness: Likely OA. Inserts have helped - Continue podiatry management 4. Osteopenia: - Continue PCP monitoring/management 5. General health maintenance: - Completed the covid vaccination series in December, moderna. Sep. Aug - Continue follow-up with PCP for routine health maintenance and malignancy screening Follow-up in 6 & 18 months with Collin and 12 months with me or sooner if needed. Patient was instructed to call if any questions or concerns. Thank you for allowing me to participate in the care of your patient. Dread Mccurdy MD documented in this encounter [facility] 04-21-2024 Miscellaneous Notes Patient has been identified by name and date of : Yes RX INSTRUCTIONS: Patient aware RX will be sent to pharmacy. No need to notify patient. LAST APPOINTMENT: 06/03/2023 UPCOMING APPOINTMENT: 06/20/2024 LABS: Hemoglobin (g/dL) Date Value 02/08/2024 13.3 10/11/2021 13.2 Hematocrit (%) Date Value 02/08/2024 41.3 10/11/2021 39.7 WBC (k/uL) Date Value 02/08/2024 5.02 10/11/2021 5.44 Platelet Count (k/uL) Date Value 02/08/2024 256 10/11/2021 241 AST Date Value Ref Range Status 02/08/2024 25 13 - 35 U/L Final ALT Date Value Ref Range Status 02/08/2024 21 7 - 38 U/L Final Creatinine Date Value Ref Range Status 02/08/2024 0.78 0.58 - 0.96 mg/dL Final No results found for: URICACID Eric Ureña MA Patient has been identified by name and date of : Yes, Provider Mccurdy Patient phones for refill(s): Requested Prescriptions Pending Prescriptions Disp Refills sulfaSALAzine (AZULFIDINE) 500 mg tablet 360 tablet 0 Sig: TAKE 2 TABLETS BY MOUTH TWICE A DAY Date of last office visit in primary care: Visit date not found Date of next office visit in primary care: Visit date not found Please advise. Thank you. Leonor Tavarez. documented in this encounter [facility] 04-21-2024 Telephone encounter Note Patient has been identified by name and date of : Yes RX INSTRUCTIONS: Patient aware RX will be sent to pharmacy. No need to notify patient. LAST APPOINTMENT: 06/03/2023 UPCOMING APPOINTMENT: 06/20/2024 LABS: Hemoglobin (g/dL) Date Value 02/08/2024 13.3 10/11/2021 13.2 Hematocrit (%) Date Value 02/08/2024 41.3 10/11/2021 39.7 WBC (k/uL) Date Value 02/08/2024 5.02 10/11/2021 5.44 Platelet Count (k/uL) Date Value 02/08/2024 256 10/11/2021 241 AST Date Value Ref Range Status 02/08/2024 25 13 - 35 U/L Final ALT Date Value Ref Range Status 02/08/2024 21 7 - 38 U/L Final Creatinine Date Value Ref Range Status 02/08/2024 0.78 0.58 - 0.96 mg/dL Final No results found for: URICACID Eric Ureña MA [facility] 04-21-2024 Telephone encounter Note Patient has been identified by name and date of : Yes, Provider Charlotte Patient phones for refill(s): Requested Prescriptions Pending Prescriptions Disp Refills sulfaSALAzine (AZULFIDINE) 500 mg tablet 360 tablet 0 Sig: TAKE 2 TABLETS BY MOUTH TWICE A DAY Date of last office visit in primary care: Visit date not found Date of next office visit in primary care: Visit date not found Please advise. Thank you. Leonor Tavarez. [facility] 02-07-2024 Instructions Chandana Beck MD - 02/07/2024 3:52 PM EDT BONE MINERAL DENSITY PATIENT INSTRUCTIONS ======== Bone mineral density testing measures the amount of calcium in certain parts of your bones. This information determines how strong your bones are. The test is used to detect osteoporosis, a disease in which the bone's mineral content and density are low, increasing a person's risk of fractures. The lumbar spine (lower back) and the hip are the skeletal sites usually examined. For the test, remember that: 1. You cannot take this test if you are . 2. Eat a normal diet on the day of the test. 3. Take your medications as you normally would. 4. DO NOT take calcium supplements (such as Tums) for 24 hours before the test. 5. On the day of the test, leave valuables (jewelry or credit cards) at home. 6. The test should be performed prior to oral, rectal or IV contrast studies, or at least 7 days after any of these studies. For the test, you may be asked to wear a hospital gown. You will lie on your back, on a padded table, in a comfortable position. Generally, you can resume your usual activities immediately. documented in this encounter [facility] 02-07-2024 History of Present illness Narrative Also due for bone density since done in 2021 and showed osteopenia. Ordered so could do when has mammogram if wants to. documented in this encounter [facility] 02-02-2024 Miscellaneous Notes Patient has been notified of message below and verbalized understanding. Percy Mortensen MA Please advise the patient that she should have refills for both medications at her pharmacy. Please remind her that she is due for labs. Requested Prescriptions Refused Prescriptions Disp Refills hydrOXYchloroQUINE (PLAQUENIL) 200 mg tablet 135 tablet 1 Sig: Take 1.5 tablets by mouth once daily. Refused By: COLLIN GAN Reason for Refusal: A Refill not appropriate sulfaSALAzine (AZULFIDINE) 500 mg tablet 360 tablet 0 Sig: TAKE 2 TABLETS BY MOUTH TWICE A DAY Refused By: COLLIN GAN Reason for Refusal: A Refill not appropriate Collin Gan APRN.SCOOTER Most recent Rheumatology visit: 12/21/2023 (with Collin Gan) Upcoming Rheumatology Appointments - Next 365 Days Visit Type Date Time Department [facility] 06/20/2024 10:00 AM [facility] Last Ophthalmology Check for Plaquenil (Hydroxychloroquine) 11/19/2023-No Plaquenil Toxicity noted CBC: Latest Ref Rng & Units 10/06/2023 10/28/2023 CBC WBC 3.70 - 11.00 k/uL 5.41 5.94 Hemoglobin 11.5 - 15.5 g/dL 12.7 13.5 Hematocrit 36.0 - 46.0 % 39.8 42.1 Platelet Count 150 - 400 k/uL 271 286 Vitamin D: None on file in the last 6 months LFT: None on file in the last 6 months Hepatic Function: Creatinine: Latest Ref Rng & Units 10/06/2023 10/28/2023 Creatinine Creatinine 0.58 - 0.96 mg/dL 0.84 0.94 ESR/CRP: None on file in the last 6 months Uric Acid: None on file in the last 6 months Open Standing (Multiple Instance) Lab Orders Remain Interval Expires Ordered Last Rel. CREATININE BLD [SQCRET] 12/3006/03/24 06/03/23 10/28/23 Auth. provider: Dread Mccurdy MD Assoc. diagnoses: Encounter for long-term (current) use of medications ALT/SGPT [SQALT] 12/3006/03/24 06/03/23 10/28/23 Auth. provider: Dread Mccurdy MD Assoc. diagnoses: Encounter for long-term (current) use of medications AST/SGOT BLD [SQAST] 12/3006/03/24 06/03/23 10/28/23 Auth. provider: Dread Mccurdy MD Assoc. diagnoses: Encounter for long-term (current) use of medications CBC [SQCBC] 12/3006/02/24 06/03/23 10/28/23 Auth. provider: Dread Mccurdy MD Assoc. diagnoses: Encounter for long-term (current) use of medications Open Future (Single Instance) Lab Orders Expected Expires Ordered LIPID PANEL BASIC [SQLIPB] 09/11/24 12/11/24 09/11/23 Auth. provider: Chandana Beck MD Assoc. diagnoses: Elevated LDL cholesterol level Patient has been identified by name and date of : Yes Requested Prescriptions Pending Prescriptions Disp Refills hydrOXYchloroQUINE (PLAQUENIL) 200 mg tablet 135 tablet 1 Sig: Take 1.5 tablets by mouth once daily. sulfaSALAzine (AZULFIDINE) 500 mg tablet 360 tablet 0 Sig: TAKE 2 TABLETS BY MOUTH TWICE A DAY RX INSTRUCTIONS: Patient aware RX will be sent to pharmacy. No need to notify patient. Sheridan Zamorano documented in this encounter [facility] 12-25-2023 History of Present illness Narrative FOLLOW UP PODIATRIC OFFICE VISIT Chief Complaint: This 68 year old female who presents for follow up:R forefoot pain Patient has been doing the following since last visit: met pads, hoka shoes, powersteps. Hasn't started ionto yet but would like to. PAIN EVALUATION 12/25/2023 1013 Pain Level: 2 Pain Location: Foot-Right Description: Sore Duration Amount of Time: 4 Duration Units: Years Frequency: Intermittent Intervention/Comfort measure: Relaxation;Reposition No results found for: HBA1C PCP: Chandana Beck MD PAST MEDICAL HISTORY Diagnosis Date Allergic rhinitis, cause unspecified Allergic rhinitis Allergy to dogs Cat allergies Climacteric 09/13/2012 Female stress incontinence Stress incontinence ARSEN (obstructive sleep apnea) 2010 Dr. Montes De Oca Osteopenia 03/05/[address] Arboleda Seasonal allergies Snoring Trigger finger Trigger finger, right ring finger 04/23/2011 Unspecified asthma(493.90) Vaginal atrophy 09/13/2012 Current Outpatient Medications Medication Sig hydrOXYchloroQUINE (PLAQUENIL) 200 mg tablet Take 1.5 tablets by mouth once daily. sulfaSALAzine (AZULFIDINE) 500 mg tablet TAKE 2 TABLETS BY MOUTH TWICE A DAY calcium carbonate/vitamin D3 (CALCIUM 600 + D,3, ORAL) Take by mouth. MULTI-VITAMIN ORAL Take by mouth. dexAMETHasone sodium phosphate (DECADRON) 4 mg/mL injection 4 mg as needed (for iontophoresis therapy). Please dispense 3 cc syringe and blunt tip needle to draw up medication for physical therapy iotonphoresis tx. No current facility-administered medications for this visit. ALLERGIES Allergen Reactions Cats Itching Only certain types of cats. Dogs Hives Only certain types of dogs. Seasonal Allergies PAST SURGICAL HISTORY Procedure Laterality Date BIOPSY BREAST OPEN INCISIONAL Bx of breast, incisional DELIVERY ONLY , low cervical COLONOSCOPY FLX DX W/COLLJ SPEC WHEN PFRMD 2008 Colonoscopy COLONOSCOPY FLX DX W/COLLJ SPEC WHEN PFRMD 11/07/2019 Colonoscopy PAST SURGICAL HISTORY OF May 08, 2010 SUSPENSION BLADDER SLING Physical Exam: OBJECTIVE: Constitutional: Pt is a well developed 68 year old female who is alert, oriented, cooperative and in no apparent distress. Eyes: Following during examination. No redness or drainage. Respiratory: RR normal and nonlabored. Even breathing. No evidence of distress. Psychology: Patient is engaged during conversation. Normal affect and mood. Does not appear depressed or anxious. NVSI unchanged from previous visit. Dermatological: Nails 1-5 b/l are normal. Webspaces clean and dry 1-4 b/l. Skin appears well hydrated and supple. good color, texture, turgor. No open lesions present. No callosities present. Musculoskeletal/Orthopaedic: Patient has mild pain to palpation of R foot IMS 3,4 and sub 4 ASSESSMENT: Bursitis of intermetatarsal bursa of right foot (primary encounter diagnosis) Capsulitis of foot, right Rheumatoid arthritis involving right foot with positive rheumatoid factor (hcc) PLAN: 1. History and physical examination completed today. 2. Continue met pad using under powerstep 3. Rocker shoes. 4. She is going to do iontophoresis. 5. RTC PRN. Maribell Haas DPM, DABPM, FACFAS Pager: [phone] [facility] and [facility] locations documented in this encounter [facility] 10-08-2023 History of Present illness Narrative Episode Visit Count: 5 Therapist That Will Accept/Oversee The Plan Of Care: Boris Mccoy PT Start of Care Date: 08/13/23 Onset Date: 08/13/21 Plan of Care Certification Date: 09/11/23 Next Certification Due Date: 10/16/23 Patient Identified by Name and Date of : Yes REHABILITATION AND SPORTS THERAPY PHYSICAL THERAPY TREATMENT NOTE ASSESSMENT: Mounika Linares tolerated the session with no issues. She demonstrated good tolerance to all manual therapy techniques performed this session. The patient will continue to benefit from ongoing skilled physical therapy to progress toward set goals. PLAN FOR NEXT VISIT: PN SUBJECTIVE: The foot is still not totally right. But the big toe is feeling better which is fascinating. Pain: Post Treatment Pain Post Treatment Pain Level: 3 Post Treatment Pain Location: Foot - Right OBJECTIVE MEASURES WITH LEVEL OF FUNCTION: Tender along the spring ligament and flexor hallucis tendon TREATMENT: Manual Therapy: 1: STM push to tolerance along intrinsic musculature of the arch 2: Big toe ext stretch 3 x 60 sec 3: Plantar splay x 20 4: Ankle distraction and hold 2 x 15 sec 5: STM along flexor hallucis tendon Skilled Intervention: Manual skills to improve joint mobility, ROM, and decrease pain. Utilized anatomy knowledge of the therapist, and assessment of patient's response to intervention. Billing Manual TherapyTreatment Minutes: 27 Skilled Treatment Time Minutes (timed and untimed codes): 27 Total Session Time (minutes): 27 Session Start Time : 1502 Session Stop Time : 1529 Boris Mccoy PT documented in this encounter [facility] 09-22-2023 History of Present illness Narrative Episode Visit Count: 4 Therapist That Will Accept/Oversee The Plan Of Care: Boris Mccoy PT Start of Care Date: 08/13/23 Onset Date: 08/13/21 Plan of Care Certification Date: 09/11/23 Next Certification Due Date: 10/16/23 Patient Identified by Name and Date of : Yes REHABILITATION AND SPORTS THERAPY PHYSICAL THERAPY TREATMENT NOTE ASSESSMENT: Mounika Linares tolerated the session with no issues. She demonstrated good tolerance. The patient will continue to benefit from ongoing skilled physical therapy to progress toward set goals. PLAN FOR NEXT VISIT: MT as needed. Foot intrinsic strengthening SUBJECTIVE: Feels that the foot is maybe a little better. Has not been sleeping the best lately. Pain: Pain Pain Level: 4 Pain Location: Foot - Right Post Treatment Pain Post Treatment Pain Location: Foot - Right OBJECTIVE MEASURES WITH LEVEL OF FUNCTION: TREATMENT: Therapeutic Exercise: 1: Toe flexor stretch standing with hands on the wall 3 x 30 seconds Skilled Intervention: Patient was educated in proper exercise technique and purpose for exercises. Manual Therapy: 1: STM push to tolerance along intrinsic musculature of the arch 2: Manual stretching of the digitd of the R foot 4 x 30 sec 3: Plantar splay 4: Ankle distraction and hold 2 x 15 sec Skilled Intervention: Manual skills to improve joint mobility, ROM, and decrease pain. Utilized anatomy knowledge of the therapist, and assessment of patient's response to intervention. Billing Therapeutic Exercise Treatment Minutes: 3 Manual TherapyTreatment Minutes: 36 Skilled Treatment Time Minutes (timed and untimed codes): 39 Total Session Time (minutes): 39 Session Start Time : 832 Session Stop Time : 911 Boris Mccoy PT documented in this encounter [facility] 09-11-2023 History of Present illness Narrative Episode Visit Count: 3 Therapist That Will Accept/Oversee The Plan Of Care: Boris Mccoy PT Start of Care Date: 08/13/23 Onset Date: 08/13/21 Plan of Care Certification Date: 09/11/23 Next Certification Due Date: 10/16/23 Patient Identified by Name and Date of : Yes REHABILITATION AND SPORTS THERAPY PHYSICAL THERAPY PROGRESS REPORT PLAN OF CARE UPDATE: Assessment: Mounika Linares demonstrates difficulty with standing, walking, stair negotiation, and lifting. She has progressed toward goals. Patient continues to present with impairments in ADL's, independence in exercise, strength, and tissue tenderness that interfere with walking in the community, stair negotiation, standing, heavy exertion, physical activities . Current prognosis is Good due to: current objective clinical presentation . She will benefit from continued skilled therapy services to meet the updated goals for this plan of care as noted below. I am accepting this patient being transferred from [place] due to this location being closer to home. Goals for Episode of Care: created on 08/13/23 through 11/11/23 Patient to be able to walk >2 miles without foot pain - Not met, will continue [place] in home exercise program. - Met so far Patient will decrease pain rating by 2 points to meet minimal clinical important difference for numeric pain rating scale. - Minimal progression, will continue Patient will demonstrate increase in gluteal and ankle stability strength to >4/5 during manual muscle testing in order to improve function for moderate to heavy functional tasks. - Not met, will continue Perform all ambulation without pain. - Not met, will continue Patient Goals: Be able to walk > 1 mile. Patient Goals: Be able to walk > 1 mile. Planned Interventions, Frequency, and Duration: 1x every other week, 4 weeks Total Number of Visits Planned: 2 Patient to be seen for Therapeutic exercise (43204), Neuromuscular re-education (75760), Manual therapy (07665), Therapeutic activities (82303), Self-snf management (53768), Gait Training (42535), Aquatic PT ([id number]), Patient/Family/Caregiver Education, Body Mechanics Training, Functional training, General Conditioning PLAN FOR NEXT VISIT: Plantar splay. Progress foot intrinsic strengthening SUBJECTIVE: Pain in the foot still that has not madeimprovement yet. Patient Goals: Be able to walk > 1 mile. Functional Limitations: walking in the community, stair negotiation, standing, heavy exertion, physical activities Prior Level of Function: Independent without limitations Intake Information: Prescription present Previous Treatment: Ice , Pain meds Falls Interview: No positive findings with falls interview Pain: Pain Pain Level: 5 Pain Location: Foot - Right Description: Aching Frequency: Intermittent, With movement PROMIS Scales Higher is Better 09/10/2023 08/12/2023 06/03/2023 Phys Func - Score 47 (within normal limits) 46 (within normal limits) 48 (within normal limits) Phys Func - Percentile 38 % 34 % 42 % Self-Eff Symptom - Score 41 (Average) 39 (Low) - Self-Eff Symptom - Percentile 18 % 14 % - T-scores: mean of general population = 50. 5 points is clinically meaningfully difference Percentiles provide an indication of how the patient's score ranks in relation to the general population. Higher percentile rankings indicate better function/quality of life. 50th percentile is the average of the general population and indicates half of respondents had a worse score. OBJECTIVE MEASURES WITH LEVEL OF FUNCTION: LE AROM R Ankle Dorsiflexion: 10 Degrees R Ankle Plantar Flexion: 55 Degrees R Ankle Inversion: 45 R Ankle Eversion: 45 L Ankle Dorsiflexion: 15 Degrees L Ankle Plantar Flexion: 55 Degrees L Ankle Inversion: 40 L Ankle Eversion: 45 LE Flexibility Flexibility: Gastrocnemius Flexibility R Gastrocnemius Flexibility: WNL L Gastrocnemius Flexibility: WNL LE Strength R Hip Extension: 4/5 R Hip Flexion (L2): 5/5 R Hip ABduction: 4-/5 R Knee Extension (L3): 5/5 R Knee Flexion: 5/5 R Ankle Dorsiflexion (L4): 5/5 R Ankle Plantar Flexion: 5/5 R Ankle Inversion: 4+/5 R Ankle Eversion: 4+/5 L Hip Extension: 4+/5 L Hip ABduction: 4-/5 Gait Gait Observation: Normal gait TREATMENT: Therapeutic Exercise: 1: Reviewed HEP for proper form Skilled Intervention: Patient was educated in proper exercise technique and purpose for exercises. Provided written instruction for home exercise program to facilitate proper performance and compliance. Manual Therapy: 1: All objective measures taken this session 2: Taught pt how to perform plantar splay leaning forward in chair 3: Plantar splay performed by this PT x 20 Skilled Intervention: Manual skills to improve joint mobility, ROM, and decrease pain. Utilized anatomy knowledge of the therapist, and assessment of patient's response to intervention. Billing Therapeutic Exercise Treatment Minutes: 5 Manual TherapyTreatment Minutes: 33 Skilled Treatment Time Minutes (timed and untimed codes): 33 Total Session Time (minutes): 38 Session Start Time : 1149 Session Stop Time : 1227 Boris Mccoy PT documented in this encounter [facility] 09-11-2023 History of Present illness Narrative This note was created using Where I've Beenriter. Subjective HISTORY Mounika Linares is a 68 year old lady here for pre-op evaluation (at time of scheduled yearly exam and follow up appointment) as requested by Dr. Granaods. Mounika Linares has surgery scheduled on 09/25/23 for OD Probe and Irrigation with stent and OD canalicular repair for Epiphora due to insufficiency drainage at [facility] in [place]. Reviewed requirements on form from [facility] and she does not need any labs, ECG or CXR since does not meet criteria for needing these tests. Just needs H&P within 30 days of surgery. Following with Dr. Haas (adoption manager). Will do the iontophoresis patches for right foot. PAST MEDICAL HISTORY Diagnosis Date Allergic rhinitis, cause unspecified Allergic rhinitis Allergy to dogs Cat allergies Climacteric 09/13/2012 Female stress incontinence Stress incontinence ARSEN (obstructive sleep apnea) 2010 Dr. Montes De Oca Osteopenia 03/05/[address] Arboleda Seasonal allergies Snoring Trigger finger Trigger finger, right ring finger 04/23/2011 Unspecified asthma(493.90) Vaginal atrophy 09/13/2012 Current Outpatient Medications Medication Sig hydrOXYchloroQUINE (PLAQUENIL) 200 mg tablet Take 1.5 tablets by mouth once daily. sulfaSALAzine (AZULFIDINE) 500 mg tablet TAKE 2 TABLETS BY MOUTH TWICE A DAY calcium carbonate/vitamin D3 (CALCIUM 600 + D,3, ORAL) Take by mouth. MULTI-VITAMIN ORAL Take by mouth. dexAMETHasone sodium phosphate (DECADRON) 4 mg/mL injection 4 mg as needed (for iontophoresis therapy). Please dispense 3 cc syringe and blunt tip needle to draw up medication for physical therapy iotonphoresis tx. No current facility-administered medications for this visit. ALLERGIES Allergen Reactions Cats Itching Only certain types of cats. Dogs Hives Only certain types of dogs. Seasonal Allergies FAMILY HISTORY Problem Relation Age of Onset other (downs syndrome) Daughter Hypertension Mother Heart Mother cad chf Asthma Mother Social History Tobacco Use Smoking status: Never Smokeless tobacco: Never Substance Use Topics Alcohol use: Yes Comment: Occassional Drug use: No Review of Systems Constitutional: Negative. HENT: Negative. Eyes: See HPI--needing surgery Respiratory: Negative. Cardiovascular: Negative. Gastrointestinal: Negative. Endocrine: Negative. Genitourinary: Negative. Musculoskeletal: On Plaquenil for rheumatoid arthritis Skin: Negative. Allergic/Immunologic: Mild seasonal allergies Neurological: Positive for dizziness (Vertigo--not new; will follow up with ENT; able to function okay; needs to be careful with change of position). Negative for tremors, seizures, syncope, facial asymmetry, speech difficulty, weakness, light-headedness, numbness and headaches. Hematological: Negative. Psychiatric/Behavioral: Negative. Objective BP 116/78 Pulse 69 Temp 37.1 C (98.7 F) Resp 18 Ht 165 cm (5' 4.96) Wt 66 kg (145 lb 9.6 oz) LMP 01/12/2008 SpO2 97% BMI 24.26 kg/m Physical Exam Vitals reviewed. Constitutional: Appearance: She is well-developed. HENT: Head: Normocephalic and atraumatic. Right Ear: External ear normal. Left Ear: External ear normal. Nose: Nose normal. Eyes: Conjunctiva/sclera: Conjunctivae normal. Neck: Thyroid: No thyromegaly. Cardiovascular: Rate and Rhythm: Normal rate and regular rhythm. Pulses: Normal pulses. Heart sounds: Normal heart sounds. No murmur heard. No friction rub. No gallop. Pulmonary: Effort: Pulmonary effort is normal. Breath sounds: Normal breath sounds. Abdominal: General: Bowel sounds are normal. There is no distension. Palpations: Abdomen is soft. There is no mass. Tenderness: There is no abdominal tenderness. Musculoskeletal: General: No deformity. Normal range of motion. Lymphadenopathy: Cervical: No cervical adenopathy. Skin: General: Skin is warm and dry. Coloration: Skin is not jaundiced or pale. Findings: No rash. Neurological: General: No focal deficit present. Mental Status: She is alert and oriented to person, place, and time. Cranial Nerves: No cranial nerve deficit. Sensory: No sensory deficit. Motor: No abnormal muscle tone. Coordination: Coordination normal. Deep Tendon Reflexes: Reflexes normal. Psychiatric: Attention and Perception: Attention and perception normal. Mood and Affect: Mood and affect normal. Speech: Speech normal. Behavior: Behavior normal. Thought Content: Thought content normal. Cognition and Memory: Cognition normal. Judgment: Judgment normal. Component Latest Ref Rng & Units 04/16/2023 07/31/2023 08/24/2023 WBC 3.70 - 11.00 k/uL 4.74 5.49 4.95 RBC 3.90 - 5.20 m/uL 4.18 4.32 4.10 Hemoglobin 11.5 - 15.5 g/dL 12.9 13.3 12.6 Hematocrit 36.0 - 46.0 % 39.6 40.0 38.8 MCV 80.0 - 100.0 fL 94.7 92.6 94.6 MCH 26.0 - 34.0 pg 30.9 30.8 30.7 MCHC 30.5 - 36.0 g/dL 32.6 33.3 32.5 RDW-CV 11.5 - 15.0 % 12.0 12.0 11.9 Platelet Count 150 - 400 k/uL 268 251 258 MPV 9.0 - 12.7 fL 9.6 9.1 9.5 Absolute nRBC <0.01 k/uL <0.01 <0.01 <0.01 Albumin 3.9 - 4.9 g/dL 4.6 Bilirubin, Total 0.2 - 1.3 mg/dL 0.3 Bilirubin, Conjug <0.2 mg/dL <0.2 Alkaline Phosphatase 34 - 123 U/L 69 AST 13 - 35 U/L 25 24 24 ALT 7 - 38 U/L 15 19 24 Protein, Total 6.3 - 8.0 g/dL 6.9 Creatinine 0.58 - 0.96 mg/dL 0.84 0.85 0.96 eGFR >=60 mL/min/1.73m 76 74 64 Assessment and Plan Encounter Diagnosis ICD-10-CM 1. Preop examination Z01.818 2. Elevated LDL cholesterol level E78.00 LIPID PANEL BASIC Lab next year 3. Benign paroxysmal positional vertigo, unspecified laterality H81.10 Will seee ENT Above issues addressed with patient. No medical contraindications to planned surgical procedure Having a surgery that is low risk for cardiac complications and she is at low risk for cardiac complications. She may proceed with planned surgical procedure. Will communicate results of preop evaluation to Dr. Granados via fax of this H&P and form from his office. Patient involved in shared decision making for management of medical issues. History and medications reviewed. Epic updated as needed Refills and/or prescriptions taken care of and meds adjusted as indicated after reviewed history, exam and labs. Health Maintenance reviewed. Updated record and/or ordered tests as recorded. Encouraged on efforts at healthy diet and regular exercise and adequate sleep. Continue follow up with Rheumatology for RA. Also adoption manager and as well as will be seeing ENT for vertigo. Chandana Beck MD documented in this encounter [facility] 09-03-2023 Miscellaneous Notes rx sent Pt calling stating she is switching from [facility] to [facility]. Please send refills to [facility]. Call pt only if problem in doing this. Tone Donato LPN documented in this encounter [facility] 08-26-2023 Miscellaneous Notes Addended by: DREAD MCCURDY on: 08/26/2023 10:08 AM Modules accepted: Orders Normal oct eye exam. Rx sent to [facility] Most recent Rheumatology visit: 06/03/2023 (with Dread Mccurdy) Recent Office Visits - This Specialty None Upcoming Rheumatology Appointments - Next 365 Days Visit Type Date Time Department [facility] 12/21/2023 9:20 AM [facility] 12/21/2023 10:30 AM [facility] 06/20/2024 10:00 AM [facility] Last Ophthalmology Check for Plaquenil (Hydroxychloroquine) Last OCT Macula Exam No resulted procedures found. Last Visual Field Exam No resulted procedures found. CBC: CBC Latest Ref Rng & Units 07/31/2023 08/24/2023 WBC 3.70 - 11.00 k/uL 5.49 4.95 HEMOGLOBIN 11.5 - 15.5 g/dL 13.3 12.6 HEMATOCRIT 36.0 - 46.0 % 40.0 38.8 PLATELETS 150 - 400 k/uL 251 258 ABS NEUT (ANC) 1.45 - 7.50 k/uL - - ABS LYMPH 1.00 - 4.00 k/uL - - Vitamin D: None on file in the last 6 months LFT: None on file in the last 6 months Hepatic Function: ALBUMIN Latest Ref Rng & Units 07/31/2023 08/24/2023 ALBUMIN 3.9 - 4.9 g/dL - - BILIRUBIN, TOTAL 0.2 - 1.3 mg/dL - - BILIRUBIN, CONJUG <0.2 mg/dL - - ALKALINE PHOSPHATASE 34 - 123 U/L - - AST 13 - 35 U/L 24 24 ALT 7 - 38 U/L 19 24 PROTEIN, TOTAL 6.3 - 8.0 g/dL - - Creatinine: Creatinine Latest Ref Rng & Units 07/31/2023 08/24/2023 CREAT 0.58 - 0.96 mg/dL 0.85 0.96 ESR/CRP: None on file in the last 6 months Uric Acid: None on file in the last 6 months Open Standing (Multiple Instance) Lab Orders Remain Interval Expires Ordered Last Rel. CREATININE BLD [SQCRET] 03/0106/03/24 06/03/23 08/24/23 Auth. provider: Dread Mccurdy MD Assoc. diagnoses: Encounter for long-term (current) use of medications ALT/SGPT [SQALT] 03/0106/03/24 06/03/23 08/24/23 Auth. provider: Dread Mccurdy MD Assoc. diagnoses: Encounter for long-term (current) use of medications AST/SGOT BLD [SQAST] 03/0106/03/24 06/03/23 08/24/23 Auth. provider: Dread Mccurdy MD Assoc. diagnoses: Encounter for long-term (current) use of medications CBC [SQCBC] 03/0106/02/24 06/03/23 08/24/23 Auth. provider: Dread Mccurdy MD Assoc. diagnoses: Encounter for long-term (current) use of medications Open Future (Single Instance) Lab Orders None documented in this encounter [facility] 08-24-2023 Miscellaneous Notes Patient is having minor eye surgery on September 25, 2023 to open her tear duct. Patient has a pre-op form that needs filled out and would like to have it completed at her annual appointment with Dr. Beck on 09/11/2023. Dr. Granados's office to fax form. Added note to 09/11/2023 OV. Patient said to call her at [phone] if any problems. Carole Aguero RN documented in this encounter [facility] 08-13-2023 Miscellaneous Notes Spoke to patient advised the PT order indicates Generalized PT with instructions on how to decreased inflammation and in addition instructions on iontophoresis. 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 She verbalized understanding and will reach out to make another PT appointment in [place], she will cotton picker operator prescription as well. PT calling in stating she had PT today in [place] she was under the impression that there was something to be done with a STEROID patch of some sort, you had stated they know how to put them on better, patient is asking if she misunderstood please advise. documented in this encounter [facility] 08-13-2023 History of Present illness Narrative Episode Visit Count: 1 Therapist That Will Accept/Oversee The Plan Of Care: Radhames Martinez Start of Care Date: 08/13/23 Onset Date: 08/13/21 Plan of Care Certification Date: 08/13/23 Next Certification Due Date: 11/11/23 Patient Identified by Name and Date of : Yes REHABILITATION AND SPORTS THERAPY PHYSICAL THERAPY EVALUATION PLAN OF CARE: Assessment: Mounika Linares presents with chief complaint of pain along plantar aspect of foot during push off phase gait, that interferes with walking in the community, stair negotiation, standing, heavy exertion, physical activities . She presents with impairments in joint mobility, overall function, strength, and tissue tenderness. PROMIS (Patient-Reported Outcomes Measurement Information System) scores were reviewed and physical function domain identified as within normal limits. Prognosis for therapy is Good due to: current objective clinical presentation . Demos well localized pain along plantar aspect of foot, demos poor overall hip and ankle stability during dynamic movement. She will benefit from skilled therapy services to meet the goals established for this plan of care as noted below. Goals for Episode of Care: created on 08/13/23 through 11/11/23 Patient to be able to walk >2 miles without foot pain Foster in home exercise program. Patient will decrease pain rating by 2 points to meet minimal clinical important difference for numeric pain rating scale. Patient will demonstrate increase in gluteal and ankle stability strength to >4/5 during manual muscle testing in order to improve function for moderate to heavy functional tasks. Perform all ambulation without pain. Patient Goals: Be able to walk > 1 mile. Planned Interventions, Frequency, and Duration: Current Frequency: 1x/week Duration: 4 weeks Total Number of Visits Planned: 4 Planned Treatment Interventions: Therapeutic exercise (41774), Neuromuscular re-education (66685), Manual therapy (55511), Therapeutic activities (24842), Self-snf management (73189), Gait Training (18824), Aquatic PT (97689), Patient/Family/Caregiver Education, Body Mechanics Training, Functional training, General Conditioning PLAN FOR NEXT VISIT: transfer to [facility] / to closer to home. Patient demonstrates good understanding of plan of care and treatment. The above goals and plan of care were discussed and agreed upon by patient/family. Transfer of Care Due To: Closer to Home Patient transferring care to: [facility] SUBJECTIVE: Pain in R foot and ankle, stating that the pain is located on the plantar aspect in the center of the foot. Stating that she is able to ambulate, but overtime it gets painful. Pain better with rest and decreased weight bearing. Pain worse during push off phase vs. heel strike. Patient Goals: Be able to walk > 1 mile. Functional Limitations: walking in the community, stair negotiation, standing, heavy exertion, physical activities Prior Level of Function: Independent without limitations Relevant History Past Relevant Medical Conditions: Rheumatoid Arthritis Past Relevant Surgical Conditions: (none) Employment: Retired Recreation / Current Exercise: Walking - 2 miles. Home Environment Patient Lives With: Family Home Type: Multi-Level Intake Information: Prescription present Previous Treatment: Ice , Pain meds Falls Interview: No positive findings with falls interview Pain: Pain Pain Level: 6 Pain Location: Foot - Right Description: Aching, Pressure Frequency: Intermittent, With movement Post Treatment Pain Post Treatment Pain Level: No Change Post Treatment Pain Location: Foot - Right Post Treatment Pain Description: Aching PROMIS Scales Higher is Better 08/12/2023 06/03/2023 01/05/2023 Phys Func - Score 46 (within normal limits) 48 (within normal limits) 47 (within normal limits) Phys Func - Percentile 34 % 42 % 38 % Self-Eff Symptom - Score 39 (Low) - - Self-Eff Symptom - Percentile 14 % - - T-scores: mean of general population = 50. 5 points is clinically meaningfully difference Percentiles provide an indication of how the patient's score ranks in relation to the general population. Higher percentile rankings indicate better function/quality of life. 50th percentile is the average of the general population and indicates half of respondents had a worse score. OBJECTIVE MEASURES WITH LEVEL OF FUNCTION: Ankle Observations R Ankle Palpation Tenderness: Tarsals R Foot Observations: Well localized point tenderness along the 3rd metarsal head with significant pain. LE AROM R Ankle Dorsiflexion: 10 Degrees R Ankle Plantar Flexion: 55 Degrees R Ankle Inversion: 45 R Ankle Eversion: 45 L Ankle Dorsiflexion: 1 Degrees L Ankle Plantar Flexion: 55 Degrees L Ankle Inversion: 40 L Ankle Eversion: 45 LE Flexibility Flexibility: Gastrocnemius Flexibility R Gastrocnemius Flexibility: normal L Gastrocnemius Flexibility: normal LE Joint Mobility R Talocrural Joint: WNL R Subtalar Joint: WNL R Midfoot: WNL R Forefoot: WNL R 1st Ray: WNL L Talocrural Joint: WNL L Subtalar Joint: WNL L Midfoot: WNL L Forefoot: WNL LE Strength R Hip Extension: 4/5 R Hip Flexion (L2): 5/5 R Hip ABduction: 4-/5 R Knee Extension (L3): 5/5 R Knee Flexion: 5/5 R Ankle Dorsiflexion (L4): 5/5 R Ankle Plantar Flexion: 5/5 R Ankle Inversion: 4+/5 R Ankle Eversion: 4+/5 R Great Toes Extension (L5, S1): 5/5 L Hip Extension: 4+/5 L Hip Flexion (L2): 5/5 L Hip ABduction: 4-/5 L Knee Extension (L3): 5/5 L Knee Flexion: 5/5 L Ankle Dorsiflexion (L4): 5/5 L Ankle Plantar Flexion: 5/5 L Ankle Inversion: 5/5 L Ankle Eversion: 5/5 L Great Toes Extension (L5, S1): 5/5 Functional Strength Functional Strength: Bilateral Heel Raise R Single Leg Heel Raise: Pain during motion, able to complete 10 Bilateral Heel Raise : 25 Gait Gait Observation: Normal gait, pain during push off phase. Education: Education Learning Preferences: Demonstration, Explanation, Performance, Printed Materials Barriers: None Learning/educational needs: Home exercise program, Plan of Care Education Provided: Yes, see treatment interventions for education provided Education Provided To: Patient Education Mode/Type: Demonstration, Literature/Printed Materials, Explanation/Discussion Response to Education/Teach Back: States/Identifies TREATMENT: PT Treatment Interventions: Therapeutic Exercise Evaluation Therapeutic Exercise: 1: Ankle Dorsiflexion/inversion/eversion PRE L4 - x15 each 2: Foot doming - x20 3: Towel Srunch - x15 Skilled Intervention: Patient was educated in proper exercise technique and purpose for exercises. Billing * Evaluation Low Complexity: 1 Unit Therapeutic Exercise Treatment Minutes: 15 Skilled Treatment Time Minutes (timed and untimed codes): 40 Total Session Time (minutes): 48 Session Start Time : 1042 Session Stop Time : 1130 Radhames Martinez PT documented in this encounter [facility] 08-03-2023 Miscellaneous Notes Patient has been identified by name and date of : Yes RX INSTRUCTIONS: Patient aware RX will be sent to pharmacy. No need to notify patient. PLQ eye exam done on 11/18/2022 at [facility] office. No evidence of PLQ toxicity. Patient is cleared to continue plaquenil. LAST APPOINTMENT: 06/03/2023 UPCOMING APPOINTMENT: 12/21/2023 LABS: Hemoglobin (g/dL) Date Value 07/31/2023 13.3 10/11/2021 13.2 Hematocrit (%) Date Value 07/31/2023 40.0 10/11/2021 39.7 WBC (k/uL) Date Value 07/31/2023 5.49 10/11/2021 5.44 Platelet Count (k/uL) Date Value 07/31/2023 251 10/11/2021 241 AST Date Value Ref Range Status 07/31/2023 24 13 - 35 U/L Final ALT Date Value Ref Range Status 07/31/2023 19 7 - 38 U/L Final Creatinine Date Value Ref Range Status 07/31/2023 0.85 0.58 - 0.96 mg/dL Final No results found for: URICACID Eric Gengo, MA Patient has been identified by name and date of : Yes Requested Prescriptions Pending Prescriptions Disp Refills hydrOXYchloroQUINE (PLAQUENIL) 200 mg tablet 135 tablet 1 Sig: Take 1.5 tablets by mouth once daily. sulfaSALAzine (AZULFIDINE) 500 mg tablet 360 tablet 1 Sig: TAKE 2 TABLETS BY MOUTH TWICE A DAY RX INSTRUCTIONS: Patient aware RX will be sent to pharmacy. No need to notify patient. Tanisha Wyatt documented in this encounter [facility] 07-31-2023 History of Present illness Narrative Radiology Service Progress Note PATIENT NAME: Mounika Linares DATE OF SERVICE: July 31, 2023 TIME: 11:16 AMName and Date of confirmed by patient verbally PATIENT IDENTITY VERIFICATION COMPLETED USING TWO (2) IDENTIFIERS: Name and Date of confirmed by patient verbally. FALL SCREENING: Has the patient had 2 falls in the last year or 1 fall with injury or currently using an Ambulatory Assistive Device (Walker, Cane, Wheelchair, Crutches, etc.)? No PATIENT GENDER DATA: Female. status: : No status: NO. PATIENT RELEVANT IMPLANT DATA REVIEWED: Not Applicable RADIOLOGY DEPARTMENT: General X-ray: Exam(s) Completed: Lower Extremity X-Ray(s): Foot, Right PERIPHERAL IV DATA: Not applicable SIGNED BY: RT JULIO(R) July 31, 2023 11:16 AM documented in this encounter [facility] 07-31-2023 Instructions Maribell Haas DPM - 07/31/2023 10:47 AM EDT Ice water baths My happy feet socks Yoga socks can be more comfortable to wear at night and can splint your toes while sleeping. Injinji or 5 toed socks can also keep toes splinted when in shoes. Shoes recommended include NewBalance, Aravon, Jp, Douglass, SAS. For your specific condition I recommend you get shoes with a wider toe box. Additionally, it would be important to get a shoe with a LYCRA upper or a MESH upper. Aetrex berries dress shoes or shoes that have a rounded toe box can be helpful for hammertoes. The best place to get shoes would be somewhere where they will measure your feet such as [employer] in [facility] or [place] or [employer] in [place]. [employer] shoe store in [place]. Update [employer] Instructions for Adhesive felt Metatarsal pads: Apply met pads behind the ball of the foot to offload pressure to the painful area. Met pad should be applied just behind and not underneath where the area of maximal pain is. The goal is to lift and separate the metatarsals and take pressure off the nerve or painful forefoot. DO NOT apply met pad right underneath the area of maximal pain, this will worsen your pain. Metatarsal pads can be found in most pharmacies in the foot section or online at [employer] or [employer] documented in this encounter [facility] 07-31-2023 History of Present illness Narrative Images from the original note were not included. FOLLOW UP PODIATRIC OFFICE VISIT Chief Complaint: This 68 year old female who presents for follow up: Patient has been doing the following since last visit: hoka tennis shoe, powersteps, met pads older now, spacers. Voltaren gel, stretching, glucosamine. Pain variable 5/10 at its worst. PAIN EVALUATION 07/27/2023 0911 Pain Level: 6 Pain Location: Foot-Right Description: Aching Duration Amount of Time: 2 Duration Units: Months Frequency: Continuous Intervention/Comfort measure: Cold;Pillow support;Other: See comment Comments: I use exercise too for stretching foot muscles No results found for: HBA1C PCP: Chandana Beck MD PAST MEDICAL HISTORY Diagnosis Date Allergic rhinitis, cause unspecified Allergic rhinitis Allergy to dogs Cat allergies Climacteric 09/13/2012 Female stress incontinence Stress incontinence ARSEN (obstructive sleep apnea) 2010 Dr. Montes De Oca Osteopenia 03/05/[address] Arboleda Seasonal allergies Snoring Trigger finger Trigger finger, right ring finger 04/23/2011 Unspecified asthma(493.90) Vaginal atrophy 09/13/2012 Current Outpatient Medications Medication Sig calcium carbonate/vitamin D3 (CALCIUM 600 + D,3, ORAL) Take by mouth. MULTI-VITAMIN ORAL Take by mouth. dexAMETHasone sodium phosphate (DECADRON) 4 mg/mL injection 4 mg as needed (for iontophoresis therapy). Please dispense 3 cc syringe and blunt tip needle to draw up medication for physical therapy iotonphoresis tx. hydrOXYchloroQUINE (PLAQUENIL) 200 mg tablet Take 1.5 tablets by mouth once daily. sulfaSALAzine (AZULFIDINE) 500 mg tablet TAKE 2 TABLETS BY MOUTH TWICE A DAY No current facility-administered medications for this visit. ALLERGIES Allergen Reactions Cats Itching Only certain types of cats. Dogs Hives Only certain types of dogs. Seasonal Allergies PAST SURGICAL HISTORY Procedure Laterality Date BIOPSY BREAST OPEN INCISIONAL Bx of breast, incisional DELIVERY ONLY , low cervical COLONOSCOPY FLX DX W/COLLJ SPEC WHEN PFRMD 2008 Colonoscopy COLONOSCOPY FLX DX W/COLLJ SPEC WHEN PFRMD 11/07/2019 Colonoscopy PAST SURGICAL HISTORY OF May 08, 2010 SUSPENSION BLADDER SLING Physical Exam: OBJECTIVE: Constitutional: Pt is a well developed 68 year old female who is alert, oriented, cooperative and in no apparent distress. Eyes: Following during examination. No redness or drainage. Respiratory: RR normal and nonlabored. Even breathing. No evidence of distress. Psychology: Patient is engaged during conversation. Normal affect and mood. Does not appear depressed or anxious. NVSI unchanged from previous visit. Dermatological: Nails 1-5 b/l are normal. Webspaces clean and dry 1-4 b/l. Skin appears well hydrated and supple. good color, texture, turgor. No open lesions present. No callosities present. Musculoskeletal/Orthopaedic: Patient has pain to palpation of IMS 3,4 and sub 4 R foot. +swelling. ASSESSMENT: Bursitis of intermetatarsal bursa of right foot (primary encounter diagnosis) Capsulitis of foot, right PLAN: 1. History and physical examination completed today. 2. XR repeat today. 3. Iontophoresis RX today with standard physical therapy. Goal to decrease inflammation. 4. Met pad RX today. 5. RTC following physical therapy Greater than 50% of todays 30 minute visit was spent with patient discussing diagnosis and treatment options Maribell Haas DPM, DABPM, FACFAS Pager: [phone] [facility] and [facility] locations documented in this encounter [facility] 06-03-2023 Instructions Dread Mccurdy MD - 06/03/2023 1:45 PM EDT Your next set of labs are due around 07/17/23. Lab orders are in the system so please have the blood draw done then. You don't need to be fasting for the blood draw. 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 Developed swelling and pain of the bilateral wrists and hands (remembers the ventral MCPs, doesn't recall exactly where else in the hands). Saw PCP. Initially thought to have OA and tendon issues aggravated by osteoarthritis. Took NSAIDs PO. Saw chiropractor for a shoulder which improved. - In Aug, given prednisone x2 week course prescribed by PCP. With 100% improvement in pain while on prednisone which recurred after completion of it - In Sep, continued to have tenderness of the R wrist and R ventral MCPs. Worse with certain activities. Worse in the morning. Diagnosed with seropositive RA. Started on HCQ - In January, reported significant improvement in joints with HCQ, unable to quantify amount - In March, reported feeling better. HCQ and going to chiropractor have helped. - In Sep, reported having a good day. Had had more good than bad days. But had a couple of days of really bad spells. Recent prednisone resolved hand pain. Started SSZ - In December, reported 80% improvement in joints with SSZ - Today, reports doing pretty well. - Went to [place] for vacation recently. Going on a bus trip to [place] in Sep - Last plaquenil eye exam normal in Oct PAST MEDICAL HISTORY Diagnosis Date Allergic rhinitis, cause unspecified Allergic rhinitis Allergy to dogs Cat allergies Climacteric 09/13/2012 Female stress incontinence Stress incontinence ARSEN (obstructive sleep apnea) 2010 Dr. Montes De Oca Osteopenia 03/05/[address] Arboleda Seasonal allergies Snoring Trigger finger Trigger finger, right ring finger 04/23/2011 Unspecified asthma(493.90) Vaginal atrophy 09/13/2012 osteoarthritis PAST SURGICAL HISTORY Procedure Laterality Date BIOPSY BREAST OPEN INCISIONAL Bx of breast, incisional DELIVERY ONLY , low cervical COLONOSCOPY FLX DX W/COLLJ SPEC WHEN PFRMD 2008 Colonoscopy COLONOSCOPY FLX DX W/COLLJ SPEC WHEN PFRMD 11/07/2019 Colonoscopy PAST SURGICAL HISTORY OF May 08, 2010 SUSPENSION BLADDER SLING ALLERGIES Allergen Reactions Cats Itching Only certain types of cats. Dogs Hives Only certain types of dogs. Seasonal Allergies MEDICATIONS: Current Outpatient Medications Medication Sig sulfaSALAzine (AZULFIDINE) 500 mg tablet TAKE 2 TABLETS BY MOUTH TWICE A DAY hydrOXYchloroQUINE (PLAQUENIL) 200 mg tablet TAKE 1 AND 1/2 TABLETS BY MOUTH ONCE DAILY No current facility-administered medications for this visit. FAMILY HISTORY Problem Relation Age of Onset other (downs syndrome) Daughter Hypertension Mother Heart Mother cad chf Asthma Mother SOCIAL HISTORY: Lives in [place] with spouse. 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 Son is in [place], works as a paper inserter-dating a [place] lady Tobacco use: None Alcohol use: 0-1 drink/week Drug use: None REVIEW OF SYSTEMS: reviewed 08/08 systems, as above PHYSICAL EXAM: VITALS: Blood pressure 110/72, pulse 81, temperature 36.7 C (98 F), temperature source Temporal, height 162.6 cm (5' 4), weight 62.1 kg (137 lb), last menstrual period 01/12/2008. CONSTITUTIONAL: Well-appearing, in NAD. SKIN: No rash. No sclerodactyly, calcinosis, telangiectasias, digital ulcers, or skin thickening. EYES: No scleral icterus or conjunctivitis ENT and Mouth: External ears normal. Nares normal. RESPIRATORY: Normal breath sounds, clear to auscultation. CARDIOVASCULAR: Regular rate and rhythm, no murmurs or rubs EXTREMITIES/LYMPH: No edema bilaterally NEURO: Awake, alert and oriented, Normal gait MUSCULOSKELETAL: JOINT APPEARANCE: No erythema or warmth of any upper or lower extremity joint. RANGE OF MOTION: Able to fully close fists and curl fingers bilaterally. SWOLLEN JOINTS/SYNOVITIS: No synovitis of any joint. TENDER JOINTS: None *Sep Widespread Pain Index: 1 (0-19) Symptoms Severity Scale: 0 (0-12) WPI>7 and SS Scale>5 OR WPI 3-6 and SS Scale >9 consistent with fibromyalgia LABORATORY: Component Latest Ref Rng & Units 04/16/2023 WBC 3.70 - 11.00 k/uL 4.74 RBC 3.90 - 5.20 m/uL 4.18 Hemoglobin 11.5 - 15.5 g/dL 12.9 Platelet Count 150 - 400 k/uL 268 MPV 9.0 - 12.7 fL 9.6 Absolute nRBC <0.01 k/uL <0.01 Albumin 3.9 - 4.9 g/dL 4.6 Bilirubin, Total 0.2 - 1.3 mg/dL 0.3 Bilirubin, Conjug <0.2 mg/dL <0.2 Alkaline Phosphatase 34 - 123 U/L 69 AST 13 - 35 U/L 25 ALT 7 - 38 U/L 15 Protein, Total 6.3 - 8.0 g/dL 6.9 Creatinine 0.58 - 0.96 mg/dL 0.84 eGFR >=60 mL/min/1.73m 76 Component Latest Ref Rng & Units 10/11/2021 Hep B Core Ab, Total Negative Negative Hep C Antibody IA Negative Negative Hep B Surface Ag Negative Negative Hep B Surface Ab, Qual Negative Negative CCP Antibody, IgG <20 Units >250 (H) Rheumatoid Factor <16 IU/mL 27 (H) WSR 0 - 20 mm/hr 5 CRP <0.9 mg/dL <0.3 *February positive CCP 44.3 (<5) and positive SNEHA 1:160 speckled with unremarkable wbc 4.1, hgb 13.6, plt 231, alt, ast, cr, rf, sm, junior project manager, ssa, ssb and dna Component Latest Ref Rng & Units 08/10/2020 Free T3 2.3 - 4.1 pg/mL 2.9 TSH 0.270 - 4.200 uU/mL 1.740 Free T4 0.9 - 1.7 ng/dL 1.3 STUDIES: *Nov DEXA- Osteopenia in the lumbar spine and bilateral femoral necks. LUMBAR SPINE: The bone mineral density from L1 through L4 is 0.829 grams per square centimeter which yields a T-score of -2.0. There has been an 11.8% interval decrease in bone mineral density. LEFT HIP: The bone mineral density of the total region of the hip is 0.864 grams per square centimeter which yields a T-score of -0.6. There has been a 5.2% interval decrease in bone mineral density. LEFT FEMORAL NECK: The bone mineral density of the femoral neck is 0.641 grams per square centimeter which yields a T-score of -1.9. There has been a 1.1% interval decrease in bone mineral density. RIGHT HIP: The bone mineral density of the total region of the hip is 0.855 grams per square centimeter which yields a T-score of -0.7. RIGHT FEMORAL NECK: The bone mineral density of the femoral neck is 0.638 grams per square centimeter which yields a T-score of -1.9. 10-year Fracture Risk (FRAX): Major osteoporotic fracture risk 10% Hip fracture risk 1.6% *Sep xray hands- Mild degenerative changes. *January CXR- no active disease *Oct xray R hand- Suggestion of a lucency through the neck of the navicular which could be due to a fracture either remote or acute. IMPRESSION and PLAN: 1. Seropositive nonerosive RA: Completely prednisone-responsive wrist and MCP pain/swelling in the setting of CCP positivity. HCQ and SSZ with improvement. Stable - Continue HCQ 300mg/day along with routine ophthalmology to monitor for potential toxicity (last normal Oct) - Continue SSZ 2g/day along with routine labs every 3 months, due Jun. Verbal and written reminders provided. Notify of results via [facility] 2. Bilateral knee pain: Likely osteoarthritis - Given referral to PT in the past 3. R 1st MTP pain/stiffness: Likely OA. Inserts have helped - Continue podiatry management 4. General health maintenance: - Completed the covid vaccination series in December, moderna. Sep. Aug - Continue follow-up with PCP for routine health maintenance and malignancy screening Follow-up in 6 months with Collin and 12 months with me or sooner if needed. Patient was instructed to call if any questions or concerns. Thank you for allowing me to participate in the care of your patient. Dread Mccurdy MD documented in this encounter [facility] 05-13-2023 Miscellaneous Notes The following approved medication requests have been transmitted electronically. Requested Prescriptions Signed Prescriptions Disp Refills sulfaSALAzine (AZULFIDINE) 500 mg tablet 360 tablet 0 Sig: TAKE 2 TABLETS BY MOUTH TWICE A DAY Authorizing Provider: COLLIN GAN APRN.SCOOTER Patient has been identified by name and date of : Yes RX INSTRUCTIONS: Patient aware RX will be sent to pharmacy. No need to notify patient. LAST APPOINTMENT: 01/07/2023 UPCOMING APPOINTMENT: 08/17/2023 LABS: Hemoglobin (g/dL) Date Value 04/16/2023 12.9 10/11/2021 13.2 Hematocrit (%) Date Value 04/16/2023 39.6 10/11/2021 39.7 WBC (k/uL) Date Value 04/16/2023 4.74 10/11/2021 5.44 Platelet Count (k/uL) Date Value 04/16/2023 268 10/11/2021 241 AST Date Value Ref Range Status 04/16/2023 25 13 - 35 U/L Final ALT Date Value Ref Range Status 04/16/2023 15 7 - 38 U/L Final Creatinine Date Value Ref Range Status 04/16/2023 0.84 0.58 - 0.96 mg/dL Final No results found for: URICACID Percy Mortensen MA documented in this encounter [facility] 04-16-2023 Miscellaneous Notes Patient is notified of message below and verbalized understanding of instructions. Eric Ureña MA Please advise the patient that she is due for labs. Short term script sent. The following approved medication requests have been transmitted electronically. Requested Prescriptions Signed Prescriptions Disp Refills sulfaSALAzine (AZULFIDINE) 500 mg tablet 120 tablet 0 Si TABLETS TWICE DAILY Authorizing Provider: COLLIN GAN APRN.SCOOTER Patient has been identified by name and date of : Yes RX INSTRUCTIONS: Patient aware RX will be sent to pharmacy. No need to notify patient. LAST APPOINTMENT: 01/07/2023 UPCOMING APPOINTMENT: 08/17/2023 LABS: Hemoglobin (g/dL) Date Value 01/06/2023 12.9 10/11/2021 13.2 Hematocrit (%) Date Value 01/06/2023 38.6 10/11/2021 39.7 WBC (k/uL) Date Value 01/06/2023 5.25 10/11/2021 5.44 Platelet Count (k/uL) Date Value 01/06/2023 275 10/11/2021 241 AST Date Value Ref Range Status 01/06/2023 26 13 - 35 U/L Final ALT Date Value Ref Range Status 01/06/2023 25 7 - 38 U/L Final Creatinine Date Value Ref Range Status 01/06/2023 0.87 0.58 - 0.96 mg/dL Final No results found for: URICACID Damari Prajapati RN Pt will be out of medication this weekend. Patient has been identified by name and date of : Yes Requested Prescriptions Pending Prescriptions Disp Refills sulfaSALAzine (AZULFIDINE) 500 mg tablet 360 tablet 0 Si TABLETS TWICE DAILY RX INSTRUCTIONS: Patient aware RX will be sent to pharmacy. No need to notify patient. Elsa Salazar [facility] documented in this encounter [facility] 03-02-2023 Miscellaneous Notes The following approved medication requests have been transmitted electronically. Requested Prescriptions Signed Prescriptions Disp Refills hydrOXYchloroQUINE (PLAQUENIL) 200 mg tablet 135 tablet 1 Sig: TAKE 1 AND 1/2 TABLETS BY MOUTH ONCE DAILY Authorizing Provider: COLLIN GAN APRN.FURNACE LINER Patient has been identified by name and date of : Yes RX INSTRUCTIONS: Patient aware RX will be sent to pharmacy. No need to notify patient. PLQ eye exam done on 11/18/2022 at [facility] Salazar OD office. No evidence of PLQ toxicity. Patient is cleared to continue plaquenil. LAST APPOINTMENT: 01/07/2023 UPCOMING APPOINTMENT: 05/05/2023 LABS: Hemoglobin (g/dL) Date Value 01/06/2023 12.9 10/11/2021 13.2 Hematocrit (%) Date Value 01/06/2023 38.6 10/11/2021 39.7 WBC (k/uL) Date Value 01/06/2023 5.25 10/11/2021 5.44 Platelet Count (k/uL) Date Value 01/06/2023 275 10/11/2021 241 AST Date Value Ref Range Status 01/06/2023 26 13 - 35 U/L Final ALT Date Value Ref Range Status 01/06/2023 25 7 - 38 U/L Final Creatinine Date Value Ref Range Status 01/06/2023 0.87 0.58 - 0.96 mg/dL Final No results found for: URICACID Percy Mortensen MA documented in this encounter [facility] 02-13-2023 Instructions Lyn Sewell APRN.CNS - 02/13/2023 10:04 AM EDT Check to see if your insurance covers Tdap vaccine and what location to get the vaccine -usually best covered at your local pharmacy where you get prescriptions filled documented in this encounter [facility] 02-13-2023 History of Present illness Narrative SUBJECTIVE: ADVANCE DIRECTIVE DISCUSSION due on 10/26/2022 DEPRESSION ASSESSMENT due on 10/26/2022 DTAP,TDAP,TD(2 - Td or Tdap) due on 12/24/2022 HPI Mounika Linares is a 67 year old female. PMH significant for ACTIVE PROBLEM LIST Osteopenia Arsen (Obstructive Sleep Apnea) Seropositive Rheumatoid Arthritis (Hcc) Seen by PCP 08/2022. Noted that she would be is seeing a hand specialist. Elbow strap discussed to help with medial epicondylitis. Osteopenia: BMD 11/2021 Osteopenia in the lumbar spine and bilateral femoral necks. Vitamin D/Calcium: chews 2 per day Weight bearing exercise: walking ARSEN: mild, not currently treating, treatments were worse than without RA: current treatments helping a lot. Rheumatology: Dr Charlotte valencia, last seen 03/2022. Collin Gan FURNACE LINER 12/2022. Continued on hydroxychloroquine. Referred to podiatry and ophthalmology. Seen by Dr. Haas 10/2022. Opthalmology: has had recent visit.Dilated exam. Dr Kvng Salazar Did see orthopedic doctor. Has seen seen Dr Haas podiatry. Mom is at [place], recently not doing well with an ER visit then bounced back to baseline. Review of Systems Constitutional: Negative. Respiratory: Negative. Cardiovascular: Negative. Musculoskeletal: Positive for arthralgias. Objective BP 110/62 Pulse 72 Resp 14 Wt 64 kg (141 lb) LMP 01/12/2008 BMI 23.68 kg/m Physical Exam Vitals and nursing note reviewed. Constitutional: Appearance: Normal appearance. HENT: Head: Normocephalic and atraumatic. Eyes: Conjunctiva/sclera: Conjunctivae normal. Neck: Thyroid: No thyromegaly or thyroid tenderness. Vascular: Normal carotid pulses. No carotid bruit or JVD. Cardiovascular: Rate and Rhythm: Normal rate and regular rhythm. Pulses: Carotid pulses are 2+ on the right side and 2+ on the left side. Radial pulses are 2+ on the right side and 2+ on the left side. Heart sounds: Normal heart sounds. Pulmonary: Effort: Pulmonary effort is normal. Breath sounds: Normal breath sounds. Abdominal: General: Bowel sounds are normal. Palpations: Abdomen is soft. Musculoskeletal: Cervical back: No muscular tenderness. Right lower leg: No edema. Left lower leg: No edema. Lymphadenopathy: Cervical: No cervical adenopathy. Skin: General: Skin is warm and dry. Neurological: General: No focal deficit present. Mental Status: She is alert and oriented to person, place, and time. ALLERGIES Allergen Reactions Cats Itching Only certain types of cats. Dogs Hives Only certain types of dogs. Seasonal Allergies Medication sulfaSALAzine (AZULFIDINE) 500 mg tablet 2 TABLETS TWICE DAILY predniSONE (DELTASONE) 10 mg tablet Take 30mg(3 tabs)/day x1 week, then 20mg (2 tabs)/day x1 week, then 10mg (1 tab)/day x1 week, then stop gabapentin (NEURONTIN) 100 mg capsule Take 100 mg by mouth three times daily. hydrOXYchloroQUINE (PLAQUENIL) 200 mg tablet TAKE 1 AND 1/2 TABLETS BY MOUTH ONCE DAILY PAST MEDICAL HISTORY Diagnosis Date Allergic rhinitis, cause unspecified Allergic rhinitis Allergy to dogs Cat allergies Climacteric 09/13/2012 Female stress incontinence Stress incontinence ARSEN (obstructive sleep apnea) 2010 Dr. Montes De Oca Osteopenia 03/05/[address] Arboleda Seasonal allergies Snoring Trigger finger Trigger finger, right ring finger 04/23/2011 Unspecified asthma(493.90) Vaginal atrophy 09/13/2012 Social History Tobacco Use Smoking status: Never Smokeless tobacco: Never Substance Use Topics Alcohol use: Yes Comment: Occassional Drug use: No Component Latest Ref Rng & Units 09/01/2022 12/12/2022 01/06/2023 WBC 3.70 - 11.00 k/uL 6.36 6.86 5.25 RBC 3.90 - 5.20 m/uL 4.33 4.59 4.30 Hemoglobin 11.5 - 15.5 g/dL 12.9 13.2 12.9 Hematocrit 36.0 - 46.0 % 39.3 41.9 38.6 MCV 80.0 - 100.0 fL 90.8 91.3 89.8 MCH 26.0 - 34.0 pg 29.8 28.8 30.0 MCHC 30.5 - 36.0 g/dL 32.8 31.5 33.4 RDW-CV 11.5 - 15.0 % 11.9 12.7 13.4 Platelet Count 150 - 400 k/uL 308 369 275 MPV 9.0 - 12.7 fL 10.1 9.8 9.3 Neut% % 55.7 Abs Neut (ANC) 1.45 - 7.50 k/uL 3.54 Lymph% % 30.0 Abs Lymph 1.00 - 4.00 k/uL 1.91 Hampton% % 8.6 Abs Hampton <0.87 k/uL 0.55 Eosin% % 4.6 Abs Eosin <0.46 k/uL 0.29 Baso% % 0.9 Abs Baso <0.11 k/uL 0.06 Immature Gran % % 0.2 IMMATURE GRANS (ABS) <0.10 k/uL <0.03 NRBC /100 WBC 0.0 Absolute nRBC <0.01 k/uL <0.01 <0.01 <0.01 DTYPE Auto Glucose 74 - 99 mg/dL 75 BUN 7 - 21 mg/dL 18 Creatinine 0.58 - 0.96 mg/dL 0.79 0.92 0.87 Sodium 136 - 144 mmol/L 142 Potassium 3.7 - 5.1 mmol/L 4.7 Chloride 97 - 105 mmol/L 105 CO2 22 - 30 mmol/L 26 Anion Gap 9 - 18 mmol/L 11 Calcium 8.5 - 10.2 mg/dL 10.2 eGFR >=60 mL/min/1.73m 82 68 73 Albumin 3.9 - 4.9 g/dL 4.4 4.6 4.4 Bilirubin, Total 0.2 - 1.3 mg/dL 0.3 0.2 0.2 Bilirubin, Conjug <0.2 mg/dL <0.2 <0.2 <0.2 Alkaline Phosphatase 34 - 123 U/L 98 91 81 AST 13 - 35 U/L 21 22 26 ALT 7 - 38 U/L 17 21 25 Protein, Total 6.3 - 8.0 g/dL 7.1 7.3 6.7 WSR 0 - 20 mm/hr 16 CRP <0.9 mg/dL 0.6 ASSESSMENT/PLAN: ASSESSMENT/PLAN: 1. Osteopenia of necks of both femurs - ICD9: 733.90, ICD10: M85.851, M85.852 (primary diagnosis) - Continue with Calcium and Vitamin D supplements and weight bearing exercise as tolerated 2. Encounter for immunization - ICD9: V03.89, ICD10: Z23 - TDAP VACCINE, AGE 7+ YR (ADACEL, BOOSTRIX) 3. ARSEN (obstructive sleep apnea) - ICD9: 327.23, ICD10: G47.33 She reports previously tried treatment but it did not work well for her. Currently not bothersome, managing. managing without treatment at this time 4. Seropositive rheumatoid arthritis (HCC) - ICD9: 714.0, ICD10: M05.9 Followed by rheumatology. Currently well controlled. 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 Developed swelling and pain of the bilateral wrists and hands (remembers the ventral MCPs, doesn't recall exactly where else in the hands). Saw PCP. Initially thought to have OA and tendon issues aggravated by osteoarthritis. Took NSAIDs PO. Saw chiropractor for a shoulder which improved. - In Aug, given prednisone x2 week course prescribed by PCP. With 100% improvement in pain while on prednisone which recurred after completion of it - In Sep, continued to have tenderness of the R wrist and R ventral MCPs. Worse with certain activities. Worse in the morning. Diagnosed with seropositive RA. Started on HCQ - In January, reported significant improvement in joints with HCQ, unable to quantify amount - In March, reported feeling better. HCQ and going to chiropractor have helped. - at [facility], reports having a good day today. Has had more good than bad days. But has a couple of days of really bad spells. Being careful with sugar intake. - Last week, had L groin pain around when she had a viral illness. Took a couple of doses of gabapentin which significantly helped. Hip pain emerged while on prednisone. Prednisone resolved hand pain. - Last plaquenil eye exam normal in Oct PAST MEDICAL HISTORY Diagnosis Date Allergic rhinitis, cause unspecified Allergic rhinitis Allergy to dogs Cat allergies Climacteric 09/13/2012 Female stress incontinence Stress incontinence ARSEN (obstructive sleep apnea) 2010 Dr. Montes De Oca Osteopenia 03/05/[address] Arboleda Seasonal allergies Snoring Trigger finger Trigger finger, right ring finger 04/23/2011 Unspecified asthma(493.90) Vaginal atrophy 09/13/2012 osteoarthritis PAST SURGICAL HISTORY Procedure Laterality Date BIOPSY BREAST OPEN INCISIONAL Bx of breast, incisional DELIVERY ONLY , low cervical COLONOSCOPY FLX DX W/COLLJ SPEC WHEN PFRMD 2008 Colonoscopy COLONOSCOPY FLX DX W/COLLJ SPEC WHEN PFRMD 11/07/2019 Colonoscopy PAST SURGICAL HISTORY OF May 08, 2010 SUSPENSION BLADDER SLING ALLERGIES Allergen Reactions Cats Itching Only certain types of cats. Dogs Hives Only certain types of dogs. Seasonal Allergies INTERVAL HISTORY She is here for follow up. She did not take the steroid course that was prescribed at the [facility]. She started SSZ after the [facility]. She tolerates it well. She reports 80% improvement of her joint symptoms with this. Pain is worst in the evening. She rarely takes ibuprofen or tylenol for pain. Sites of pain: no current pain Joint swelling: R 5th finger EMS: yes, lasting 60 minutes No recent infections. Tolerating meds. Answers submitted by the patient for this visit: Review of Systems Rheumatology (Submitted on 01/05/2023) Fever : No Recent Unintentional Weight Change: Yes Eye Pain: No Eye Redness: No Vision Disturbance: No Eye Dryness: No Nose Bleeds: No Sores in your Mouth: No Trouble Swallowing: Yes Dry Mouth: No Chest Pain: No Leg Swelling: No A Cough: No Shortness of Breath: No Pain with Breathing: No Heartburn: No Abdominal Pain: No Diarrhea: No Black Tarry Stools: No Blood in Urine: No Pain or Burning with Urination: No Joint Pain or Stiffness: Yes Muscle Weakness: Yes Muscle Aches: Yes Joint Swelling: Yes Morning Stiffness in Joints: Yes A Rash: No Skin Color Changes: No Hair Loss: No Nail Changes: No Headaches: No Numbness: No Memory Loss: No Swollen Glands: No Current Outpatient Medications Medication Sig sulfaSALAzine (AZULFIDINE) 500 mg tablet 2 TABLETS TWICE DAILY predniSONE (DELTASONE) 10 mg tablet Take 30mg(3 tabs)/day x1 week, then 20mg (2 tabs)/day x1 week, then 10mg (1 tab)/day x1 week, then stop (Patient not taking: Reported on 11/04/2022) gabapentin (NEURONTIN) 100 mg capsule Take 100 mg by mouth three times daily. hydrOXYchloroQUINE (PLAQUENIL) 200 mg tablet TAKE 1 AND 1/2 TABLETS BY MOUTH ONCE DAILY No current facility-administered medications for this visit. FAMILY HISTORY Problem Relation Age of Onset other (downs syndrome) Daughter Hypertension Mother Heart Mother cad chf Asthma Mother SOCIAL HISTORY: Lives in [place] with spouse. 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 Son is in [place], works as a paper inserter-dating a [place] lady Tobacco use: None Alcohol use: 0-1 drink/week Drug use: None PHYSICAL EXAM: BP 117/74 Pulse 88 Temp 36.4 C (97.6 F) (Temporal) Ht 164.3 cm (5' 4.7) Wt 64 kg (141 lb) LMP 01/12/2008 BMI 23.68 kg/m CONSTITUTIONAL: Well-appearing, in NAD. SKIN: No rash. No sclerodactyly, calcinosis, telangiectasias, digital ulcers, or skin thickening. EYES: No scleral icterus or conjunctivitis ENT and Mouth: External ears normal. RESPIRATORY: Normal breath sounds, clear to auscultation. CARDIOVASCULAR: Regular rate and rhythm, no murmurs or rubs EXTREMITIES/LYMPH: No edema bilaterally NEURO: Awake, alert and oriented, Normal gait MUSCULOSKELETAL: JOINT APPEARANCE: No erythema or warmth of any upper or lower extremity joint. RANGE OF MOTION: Able to fully close fists and curl fingers bilaterally. SWOLLEN JOINTS/SYNOVITIS: No synovitis of any joint. TENDER JOINTS: None *Sep Widespread Pain Index: 1 (0-19) Symptoms Severity Scale: 0 (0-12) WPI>7 and SS Scale>5 OR WPI 3-6 and SS Scale >9 consistent with fibromyalgia Labs reviewed and discussed with the patient: Labs from today are still in process. Component Latest Ref Rng & Units 12/12/2022 WBC 3.70 - 11.00 k/uL 6.86 RBC 3.90 - 5.20 m/uL 4.59 Hemoglobin 11.5 - 15.5 g/dL 13.2 Hematocrit 36.0 - 46.0 % 41.9 MCV 80.0 - 100.0 fL 91.3 MCH 26.0 - 34.0 pg 28.8 MCHC 30.5 - 36.0 g/dL 31.5 RDW-CV 11.5 - 15.0 % 12.7 Platelet Count 150 - 400 k/uL 369 MPV 9.0 - 12.7 fL 9.8 Absolute nRBC <0.01 k/uL <0.01 Albumin 3.9 - 4.9 g/dL 4.6 Bilirubin, Total 0.2 - 1.3 mg/dL 0.2 Bilirubin, Conjug <0.2 mg/dL <0.2 Alkaline Phosphatase 34 - 123 U/L 91 AST 13 - 35 U/L 22 ALT 7 - 38 U/L 21 Protein, Total 6.3 - 8.0 g/dL 7.3 Creatinine 0.58 - 0.96 mg/dL 0.92 eGFR >=60 mL/min/1.73m 68 Component Latest Ref Rng & Units 09/01/2022 WBC 3.70 - 11.00 k/uL 6.36 RBC 3.90 - 5.20 m/uL 4.33 Hemoglobin 11.5 - 15.5 g/dL 12.9 Platelet Count 150 - 400 k/uL 308 Creatinine 0.58 - 0.96 mg/dL 0.79 Sodium 136 - 144 mmol/L 142 Potassium 3.7 - 5.1 mmol/L 4.7 Chloride 97 - 105 mmol/L 105 CO2 22 - 30 mmol/L 26 Anion Gap 9 - 18 mmol/L 11 Calcium 8.5 - 10.2 mg/dL 10.2 eGFR >=60 mL/min/1.73m 82 Albumin 3.9 - 4.9 g/dL 4.4 Bilirubin, Total 0.2 - 1.3 mg/dL 0.3 Bilirubin, Conjug <0.2 mg/dL <0.2 Alkaline Phosphatase 34 - 123 U/L 98 AST 13 - 35 U/L 21 ALT 7 - 38 U/L 17 Protein, Total 6.3 - 8.0 g/dL 7.1 WSR 0 - 20 mm/hr 16 CRP <0.9 mg/dL 0.6 Component Latest Ref Rng & Units 10/11/2021 Hep B Core Ab, Total Negative Negative Hep C Antibody IA Negative Negative Hep B Surface Ag Negative Negative Hep B Surface Ab, Qual Negative Negative CCP Antibody, IgG <20 Units >250 (H) Rheumatoid Factor <16 IU/mL 27 (H) WSR 0 - 20 mm/hr 5 CRP <0.9 mg/dL <0.3 *February positive CCP 44.3 (<5) and positive SNEHA 1:160 speckled with unremarkable wbc 4.1, hgb 13.6, plt 231, alt, ast, cr, rf, sm, junior project manager, ssa, ssb and dna Component Latest Ref Rng & Units 08/10/2020 Free T3 2.3 - 4.1 pg/mL 2.9 TSH 0.270 - 4.200 uU/mL 1.740 Free T4 0.9 - 1.7 ng/dL 1.3 STUDIES: *Nov DEXA- Osteopenia in the lumbar spine and bilateral femoral necks. LUMBAR SPINE: The bone mineral density from L1 through L4 is 0.829 grams per square centimeter which yields a T-score of -2.0. There has been an 11.8% interval decrease in bone mineral density. LEFT HIP: The bone mineral density of the total region of the hip is 0.864 grams per square centimeter which yields a T-score of -0.6. There has been a 5.2% interval decrease in bone mineral density. LEFT FEMORAL NECK: The bone mineral density of the femoral neck is 0.641 grams per square centimeter which yields a T-score of -1.9. There has been a 1.1% interval decrease in bone mineral density. RIGHT HIP: The bone mineral density of the total region of the hip is 0.855 grams per square centimeter which yields a T-score of -0.7. RIGHT FEMORAL NECK: The bone mineral density of the femoral neck is 0.638 grams per square centimeter which yields a T-score of -1.9. 10-year Fracture Risk (FRAX): Major osteoporotic fracture risk 10% Hip fracture risk 1.6% *Sep xray hands- Mild degenerative changes. *January CXR- no active disease *Oct xray R hand- Suggestion of a lucency through the neck of the navicular which could be due to a fracture either remote or acute. IMPRESSION and PLAN: 1. Seropositive nonerosive RA: Completely prednisone-responsive wrist and MCP pain/swelling in the setting of CCP positivity. HCQ with improvement. Improved on SSZ. -continue SSZ, goal dose 2g/day. Potential side effects were explained including rash, GI upset, bone marrow suppression, and liver toxicity requiring routine lab monitoring. Literature regarding sulfasalazine was provided for review. Check labs every 3 months-next due 03/2023. Standing lab orders in place. Notify of results via Integrity Tracking. - Continue HCQ 300mg/day along with routine ophthalmology to monitor for potential toxicity (last normal Oct). - previously given a Rx for a 3-week prednisone taper to have on hand in case of a flare in the interim. -r/b/a of meds discussed 2. Bilateral knee pain: Likely osteoarthritis - Given referral to PT in the past 3. R 1st MTP pain/stiffness: Likely OA. Inserts have helped. - Continue podiatry management 4. General health maintenance: - Completed the covid vaccination series in December, moderna. Sep. Aug. - Continue follow-up with PCP for routine health maintenance and malignancy screening Follow-up in 4 months, or sooner if needed. Patient was instructed to call if any questions or concerns. Thank you for allowing me to participate in the care of your patient. I spent a total of 15 minutes on the date of the service which included preparing to see the patient, [id number] patient care, completing clinical documentation, performing a medically appropriate examination, ordering medications, tests, or procedures, and communicating results to the patient/family/caregiver. Collin Gan APRN.CNP documented in this encounter [facility] 01-05-2023 Instructions Collin Gan APRN.CNP - 01/05/2023 7:48 AM EDT Labs due 04/08/2023 and every 3 months documented in this encounter [facility] 12-26-2022 Miscellaneous Notes December 29, 2022 PID: [id number] Mounika Gonzalezjody [address] [place] [address] Dear Ms. Linares, We are pleased to inform you that the results of your recent breast imaging exam on 12/25/2022 are normal. Early detection of cancer is very important. We also understand recommendations regarding breast cancer screening are controversial. Please discuss with your primary care provider which strategy is best for you and whether a mammogram is right for you. Your imaging studies and report will be kept on file at [facility] as part of your permanent medical record and are available for your continuing care. Thank you for allowing us to help in meeting your health care needs. Sincerely, Dr. Jesus Interpreting Radiologist [facility] (Normal over 40) documented in this encounter [facility] 12-25-2022 History of Present illness Narrative Radiology Service Progress Note PATIENT NAME: Mounika Linares DATE OF SERVICE: December 25, 2022 TIME: 9:19 AM PATIENT IDENTITY VERIFICATION COMPLETED USING TWO (2) IDENTIFIERS: Name and Date of confirmed by patient verbally. FALL SCREENING: Has the patient had 2 falls in the last year or 1 fall with injury or currently using an Ambulatory Assistive Device (Walker, Cane, Wheelchair, Crutches, etc.)? No PATIENT GENDER DATA: Female. status: : No status: NO. PATIENT RELEVANT IMPLANT DATA REVIEWED: Not Applicable RADIOLOGY DEPARTMENT: Mammography PERIPHERAL IV DATA: Not applicable SIGNED BY: Mela Kaba December 25, 2022 9:19 AM documented in this encounter [facility] 12-12-2022 Miscellaneous Notes Patient is notified of message below and verbalized understanding of instructions. Eric Ureña MA Please advise the patient that she is due for labs. A refill for the SSZ will be sent pending the lab results. Thanks, Collin Gan APRN.SCOOTER LAST APPOINTMENT: 10/14/2022 UPCOMING APPOINTMENT: 01/07/2023 LABS: Hemoglobin (g/dL) Date Value 09/01/2022 12.9 10/11/2021 13.2 Hematocrit (%) Date Value 09/01/2022 39.3 10/11/2021 39.7 WBC (k/uL) Date Value 09/01/2022 6.36 10/11/2021 5.44 Platelet Count (k/uL) Date Value 09/01/2022 308 10/11/2021 241 AST Date Value Ref Range Status 09/01/2022 21 13 - 35 U/L Final ALT Date Value Ref Range Status 09/01/2022 17 7 - 38 U/L Final Creatinine Date Value Ref Range Status 09/01/2022 0.79 0.58 - 0.96 mg/dL Final No results found for: URICACID Percy Mortensen MA Patient following up on a message she said she left regarding the need for the following medication: sulfaSALAzine (AZULFIDINE) 500 mg tablet Patient is out of medication. Please assist. Preferred pharmacy: [facility], [facility] [place], [place]. documented in this encounter [facility] 11-19-2022 Nurse Note PLQ eye exam done on 11/18/2022 at [facility] OD office. No evidence of PLQ toxicity. Patient is cleared to continue plaquenil. Report sent for scanning. Eric Ureña MA documented in this encounter [facility] 11-04-2022 History of Present illness Narrative FOLLOW UP PODIATRIC OFFICE VISIT Chief Complaint: This 67 year old female who presents for follow up:multiple foot complaints. Now on Sulfasalazine which is making a big difference with her RA. Using [employer] tennis shoes with good success. Patient has been doing the following since last visit: met pads, tumeric, powersteps and shoes. Slides. All are helping. PAIN EVALUATION 11/04/2022 1005 Pain Level: 3 Pain Location: Foot-Right Description: Aching Duration Units: Unknown Frequency: Continuous Intervention/Comfort measure: Reposition;Relaxation No results found for: HBA1C PCP: Chandana Beck MD PAST MEDICAL HISTORY Diagnosis Date Allergic rhinitis, cause unspecified Allergic rhinitis Allergy to dogs Cat allergies Climacteric 09/13/2012 Female stress incontinence Stress incontinence ARSEN (obstructive sleep apnea) 2010 Dr. Montes De Oca Osteopenia 03/05/[address] Arboleda Seasonal allergies Snoring Trigger finger Trigger finger, right ring finger 04/23/2011 Unspecified asthma(493.90) Vaginal atrophy 09/13/2012 Current Outpatient Medications Medication Sig sulfaSALAzine (AZULFIDINE) 500 mg tablet 500mg once/day x1 week, then 500mg twice/day x1 wk, then 500mg every morning & 1000mg every evening x1wk, then 1000mg twice daily thereafter predniSONE (DELTASONE) 10 mg tablet Take 30mg(3 tabs)/day x1 week, then 20mg (2 tabs)/day x1 week, then 10mg (1 tab)/day x1 week, then stop (Patient not taking: Reported on 11/04/2022) gabapentin (NEURONTIN) 100 mg capsule Take 100 mg by mouth three times daily. hydrOXYchloroQUINE (PLAQUENIL) 200 mg tablet TAKE 1 AND 1/2 TABLETS BY MOUTH ONCE DAILY No current facility-administered medications for this visit. ALLERGIES Allergen Reactions Cats Itching Only certain types of cats. Dogs Hives Only certain types of dogs. Seasonal Allergies PAST SURGICAL HISTORY Procedure Laterality Date BIOPSY BREAST OPEN INCISIONAL Bx of breast, incisional DELIVERY ONLY , low cervical COLONOSCOPY FLX DX W/COLLJ SPEC WHEN PFRMD 2008 Colonoscopy COLONOSCOPY FLX DX W/COLLJ SPEC WHEN PFRMD 11/07/2019 Colonoscopy PAST SURGICAL HISTORY OF May 08, 2010 SUSPENSION BLADDER SLING Physical Exam: OBJECTIVE: Constitutional: Pt is a well developed 67 year old female who is alert, oriented, cooperative and in no apparent distress. Eyes: Following during examination. No redness or drainage. Respiratory: RR normal and nonlabored. Even breathing. No evidence of distress. Psychology: Patient is engaged during conversation. Normal affect and mood. Does not appear depressed or anxious. NVSI unchanged from previous visit. Dermatological: Nails 1-5 b/l are normal. Webspaces clean and dry 1-4 b/l. Skin appears well hydrated and supple. good color, texture, turgor. No open lesions present. No callosities present. Musculoskeletal/Orthopaedic: Patient has pain to palpation of IPJ R hallux. +pain 3rd IMS and sub 4 R. US: 07/28/22: IMPRESSION: MODERATE THIRD INTERMETATARSAL BURSITIS WITHOUT ORTEGA'S NEUROMA. MODERATE CAPSULITIS WITH HYPEREMIA OF THE FOURTH MTP JOINT. ASSESSMENT: Rheumatoid arthritis involving right foot with positive rheumatoid factor (hcc) (primary encounter diagnosis) Bursitis of right foot Neuroma Joint stiffness of toe of right foot Capsulitis of foot, right PLAN: 1. History and physical examination completed today. Overall doing better today. 2. Us reviewed today. 3. Continue shoes, insoles 4. Topical voltaren gel. 5. Ice or Glucosamine. 6. RTC PRN. Maribell Haas DPM, DABPM, FACFAS Pager: [phone] [facility] and [facility] locations documented in this encounter [facility] 10-14-2022 Instructions Dread Mccurdy MD - 10/14/2022 9:37 AM EST I've sent the prescription for sulfasalazine to your pharmacy. Please start sulfasalazine as follows: Take 1 tablet (500mg) once/day x1 week, then 1 tablet twice daily (500mg twice daily) x1 week, then 1 tablet in the morning/2 tablets in the evening (500mg every morning & 1000mg every evening) x1 week, then 2 tablets (1000mg) twice daily thereafter Please have monitoring labs done 3-4 weeks after starting sulfasalzine. The standing lab orders are in so you can just get them done at any [facility] lab facility. You don't need to fast for the labs. When you need the script refilled, please let me know. I start off with 30-day supplies at a time for the first 3 months. If labs remain stable during that period, I can change the prescription to 90-day supplies thereafter if you request doing so at that point. ___ Please take the prednisone with food in the morning and avoid any NSAID medications like ibuprofen while taking them. Acetaminophen, or tylenol, can be used while on prednisone as needed for pain. Side effects of prednisone can include an increased risk for infection, high blood pressure, insomnia, upset stomach, palpitations, higher blood sugar levels, irritability/mood changes and increased appetite. In order to optimize protection to any vaccines, please don't start the prednisone course until at least 2 weeks after the last vaccine and don't get a vaccine until at least 2 weeks after the last dose of prednisone has been taken. 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 Developed swelling and pain of the bilateral wrists and hands (remembers the ventral MCPs, doesn't recall exactly where else in the hands). Saw PCP. Initially thought to have OA and tendon issues aggravated by osteoarthritis. Took NSAIDs PO. Saw chiropractor for a shoulder which improved. - In Aug, given prednisone x2 week course prescribed by PCP. With 100% improvement in pain while on prednisone which recurred after completion of it - In Sep, continued to have tenderness of the R wrist and R ventral MCPs. Worse with certain activities. Worse in the morning. Diagnosed with seropositive RA. Started on HCQ - In January, reported significant improvement in joints with HCQ, unable to quantify amount - In March, reported feeling better. HCQ and going to chiropractor have helped. - Today, reports having a good day today. Has had more good than bad days. But has a couple of days of really bad spells. Being careful with sugar intake. - Last week, had L groin pain around when she had a viral illness. Took a couple of doses of gabapentin which significantly helped. Hip pain emerged while on prednisone. Prednisone resolved hand pain. - Last plaquenil eye exam normal in Oct PAST MEDICAL HISTORY Diagnosis Date Allergic rhinitis, cause unspecified Allergic rhinitis Allergy to dogs Cat allergies Climacteric 09/13/2012 Female stress incontinence Stress incontinence ARSEN (obstructive sleep apnea) 2010 Dr. Montes De Oca Osteopenia 03/05/[address] Arboleda Seasonal allergies Snoring Trigger finger Trigger finger, right ring finger 04/23/2011 Unspecified asthma(493.90) Vaginal atrophy 09/13/2012 osteoarthritis PAST SURGICAL HISTORY Procedure Laterality Date BIOPSY BREAST OPEN INCISIONAL Bx of breast, incisional DELIVERY ONLY , low cervical COLONOSCOPY FLX DX W/COLLJ SPEC WHEN PFRMD 2008 Colonoscopy COLONOSCOPY FLX DX W/COLLJ SPEC WHEN PFRMD 11/07/2019 Colonoscopy PAST SURGICAL HISTORY OF May 08, 2010 SUSPENSION BLADDER SLING ALLERGIES Allergen Reactions Cats Itching Only certain types of cats. Dogs Hives Only certain types of dogs. Seasonal Allergies MEDICATIONS: Current Outpatient Medications Medication Sig gabapentin (NEURONTIN) 100 mg capsule Take 100 mg by mouth three times daily. hydrOXYchloroQUINE (PLAQUENIL) 200 mg tablet TAKE 1 AND 1/2 TABLETS BY MOUTH ONCE DAILY No current facility-administered medications for this visit. FAMILY HISTORY Problem Relation Age of Onset other (downs syndrome) Daughter Hypertension Mother Heart Mother cad chf Asthma Mother SOCIAL HISTORY: Lives in [place] with spouse. 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 Son is in [place], works as a paper inserter-dating a [place] lady Tobacco use: None Alcohol use: 0-1 drink/week Drug use: None REVIEW OF SYSTEMS: reviewed 08/08 systems, as above PHYSICAL EXAM: VITALS: Blood pressure 125/72, pulse 65, temperature 36.2 C (97.1 F), temperature source Temporal, height 164.5 cm (5' 4.75), weight 63.5 kg (140 lb), last menstrual period 01/12/2008. CONSTITUTIONAL: Well-appearing, in NAD. SKIN: No rash. No sclerodactyly, calcinosis, telangiectasias, digital ulcers, or skin thickening. EYES: No scleral icterus or conjunctivitis ENT and Mouth: External ears normal. Nares normal. RESPIRATORY: Normal breath sounds, clear to auscultation. CARDIOVASCULAR: Regular rate and rhythm, no murmurs or rubs EXTREMITIES/LYMPH: No edema bilaterally NEURO: Awake, alert and oriented, Normal gait MUSCULOSKELETAL: JOINT APPEARANCE: No erythema or warmth of any upper or lower extremity joint. RANGE OF MOTION: Able to fully close fists and curl fingers bilaterally. SWOLLEN JOINTS/SYNOVITIS: No synovitis of any joint. TENDER JOINTS: None *Sep Widespread Pain Index: 1 (0-19) Symptoms Severity Scale: 0 (0-12) WPI>7 and SS Scale>5 OR WPI 3-6 and SS Scale >9 consistent with fibromyalgia LABORATORY: Component Latest Ref Rng & Units 09/01/2022 WBC 3.70 - 11.00 k/uL 6.36 RBC 3.90 - 5.20 m/uL 4.33 Hemoglobin 11.5 - 15.5 g/dL 12.9 Platelet Count 150 - 400 k/uL 308 Creatinine 0.58 - 0.96 mg/dL 0.79 Sodium 136 - 144 mmol/L 142 Potassium 3.7 - 5.1 mmol/L 4.7 Chloride 97 - 105 mmol/L 105 CO2 22 - 30 mmol/L 26 Anion Gap 9 - 18 mmol/L 11 Calcium 8.5 - 10.2 mg/dL 10.2 eGFR >=60 mL/min/1.73m 82 Albumin 3.9 - 4.9 g/dL 4.4 Bilirubin, Total 0.2 - 1.3 mg/dL 0.3 Bilirubin, Conjug <0.2 mg/dL <0.2 Alkaline Phosphatase 34 - 123 U/L 98 AST 13 - 35 U/L 21 ALT 7 - 38 U/L 17 Protein, Total 6.3 - 8.0 g/dL 7.1 WSR 0 - 20 mm/hr 16 CRP <0.9 mg/dL 0.6 Component Latest Ref Rng & Units 10/11/2021 Hep B Core Ab, Total Negative Negative Hep C Antibody IA Negative Negative Hep B Surface Ag Negative Negative Hep B Surface Ab, Qual Negative Negative CCP Antibody, IgG <20 Units >250 (H) Rheumatoid Factor <16 IU/mL 27 (H) WSR 0 - 20 mm/hr 5 CRP <0.9 mg/dL <0.3 *February positive CCP 44.3 (<5) and positive SNEHA 1:160 speckled with unremarkable wbc 4.1, hgb 13.6, plt 231, alt, ast, cr, rf, sm, junior project manager, ssa, ssb and dna Component Latest Ref Rng & Units 08/10/2020 Free T3 2.3 - 4.1 pg/mL 2.9 TSH 0.270 - 4.200 uU/mL 1.740 Free T4 0.9 - 1.7 ng/dL 1.3 STUDIES: *Nov DEXA- Osteopenia in the lumbar spine and bilateral femoral necks. LUMBAR SPINE: The bone mineral density from L1 through L4 is 0.829 grams per square centimeter which yields a T-score of -2.0. There has been an 11.8% interval decrease in bone mineral density. LEFT HIP: The bone mineral density of the total region of the hip is 0.864 grams per square centimeter which yields a T-score of -0.6. There has been a 5.2% interval decrease in bone mineral density. LEFT FEMORAL NECK: The bone mineral density of the femoral neck is 0.641 grams per square centimeter which yields a T-score of -1.9. There has been a 1.1% interval decrease in bone mineral density. RIGHT HIP: The bone mineral density of the total region of the hip is 0.855 grams per square centimeter which yields a T-score of -0.7. RIGHT FEMORAL NECK: The bone mineral density of the femoral neck is 0.638 grams per square centimeter which yields a T-score of -1.9. 10-year Fracture Risk (FRAX): Major osteoporotic fracture risk 10% Hip fracture risk 1.6% *Sep xray hands- Mild degenerative changes. *January CXR- no active disease *Oct xray R hand- Suggestion of a lucency through the neck of the navicular which could be due to a fracture either remote or acute. IMPRESSION and PLAN: 1. Seropositive nonerosive RA: Completely prednisone-responsive wrist and MCP pain/swelling in the setting of CCP positivity. HCQ with improvement. With prednisone responsive hand pain. - Explained the diagnosis in detail including the natural history of the condition, potential for joint damage and chronic joint deformities with ongoing inflammation, and extraarticular manifestations such as premature heart disease. - Advised to add on SSZ, goal dose 2g/day. Potential side effects were explained including rash, GI upset, bone marrow suppression, and liver toxicity requiring routine lab monitoring. Literature regarding sulfasalazine was provided for review. Standing lab orders in place. Notify of results via Integrity Tracking - Continue HCQ 300mg/day along with routine ophthalmology to monitor for potential toxicity (last normal Oct) - Given a Rx for a 3-week prednisone taper to have on hand in case of a flare in the interim 2. Bilateral knee pain: Likely osteoarthritis - Given referral to PT in the past 3. R 1st MTP pain/stiffness: Likely OA. Inserts have helped - Continue podiatry management 4. General health maintenance: - Completed the covid vaccination series in December, moderna. Sep. Aug - Continue follow-up with PCP for routine health maintenance and malignancy screening Follow-up in 3 & 9 months with Collin and 6 & 12 months with me or sooner if needed. Patient was instructed to call if any questions or concerns. Thank you for allowing me to participate in the care of your patient. Dread Mccurdy MD documented in this encounter [facility] 10-06-2022 History of Present illness Narrative CC: Patient presents with: Sore Throat: X1 week+ HPI: Mounika Linares is a 67 year old female who presents to the office with complaint of sore throat for a week. Symptoms are staying the same. Associated symptoms includes sore throat and body aches. Denies decreased appetite, nausea, vomiting , and diarrhea. Treatments tried include nothing so far. with no relief of symptoms. Sick contacts: unknown. History of asthma, frequent episodes of bronchitis, chronic bronchitis, bronchiectasis or COPD: No Smoker: No Seasonal/environmental allergies: No The ROS is otherwise negative. The patient's pmh, medications, allergies, and past visits are reviewed. PHYSICAL EXAM: BP 126/80 Pulse 75 Temp 36.1 C (96.9 F) Resp 18 Wt 63.6 kg (140 lb 3.2 oz) LMP 01/12/2008 SpO2 97% BMI 23.64 kg/m General appearance: alert, cooperative, pleasant, in no acute distress Head: Normocephalic Eyes: EOM's intact, conjunctiva pink and moist, no icterus, sclera white, non-injected Ears: Right ear: External ear/canal- Normal, TM - clear with good landmarks. Left ear: External ear/canal- Normal, TM - clear with good landmarks Oropharynx:mild erythema, without exudates present Heart: Negative. RRR without obvious murmur, gallop, or rubs. No ectopy. Lungs: clear to auscultation, without rales or wheeze, good air exchange PAST MEDICAL HISTORY Diagnosis Date Allergic rhinitis, cause unspecified Allergic rhinitis Allergy to dogs Cat allergies Climacteric 09/13/2012 Female stress incontinence Stress incontinence ARSEN (obstructive sleep apnea) 2010 Dr. Montes De Oca Osteopenia 03/05/[address] Arboleda Seasonal allergies Snoring Trigger finger Trigger finger, right ring finger 04/23/2011 Unspecified asthma(493.90) Vaginal atrophy 09/13/2012 PAST SURGICAL HISTORY Procedure Laterality Date BIOPSY BREAST OPEN INCISIONAL Bx of breast, incisional DELIVERY ONLY , low cervical COLONOSCOPY FLX DX W/COLLJ SPEC WHEN PFRMD 2008 Colonoscopy COLONOSCOPY FLX DX W/COLLJ SPEC WHEN PFRMD 11/07/2019 Colonoscopy PAST SURGICAL HISTORY OF May 08, 2010 SUSPENSION BLADDER SLING ALLERGIES Cats, Dogs, and Seasonal Allergies MEDICATIONS gabapentin (NEURONTIN) 100 mg capsule Take 100 mg by mouth three times daily. hydrOXYchloroQUINE (PLAQUENIL) 200 mg tablet TAKE 1 AND 1/2 TABLETS BY MOUTH ONCE DAILY FAMILY HISTORY Problem Relation Age of Onset other (downs syndrome) Daughter Hypertension Mother Heart Mother cad chf Asthma Mother Social History Tobacco Use Smoking status: Never Smokeless tobacco: Never Substance Use Topics Alcohol use: Yes Comment: Occassional Drug use: No ASSESSMENT/PLAN: 1. Sore throat - ICD9: 462, ICD10: J02.9 Strep was negative Low dose prednisone daily for 5 days Prescription instructions reviewed with patient as applicable. Potential red flag symptoms discussed with the patient. Reviewed appropriate action plan to take if red flag symptoms occur. Patient agreeable to treatment plan. Maine Dye APRN.SCOOTER documented in this encounter [facility] 09-26-2022 Miscellaneous Notes Patient returning call regarding the below script. She will contact her Pharmacy. SUYAPA Espinoza Attempted to reach patient. No answer. Message below left on patient's voicemail. Percy Mortensen MA Please advise the patient that script was sent in 08/2022. Requested Prescriptions Refused Prescriptions Disp Refills hydrOXYchloroQUINE (PLAQUENIL) 200 mg tablet 135 tablet 1 Sig: Take 1.5 tablets by mouth once daily. Refused By: COLLIN GAN Reason for Refusal: A Refill not appropriate Collin Gan APRN.SCOOTER Patient has been identified by name and date of : Yes RX INSTRUCTIONS: Patient aware RX will be sent to pharmacy. No need to notify patient. PLQ eye exam done on 11/18/2021 at [facility] office. No evidence of PLQ toxicity. Patient is cleared to continue plaquenil. LAST APPOINTMENT: 04/08/2022 UPCOMING APPOINTMENT: 10/14/2022 LABS: Hemoglobin (g/dL) Date Value 09/01/2022 12.9 10/11/2021 13.2 Hematocrit (%) Date Value 09/01/2022 39.3 10/11/2021 39.7 WBC (k/uL) Date Value 09/01/2022 6.36 10/11/2021 5.44 Platelet Count (k/uL) Date Value 09/01/2022 308 10/11/2021 241 AST Date Value Ref Range Status 09/01/2022 21 13 - 35 U/L Final ALT Date Value Ref Range Status 09/01/2022 17 7 - 38 U/L Final Creatinine Date Value Ref Range Status 09/01/2022 0.79 0.58 - 0.96 mg/dL Final No results found for: URICACID Eric Ureña MA Patient has been identified by name and date of : Yes Requested Prescriptions Pending Prescriptions Disp Refills hydrOXYchloroQUINE (PLAQUENIL) 200 mg tablet 135 tablet 1 Sig: Take 1.5 tablets by mouth once daily. RX INSTRUCTIONS: Patient aware RX will be sent to pharmacy. No need to notify patient. Elsa Salazar [facility] documented in this encounter [facility] 09-15-2022 Miscellaneous Notes Patient was seen with PCP in office for OV on 09/12/2022 documented in this encounter [facility] 09-01-2022 History of Present illness Narrative This note was created using Where I've Beenriter. Subjective Mounika Linares is a 67 year old female. HISTORY Mounika Linares is a 67 year old lady here for yearly exam and follow up appointment. Bursitis in right foot--seeing adoption manager. Doing exercises. Has inserts they recommended. Got Hoka shoes. Hoka sandals for house. Medial right knee pain. Sometimes goes to back before gets better. Limps some. Hurts medial knee with walking and palpation. Silver Sneakers--5 pounds weights shoulder exercises a week ago Thursday. Shoulder pain got severe and interfered with sleep. 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 Fingers swelling got severe. Severe pain. Pain past 2 years. Took ibuprofen and helped. Saw Dr. Lu. Hand specialist September 15. Ulnar nerve pain too. Arm to pinky. Arthritis in MCP joints pinky and index finger on right. Left index MCP not as bad. Was not doing things ergonomically. PAST MEDICAL HISTORY Diagnosis Date Allergic rhinitis, cause unspecified Allergic rhinitis Allergy to dogs Cat allergies Climacteric 09/13/2012 Female stress incontinence Stress incontinence ARSEN (obstructive sleep apnea) 2010 Dr. Montes De Oca Osteopenia 03/05/[address] Arboleda Seasonal allergies Snoring Trigger finger Trigger finger, right ring finger 04/23/2011 Unspecified asthma(493.90) Vaginal atrophy 09/13/2012 Current Outpatient Medications Medication Sig hydrOXYchloroQUINE (PLAQUENIL) 200 mg tablet Take 1.5 tablets by mouth once daily. No current facility-administered medications for this visit. ALLERGIES Allergen Reactions Cats Itching Only certain types of cats. Dogs Hives Only certain types of dogs. Seasonal Allergies FAMILY HISTORY Problem Relation Age of Onset other (downs syndrome) Daughter Hypertension Mother Heart Mother cad chf Asthma Mother Social History Tobacco Use Smoking status: Never Smokeless tobacco: Never Substance Use Topics Alcohol use: Yes Comment: Occassional Drug use: No Review of Systems Objective [facility] 01/12/2008 Physical Exam Vitals reviewed. Constitutional: Appearance: She is well-developed. HENT: Head: Normocephalic and atraumatic. Right Ear: External ear normal. Left Ear: External ear normal. Nose: Nose normal. Eyes: Conjunctiva/sclera: Conjunctivae normal. Neck: Thyroid: No thyromegaly. Cardiovascular: Rate and Rhythm: Normal rate and regular rhythm. Pulses: Normal pulses. Heart sounds: Normal heart sounds. No murmur heard. No friction rub. No gallop. Pulmonary: Effort: Pulmonary effort is normal. Breath sounds: Normal breath sounds. Abdominal: General: Bowel sounds are normal. There is no distension. Palpations: Abdomen is soft. There is no mass. Tenderness: There is no abdominal tenderness. Musculoskeletal: General: Tenderness (Medial epicondyle) present. No deformity. Normal range of motion. Comments: DJD changes noted in MCP joints ... Lymphadenopathy: Cervical: No cervical adenopathy. Skin: General: Skin is warm and dry. Coloration: Skin is not jaundiced or pale. Findings: No rash. Neurological: General: No focal deficit present. Mental Status: She is alert and oriented to person, place, and time. Cranial Nerves: No cranial nerve deficit. Sensory: No sensory deficit. Motor: No abnormal muscle tone. Coordination: Coordination normal. Deep Tendon Reflexes: Reflexes normal. Psychiatric: Mood and Affect: Mood normal. Behavior: Behavior normal. Thought Content: Thought content normal. Judgment: Judgment normal. Assessment and Plan Encounter Diagnosis ICD-10-CM 1. Medial knee pain, right M25.561 ?tendinintis or MCL issue, rule meniscus injury from backpacking inury in [place] 2. Medial epicondylitis of right elbow M77.01 3. Neuritis of right ulnar nerve G56.21 4. Bilateral carpal tunnel syndrome G56.03 5. Encounter for long-term current use of medication Z79.899 BASIC METABOLIC PNL HEPATIC FUNCTION PNL CBC + DIFF SED RATE WESTERGREN C-REACTIVE PROTEIN (CRP) 6. Seropositive rheumatoid arthritis (HCC) M05.9 HEPATIC FUNCTION PNL CBC + DIFF SED RATE WESTERGREN C-REACTIVE PROTEIN (CRP) 7. Encounter for immunization Z23 INFLUENZA SEASONAL QUADRIVALENT HIGH DOSE AGE 65+ [employer] COVID-19 BIVALENT BOOSTER VACCINE, AGE 12+ YR Patient here for yearly exam and follow up. Discussed management of orthopedic issues. Will follow up with ortho as needed. Noted that will be seeing hand specialist. Discussed tennis elbow strap to help with medial epicondylitis. Further evaluation and treatment as indicated. Above issues addressed with patient. Patient involved in shared decision making for management of medical issues. History and medications reviewed. Epic updated as needed Refills taken care of and meds adjusted as indicated after reviewed history, exam and labs. Health Maintenance reviewed. Updated record and/or ordered tests as recorded. Encouraged on efforts at healthy diet and regular exercise and adequate sleep. Chandana Beck MD documented in this encounter [facility] 07-10-2022 Miscellaneous Notes Pt is scheduled for their MSK US on 07/28 at [facility]. Visit Type: ANY MSK Visit Length: 45, 50 OR 60 MINUTES Order Name/Protocol: US FOOT RT; ORTEGA'S NEUROMA-EVAL 2ND+3RD IMS FOR NEUROMA/BURSITIS. Preferred Provider: N/A Comment: Please ask if the patient has ever had any prior surgery to their RT FOOT. If so, upgrade the visit type to an MSK1 and notate the surgical hx in the Appointment Note. Location: Depending on the surgical hx, this patient can have this exam performed at any of our three locations. Slot held: N/A documented in this encounter [facility] 06-10-2022 Instructions Maribell Haas DPM - 06/10/2022 10:45 AM EDT Images from the original note were not included. Pressure relieving methods for the forefoot include metatarsal padding, budin splints, orthotics, appropriate shoes, and avoiding barefoot walking. Shoes with a forefoot rocker will be best for this condition. Examples include HOKA ONE ROSAURA BONDI and New Balance 928. HOKA also makes a sandle called ORA RECOVERY SLIDE which is good for house use or beach use and will offload the front of the foot. This can be used in place of a slipper. Vionics/Orthaheels also make good sandles for beach use. These shoes can be found at [employer] in [place] ([facility]) or [place] (across from [employer]) or [facility] ([facility]) or [facility] ([place]). Powerstep comfortlast or [place] insoles. Full length. Can get at [employer] in [facility], [place] or [place], or [employer] shoes in [place]. Also can find in [employer] in [facility], [employer] or [employer] in [place] or online at [employer]. Should run about 30-40$. If you have a pad for your feet apply the pad directly to the insole so you can interchange between your shoes. Find a shoe with a removable insole and take this out and replace with your powerstep insole. Always bring powersteps with you when shopping for shoes so that you can make sure that everything fits well together. Metatatarsal padding should be applied on the insole of the shoe immediately behind the painful area of the forefoot. The wider part of the pad should sit just BEHIND (not underneath) the sore area and the narrowest part of the pad should point to the heel. Metatsal pads: 1/4 inch felt skived can be obtained online at [employer] or online at [employer] Sometimes you can also find them at [facility] or [facility] They can also be obtained from [facility] but will have to buy in bulk. Contact information for [facility] [email or web address] Call Fax The following stretches can decreased the stress on the front part of your foot: Plantar fascial stretches Assisted Dorsiflexion/Plantar Fascia Stretch: Sit on the floor or ground, barefoot, with both legs outstretched. Use a towel or elastic band and wrap it around the ball (and not the toes) of the affected foot. Use the towel or elastic band to provide resistance to upward movement of the forefoot. Pull foot upward (toward your body) with the help of the elastic band or towel, and then return to the starting position. Ten repetitions are recommended. Perform the sequence at least three times a day. Alternate Plantar Fascia Stretch: Sit upright in a chair, barefoot. Place the ankle of the affected foot on your opposite knee. Using the same hand as the affected foot, reach across and grab the toes. Flex the ankle toward and pull the toes toward the olsen. To test the stretch, place the thumb of your hand on the bottom of the foot. You should be able to feel the cord-like plantar fascia, running the length of the foot. Hold the stretch for a count of 10, then relax. Repeat 10 times. Do the sequence at least three times a day. Achilles/Calf Stretches Strengthening the muscles of the calves may contribute to successful rehabilitation of plantar fasciitis, as well as prevent reoccurrence. The exercises below will help strengthen the calf muscles. Calf and Achilles Tendon Stretch (Gastrocnemius Stretch): Face a wall, standing an arm's length away. Place one foot back. Place both hands on the wall. Bend the elbows and knee of your forward leg, keeping the heel of the backward foot on the floor and keeping your body straight (aligned), until your forehead nearly touches the wall, or until significant stretch is felt in the muscles of the calf of the backward leg. Hold this position for 10 to 15 seconds. Extend elbows (straighten your arms and stand upright again) and maintain this position for 10 seconds. Repeat this cycle 15 to 20 times. Switch legs and repeat the exercise. Yoga Toes Can be purchased online for around $30 There are also similar less expensive devices on [employer] that can also help and are less expensive. My happy feet socks Yoga socks can be more comfortable to wear at night and can splint your toes while sleeping. Injinji or 5 toed socks can also keep toes splinted when in shoes. Shoes recommended include NewBalance, Aravon, Jp, Douglass, SAS. For your specific condition I recommend you get shoes with a wider toe box. Additionally, it would be important to get a shoe with a LYCRA upper or a MESH upper. For women: Aetrex berries dress shoes or dress shoes that have a rounded toe box can be helpful for hammertoes. The best place to get shoes would be somewhere where they will measure your feet such as [employer] in [place], [place] or [place] or [employer] in [place]. [employer] store in [place]. documented in this encounter [facility] 06-10-2022 History of Present illness Narrative Initial Podiatric Office Visit: Chief Complaint: This 67 year old female who presents with chief complaint: forefoot pain for 2 years HPI 2 years forefoot pain. Really bad at this time. Still 6/10 pain. Injection did not help. Tennis shoes help, rolling ball helps, rest help. Pain diffuse across front of th e foot. Big toe joint hurts as well and will get swollen or red sometimes. Dr. Del Valle's insoles. Some inprovement. Reebok tennis shoes. Sandles. No heels. +RA. On plaquenil. Monitoring labs. PAIN EVALUATION 06/10/2022 1007 Pain Level: 6 Pain Location: Foot-Right Description: Sore;Aching Duration Amount of Time: 2 Duration Units: Years Frequency: Continuous Intervention/Comfort measure: Medication No results found for: HBA1C PCP: Chandana Beck MD PAST MEDICAL HISTORY Diagnosis Date Allergic rhinitis, cause unspecified Allergic rhinitis Allergy to dogs Cat allergies Climacteric 09/13/2012 Female stress incontinence Stress incontinence ARSEN (obstructive sleep apnea) 2010 Dr. Montes De Oca Osteopenia 03/05/[address] Arboleda Seasonal allergies Snoring Trigger finger Trigger finger, right ring finger 04/23/2011 Unspecified asthma(493.90) Vaginal atrophy 09/13/2012 Current Outpatient Medications Medication Sig hydrOXYchloroQUINE (PLAQUENIL) 200 mg tablet Take 1.5 tablets by mouth once daily. No current facility-administered medications for this visit. ALLERGIES Allergen Reactions Cats Itching Only certain types of cats. Dogs Hives Only certain types of dogs. Seasonal Allergies PAST SURGICAL HISTORY Procedure Laterality Date BX OF BREAST; INCISIONAL Bx of breast, incisional DELIVERY ONLY , low cervical COLONOSCOP W/ OR W/O [facility] SPEC 2008 Colonoscopy COLONOSCOP W/ OR W/O [facility] SPEC 11/07/2019 Colonoscopy PAST SURGICAL HISTORY OF May 08, 2010 SUSPENSION BLADDER SLING FAMILY HISTORY Problem Relation Age of Onset other (downs syndrome) Daughter Hypertension Mother Heart Mother cad chf Asthma Mother Social History Tobacco Use Smoking status: Never Smokeless tobacco: Never Substance Use Topics Alcohol use: Yes Comment: Occassional Drug use: No REVIEW OF SYSTEMS GENERAL: Negative for Malaise, significant weight loss, fever RESPIRATORY: Negative for cough, wheezing and shortness of breath CARDIOVASCULAR: Negative for chest pain, leg swelling and palpitations GI: Negative for abdominal discomfort, blood in stools or black stools and change in bowel habits : Negative for dysuria, frequency and incontinence MUSCULOSKELETAL:+ for joint pain or swelling, back pain, and muscle pain. SKIN: Negative for lesions, rash, and +itching. HEMATOLOGY/LYMPHOLOGY Negative for prolonged bleeding, bruising easily, and swollen nodes. ENDOCRINE: Negative for cold or heat intolerance, polyuria, polydipsia and goiter. NEURO: +tingling hands Physical Exam: Constitutional: Pt is a well developed 67 year old female who is alert, oriented and cooperative Eyes: Following during examination. No redness or drainage. Respiratory: RR normal and nonlabored. Even breathing. No evidence of distress or shortness of breath. Psychology: Patient is engaged during conversation. Normal affect and mood. Does not appear depressed or anxious during encounter. Vascular: Dorsalis pedis and posterior tibial pulses palpable b/l Capillary Fill time < 3 seconds to digits 1-5 b/l Skin temperature warm to warm proximal to distal b/l Hair growth present to digits Neurological: intact light touch/epicritic sensation intact protective sensation no significant neurological deficits Dermatological: Nails 1-5 b/l appear normal. Webspaces clean and dry 1-4 b/l. Skin appears well hydrated and supple. good color, texture, turgor. No open lesions present. No callosities present. Musculoskeletal/Orthopaedic: Patient has pain to palpation of 1st IPJ R great toe. +tender 4th MPJ with swelling. +tender IMS 2,3 R foot. No pain on the L foot Foot type is pronated structurally AJ ROM is decreased with knee extended and flexed 1st MPJ is decreased when loaded and no pain or crepitus are noted with ROM. MTJ, STJ are full and free of pain and crepitus. +5/5 muscle strength dorsiflexion, plantarflexion, inversion, eversion b/l Radiographs: 3 views R foot ordered June 10, 2022: I have personally reviewed and interpreted these XR myself: erosive changes noted to IPJ R great toe and 3rd MPJ ASSESSMENT: Pain (primary encounter diagnosis) Joint stiffness of toe of right foot Pain in toe of right foot Rheumatoid arthritis involving right foot with positive rheumatoid factor (hcc) Bursitis of right foot Neuroma PLAN: 1. History and physical examination performed. 2. XR reviewed with patient and interpreted today 3. Stretching. 4. Powersteps and met pads recommended today. 5. Forefoot rocker tennis shoes. 6. US to rule out neuroma/bursitis. 7. A large amount of her pain may be secondary to RA. Currently on Hydroxychloroquine. Maribell Haas DPM, DABPM, FACFAS Pager: [phone] [facility] and [facility] locations documented in this encounter [facility] 06-10-2022 History of Present illness Narrative Radiology Service Progress Note PATIENT NAME: Mounika Linares DATE OF SERVICE: June 10, 2022 TIME: 9:18 AM PATIENT IDENTITY VERIFICATION COMPLETED USING TWO (2) IDENTIFIERS: Name and Date of confirmed by patient verbally. FALL SCREENING: Has the patient had 2 falls in the last year or 1 fall with injury or currently using an Ambulatory Assistive Device (Walker, Cane, Wheelchair, Crutches, etc.)? No PATIENT GENDER DATA: Female. status: : No status: NO. PATIENT RELEVANT IMPLANT DATA REVIEWED: Not Applicable RADIOLOGY DEPARTMENT: General X-ray: Exam(s) Completed: Lower Extremity X-Ray(s): Foot, Right and Wt. 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 Developed swelling and pain of the bilateral wrists and hands (remembers the ventral MCPs, doesn't recall exactly where else in the hands). Saw PCP. Initially thought to have OA and tendon issues aggravated by osteoarthritis. Took NSAIDs PO. Saw chiropractor for a shoulder which improved. - In Nov '20, given prednisone x2 week course prescribed by PCP. With 100% improvement in pain while on prednisone which recurred after completion of it - In Sep, continued to have tenderness of the R wrist and R ventral MCPs. Worse with certain activities. Worse in the morning. Diagnosed with seropositive RA. Started on HCQ - In January, reported significant improvement in joints with HCQ, unable to quantify amount - Today, reports feeling better. HCQ and going to chiropractor have helped. - With some 1-2/10 aching of the R ulnar distal forearm - R 1st MTP stiffness worse with walking, not better with HCQ - Last plaquenil eye exam normal in Oct PAST MEDICAL HISTORY Diagnosis Date Allergic rhinitis, cause unspecified Allergic rhinitis Allergy to dogs Cat allergies Climacteric 09/13/2012 Female stress incontinence Stress incontinence ARSEN (obstructive sleep apnea) 2010 Dr. Montes De Oca Osteopenia 03/05/[address] Arboleda Seasonal allergies Snoring Trigger finger Trigger finger, right ring finger 04/23/2011 Unspecified asthma(493.90) Vaginal atrophy 09/13/2012 osteoarthritis PAST SURGICAL HISTORY Procedure Laterality Date BX OF BREAST; INCISIONAL Bx of breast, incisional DELIVERY ONLY , low cervical COLONOSCOP W/ OR W/O [facility] SPEC 2008 Colonoscopy COLONOSCOP W/ OR W/O [facility] SPEC 11/07/2019 Colonoscopy PAST SURGICAL HISTORY OF May 08, 2010 SUSPENSION BLADDER SLING ALLERGIES Allergen Reactions Cats Itching Only certain types of cats. Dogs Hives Only certain types of dogs. Seasonal Allergies MEDICATIONS: Current Outpatient Medications Medication Sig hydrOXYchloroQUINE (PLAQUENIL) 200 mg tablet Take 1.5 tablets by mouth once daily. No current facility-administered medications for this visit. FAMILY HISTORY Problem Relation Age of Onset other (downs syndrome) Daughter Hypertension Mother Heart Mother cad chf Asthma Mother SOCIAL HISTORY: Lives in [place] with spouse. 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 One of her kids is special needs who she takes care of (daughter, 27 years with Down's). Son is in [place], works as a paper inserter Tobacco use: None Alcohol use: 0-1 drink/week Drug use: None REVIEW OF SYSTEMS: reviewed 08/08 systems, as above PHYSICAL EXAM: VITALS: Blood pressure 110/76, pulse 69, temperature 36.7 C (98.1 F), temperature source Temporal, height 165.1 cm (5' 5), weight 61.7 kg (136 lb), last menstrual period 01/12/2008. CONSTITUTIONAL: Well-appearing, in NAD. SKIN: No rash. No sclerodactyly, calcinosis, telangiectasias, digital ulcers, or skin thickening. EYES: No scleral icterus or conjunctivitis ENT and Mouth: External ears normal. Nares normal. RESPIRATORY: Normal breath sounds, clear to auscultation. CARDIOVASCULAR: Regular rate and rhythm, no murmurs or rubs EXTREMITIES/LYMPH: No edema bilaterally NEURO: Awake, alert and oriented, Normal gait MUSCULOSKELETAL: JOINT APPEARANCE: No erythema or warmth of any upper or lower extremity joint. RANGE OF MOTION: Able to fully close fists and curl fingers bilaterally. SWOLLEN JOINTS/SYNOVITIS: No synovitis of any joint. TENDER JOINTS: None *Sep Widespread Pain Index: 1 (0-19) Symptoms Severity Scale: 0 (0-12) WPI>7 and SS Scale>5 OR WPI 3-6 and SS Scale >9 consistent with fibromyalgia LABORATORY: Component Latest Ref Rng & Units 10/11/2021 WBC 3.70 - 11.00 k/uL 5.44 RBC 3.90 - 5.20 m/uL 4.38 Hemoglobin 11.5 - 15.5 g/dL 13.2 Platelet Count 150 - 400 k/uL 241 MPV 9.0 - 12.7 fL 9.2 Absolute nRBC <0.01 k/uL <0.01 Albumin 3.9 - 4.9 g/dL 4.3 Bilirubin, Total 0.2 - 1.3 mg/dL 0.2 Bilirubin, Conjug <0.2 mg/dL <0.2 Alkaline Phosphatase 34 - 123 U/L 108 AST 13 - 35 U/L 20 ALT 7 - 38 U/L 16 Protein, Total 6.3 - 8.0 g/dL 6.7 Creatinine 0.58 - 0.96 mg/dL 0.76 eGFR- >60 eGFR-All Other Races . >60 Component Latest Ref Rng & Units 10/11/2021 Hep B Core Ab, Total Negative Negative Hep C Antibody IA Negative Negative Hep B Surface Ag Negative Negative Hep B Surface Ab, Qual Negative Negative CCP Antibody, IgG <20 Units >250 (H) Rheumatoid Factor <16 IU/mL 27 (H) WSR 0 - 20 mm/hr 5 CRP <0.9 mg/dL <0.3 *February positive CCP 44.3 (<5) and positive SNEHA 1:160 speckled with unremarkable wbc 4.1, hgb 13.6, plt 231, alt, ast, cr, rf, sm, junior project manager, ssa, ssb and dna Component Latest Ref Rng & Units 08/10/2020 Free T3 2.3 - 4.1 pg/mL 2.9 TSH 0.270 - 4.200 uU/mL 1.740 Free T4 0.9 - 1.7 ng/dL 1.3 STUDIES: *Nov DEXA- Osteopenia in the lumbar spine and bilateral femoral necks. LUMBAR SPINE: The bone mineral density from L1 through L4 is 0.829 grams per square centimeter which yields a T-score of -2.0. There has been an 11.8% interval decrease in bone mineral density. LEFT HIP: The bone mineral density of the total region of the hip is 0.864 grams per square centimeter which yields a T-score of -0.6. There has been a 5.2% interval decrease in bone mineral density. LEFT FEMORAL NECK: The bone mineral density of the femoral neck is 0.641 grams per square centimeter which yields a T-score of -1.9. There has been a 1.1% interval decrease in bone mineral density. RIGHT HIP: The bone mineral density of the total region of the hip is 0.855 grams per square centimeter which yields a T-score of -0.7. RIGHT FEMORAL NECK: The bone mineral density of the femoral neck is 0.638 grams per square centimeter which yields a T-score of -1.9. 10-year Fracture Risk (FRAX): Major osteoporotic fracture risk 10% Hip fracture risk 1.6% *Sep xray hands- Mild degenerative changes. *January CXR- no active disease *Oct xray R hand- Suggestion of a lucency through the neck of the navicular which could be due to a fracture either remote or acute. IMPRESSION and PLAN: 1. Seropositive RA: Completely prednisone-responsive wrist and MCP pain/swelling in the setting of CCP positivity. HCQ with improvement. Stable. - Continue HCQ 300mg/day along with routine ophthalmology to monitor for potential toxicity (last normal Oct) - Check labs. Notify of results via [facility] 2. Bilateral knee pain: Likely osteoarthritis - Given referral to PT in the past 3. R 1st MTP pain/stiffness: Likely OA - Given referral to podiatry 4. General health maintenance: - Completed the covid vaccination series in December, moderna. Sep - Continue follow-up with PCP for routine health maintenance and malignancy screening Follow-up in 3 & 9 months with Collin and 6 & 12 months with me or sooner if needed. Patient was instructed to call if any questions or concerns. Thank you for allowing me to participate in the care of your patient. 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 Developed swelling and pain of the bilateral wrists and hands (remembers the ventral MCPs, doesn't recall exactly where else in the hands). Saw PCP. Initially thought to have OA and tendon issues aggravated by osteoarthritis. Took NSAIDs PO. Saw chiropractor for a shoulder which improved. - In Aug, given prednisone x2 week course prescribed by PCP. With 100% improvement in pain while on prednisone which recurred after completion of it - at MIN, continues to have tenderness of the R wrist and R ventral MCPs. Worse with certain activities. Worse in the morning - Morning stiffness x30-60 minutes. - Knees starting to hurt with steps - Currently taking nothing for pain PAST MEDICAL HISTORY Diagnosis Date Allergic rhinitis, cause unspecified Allergic rhinitis Allergy to dogs Cat allergies Climacteric 09/13/2012 Female stress incontinence Stress incontinence ARSEN (obstructive sleep apnea) 2010 Dr. Montes De Oca Osteopenia 03/05/[address] Arboleda Seasonal allergies Snoring Trigger finger Trigger finger, right ring finger 04/23/2011 Unspecified asthma(493.90) Vaginal atrophy 09/13/2012 osteoarthritis PAST SURGICAL HISTORY Procedure Laterality Date BX OF BREAST; INCISIONAL Bx of breast, incisional DELIVERY ONLY , low cervical COLONOSCOP W/ OR W/O [facility] SPEC 2008 Colonoscopy COLONOSCOP W/ OR W/O [facility] SPEC 11/07/2019 Colonoscopy PAST SURGICAL HISTORY OF May 08, 2010 SUSPENSION BLADDER SLING ALLERGIES Allergen Reactions Cats Itching Only certain types of cats. Dogs Hives Only certain types of dogs. Seasonal Allergies FAMILY HISTORY Problem Relation Age of Onset other (downs syndrome) Daughter Hypertension Mother Heart Mother cad chf Asthma Mother INTERVAL HISTORY She is here for follow up. She is a patient of Dr. Mccurdy. She was prescribed a steroid course at the [facility]. She does not recall taking it or if she noticed improvement of her joint symptoms. She started HCQ after the [facility]. She tolerates it well. She has noticed improvement of her joint symptoms, but is unable to give a percentage of improvement. Hand pain is worst in the morning. She is not taking anything for pain. Sites of pain: L 2nd mcp, R 5th finger, R wrist, pain rated 2/10 Joint swelling: finger EMS: stiffness lasts throughout the day No recent infections. Tolerating meds. REVIEW OF SYSTEMS GENERAL: No fevers HEENT: Negative for frequent or significant headaches RESPIRATORY: Negative for cough, wheezing,or shortness of breath CARDIOVASCULAR: Negative for chest pain or palpitations GI: No nausea, vomiting, or diarrhea : No history of dysuria SKIN: Negative for lesions, rash No gross hematuria or blood in stool No mouth sores Current Outpatient Medications Medication Sig hydrOXYchloroQUINE (PLAQUENIL) 200 mg tablet TAKE 1 AND 1/2 TABLETS BY MOUTH ONCE DAILY No current facility-administered medications for this visit. SOCIAL HISTORY: Lives in [place] with spouse. 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 One of her kids is special needs who she takes care of (daughter, 27 years with Down's). 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 SKIN: No rash. No alopecia. No sclerodactyly, calcinosis, telangiectasias, digital ulcers, or skin thickening. EYES: No scleral icterus or conjunctivitis ENT and Mouth: External ears normal. Nares normal. RESPIRATORY: Normal breath sounds, clear to auscultation. CARDIOVASCULAR: Regular rate and rhythm, no murmurs or rubs GASTROENTEROLOGY: Normal bowel sounds. Abdomen is soft and non-tender. EXTREMITIES/LYMPH: No edema bilaterally NEURO: Awake, alert and oriented, Normal gait MUSCULOSKELETAL: JOINT APPEARANCE: No erythema or warmth of any upper or lower extremity joint. RANGE OF MOTION: Able to fully close fists and curl fingers bilaterally. SWOLLEN JOINTS/SYNOVITIS: No synovitis of any joint. TENDER JOINTS: mild tenderness to palpation of the R 5th MCP No tenderness to spine or SI joints Widespread Pain Index: 1 (0-19) Symptoms Severity Scale: 0 (0-12) WPI>7 and SS Scale>5 OR WPI 3-6 and SS Scale >9 consistent with fibromyalgia Labs reviewed and discussed with the patient: Component Latest Ref Rng & Units 10/11/2021 WBC 3.70 - 11.00 k/uL 5.44 RBC 3.90 - 5.20 m/uL 4.38 Hemoglobin 11.5 - 15.5 g/dL 13.2 Hematocrit 36.0 - 46.0 % 39.7 MCV 80.0 - 100.0 fL 90.6 MCH 26.0 - 34.0 pG 30.1 MCHC 30.5 - 36.0 g/dL 33.2 RDW-CV 11.5 - 15.0 % 12.3 Platelet Count 150 - 400 k/uL 241 MPV 9.0 - 12.7 fL 9.2 Absolute nRBC <0.01 k/uL <0.01 Albumin 3.9 - 4.9 g/dL 4.3 Bilirubin, Total 0.2 - 1.3 mg/dL 0.2 Bilirubin, Conjug <0.2 mg/dL <0.2 Alkaline Phosphatase 34 - 123 U/L 108 AST 13 - 35 U/L 20 ALT 7 - 38 U/L 16 Protein, Total 6.3 - 8.0 g/dL 6.7 Hep B Core Ab, Total Negative Negative Hep C Antibody IA Negative Negative Hep B Surface Ag Negative Negative Hep B Surface Ab, Qual Negative Negative Creatinine 0.58 - 0.96 mg/dL 0.76 eGFR- >60 eGFR-All Other Races . >60 CCP Antibody, IgG <20 Units >250 (H) Rheumatoid Factor <16 IU/mL 27 (H) WSR 0 - 20 mm/hr 5 CRP <0.9 mg/dL <0.3 *February positive CCP 44.3 (<5) and positive SNEHA 1:160 speckled with unremarkable wbc 4.1, hgb 13.6, plt 231, alt, ast, cr, rf, sm, junior project manager, ssa, ssb and dna Component Latest Ref Rng & Units 08/10/2020 Free T3 2.3 - 4.1 pg/mL 2.9 TSH 0.270 - 4.200 uU/mL 1.740 Free T4 0.9 - 1.7 ng/dL 1.3 STUDIES: 09/2021 hand x-rays: IMPRESSION: Mild degenerative changes *January CXR- no active disease *Oct xray R hand- Suggestion of a lucency through the neck of the navicular which could be due to a fracture either remote or acute. IMPRESSION and PLAN: 1. Seropositive RA: Completely prednisone-responsive wrist and MCP pain/swelling in the setting of CCP positivity. Improved on HCQ. - continue HCQ 300mg/day. Potential side effects were explained, including GI upset, headache, and retinal toxicity leading to blindness. Advised that routine ophthalmology follow-up will be required to monitor for potential toxicity at baseline (ie within 2-3 months of starting) and at least annually thereafter. Last HCQ eye exam was normal in 10/2021. -check labs at next visit 2. Bilateral knee pain: Likely osteoarthritis - Explained diagnosis - previously given referral to PT 3. General health maintenance: - Completed the covid vaccination series in December, . She has also received the booster vaccine. - Continue follow-up with PCP for routine health maintenance and malignancy screening Follow-up in [address] Mccurdy or sooner if needed. Patient was instructed to call if any questions or concerns. Thank you for allowing me to participate in the care of your patient. I spent a total of 15 minutes on the date of the service which included preparing to see the patient, [id number] patient care, completing clinical documentation, performing a medically appropriate examination, ordering medications, tests, or procedures and communicating results to the patient/family/caregiver. Collin Gan APRN.FURNACE LINER documented in this encounter [facility] 01-15-2022 Miscellaneous Notes One refill sent for now. Agree she'll need a hcq eye exam sarah for further refills. Thanks. Patient has been identified by name and date of : Yes RX INSTRUCTIONS: Patient aware RX will be sent to pharmacy. No need to notify patient. No PLQ eye exam on file. Attempted to reach patient. No answer. Message left on patient's voicemail to have PLQ eye exam done SARAH. Fax results to [phone]. LAST APPOINTMENT: 10/11/2021 UPCOMING APPOINTMENT: 01/24/2022 LABS: Hemoglobin (g/dL) Date Value 10/11/2021 13.2 Hematocrit (%) Date Value 10/11/2021 39.7 WBC (k/uL) Date Value 10/11/2021 5.44 Platelet Count (k/uL) Date Value 10/11/2021 241 AST Date Value Ref Range Status 10/11/2021 20 13 - 35 U/L Final ALT Date Value Ref Range Status 10/11/2021 16 7 - 38 U/L Final Creatinine Date Value Ref Range Status 10/11/2021 0.76 0.58 - 0.96 mg/dL Final No results found for: URICACID Eric Ureña MA documented in this encounter [facility] 10-11-2021 History of Present illness Narrative Radiology Service Progress Note PATIENT NAME: Mounika Linares DATE OF SERVICE: October 11, 2021 TIME: 12:33 PM PATIENT IDENTITY VERIFICATION COMPLETED USING TWO (2) IDENTIFIERS: Name and Date of confirmed by patient verbally. FALL SCREENING: Has the patient had 2 falls in the last year or 1 fall with injury or currently using an Ambulatory Assistive Device (Walker, Cane, Wheelchair, Crutches, etc.)? No PATIENT GENDER DATA: Female. status: : No status: NO. PATIENT RELEVANT IMPLANT DATA REVIEWED: Not Applicable RADIOLOGY DEPARTMENT: General X-ray: Exam(s) Completed: Upper Extremity X-Ray(s): Hand, bilateral PERIPHERAL IV DATA: Not applicable SIGNED BY: RT Jillian(R) October 11, 2021 12:33 PM documented in this encounter [facility] Evaluation note Diagnosis Seropositive rheumatoid arthritis (HCC)- Primary Rheumatoid arthritis Pain in both knees, unspecified chronicity Primary osteoarthritis of both knees Primary localized osteoarthrosis, lower leg Encounter for long-term (current) use of medications Encounter for long-term (current) use of other medications [facility] Seropositive rheumatoid arthritis (HCC)- Primary Rheumatoid arthritis Long-term use of Plaquenil Encounter for long-term (current) use of other medications Joint stiffness of toe of right foot Pain in toe of right foot Pain in limb [facility] Diagnosis Rheumatoid arthritis involving right foot with positive rheumatoid factor (HCC)- Primary Bursitis of right foot Neuroma Other benign neoplasm of connective and other soft tissue of unspecified site Pain Generalized pain Joint stiffness of toe of right foot Pain in toe of right foot Pain in limb [facility] Diagnosis Medial knee pain, right- Primary Medial epicondylitis of right elbow Medial epicondylitis of elbow Neuritis of right ulnar nerve Bilateral carpal tunnel syndrome Carpal tunnel syndrome Encounter for long-term current use of medication Seropositive rheumatoid arthritis (HCC) Rheumatoid arthritis Encounter for immunization Need for other specified prophylactic vaccination against single bacterial disease [facility] Diagnosis Sore throat- Primary Acute pharyngitis [facility] Diagnosis Seropositive rheumatoid arthritis (HCC)- Primary Rheumatoid arthritis Long-term use of Plaquenil Encounter for long-term (current) use of other medications Encounter for long-term (current) use of medications Encounter for long-term (current) use of other medications Pain in joint, multiple sites [facility] Diagnosis Rheumatoid arthritis involving right foot with positive rheumatoid factor (HCC)- Primary Bursitis of right foot Neuroma Other benign neoplasm of connective and other soft tissue of unspecified site Joint stiffness of toe of right foot Capsulitis of foot, right [facility] Diagnosis Seropositive rheumatoid arthritis (HCC)- Primary Rheumatoid arthritis Encounter for long-term (current) use of medications Encounter for long-term (current) use of other medications Pain in both knees, unspecified chronicity [facility] Diagnosis Osteopenia of necks of both femurs- Primary Encounter for immunization Need for other specified prophylactic vaccination against single bacterial disease ARSEN (obstructive sleep apnea) Obstructive sleep apnea (adult) (pediatric) Seropositive rheumatoid arthritis (HCC) Rheumatoid arthritis [facility] Diagnosis Seropositive rheumatoid arthritis (HCC)- Primary Rheumatoid arthritis Long-term use of Plaquenil Encounter for long-term (current) use of other medications Encounter for long-term (current) use of medications Encounter for long-term (current) use of other medications [facility] Diagnosis Bursitis of intermetatarsal bursa of right foot- Primary Capsulitis of foot, right [facility] Diagnosis Bursitis of intermetatarsal bursa of right foot Capsulitis of foot, right Pain in right ankle and joints of right foot [facility] Diagnosis Encounter for screening mammogram for breast cancer [facility] Diagnosis Preop examination- Primary Preoperative examination, unspecified Elevated LDL cholesterol level Pure hypercholesterolemia Benign paroxysmal positional vertigo, unspecified laterality [facility] Diagnosis Pain in right ankle and joints of right foot- Primary [facility] Diagnosis Pain in right ankle and joints of right foot- Primary [facility] Diagnosis Bursitis of intermetatarsal bursa of right foot- Primary Capsulitis of foot, right Rheumatoid arthritis involving right foot with positive rheumatoid factor (HCC) [facility] Diagnosis Asymptomatic postmenopausal status- Primary Encounter for screening mammogram for breast cancer [facility] Diagnosis Routine physical examination- Primary Routine general medical examination at a health care facility Need for Tdap vaccination Need for prophylactic vaccination with combined afwtwpoemb-gtnzhwc-ocetloxva (DTP) vaccine Lipid screening Screening for lipoid disorders Osteopenia Disorder of bone and cartilage, unspecified Screen for colon cancer Special screening for malignant neoplasms, colon Seropositive rheumatoid arthritis (HCC)- Primary Rheumatoid arthritis Long-term use of Plaquenil Encounter for long-term (current) use of other medications Encounter for long-term (current) use of medications Encounter for long-term (current) use of other medications Pain in joint, multiple sites [facility] Diagnosis Routine physical examination- Primary Routine general medical examination at a [facility] Need for Tdap vaccination Need for prophylactic vaccination with combined mrumanvlfz-hpegtaz-cdipjlqxz (DTP) vaccine Lipid screening Screening for lipoid disorders Osteopenia Disorder of bone and cartilage, unspecified Screen for colon cancer Special screening for malignant neoplasms, colon Bursitis of intermetatarsal bursa of right foot Capsulitis of foot, right [facility] Diagnosis Routine physical examination- Primary Routine general medical examination at a [facility] Need for Tdap vaccination Need for prophylactic vaccination with combined pdwnbsttuj-fdctxjf-qubkcncjn (DTP) vaccine Lipid screening Screening for lipoid disorders Osteopenia Disorder of bone and cartilage, unspecified Screen for colon cancer Special screening for malignant neoplasms, colon Pain Generalized pain Joint stiffness of toe of right foot Pain in toe of right foot Pain in limb Rheumatoid arthritis involving right foot with positive rheumatoid factor (HCC) Bursitis of right foot Neuroma Other benign neoplasm of connective and other soft tissue of unspecified site [facility] Diagnosis Routine physical examination- Primary Routine general medical examination at a health care facility Need for Tdap vaccination Need for prophylactic vaccination with combined xoyeeivnkp-spmzfqv-zxzuhmifn (DTP) vaccine Lipid screening Screening for lipoid disorders Osteopenia Disorder of bone and cartilage, unspecified Screen for colon cancer Special screening for malignant neoplasms, colon Pain Generalized pain [facility] Diagnosis Routine physical examination- Primary Routine general medical examination at a health care facility Need for Tdap vaccination Need for prophylactic vaccination with combined mwsgmekzip-edqczds-nggvvttgz (DTP) vaccine Lipid screening Screening for lipoid disorders Osteopenia Disorder of bone and cartilage, unspecified Screen for colon cancer Special screening for malignant neoplasms, colon Seropositive rheumatoid arthritis (HCC) Rheumatoid arthritis Pain in joint, multiple sites [facility] Diagnosis Routine physical examination- Primary Routine general medical examination at a health care facility Need for Tdap vaccination Need for prophylactic vaccination with combined irqtuhfyfp-wkocvgo-lypfevauc (DTP) vaccine Lipid screening Screening for lipoid disorders Osteopenia Disorder of bone and cartilage, unspecified Screen for colon cancer Special screening for malignant neoplasms, colon Asymptomatic postmenopausal status [facility] Diagnosis Routine physical examination- Primary Routine general medical examination at a health care facility Need for Tdap vaccination Need for prophylactic vaccination with combined kftqhzcbfh-qhbslfh-lbeofzjfz (DTP) vaccine Lipid screening Screening for lipoid disorders Osteopenia Disorder of bone and cartilage, unspecified Screen for colon cancer Special screening for malignant neoplasms, colon Medicare annual wellness visit, subsequent- Primary Routine general medical examination at a health care facility Allergic rhinitis, unspecified seasonality, unspecified trigger Osteopenia of multiple sites Screening for depression Encounter for screening examination for other mental health and behavioral disorders Encounter for immunization Need for other specified prophylactic vaccination against single bacterial disease [facility] Diagnosis Routine physical examination- Primary Routine general medical examination at a [facility] Need for Tdap vaccination Need for prophylactic vaccination with combined vxwvbpmrlj-irxgduh-jvykrkfbh (DTP) vaccine Lipid screening Screening for lipoid disorders Osteopenia Disorder of bone and cartilage, unspecified Screen for colon cancer Special screening for malignant neoplasms, colon Special screening for malignant neoplasms, colon- Primary Screening for colon cancer Special screening for malignant neoplasms, colon [facility] Diagnosis Routine physical examination- Primary Routine general medical examination at a health care facility Need for Tdap vaccination Need for prophylactic vaccination with combined tgymugqcky-kjnvkhe-vfgttqlpk (DTP) vaccine Lipid screening Screening for lipoid disorders Osteopenia Disorder of bone and cartilage, unspecified Screen for colon cancer Special screening for malignant neoplasms, colon Encounter for screening for malignant neoplasm of colon- Primary Special screening for malignant neoplasms, colon Screening for colon cancer Special screening for malignant neoplasms, colon documented in this encounter [facility] Diagnosis Routine physical examination- Primary Routine general medical examination at a health care facility Need for Tdap vaccination Need for prophylactic vaccination with combined xauzwsoznq-uohgddy-pituvjxsm (DTP) vaccine Lipid screening Screening for lipoid disorders Osteopenia Disorder of bone and cartilage, unspecified Screen for colon cancer Special screening for malignant neoplasms, colon Seropositive rheumatoid arthritis (HCC)- Primary Rheumatoid arthritis Long-term use of Plaquenil Encounter for long-term (current) use of other medications Pain in joint, multiple sites Primary osteoarthritis of both knees Primary localized osteoarthrosis, lower leg Osteopenia of necks of both femurs [facility] Diagnosis Routine physical examination- Primary Routine general medical examination at a health care facility Need for Tdap vaccination Need for prophylactic vaccination with combined idqsopfrpc-mbjevjn-tlncbhpvh (DTP) vaccine Lipid screening Screening for lipoid disorders Osteopenia Disorder of bone and cartilage, unspecified Screen for colon cancer Special screening for malignant neoplasms, colon Seropositive rheumatoid arthritis (HCC) Rheumatoid arthritis documented in this encounter [facility] Diagnosis Routine physical examination- Primary Routine general medical examination at a health care facility Need for Tdap vaccination Need for prophylactic vaccination with combined lvrsprkchd-qocdtlv-wvjkxhojt (DTP) vaccine Lipid screening Screening for lipoid disorders Osteopenia Disorder of bone and cartilage, unspecified Screen for colon cancer Special screening for malignant neoplasms, colon Encounter for screening mammogram for breast cancer documented in this encounter [facility] Diagnosis Routine physical examination- Primary Routine general medical examination at a health care facility Need for Tdap vaccination Need for prophylactic vaccination with combined tbiycqckkx-rvxscqb-ysewucnol (DTP) vaccine Lipid screening Screening for lipoid disorders Osteopenia Disorder of bone and cartilage, unspecified Screen for colon cancer Special screening for malignant neoplasms, colon Long-term use of immunosuppressant medication- Primary Encounter for long-term (current) use of other medications documented in this encounter [facility] for referral (narrative)* Diagnostic Procedure Only (Routine) - Pending Review Specialty Diagnoses / Procedures Referred By Shruti t Referred To Contact [facility] Diagnoses Pain Joint stiffness of toe of right foot Pain in toe of right foot Rheumatoid arthritis involving right foot with positive rheumatoid factor (HCC) Bursitis of right foot Neuroma Procedures US FOOT RT US COMPL JOINT R-T W/IMAGE DOCUMENTATION US LMTD JOINT/OTH NONVASC XTR STRUX R-T W/IMG Maribell Haas, DPM [address] [place] [address] [facility] Referral ID Status Reason Start Date Expiration Date Visits Requested Visits Authorized [id number] Pending Review Auto-Generat ed Referral 06/10/2022 07/10/2023 1 1 * Diagnostic Procedure Only (Routine) - Closed Specialty Diagnoses / Procedures Referred By Contac t Referred To Contact XR IMAGING Diagnoses Pain Procedures XR FOOT GENERAL 3V AP/LAT/OBL RIGHT RADEX FOOT COMPLETE MINIMUM 3 VIEWS Maribell Haas DPM [address] [place] [address] X[facility] Imaging Referral ID Status Reason Start Date Expiration Date V isits Requested Visits Authorized [id number] Closed Auto-Generate d Referral 06/04/2022 07/04/2023 1 1 [facility] for referral (narrative)* Diagnostic Procedure Only (Routine) - Closed Specialty Diagnoses / Procedures Referred By Contac t Referred To Contact XR IMAGING Diagnoses Bursitis of intermetatarsal bursa of right foot Capsulitis of foot, right Procedures XR FOOT GENERAL 3V AP/LAT/OBL RIGHT RADEX FOOT COMPLETE MINIMUM 3 VIEWS Maribell Haas DPM [address] [place] [address] [place] [id number] Referral ID Status Reason Start Date Expiration Date V isits Requested Visits Authorized [id number] Closed Auto-Generate d Referral 07/31/2023 08/29/2024 1 1 * Physical Therapy (Routine) - Authorized Specialty Diagnoses / Procedures Referred By Contac t Referred To Contact [facility] Diagnoses Bursitis of intermetatarsal bursa of right foot Capsulitis of foot, right Procedures CONSULT TO PHYSICAL THERAPY PHYSICAL THERAPY EVALUATION HIGH COMPLEX 45 MINS Maribell Haas DPM [address] [place] [address] [facility] [address] [place] [address] Referral ID Status Reason Start Date Expiration Date Visits Requested Visits Authorized [id number] Authorized PCP Requested Referral Auto-Generate d Referral 07/31/2023 07/30/2024 99 99 [facility] for referral (narrative)* Diagnostic Procedure Only (Routine) - Closed Specialty Diagnoses / Procedures Referred By Contac t Referred To Contact [facility] Diagnoses Encounter for screening mammogram for breast cancer Procedures ZAYNAB SCREENING SCREENING MAMMOGRAPHY BI 2-VIEW BREAST INC Chandana Mendoza MD [address] [place] [address] [facility] [address] [place] [address] Referral ID Status Reason Start Date Expiration Date V isits Requested Visits Authorized [id number] Closed Auto-Generate d Referral 12/17/2022 01/16/2024 1 1 [facility] for referral (narrative)* Diagnostic Procedure Only (Routine) - Pending Review Specialty Diagnoses / Procedures Referred By Contac t Referred To Contact XR IMAGING Diagnoses Asymptomatic postmenopausal status Procedures DXA-AXIAL SKELETON Chandana Beck MD [address] [place] [address] [place] [address] Referral ID Status Reason Start Date Expiration Date Visits Requested Visits Authorized [id number] Pending Review Auto-Generat ed Referral 02/07/2024 03/08/2025 1 1 * Diagnostic Procedure Only (Routine) - Pending Review Specialty Diagnoses / Procedures Referred By Contac t Referred To Contact [facility] Diagnoses Encounter for screening mammogram for breast cancer Procedures ZAYNAB SCREENING SCREENING MAMMOGRAPHY BI 2-VIEW BREAST INC Chandana Mendoza MD [address] [place] [address] [facility] [address] [place] [address] Referral ID Status Reason Start Date Expiration Date Visits Requested Visits Authorized [id number] Pending Review Auto-Generat ed Referral 02/03/2024 03/04/2025 1 1 [facility] for referral (narrative)* Diagnostic Procedure Only (Routine) - Closed Specialty Diagnoses / Procedures Referred By Contac t Referred To Contact XR IMAGING Diagnoses Bursitis of intermetatarsal bursa of right foot Capsulitis of foot, right Procedures XR FOOT GENERAL 3V AP/LAT/OBL RIGHT RADEX FOOT COMPLETE MINIMUM 3 VIEWS Maribell Haas DPM [address] [place] [phone] [place] [address] Referral ID Status Reason Start Date Expiration Date V isits Requested Visits Authorized [id number] Closed Auto-Generate d Referral 07/31/2023 08/29/2024 1 1 [facility] for referral (narrative)* Diagnostic Procedure Only (Routine) - Closed Specialty Diagnoses / Procedures Referred By Contac t Referred To Contact [facility] Diagnoses Pain Joint stiffness of toe of right foot Pain in toe of right foot Rheumatoid arthritis involving right foot with positive rheumatoid factor (HCC) Bursitis of right foot Neuroma Procedures US FOOT RT US COMPL JOINT R-T W/IMAGE DOCUMENTATION US LMTD JOINT/OTH NONVASC XTR STRUX R-T W/IMG Maribell Haas DPM [address] [place] [phone] [place] [address] Referral ID Status Reason Start Date Expiration Date V isits Requested Visits Authorized [id number] Closed Auto-Generate d Referral 06/10/2022 07/10/2023 1 1 T [facility] for referral (narrative)* Diagnostic Procedure Only (Routine) - Closed Specialty Diagnoses / Procedures Referred By Contac t Referred To Contact XR IMAGING Diagnoses Pain Procedures XR FOOT GENERAL 3V AP/LAT/OBL RIGHT RADEX FOOT COMPLETE MINIMUM 3 VIEWS Maribell Haas DPM [address] [place] [phone] [place] [address] Referral ID Status Reason Start Date Expiration Date V isits Requested Visits Authorized [id number] Closed Auto-Generate d Referral 06/04/2022 07/04/2023 1 1 [facility] for referral (narrative)* Diagnostic Procedure Only (Routine) - Closed Specialty Diagnoses / Procedures Referred By Contac t Referred To Contact XR IMAGING Diagnoses Seropositive rheumatoid arthritis (HCC) Pain in joint, multiple sites Procedures XR HAND GENERAL 3V PA/LAT/OBL BILATERAL X-RAY HAND MINIMUM 3 [place] [address] [place] [address] [place] [address] Referral ID Status Reason Start Date Expiration Date V isits Requested Visits Authorized [id number] Closed Auto-Generate d Referral 10/11/2021 11/10/2022 1 1 [facility] for visit Narrative* Diagnostic Procedure Only (Routine) - Closed Specialty Diagnoses / Procedures Referred By Contac t Referred To Contact [facility] Diagnoses Encounter for screening mammogram for breast cancer Procedures ZAYNAB SCREENING SCREENING MAMMOGRAPHY BI 2-VIEW BREAST INC Chandana Mendoza MD [address] [place] [address] [facility] [address] [place] [address] Referral ID Status Reason Start Date Expiration Date V isits Requested Visits Authorized [id number] Closed Auto-Generate d Referral 12/17/2022 01/16/2024 1 1 [facility] for visit Narrative* Diagnostic Procedure Only (Routine) - Closed Specialty Diagnoses / Procedures Referred By Contac t Referred To Contact [facility] IMAG[facility] Diagnoses Pain Joint stiffness of toe of right foot Pain in toe of right foot Rheumatoid arthritis involving right foot with positive rheumatoid factor (HCC) Bursitis of right foot Neuroma Procedures US FOOT RT US COMPL JOINT R-T W/IMAGE DOCUMENTATION US LMTD JOINT/OTH NONVASC XTR STRUX R-T W/IMG Maribell Haas DPM [address] [place] [address] [place] [address] Referral ID Status Reason Start Date Expiration Date V isits Requested Visits Authorized [id number] Closed Auto-Generate d Referral 06/10/2022 07/10/2023 1 1 [facility] for visit Narrative* Diagnostic Procedure Only (Routine) - Closed Specialty Diagnoses / Procedures Referred By Contac t Referred To Contact XR IMAGING Diagnoses Asymptomatic postmenopausal status Procedures DXA-AXIAL SKELETON Chandana Beck MD [address] [place] [address] [place] [address] Referral ID Status Reason Start Date Expiration Date V isits Requested Visits Authorized [id number] Closed Auto-Generate d Referral 02/07/2024 03/08/2025 1 1 [facility] for visit Narrative* Outpatient Procedure (Routine) - Closed Specialty Diagnoses / Procedures Referred By Contfortunato t Referred To Contact [facility] Diagnoses Screening for colon cancer Procedures COLONOSCOPY SCREENING COLONOSCOPY FLX DX W/COLLJ SPEC WHEN PFRMD Poonam Apodaca, MANAGER [employer] [address] [place] [address] Phone: tel: fax: [facility] [address] [place] [address] Referral ID Status Reason Start Date Expiration Date V isits Requested Visits Authorized [id number] Closed Auto-Generate d Referral 12/07/2024 12/07/2025 1 1 [facility] for visit Narrative* Diagnostic Procedure Only (Routine) - Closed Specialty Diagnoses / Procedures Referred By Contfortunato t Referred To Contact [facility] Diagnoses Encounter for screening mammogram for breast cancer Procedures ZAYNAB SCREENING W DELTA SCREENING DIGITAL BREAST TOMOSYNTHESIS BI SCREENING MAMMOGRAPHY BI 2-VIEW BREAST INC CAD Chandana Beck MD [address] [place] [address] Phone: tel: fax: [facility] [address] [place] [address] Referral ID Status Reason Start Date Expiration Date V isits Requested Visits Authorized [id number] Closed Auto-Generate d Referral 05/02/2025 06/01/2026 1 1 [facility] Advance Directives No Advanced Directives Records FoundDocuments on File Type Date Recorded 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 Advance Directive(s) 11/07/2019 8:53 AM Advance Directive(s) 11/07/2019 8:52 AM Documents on File Type Date Recorded 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 Advance Directive(s) 11/07/2019 8:53 AM Advance Directive(s) 11/07/2019 8:52 AM Documents on File Type Date Recorded 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 Advance Directive(s) 11/07/2019 8:52 AM Documents on File Type Date Recorded 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 Advance Directive(s) 11/07/2019 8:52 AM Reason for Referral Specialty Diagnoses / Procedures Referred By Shruti khan Referred To Contact Podiatry Diagnoses Joint stiffness of toe of right foot Pain in toe of right foot Procedures CONSULT TO PODIATRY OFFICE/OUTPATIENT [facility] 60-[place] [address] [place] [id number] Referral ID Status Reason Start Date Expiration Date Visits Requested Visits Authorized [id number] Pending Review PCP Requested Referral 04/08/2022 04/08/2023 1 1 Summary Purpose Family History No Family History Records FoundNo Family History Records FoundNo Family History Records Found Additional Source Comments Source Comments (unrecognize d section and content) In the event this informatio n is protected by the Federal Confidentiality of Alcohol and Drug Abuse Patient Records regulations: The Federal rules restrict any use of the information to criminally investigate or prosecute any alcohol or drug abuse patient.[facility] the event this information is protected by the Federal Confidentiality of Alcohol and Drug Abuse Patient Records regulations: The Federal rules restrict any use of the information to criminally investigate or prosecute any alcohol or drug abuse patient.[facility] the event this information is protected by the Federal Confidentiality of Alcohol and Drug Abuse Patient Records regulations: The Federal rules restrict any use of the information to criminally investigate or prosecute any alcohol or drug abuse patient.[facility] the event this information is protected by the Federal Confidentiality of Alcohol and Drug Abuse Patient Records regulations: The Federal rules restrict any use of the information to criminally investigate or prosecute any alcohol or drug abuse patient.[facility] the event this information is protected by the Federal Confidentiality of Alcohol and Drug Abuse Patient Records regulations: The Federal rules restrict any use of the information to criminally investigate or prosecute any alcohol or drug abuse patient.[facility] the event this information is protected by the Federal Confidentiality of Alcohol and Drug Abuse Patient Records regulations: The Federal rules restrict any use of the information to criminally investigate or prosecute any alcohol or drug abuse patient.[facility] the event this information is protected by the Federal Confidentiality of Alcohol and Drug Abuse Patient Records regulations: The Federal rules restrict any use of the information to criminally investigate or prosecute any alcohol or drug abuse patient.[facility]In the event this information is protected by the Federal Confidentiality of Alcohol and Drug Abuse Patient Records regulations: The Federal rules restrict any use of the information to criminally investigate or prosecute any alcohol or drug abuse patient.[facility] the event this information is protected by the Federal Confidentiality of Alcohol and Drug Abuse Patient Records regulations: The Federal rules restrict any use of the information to criminally investigate or prosecute any alcohol or drug abuse patient.[facility]In the event this information is protected by the Federal Confidentiality of Alcohol and Drug Abuse Patient Records regulations: The Federal rules restrict any use of the information to criminally investigate or prosecute any alcohol or drug abuse patient.[facility] the event this information is protected by the Federal Confidentiality of Alcohol and Drug Abuse Patient Records regulations: The Federal rules restrict any use of the information to criminally investigate or prosecute any alcohol or drug abuse patient.[facility] the event this information is protected by the Federal Confidentiality of Alcohol and Drug Abuse Patient Records regulations: The Federal rules restrict any use of the information to criminally investigate or prosecute any alcohol or drug abuse patient.[facility]In the event this information is protected by the Federal Confidentiality of Alcohol and Drug Abuse Patient Records regulations: The Federal rules restrict any use of the information to criminally investigate or prosecute any alcohol or drug abuse patient.[facility] the event this information is protected by the Federal Confidentiality of Alcohol and Drug Abuse Patient Records regulations: The Federal rules restrict any use of the information to criminally investigate or prosecute any alcohol or drug abuse patient.[facility] the event this information is protected by the Federal Confidentiality of Alcohol and Drug Abuse Patient Records regulations: The Federal rules restrict any use of the information to criminally investigate or prosecute any alcohol or drug abuse patient.[facility] the event this information is protected by the Federal Confidentiality of Alcohol and Drug Abuse Patient Records regulations: The Federal rules restrict any use of the information to criminally investigate or prosecute any alcohol or drug abuse patient.[facility] the event this information is protected by the Federal Confidentiality of Alcohol and Drug Abuse Patient Records regulations: The Federal rules restrict any use of the information to criminally investigate or prosecute any alcohol or drug abuse patient.[facility]In the event this information is protected by the Federal Confidentiality of Alcohol and Drug Abuse Patient Records regulations: The Federal rules restrict any use of the information to criminally investigate or prosecute any alcohol or drug abuse patient.[facility]In the event this information is protected by the Federal Confidentiality of Alcohol and Drug Abuse Patient Records regulations: The Federal rules restrict any use of the information to criminally investigate or prosecute any alcohol or drug abuse patient.[facility]In the event this information is protected by the Federal Confidentiality of Alcohol and Drug Abuse Patient Records regulations: The Federal rules restrict any use of the information to criminally investigate or prosecute any alcohol or drug abuse patient.[facility]In the event this information is protected by the Federal Confidentiality of Alcohol and Drug Abuse Patient Records regulations: The Federal rules restrict any use of the information to criminally investigate or prosecute any alcohol or drug abuse patient.[facility]In the event this information is protected by the Federal Confidentiality of Alcohol and Drug Abuse Patient Records regulations: The Federal rules restrict any use of the information to criminally investigate or prosecute any alcohol or drug abuse patient.[facility]In the event this information is protected by the Federal Confidentiality of Alcohol and Drug Abuse Patient Records regulations: The Federal rules restrict any use of the information to criminally investigate or prosecute any alcohol or drug abuse patient.[facility]In the event this information is protected by the Federal Confidentiality of Alcohol and Drug Abuse Patient Records regulations: The Federal rules restrict any use of the information to criminally investigate or prosecute any alcohol or drug abuse patient.[facility]In the event this information is protected by the Federal Confidentiality of Alcohol and Drug Abuse Patient Records regulations: The Federal rules restrict any use of the information to criminally investigate or prosecute any alcohol or drug abuse patient.[facility]In the event this information is protected by the Federal Confidentiality of Alcohol and Drug Abuse Patient Records regulations: The Federal rules restrict any use of the information to criminally investigate or prosecute any alcohol or drug abuse patient.[facility]In the event this information is protected by the Federal Confidentiality of Alcohol and Drug Abuse Patient Records regulations: The Federal rules restrict any use of the information to criminally investigate or prosecute any alcohol or drug abuse patient.[facility]In the event this information is protected by the Federal Confidentiality of Alcohol and Drug Abuse Patient Records regulations: The Federal rules restrict any use of the information to criminally investigate or prosecute any alcohol or drug abuse patient.[facility]In the event this information is protected by the Federal Confidentiality of Alcohol and Drug Abuse Patient Records regulations: The Federal rules restrict any use of the information to criminally investigate or prosecute any alcohol or drug abuse patient.[facility]In the event this information is protected by the Federal Confidentiality of Alcohol and Drug Abuse Patient Records regulations: The Federal rules restrict any use of the information to criminally investigate or prosecute any alcohol or drug abuse patient.[facility]In the event this information is protected by the Federal Confidentiality of Alcohol and Drug Abuse Patient Records regulations: The Federal rules restrict any use of the information to criminally investigate or prosecute any alcohol or drug abuse patient.[facility]In the event this information is protected by the Federal Confidentiality of Alcohol and Drug Abuse Patient Records regulations: The Federal rules restrict any use of the information to criminally investigate or prosecute any alcohol or drug abuse patient.[facility]In the event this information is protected by the Federal Confidentiality of Alcohol and Drug Abuse Patient Records regulations: The Federal rules restrict any use of the information to criminally investigate or prosecute any alcohol or drug abuse patient.[facility] HospitalIn the event this information is protected by the Federal Confidentiality of Alcohol and Drug Abuse Patient Records regulations: The Federal rules restrict any use of the information to criminally investigate or prosecute any alcohol or drug abuse patient.[facility] HospitalIn the event this information is protected by the Federal Confidentiality of Alcohol and Drug Abuse Patient Records regulations: The Federal rules restrict any use of the information to criminally investigate or prosecute any alcohol or drug abuse patient.[facility] HospitalIn the event this information is protected by the Federal Confidentiality of Alcohol and Drug Abuse Patient Records regulations: The Federal rules restrict any use of the information to criminally investigate or prosecute any alcohol or drug abuse patient.[facility] HospitalIn the event this information is protected by the Federal Confidentiality of Alcohol and Drug Abuse Patient Records regulations: The Federal rules restrict any use of the information to criminally investigate or prosecute any alcohol or drug abuse patient.[facility] HospitalIn the event this information is protected by the Federal Confidentiality of Alcohol and Drug Abuse Patient Records regulations: The Federal rules restrict any use of the information to criminally investigate or prosecute any alcohol or drug abuse patient.[facility] HospitalIn the event this information is protected by the Federal Confidentiality of Alcohol and Drug Abuse Patient Records regulations: The Federal rules restrict any use of the information to criminally investigate or prosecute any alcohol or drug abuse patient.[facility] HospitalIn the event this information is protected by the Federal Confidentiality of Alcohol and Drug Abuse Patient Records regulations: The Federal rules restrict any use of the information to criminally investigate or prosecute any alcohol or drug abuse patient.[facility] HospitalIn the event this information is protected by the Federal Confidentiality of Alcohol and Drug Abuse Patient Records regulations: The Federal rules restrict any use of the information to criminally investigate or prosecute any alcohol or drug abuse patient.[facility] HospitalIn the event this information is protected by the Federal Confidentiality of Alcohol and Drug Abuse Patient Records regulations: The Federal rules restrict any use of the information to criminally investigate or prosecute any alcohol or drug abuse patient.[facility] HospitalIn the event this information is protected by the Federal Confidentiality of Alcohol and Drug Abuse Patient Records regulations: The Federal rules restrict any use of the information to criminally investigate or prosecute any alcohol or drug abuse patient.[facility] HospitalIn the event this information is protected by the Federal Confidentiality of Alcohol and Drug Abuse Patient Records regulations: The Federal rules restrict any use of the information to criminally investigate or prosecute any alcohol or drug abuse patient.[facility] HospitalIn the event this information is protected by the Federal Confidentiality of Alcohol and Drug Abuse Patient Records regulations: The Federal rules restrict any use of the information to criminally investigate or prosecute any alcohol or drug abuse patient.[facility] HospitalIn the event this information is protected by the Federal Confidentiality of Alcohol and Drug Abuse Patient Records regulations: The Federal rules restrict any use of the information to criminally investigate or prosecute any alcohol or drug abuse patient.[facility] HospitalIn the event this information is protected by the Federal Confidentiality of Alcohol and Drug Abuse Patient Records regulations: The Federal rules restrict any use of the information to criminally investigate or prosecute any alcohol or drug abuse patient.[facility] HospitalIn the event this information is protected by the Federal Confidentiality of Alcohol and Drug Abuse Patient Records regulations: The Federal rules restrict any use of the information to criminally investigate or prosecute any alcohol or drug abuse patient.[facility] HospitalIn the event this information is protected by the Federal Confidentiality of Alcohol and Drug Abuse Patient Records regulations: The Federal rules restrict any use of the information to criminally investigate or prosecute any alcohol or drug abuse patient.[facility] HospitalIn the event this information is protected by the Federal Confidentiality of Alcohol and Drug Abuse Patient Records regulations: The Federal rules restrict any use of the information to criminally investigate or prosecute any alcohol or drug abuse patient.[facility] HospitalIn the event this information is protected by the Federal Confidentiality of Alcohol and Drug Abuse Patient Records regulations: The Federal rules restrict any use of the information to criminally investigate or prosecute any alcohol or drug abuse patient.[facility] HospitalIn the event this information is protected by the Federal Confidentiality of Alcohol and Drug Abuse Patient Records regulations: The Federal rules restrict any use of the information to criminally investigate or prosecute any alcohol or drug abuse patient.[facility] HospitalIn the event this information is protected by the Federal Confidentiality of Alcohol and Drug Abuse Patient Records regulations: The Federal rules restrict any use of the information to criminally investigate or prosecute any alcohol or drug abuse patient.[facility] HospitalIn the event this information is protected by the Federal Confidentiality of Alcohol and Drug Abuse Patient Records regulations: The Federal rules restrict any use of the information to criminally investigate or prosecute any alcohol or drug abuse patient.[facility] HospitalIn the event this information is protected by the Federal Confidentiality of Alcohol and Drug Abuse Patient Records regulations: The Federal rules restrict any use of the information to criminally investigate or prosecute any alcohol or drug abuse patient.[facility] HospitalIn the event this information is protected by the Federal Confidentiality of Alcohol and Drug Abuse Patient Records regulations: The Federal rules restrict any use of the information to criminally investigate or prosecute any alcohol or drug abuse patient.[facility] HospitalIn the event this information is protected by the Federal Confidentiality of Alcohol and Drug Abuse Patient Records regulations: The Federal rules restrict any use of the information to criminally investigate or prosecute any alcohol or drug abuse patient.[facility] HospitalIn the event this information is protected by the Federal Confidentiality of Alcohol and Drug Abuse Patient Records regulations: The Federal rules restrict any use of the information to criminally investigate or prosecute any alcohol or drug abuse patient.[facility] HospitalIn the event this information is protected by the Federal Confidentiality of Alcohol and Drug Abuse Patient Records regulations: The Federal rules restrict any use of the information to criminally investigate or prosecute any alcohol or drug abuse patient.[facility] HospitalIn the event this information is protected by the Federal Confidentiality of Alcohol and Drug Abuse Patient Records regulations: The Federal rules restrict any use of the information to criminally investigate or prosecute any alcohol or drug abuse patient.[facility] the event this information is protected by the Federal Confidentiality of Alcohol and Drug Abuse Patient Records regulations: The Federal rules restrict any use of the information to criminally investigate or prosecute any alcohol or drug abuse patient.[facility] HospitalIn the event this information is protected by the Federal Confidentiality of Alcohol and Drug Abuse Patient Records regulations: The Federal rules restrict any use of the information to criminally investigate or prosecute any alcohol or drug abuse patient.[facility] HospitalIn the event this information is protected by the Federal Confidentiality of Alcohol and Drug Abuse Patient Records regulations: The Federal rules restrict any use of the information to criminally investigate or prosecute any alcohol or drug abuse patient.[facility]In the event this information is protected by the Federal Confidentiality of Alcohol and Drug Abuse Patient Records regulations: The Federal rules restrict any use of the information to criminally investigate or prosecute any alcohol or drug abuse patient.[facility] HospitalIn the event this information is protected by the Federal Confidentiality of Alcohol and Drug Abuse Patient Records regulations: The Federal rules restrict any use of the information to criminally investigate or prosecute any alcohol or drug abuse patient.[facility] HospitalIn the event this information is protected by the Federal Confidentiality of Alcohol and Drug Abuse Patient Records regulations: The Federal rules restrict any use of the information to criminally investigate or prosecute any alcohol or drug abuse patient.[facility] Reason for Visit (unrecogniz ed section and content) Reason Comments Physical Therapy Specialty Diagnoses / Procedures Referred By Shruti t Referred To Contact [facility] Diagnoses Bursitis of intermetatarsal bursa of right foot Capsulitis of foot, right Procedures CONSULT TO PHYSICAL THERAPY PHYSICAL THERAPY EVALUATION HIGH COMPLEX 45 MINS Maribell Haas DPM [address] [place] [id number] [facility] [place] [address] [place] [address] Referral ID Status Reason Start Date Expiration Date Visits Requested Visits Authorized [id number] Authorized PCP Requested Referral Auto-Generate d Referral 07/31/2023 07/30/2024 99 99 Reason Comments PT Progress Note Reason Comments Refill Request Reason Comments Established Patient Specialty Diagnoses / Procedures Referred By Contac t Referred To Contact Rheumatology Diagnoses Arthritis Procedures CONSULT TO RHEUM/IMMUN DISEASE NEW PATIENT VISIT LEVEL 5 Chandana Beck MD [address] [place] [address] [place] [address] [place] [address] Referral ID Status Reason Start Date Expiration Date Visits Requested Visits Authorized [id number] Pending Review PCP Requested Referral 05/29/2021 05/24/2022 1 1 Reason Comments Established Patient Reason Comments New Specialty Diagnoses / Procedures Referred By Contac t Referred To Contact Podiatry Diagnoses Joint stiffness of toe of right foot Pain in toe of right foot Procedures CONSULT TO PODIATRY OFFICE/OUTPATIENT NEW HIGH MDM 60-[place] [address] [place] [address] Referral ID Status Reason Start Date Expiration Date V isits Requested Visits Authorized [id number] Closed PCP Requested Referral 04/08/2022 04/08/2023 1 1 Reason Comments Appointment Reason Comments Yearly Exam Reason Onset Date Comments Refill Request 09/26/2022 Reason Comments Sore Throat X1 week+ Reason Comments Abstract PLQ eye exam Reason Comments Medication Problem Reason Comments Follow Up Discuss advanced dir ectives Reason Onset Date Comments Refill Request 04/16/2023 Reason Comments Established Patient Reason Comments PT Eval Reason Comments General Questions Reason Onset Date Comments Refill Request 08/25/2023 Refill Request 08/26/2023 Reason Comments Yearly Exam Labs prior Reason Onset Date Comments Refill Request 09/03/2023 Refill Request 09/15/2023 Reason Comments Established Patient Follow Up Reason Onset Date Comments Refill Request 04/21/2024 Reason Comments Radio Gen RMP Specialty Diagnoses / Procedures Referred By Contac t Referred To Contact XR IMAGING Diagnoses Bursitis of intermetatarsal bursa of right foot Capsulitis of foot, right Procedures XR FOOT GENERAL 3V AP/LAT/OBL RIGHT RADEX FOOT COMPLETE MINIMUM 3 VIEWS Maribell Haas DPM [address] [place] [address] [place] [address] Referral ID Status Reason Start Date Expiration Date V isits Requested Visits Authorized [id number] Closed Auto-Generate d Referral 07/31/2023 08/29/2024 1 1 Specialty Diagnoses / Procedures Referred By Contac t Referred To Contact XR IMAGING Diagnoses Pain Procedures XR FOOT GENERAL 3V AP/LAT/OBL RIGHT RADEX FOOT COMPLETE MINIMUM 3 VIEWS Maribell Haas, DPSkylar [address] [place] [id number] [place] [address] Referral ID Status Reason Start Date Expiration Date V isits Requested Visits Authorized [id number] Closed Auto-Generate d Referral 06/04/2022 07/04/2023 1 1 Specialty Diagnoses / Procedures Referred By Contac t Referred To Contact XR IMAGING Diagnoses Seropositive rheumatoid arthritis (HCC) Pain in joint, multiple sites Procedures XR HAND GENERAL 3V PA/LAT/OBL BILATERAL X-RAY HAND MINIMUM 3 [place] [address] [place] [address] [place] [address] Referral ID Status Reason Start Date Expiration Date V isits Requested Visits Authorized [id number] Closed Auto-Generate d Referral 10/11/2021 11/10/2022 1 1 Reason Comments Medicare Wellness Exam Reason Comments Question See note Reason Comments Orders Reason Comments needs instructions for colon prep Reason Comments Arthritis Reason Onset Date Comments Refill Request 04/10/2025 Reason Comments Fatigue Reason Comments Rheumatoid Arthritis Reason Onset Date Comments Refill Request 06/05/2025 Reason Onset Date Comments Refill Request 06/30/2025 Care Teams (unrecognized sec tion and content) Catheterization Laboratory Technician Relationship Specialty Start Date End Date Chandana Beck MD [address] [place], [place] [id number] PCP - General 04/10/03 Catheterization Laboratory Technician Relationship Specialty Start Date End Date Chandana Beck MD [address] [place] [address] PCP - General 04/10/03 Catheterization Laboratory Technician Relationship Specialty Start Date End Date Chandana Beck MD [address] [place] [address] PCP - General 04/10/03 Catheterization Laboratory Technician Relationship Specialty Start Date End Date Chandana Beck MD [address] [place] [address], [place] [address] PCP - General 04/10/03 Catheterization Laboratory Technician Relationship Specialty Start Date End Date Chandana Beck MD [address] [place] [address], [place] [address] PCP - General 04/10/03 Catheterization Laboratory Technician Relationship Specialty Start Date End Date Chandana Beck MD [address] [place] [address], [place] [address] PCP - General 04/10/03 Catheterization Laboratory Technician Relationship Specialty Start Date End Date Chandana Beck MD [address] [place] [address], [place] [address] PCP - General 04/10/03 Catheterization Laboratory Technician Relationship Specialty Start Date End Date Chandana Beck MD [address] [place] [address], [place] [address] PCP - General 04/10/03 Catheterization Laboratory Technician Relationship Specialty Start Date End Date Chandana Beck MD [address] [place] [address], [place] [address] PCP - General 04/10/03 Catheterization Laboratory Technician Relationship Specialty Start Date End Date Chandana Beck MD [address] [place] [address], [place] [address] PCP - General 04/10/03 Catheterization Laboratory Technician Relationship Specialty Start Date End Date Chandana Beck MD [address] [place] [address] PCP - General 04/10/03 Catheterization Laboratory Technician Relationship Specialty Start Date End Date Chandana Beck MD [address] [place] [address] PCP - General 04/10/03 Catheterization Laboratory Technician Relationship Specialty Start Date End Date Chandana Beck MD [address] [place] [address] PCP - General 04/10/03 Catheterization Laboratory Technician Relationship Specialty Start Date End Date Chandana Beck MD [address] [place] [address] PCP - General 04/10/03 Catheterization Laboratory Technician Relationship Specialty Start Date End Date Chandana Beck MD [address] [place] [address] PCP - General 04/10/03 Catheterization Laboratory Technician Relationship Specialty Start Date End Date Chandana Beck MD [address] [place] [address] PCP - General 04/10/03 Catheterization Laboratory Technician Relationship Specialty Start Date End Date Chandana Beck MD [address] [place] [address] PCP - General 04/10/03 Catheterization Laboratory Technician Relationship Specialty Start Date End Date Chandana Beck MD [address] [place] [address] PCP - General 04/10/03 Catheterization Laboratory Technician Relationship Specialty Start Date End Date Chandana Beck MD [address] [place] [address] PCP - General 04/10/03 Catheterization Laboratory Technician Relationship Specialty Start Date End Date Chandana Beck MD [address] [place] [address] PCP - General 04/10/03 Catheterization Laboratory Technician Relationship Specialty Start Date End Date Chandana Beck MD [address] [place] [address] PCP - General 04/10/03 Catheterization Laboratory Technician Relationship Specialty Start Date End Date Chandana Beck MD [address] [place] [address] PCP - General 04/10/03 Catheterization Laboratory Technician Relationship Specialty Start Date End Date Chandana Beck MD [address] [place] [address] PCP - General 04/10/03 Catheterization Laboratory Technician Relationship Specialty Start Date End Date Chandana Beck MD [address] [place] [address] PCP - General 04/10/03 Catheterization Laboratory Technician Relationship Specialty Start Date End Date Chandana Beck MD [address] [place] [address] PCP - General 04/10/03 Catheterization Laboratory Technician Relationship Specialty Start Date End Date Chandana Beck MD [address] [place] [address] PCP - General 04/10/03 Catheterization Laboratory Technician Relationship Specialty Start Date End Date Chandana Beck MD [address] [place] [address] PCP - General 04/10/03 Catheterization Laboratory Technician Relationship Specialty Start Date End Date Chandana Beck MD [address] [place] [address] PCP - General 04/10/03 Catheterization Laboratory Technician Relationship Specialty Start Date End Date Chandana Beck MD [address] [place] [address] PCP - General 04/10/03 Catheterization Laboratory Technician Relationship Specialty Start Date End Date Chandana Beck MD [address] [place] [address] PCP - General 04/10/03 Catheterization Laboratory Technician Relationship Specialty Start Date End Date Chandana Beck MD [address] [place] [address] PCP - General 04/10/03 Catheterization Laboratory Technician Relationship Specialty Start Date End Date Chandana Beck MD [address] [place] [address] PCP - General 04/10/03 Lyn Sewell, MANAGER FIBER.MOLD PULLER [address] [place] [address] Airfield Manager Internal Medicine 10/03/24 Eli Herrera, MANAGER FIBER.FURNACE LINER [address] [place] [address] Airfield Manager Internal Medicine 10/03/24 Catheterization Laboratory Technician Relationship Specialty Start Date End Date Chandana Beck MD [address] [place] [address] PCP - General 04/10/03 Lyn Sewell, MANAGER FIBER.MOLD PULLER [address] [place] [address] Airfield Manager Internal Medicine 10/03/24 Eli Herrera MANAGER FIBER.FURNACE LINER [address] [place] [address] Airfield Manager Internal Medicine 10/03/24 Catheterization Laboratory Technician Relationship Specialty Start Date End Date Chandana Beck MD [address] [place] [address] PCP - General 04/10/03 Lyn Sewell, MANAGER FIBER.MOLD PULLER [address] [place] [address] Airfield Manager Internal Medicine 10/03/24 Eli Herrera MANAGER FIBER.FURNACE LINER [address] [facility] [place] [address] Airfield Manager Internal Medicine 10/03/24 Catheterization Laboratory Technician Relationship Specialty Start Date End Date Chandana Beck MD [address] [place] [address] PCP - General 04/10/03 Lyn Sewell, MANAGER FIBER.MOLD PULLER [address] [place] [address] Airfield Manager Internal Medicine 10/03/24 Eli Herrera MANAGER FIBER.FURNACE LINER [address] [place] [address] Airfield Manager Internal Medicine 10/03/24 Catheterization Laboratory Technician Relationship Specialty Start Date End Date Chandana Beck MD [address] [place] [address] PCP - General 04/10/03 Lyn Sewell, MANAGER FIBER.MOLD PULLER [address] [place] [address] Airfield Manager Internal Medicine 10/03/24 Eli Herrera MANAGER FIBER.FURNACE LINER [address] [place] [address] Airfield Manager Internal Medicine 10/03/24 01/13/25 Catheterization Laboratory Technician Relationship Specialty Start Date End Date Chandana Beck MD [address] [place] [address] PCP - General 04/10/03 Lyn Sewell, MANAGER FIBER.MOLD PULLER [address] [place] [address] Airfield Manager Internal Medicine 10/03/24 Eli Herrera MANAGER FIBER.FURNACE LINER [address] [place] [address] [facility] Internal Medicine 01/17/25 Catheterization Laboratory Technician Relationship Specialty Start Date End Date Chandana Beck MD [address] [place] [address] PCP - General 04/10/03 Eli Herrera MANAGER FIBER.FURNACE LINER [address] [place] [address] Airfield Manager Internal Medicine 01/17/25 Lyn Sewell, MANAGER FIBER.MOLD PULLER [address] [place] [address] Airfield Manager Internal Medicine 03/15/25 Catheterization Laboratory Technician Relationship Specialty Start Date End Date Chandana Beck MD [address] [place] [address] PCP - General 04/10/03 Eli Herrera MANAGER FIBER.FURNACE LINER [address] [place] [address] Airfield Manager Internal Medicine 01/17/25 Lyn Sewell, MANAGER FIBER.MOLD PULLER [address] [place] [address] Airfield Manager Internal Medicine 03/15/25 Catheterization Laboratory Technician Relationship Specialty Start Date End Date Chandana Beck MD [address] [place] [address] PCP - General 04/10/03 Lyn Sewell, MANAGER FIBER.MOLD PULLER [address] [place] [address] Airfield Manager Internal Medicine 10/03/24 03/14/25 Eli Herrera, MANAGER FIBER.FURNACE LINER [address] [place] [address] Airfield Manager Internal Medicine 01/17/25 Lyn Sewell, MANAGER FIBER.MOLD PULLER [address] [place] [address] Airfield Manager Internal Medicine 03/15/25 Catheterization Laboratory Technician Relationship Specialty Start Date End Date Chandana Beck MD [address] [place] [address] PCP - General 04/10/03 Eli Herrera APRN.FURNACE LINER [address] [place] [address] Airfield Manager Internal Medicine 01/17/25 Lyn Sewell, MANAGER FIBER.MOLD PULLER [address] [place] [address] Airfield Manager Internal Medicine 03/15/25 Catheterization Laboratory Technician Relationship Specialty Start Date End Date Chandana Beck MD [address] [place] [address] PCP - General 04/10/03 Eli Herrera APRN.FURNACE LINER [address] [place] [address] Airfield Manager Internal Medicine 01/17/25 Lyn Sewell, MANAGER FIBER.MOLD PULLER [address] [place] [address] Airfield Manager Internal Medicine 03/15/25 Catheterization Laboratory Technician Relationship Specialty Start Date End Date Chandana Beck MD [address] [place] [address] PCP - General 04/10/03 Eli Herrera APRN.FURNACE LINER [address] [place] [address] Airfield Manager Internal Medicine 01/17/25 Lyn Sewell, MANAGER FIBER.MOLD PULLER [address] [place] [address] Airfield Manager Internal Medicine 03/15/25 Catheterization Laboratory Technician Relationship Specialty Start Date End Date Chandana Beck MD [address] [place] [address] PCP - General 04/10/03 Eli Herrera MANAGER FIBER.FURNACE LINER [address] [place] [address] [employer] Manager Internal Medicine 01/17/25 Lyn Sewell, MANAGER FIBER.MOLD PULLER [address] [place] [address] Airfield Manager Internal Medicine 03/15/25 Catheterization Laboratory Technician Relationship Specialty Start Date End Date Chandana Beck MD [address] [place] [address] PCP - General 04/10/03 Eli Herrera MANAGER FIBER.FURNACE LINER [address] [place] [address] Airfield Manager Internal Medicine 01/17/25 Lyn Sewell, MANAGER FIBER.MOLD PULLER [address] [place] [address] Airfield Manager Internal Medicine 03/15/25 Catheterization Laboratory Technician Relationship Specialty Start Date End Date Chandana Beck MD [address] [place] [address] PCP - General 04/10/03 Eli Herrera, MANAGER FIBER.FURNACE LINER [address] [place] [address] Airfield Manager Internal Medicine 01/17/25 Lyn Sewell, MANAGER FIBER.MOLD PULLER [address] [place], [place] [address] [facility] Internal Medicine 03/15/25 Catheterization Laboratory Technician Relationship Specialty Start Date End Date Chandana Beck MD [address] [place], [place] [id number] PCP - General 04/10/03 Eli Herrera MANAGER FIBER.FURNACE LINER [address] [place], [place] [address] [facility] Internal Medicine 01/17/25 Lyn Sewell, MANAGER FIBER.MOLD PULLER [address] [place], [place] [address] [facility] Internal Medicine 03/15/25 INFORMATION SOURCE (unrecogn ized section and content) DATE CREATED AUTHOR 09/15/2022 [facility] DATE CREATED AUTHOR AUTHOR'S ORGANIZ ATION 08/06/2024 [place] DATE CREATED AUTHOR AUTHOR'S ORGANIZ ATION 07/20/2025 [facility] FOR RECORDS PERTAINING TO PATIENTS WHO ARE OR HAVE BEEN ENROLLED IN A CHEMICAL DEPENDENCY/SUBSTANCEABUSE PROGRAM, SOME INFORMATION MAY BE OMITTED. This clinical summary was aggregated from multiple sources. Caution should be exercised in using it in the provision of clinical care. This summary normalizes information from multiple sources, and as a consequence, information in this document may materially change the coding, format and clinical context of patient data. In addition, data may be omitted in some cases. CLINICAL DECISIONS SHOULD BE BASED ON THE PRIMARY CLINICAL RECORDS. [employer] provides no warranty or guarantee of the accuracy or completeness of information in this document.
[2025-08-11 17:20] LABS: Troponin T High Sens 2 HR 6 ng/L (<=14)
[2025-08-11 18:00] VITALS: BP 96/76; PULSE 75; O2SAT 98
[2025-08-11 18:13] VITALS: BP 96/76; PULSE 75; RESP 15; TEMP 36.9; O2SAT 98
== END 2025-08-11 18:16 | disposition home or self-care (01) ==
PROVIDERS: Emergency Provider Emergency Medicine; PCP Internal Medicine; Visit Provider Emergency Medicine
DX: R07.89 Other chest pain (principal); M06.9 Rheumatoid arthritis, unspecified; M85.80 Other specified disorders of bone density and structure, unspecified site; Z78.0 Asymptomatic menopausal state
CPT/HCPCS: 71046; 80048; 84484; 85025; 93005; 99284; A4216